=== PATIENT | female | born 1960 | race Caucasian/White ===

== ENCOUNTER 2022-05-27 13:48 | Inpatient (IN) | payer OTHER, MEDICAID, SELFPAY ==
[2022-05-27] VITALS (92 sets, daily range): BP systolic 69–120; BP diastolic 38–63; PULSE 81–142; RESP 11–32; TEMP 36.7–38.7; O2SAT 76–100; BMI 25.7
[2022-05-27] MEDS: SODIUM CHLORIDE 0.9% 1,000 ML 1000 ML IV (14:19)
[2022-05-27 14:26] LABS: Add Manual Diff / Slide Review NO; Basophils Absolute Auto 0 /uL (0-100); Basophils Percent Auto 1.3 % (0-2); Eosinophils Absolute Auto 0 /uL (0-450); Eosinophils Percent Auto 1.3 % (2-4); Hematocrit 24.3 % (36-46); Hemoglobin 8.6 g/dL (12.0-16.0); Lymphocytes Absolute Auto 400 /uL (1100-4500); Lymphocytes Percent Auto 18.1 % (25-40); Mean Corpuscular HGB Conc 35.4 % (30-36); Mean Corpuscular Hemoglobin 36.4 PG (26-34); Mean Corpuscular Volume 102.8 fL (80-100); Monocytes Absolute Auto 100 /uL (0-900); Monocytes Percent Auto 5.1 % (3-14); Neutrophils Absolute Auto 1600 /uL (1500-7000); Neutrophils Percent Auto 74.2 % (50-75); Platelet Count 118 X10^3/uL (150-400); Red Blood Cell Count 2.36 X10^6/uL (4.0-5.2); Red Cell Distribution Width 20.8 % (11.6-14.8); White Blood Cell Count 2.1 X10^3/uL (4.5-11.0)
[2022-05-27 14:35] LABS: Albumin 3.4 g/dL (3.5-5.0); Alkaline Phosphatase 132 U/L (38-126); Aspartate Aminotransferase 33 IU/L (14-36); BUN Creatinine Ratio 24.2 (6-22); Bilirubin Total 1.6 mg/dL (0.2-1.3); Blood Urea Nitrogen 23 mg/dL (7-17); Carbon Dioxide 30 mmol/L (22-32); Chloride 92 mmol/L (98-107); Estimated Glomerular Filt Rate > 60 mL/min (>60); Globulin 3.5 g/dL (1.7-4.1); Glucose 152 mg/dL (80-110); HEMOLYSIS < 15 (0-50); Lipase 126 U/L (23-300); Sodium 131 mmol/L (137-145); Total Protein 6.9 g/dL (6.3-8.2)
[2022-05-27 14:36] LABS: Potassium 2.2 mmol/L (3.4-5.1)
[2022-05-27 14:41] LABS: Alanine Aminotransferase 41 IU/L (<35)
[2022-05-27 14:49] LABS: Anisocytosis 2+; Macrocytosis 2+
[2022-05-27 14:50] LABS: Platelet Estimate Decreased on smear; Polychromasia 1+
--- NOTE | 2022-05-27 14:52 | ED_ITS ---
HPI - Nausea/Vomiting/Diarrhea General Chief complaint: Nausea/Vomiting/Diarrhea Stated complaint: NVD Time Seen by Provider: 05/27/22 14:32 Source: patient and EMS Mode of arrival: EMS History of Present Illness HPI Narrative: Patient brought in by ambulance from home. Patient here with daughter. Complains of general malaise weakness nausea vomiting diarrhea. Blood pressure and heart rate noted. Has responded by IV hydration. Patient has history of metastatic breast cancer to the spine and pelvis. Just finished some radiation therapy. Patient sees primary care and oncology in [place]. Patient has had few episodes of black stools. Has history anemia. No prior history of transfusions. She states her hemoglobin averages about 8.0. Gets very tired and short of breath with walking. Feels very weak. Patient has pale con junctiva. No cough cold congestion. Related Data Home Medications Medication Instructions Recorded Confirmed abemaciclib 150 mg tablet 150 mg PO BID 05/28/22 05/28/22 (Verzenio) apixaban 5 mg tablet (Eliquis) 5 mg PO BID 05/28/22 05/28/22 letrozole 2.5 mg tablet 2.5 mg PO DAILY 05/28/22 05/28/22 rosuvastatin 20 mg tablet 20 mg PO QPM 05/28/22 05/28/22 Previous Rx's Medication Instructions Recorded vancomycin 125 mg capsule 125 mg PO QID #48 caps 05/30/22 Allergies Allergy/AdvReac Type Severity Reaction Status Date / Time No Known Drug Allergies Allergy Verified 05/27/22 18:53 Review of Systems Review of Systems Narrative: GENERAL: negative chills, positive fatigue, malaise, negative fever, sweats. HEENT: negative sinus pain, ear pain, sore throat RESPIRATORY: negative dyspnea, cough CARDIOVASCULAR: negative chest pain, palpitations GASTROINTESTINAL: Positive diarrhea and nausea, vomiting, negative abdominal pain : negative dysuria, frequency, hematuria, positive decreased urine production MUSCULOSKELETAL: negative muscle or bony pain SKIN: negative rash, skin lesions NEUROLOGIC: negative weakness, numbness ROS Unobtainable: All systems reviewed & are unremarkable except as noted in HPI and below Patient History Social History household members: none Smoking Status: Never smoker alcohol intake: former Exam Narrative Exam Narrative: GENERAL: in no distress, not toxic not dyspneic, fatigued-appearing HEAD: Normocephalic. EYES: Pupils equal round No scleral icterus. Pale conjunctivae ENT: Mucous membranes moist. NECK: Trachea midline. CARDIOVASCULAR: Regular rate and rhythm without murmurs, is tachycardic RESPIRATORY: Clear to auscultation. Breath sounds equal bilaterally. No wheezes, rales, or rhonchi. GASTROINTESTINAL: Abdomen soft, non-tender, no peritoneal signs, bowel sounds are present EXTREMITIES: No gross deformities. BACK: No flank tenderness. NEURO: AOx4. SKIN: Warm and dry PSYCH: Not anxious, is cooperative Initial Vital Signs Initial Vital Signs: Vital Signs Temperature 98.1 F 05/27/22 13:57 Pulse Rate 113 H 05/27/22 13:57 Respiratory Rate 20 05/27/22 13:57 Blood Pressure 91/60 05/27/22 13:57 Pulse Oximetry 98 05/27/22 13:57 Oxygen Delivery Method 05/27/22 13:57 Procedures Central Line Placement Right Femoral: Time of procedure: 18:16 Time Out Performed: Yes Patient Placed on Monitor/Pulse Ox: Yes MD Prep: mask, gown and gloves Central Line Prep: Chlorhexidine scrub and sterile drapes applied Local Anesthetic: lidocaine 1% Amount of anesthesia used (mL): 3 Ultrasound Used for Placement: Yes Central Line Lumen Inserted: triple Post Procedure: sutured in place, good blood return, all ports aspirated, flushed, capped and sterile dressing applied Patient Tolerated Procedure: Well Complications: none Course Course Course Narrative: No new issues during course of stay Decision to Admit Date: 05/27/22 Decision to Admit time: 14:55 Orders Ordered: Discontinued Medications Acetaminophen (Acetaminophen 650 Mg Supp) 650 mg [place] NOW ONE Stop: 05/27/22 17:07 Last Admin: 05/27/22 17:29 Dose: 650 mg Documented By: ANNE-MARIE Acetaminophen (Acetaminophen 325 Mg Tablet) 650 mg PO Q6H PRN PRN Reason: Fever/Mild Pain (1-3) Apixaban (Apixaban 5 Mg Tablet) 5 mg PO BID [facility] Last Admin: 05/27/22 21:43 Dose: 5 mg Documented By: RAFA Calcium Carbonate (Calcium Carbonate 500 Mg Tab) 500 mg PO PRN PRN PRN Reason: Dyspepsia Last Admin: 05/28/22 19:35 Dose: 500 mg Documented By: Admin: 05/28/22 17:03 Dose: 500 mg Documented By: Admin: 05/28/22 13:11 Dose: 500 mg Documented By: Admin: 05/28/22 01:24 Dose: 500 mg Documented By: RAFA Diphenhydramine HCl (Diphenhydramine 50 Mg/Ml Vial) 25 mg IV PRN PRN PRN Reason: Transfusion Reaction Diphenhydramine HCl (Diphenhydramine 25 Mg Tablet) 25 mg PO Q6H PRN PRN Reason: Allergic Symptoms Enoxaparin Sodium (Enoxaparin 40 Mg/0.4 Ml Syringe) 40 mg SUBCUT DAILY [facility] Last Admin: 05/27/22 20:31 Dose: Not Given Documented By: ALDO Fidaxomicin (Fidaxomicin 200 Mg Tablet) 200 mg PO BID [facility] Last Admin: 05/28/22 23:14 Dose: 200 mg Documented By: BAYLEE Heparin Sodium (Porcine) (Heparin Flush (Cl/Picc/Mid-Line) 50 Unit/5 Ml Syringe) 50 unit IV PRN PRN PRN Reason: Flush Hydrocortisone (Hydrocortisone 100 Mg/2 Ml Vial) 50 mg IV Q6HR [facility] Last Admin: 05/29/22 05:50 Dose: 50 mg Documented By: Admin: 05/28/22 23:14 Dose: 50 mg Documented By: Admin: 05/28/22 17:52 Dose: 50 mg Documented By: Admin: 05/28/22 11:12 Dose: 50 mg Documented By: Admin: 05/28/22 06:11 Dose: 50 mg Documented By: Admin: 05/27/22 23:28 Dose: 50 mg Documented By: RAFA Sodium Chloride (Normal Saline 0.9%) 1,000 mls @ 1,000 mls/hr IV BOLUS ONE Stop: 05/27/22 15:13 Last Infusion: 05/27/22 15:16 Dose: 0 mls/hr Documented By: Admin: 05/27/22 14:19 Dose: 1,000 mls/hr Documented By: HENRY POTASSIUM CHLORIDE IN WATER (Potassium Cl 10 Meq/100 Ml Rhianna) 10 meq in 100 mls @ 100 mls/hr IV Q1H [facility]ARYC[facility]EN Stop: 05/27/22 16:59 Last Infusion: 05/27/22 17:30 Dose: 0 mls/hr Documented By: ANNE-MARIE Admin: 05/27/22 16:12 Dose: 100 mls/hr Documented By: Infusion: 05/27/22 16:09 Dose: 0 mls/hr Documented By: Infusion: 05/27/22 15:21 Dose: 100 mls/hr Documented By: Infusion: 05/27/22 15:08 Dose: 0 mls/hr Documented By: ANNE-MARIE Admin: 05/27/22 14:59 Dose: 100 mls/hr Documented By: ALDO Lactated Ringer's (Lactated Ringers) 1,000 mls @ 1,000 mls/hr IV BOLUS ONE Stop: 05/27/22 16:59 Last Infusion: 05/27/22 18:06 Dose: 0 mls/hr Documented By: ANNE-MARIE Admin: 05/27/22 16:13 Dose: 1,000 mls/hr Documented By: ALDO Piperacillin Sod/Tazobactam (Sod 4.5 gm/ Sodium Chloride) 100 mls @ 200 mls/hr IV NOW ONE Stop: 05/27/22 17:10 Last Infusion: 05/27/22 18:48 Dose: 0 mls/hr Documented By: Admin: 05/27/22 17:56 Dose: 200 mls/hr Documented By: ANNE-MARIE POTASSIUM CHLORIDE IN WATER (Potassium Cl 10 Meq/100 Ml Rhianna) 10 meq in 100 mls @ 100 mls/hr IV Q1H [facility]EN Stop: 05/27/22 19:29 Last Infusion: 05/27/22 19:34 Dose: 0 mls/hr Documented By: Admin: 05/27/22 18:30 Dose: 100 mls/hr Documented By: ANNE-MARIE Infusion: 05/27/22 18:30 Dose: 100 mls/hr Documented By: ANNE-MARIE Admin: 05/27/22 17:32 Dose: 100 mls/hr Documented By: ANNE-MARIE NOREPINEPHRINE BITARTRATE/D5W (Levophed) 4 mg in 250 mls @ 30 mls/hr IV TITRATE MARYCARMEN; Protocol Last Titration: 05/28/22 15:25 Dose: 0 mcg/min, 0 mls/hr Documented By: Titration: 05/28/22 13:15 Dose: 1 mcg/min, 3.75 mls/hr Documented By: Titration: 05/28/22 13:13 Dose: 0 mcg/min, 0 mls/hr Documented By: Titration: 05/28/22 12:17 Dose: 1 mcg/min, 3.75 mls/hr Documented By: Titration: 05/28/22 11:15 Dose: 2 mcg/min, 7.5 mls/hr Documented By: Titration: 05/28/22 09:44 Dose: 3 mcg/min, 11.25 mls/hr Documented By: Titration: 05/28/22 08:54 Dose: 4 mcg/min, 15 mls/hr Documented By: Admin: 05/28/22 07:32 Dose: 5 mcg/min, 18.75 mls/hr Documented By: Titration: 05/28/22 07:32 Dose: 5 mcg/min, 18.75 mls/hr Documented By: Titration: 05/27/22 23:45 Dose: 5 mcg/min, 18.75 mls/hr Documented By: Titration: 05/27/22 21:47 Dose: 4 mcg/min, 15 mls/hr Documented By: Titration: 05/27/22 18:54 Dose: 3 mcg/min, 11.25 mls/hr Documented By: ANNE-MARIE Admin: 05/27/22 18:10 Dose: 4 mcg/min, 15 mls/hr Documented By: ANNE-MARIE Cefepime HCl 2 gm/ Sodium (Chloride) 100 mls @ 200 mls/hr IV Q12H MARYCARMEN Last Infusion: 05/29/22 17:17 Dose: 0 mls/hr Documented By: Admin: 05/29/22 05:50 Dose: 200 mls/hr Documented By: Infusion: 05/28/22 18:30 Dose: 0 mls/hr Documented By: Admin: 05/28/22 17:52 Dose: 200 mls/hr Documented By: Infusion: 05/28/22 07:11 Dose: 0 mls/hr Documented By: Admin: 05/28/22 06:12 Dose: 200 mls/hr Documented By: Infusion: 05/27/22 19:51 Dose: 0 mls/hr Documented By: Admin: 05/27/22 19:02 Dose: 200 mls/hr Documented By: ANNE-MARIE Piperacillin Sod/Tazobactam (Sod 3.375 gm/ Sodium Chloride) 100 mls @ 25 mls/hr IV Q8H [facility] Last Admin: 05/28/22 12:57 Dose: Not Given Documented By: Infusion: 05/28/22 04:08 Dose: 0 mls/hr Documented By: Admin: 05/27/22 23:29 Dose: 25 mls/hr Documented By: RAFA Linezolid (Zyvox) 600 mg in 300 mls @ 600 mls/hr IV Q12H [facility] Last Infusion: 05/28/22 21:30 Dose: 0 mls/hr Documented By: Admin: 05/28/22 20:42 Dose: 600 mls/hr Documented By: Infusion: 05/28/22 09:28 Dose: 0 mls/hr Documented By: Admin: 05/28/22 08:58 Dose: 600 mls/hr Documented By: Infusion: 05/28/22 00:12 Dose: 0 mls/hr Documented By: Admin: 05/27/22 22:59 Dose: 600 mls/hr Documented By: RAFA Lactated Ringer's (Lactated Ringers) 1,000 mls @ 125 mls/hr IV CONT [facility] Last Infusion: 05/29/22 17:17 Dose: 0 mls/hr Documented By: Infusion: 05/29/22 12:41 Dose: 0 mls/hr Documented By: Admin: 05/29/22 05:02 Dose: 125 mls/hr Documented By: Infusion: 05/29/22 04:42 Dose: 125 mls/hr Documented By: Admin: 05/28/22 20:42 Dose: 125 mls/hr Documented By: Infusion: 05/28/22 20:42 Dose: 125 mls/hr Documented By: Admin: 05/28/22 13:11 Dose: 125 mls/hr Documented By: Infusion: 05/28/22 13:11 Dose: 125 mls/hr Documented By: Admin: 05/28/22 05:14 Dose: 125 mls/hr Documented By: Infusion: 05/28/22 05:14 Dose: 125 mls/hr Documented By: Admin: 05/27/22 23:30 Dose: 125 mls/hr Documented By: RAFA POTASSIUM CHLORIDE IN WATER (Potassium Cl 10 Meq/100 Ml Rhianna) 10 meq in 100 mls @ 100 mls/hr IV Q1H [facility]ARYCARMEN Stop: 05/28/22 04:59 Last Infusion: 05/28/22 06:07 Dose: 0 mls/hr Documented By: [facility] Admin: 05/28/22 05:14 Dose: 100 mls/hr Documented By: [facility] Infusion: 05/28/22 05:13 Dose: 0 mls/hr Documented By: [facility] Admin: 05/28/22 04:08 Dose: 100 mls/hr Documented By: [facility] Infusion: 05/28/22 04:07 Dose: 0 mls/hr Documented By: [facility] Admin: 05/28/22 02:55 Dose: 100 mls/hr Documented By: [facility] Infusion: 05/28/22 02:55 Dose: 0 mls/hr Documented By: [facility] Admin: 05/28/22 02:05 Dose: 100 mls/hr Documented By: [facility] Infusion: 05/28/22 02:05 Dose: 0 mls/hr Documented By: [facility] Admin: 05/28/22 00:50 Dose: 100 mls/hr Documented By: [facility] Infusion: 05/28/22 00:46 Dose: 0 mls/hr Documented By: [facility] Admin: 05/27/22 23:28 Dose: 100 mls/hr Documented By: RAFA Amiodarone HCl/Dextrose (Nexterone) 360 mg in 200 mls @ 33.333 mls/hr IV NOW ONE; Protocol Stop: 05/28/22 05:53 Last Titration: 05/28/22 00:13 Dose: 0 ml/hr, 0 mls/hr Documented By: Admin: 05/28/22 00:11 Dose: 33.3 ml/hr, 33.3 mls/hr Documented By: BAYLEE Amiodarone HCl/Dextrose (Nexterone) 360 mg in 200 mls @ 16.7 mls/hr IV CONT MARYCARMEN; Protocol Stop: 05/28/22 17:59 Last Admin: 05/28/22 06:13 Dose: Not Given Documented By: RAFA Lactated Ringer's (Lactated Ringers) 500 mls @ 1,000 mls/hr IV BOLUS ONE Stop: 05/28/22 00:25 Last Infusion: 05/28/22 01:07 Dose: 0 mls/hr Documented By: [facility] Admin: 05/28/22 00:00 Dose: 1,000 mls/hr Documented By: RAFA Piperacillin Sod/Tazobactam (Sod 3.375 gm/ Sodium Chloride) 100 mls @ 25 mls/hr IV Q8H [facility] Last Infusion: 05/29/22 03:15 Dose: 0 mls/hr Documented By: Admin: 05/28/22 23:13 Dose: 25 mls/hr Documented By: Infusion: 05/28/22 19:50 Dose: 0 mls/hr Documented By: Admin: 05/28/22 15:43 Dose: 25 mls/hr Documented By: Infusion: 05/28/22 11:36 Dose: 0 mls/hr Documented By: Admin: 05/28/22 07:36 Dose: 25 mls/hr Documented By: KT POTASSIUM CHLORIDE IN WATER (Potassium Cl 10 Meq/100 Ml Rhianna) 10 meq in 100 mls @ 100 mls/hr IV Q1H [facility]ARYCARMEN Stop: 05/28/22 13:44 Last Admin: 05/28/22 13:14 Dose: 100 mls/hr Documented By: Infusion: 05/28/22 13:14 Dose: 100 mls/hr Documented By: Admin: 05/28/22 12:15 Dose: 100 mls/hr Documented By: Infusion: 05/28/22 12:12 Dose: 0 mls/hr Documented By: Admin: 05/28/22 11:12 Dose: 100 mls/hr Documented By: Infusion: 05/28/22 11:11 Dose: 100 mls/hr Documented By: Admin: 05/28/22 10:11 Dose: 100 mls/hr Documented By: KT POTASSIUM CHLORIDE IN WATER (Potassium Cl 10 Meq/100 Ml Rhianna) 10 meq in 100 mls @ 100 mls/hr IV Q1H [facility]EN Stop: 05/29/22 01:29 Last Admin: 05/29/22 02:57 Dose: Not Given Documented By: Infusion: 05/29/22 02:56 Dose: 0 mls/hr Documented By: Admin: 05/29/22 01:51 Dose: 100 mls/hr Documented By: Infusion: 05/29/22 01:35 Dose: 100 mls/hr Documented By: Admin: 05/29/22 00:35 Dose: 100 mls/hr Documented By: Infusion: 05/29/22 00:13 Dose: 100 mls/hr Documented By: Admin: 05/28/22 23:13 Dose: 100 mls/hr Documented By: Infusion: 05/28/22 22:46 Dose: 100 mls/hr Documented By: Admin: 05/28/22 21:46 Dose: 100 mls/hr Documented By: Infusion: 05/28/22 21:42 Dose: 100 mls/hr Documented By: Admin: 05/28/22 20:42 Dose: 100 mls/hr Documented By: BAYLEE Melatonin (Melatonin 3 Mg Tablet) 6 mg PO BEDTIME PRN PRN Reason: Insomnia Metoclopramide HCl (Metoclopramide 10 Mg/2 Ml Inj) 10 mg IV NOW ONE Stop: 05/27/22 17:55 Last Admin: 05/27/22 18:49 Dose: Not Given Documented By: ANNE-MARIE Metronidazole (Metronidazole 500 Mg Tablet) 500 mg PO TID [facility] Last Admin: 05/28/22 12:57 Dose: Not Given Documented By: Admin: 05/28/22 12:57 Dose: Not Given Documented By: SUBHASH Naloxone HCl (Naloxone 0.4 Mg/Ml Vial) 0.2 mg IV Q2MIN PRN PRN Reason: Opiate Reversal Ondansetron HCl (Ondansetron 4 Mg/2 Ml Inj) 4 mg IV Q4HR PRN PRN Reason: Nausea And Vomiting Pantoprazole Sodium (Pantoprazole 40 Mg Vial) 20 mg IV BID [facility] Last Admin: 05/29/22 09:23 Dose: 20 mg Documented By: Admin: 05/28/22 21:57 Dose: 20 mg Documented By: BAYLEE Potassium Chloride (Potassium Chloride 20 Meq/15 Ml Udc) 40 meq PO NOW ONE Stop: 05/27/22 14:51 Last Admin: 05/27/22 15:30 Dose: Not Given Documented By: RB Potassium Chloride (Potassium Chloride 20 Meq Tab) 40 meq PO NOW ONE Stop: 05/30/22 07:11 Last Admin: 05/30/22 08:35 Dose: 40 meq Documented By: RL Sodium Chloride (Sodium Chloride 0.9% Flush) 10 ml IV PRN PRN PRN Reason: Flush Sodium Chloride (Sodium Chloride 0.9% Flush) 10 ml IV BID [facility] Last Admin: 05/29/22 09:23 Dose: 10 ml Documented By: Admin: 05/28/22 21:27 Dose: 10 ml Documented By: Admin: 05/28/22 08:58 Dose: 10 ml Documented By: KT Sodium Chloride (Sodium Chloride 0.9% Flush) 10 ml IV PRN PRN PRN Reason: Flush Sodium Chloride (Sodium Chloride 0.9% Flush) 10 ml IV BID [facility] Last Admin: 05/30/22 01:23 Dose: 10 ml Documented By: CHANNING Vancomycin HCl (Vancomycin Per Pharmacy) 1 request MISC NOW ONE Stop: 05/27/22 18:28 Last Admin: 05/28/22 03:05 Dose: Not Given Documented By: RAFA Vancomycin HCl (Vancomycin 125 Mg Capsule) 500 mg PO Q6H [facility] Stop: 06/12/22 07:14 Last Admin: 05/30/22 18:15 Dose: 500 mg Documented By: Admin: 05/30/22 12:46 Dose: 500 mg Documented By: Admin: 05/30/22 08:35 Dose: 500 mg Documented By: Admin: 05/30/22 01:24 Dose: 500 mg Documented By: Admin: 05/29/22 18:53 Dose: 500 mg Documented By: Admin: 05/29/22 12:34 Dose: 500 mg Documented By: Admin: 05/29/22 08:07 Dose: 500 mg Documented By: Reevaluation(s) Reevaluation #1: Patient developed altered mental status/confusion. Rectal temp is 101.5. Rectal Tylenol has been ordered. Time: 17:08 Consultations Consultation #1: Spoke with Cardiology, Dr. Gonzalez, on-call, at this time no heparin, would not pursue non-STEMI. Given patient's condition and dehydration may be stress related elevated troponin. Would get echocardiogram during course of stay. Time: 16:00 Consultation #2: Spoke with hospitalist, Dr. Sanches, will admit to ICU Time: 18:23 Vital Signs Vital signs: Vital Signs - 8 hr 05/27/22 13:57 05/27/22 14:26 05/27/22 14:13 Temperature 98.1 F 99.1 F Pulse Rate 113 H 105 H Respiratory Rate 20 24 Blood Pressure 91/60 Pulse Oximetry 98 100 Oxygen Delivery Method Room Air 05/27/22 14:30 05/27/22 14:39 05/27/22 14:39 Temperature Pulse Rate 105 H 104 H Respiratory Rate 27 H 22 Blood Pressure 92/42 L Pulse Oximetry 100 100 Oxygen Delivery Method 05/27/22 14:51 05/27/22 14:51 05/27/22 14:55 Temperature Pulse Rate 103 H 101 H Respiratory Rate 27 H 25 H Blood Pressure 82/51 L Pulse Oximetry 100 100 Oxygen Delivery Method 05/27/22 14:55 05/27/22 15:00 05/27/22 15:01 Temperature Pulse Rate 100 H 102 H Respiratory Rate 24 32 H Blood Pressure 89/55 L Pulse Oximetry 100 100 Oxygen Delivery Method Room Air 05/27/22 15:01 05/27/22 15:05 05/27/22 15:05 Temperature Pulse Rate 102 H Respiratory Rate 23 Blood Pressure 83/47 L 101/50 L Pulse Oximetry 99 Oxygen Delivery Method 05/27/22 15:10 05/27/22 15:10 05/27/22 15:15 Temperature Pulse Rate 102 H Respiratory Rate Blood Pressure 98/52 L 97/55 L Pulse Oximetry 100 Oxygen Delivery Method 05/27/22 15:15 05/27/22 15:17 05/27/22 15:17 Temperature Pulse Rate 100 H 99 H Respiratory Rate 21 25 H Blood Pressure 104/61 Pulse Oximetry 100 100 Oxygen Delivery Method 05/27/22 15:20 05/27/22 15:20 05/27/22 15:25 Temperature Pulse Rate 101 H Respiratory Rate 19 Blood Pressure 101/59 L 100/58 L Pulse Oximetry 100 Oxygen Delivery Method 05/27/22 15:25 05/27/22 15:30 05/27/22 15:30 Temperature Pulse Rate 103 H 100 H Respiratory Rate 22 23 Blood Pressure 100/57 L Pulse Oximetry 100 100 Oxygen Delivery Method 05/27/22 15:35 05/27/22 15:35 05/27/22 15:40 Temperature Pulse Rate 104 H Respiratory Rate 23 Blood Pressure 100/58 L 95/52 L Pulse Oximetry 100 Oxygen Delivery Method 05/27/22 15:40 05/27/22 15:45 05/27/22 15:45 Temperature Pulse Rate 101 H 98 H Respiratory Rate 24 Blood Pressure 85/51 L Pulse Oximetry 100 100 Oxygen Delivery Method 05/27/22 15:48 05/27/22 15:48 05/27/22 15:50 Temperature Pulse Rate 101 H Respiratory Rate 22 Blood Pressure 98/55 L 86/56 L Pulse Oximetry 100 Oxygen Delivery Method 05/27/22 15:50 05/27/22 15:55 05/27/22 16:00 Temperature 99.7 F H Pulse Rate 100 H Respiratory Rate 19 Blood Pressure 83/56 L Pulse Oximetry 100 Oxygen Delivery Method 05/27/22 16:00 05/27/22 16:03 05/27/22 16:03 Temperature Pulse Rate 102 H 103 H Respiratory Rate 28 H 18 Blood Pressure 95/52 L Pulse Oximetry 100 100 Oxygen Delivery Method 05/27/22 16:10 05/27/22 16:10 05/27/22 16:20 Temperature Pulse Rate 104 H 106 H Respiratory Rate 15 17 Blood Pressure 96/51 L Pulse Oximetry 100 100 Oxygen Delivery Method 05/27/22 16:20 05/27/22 16:30 05/27/22 16:30 Temperature Pulse Rate 111 H Respiratory Rate 15 Blood Pressure 86/53 L 96/51 L Pulse Oximetry 100 Oxygen Delivery Method 05/27/22 16:40 05/27/22 16:40 05/27/22 16:43 Temperature Pulse Rate 116 H Respiratory Rate 22 Blood Pressure 87/54 L 94/51 L Pulse Oximetry 76 L Oxygen Delivery Method 05/27/22 16:43 05/27/22 16:50 05/27/22 16:50 Temperature 100.4 F H Pulse Rate 113 H 109 H Respiratory Rate 22 20 Blood Pressure 92/55 L Pulse Oximetry 97 Oxygen Delivery Method 05/27/22 16:51 05/27/22 16:51 05/27/22 17:00 Temperature 100.6 F H 101.5 F H Pulse Rate 109 H 107 H Respiratory Rate 23 Blood Pressure 96/51 L Pulse Oximetry 100 98 Oxygen Delivery Method 05/27/22 17:04 05/27/22 17:04 05/27/22 17:06 Temperature 101.5 F H Pulse Rate 110 H Respiratory Rate Blood Pressure 94/47 L 82/46 L Pulse Oximetry 100 Oxygen Delivery Method 05/27/22 17:06 05/27/22 17:10 05/27/22 17:10 Temperature 101.3 F H 101.5 F H Pulse Rate 112 H 112 H Respiratory Rate Blood Pressure 85/51 L Pulse Oximetry 100 93 Oxygen Delivery Method MDM - Nausea/Vomiting/Diarrhea Differential Diagnosis Differential diagnosis: Likely drug-induced nausea and vomiting, dehydration and other (Anemia/GI bleed/dehydration/electrolyte imbalance/sepsis) Lab Data Result diagrams: 05/30/22 04:17 05/30/22 04:17 Labs: Lab Results 05/27/22 05/27/22 05/27/22 Range/Units 13:56 13:56 13:56 WBC 2.1 L (4.5-11.0) X10^3/uL RBC 2.36 L (4.0-5.2) X10^6/uL Hgb 8.6 L (12.0-16.0) g/dL Hct 24.3 L (36-46) % MCV 102.8 H (80-100) fL MCH 36.4 H (26-34) PG MCHC 35.4 (30-36) % RDW 20.8 H (11.6-14.8) % Plt Count 118 L (150-400) X10^3/uL Neut % (Auto) 74.2 (50-75) % Lymph % (Auto) 18.1 L (25-40) % [place] % (Auto) 5.1 (3-14) % Eos % (Auto) 1.3 L (2-4) % Baso % (Auto) 1.3 (0-2) % Neut # (Auto) 1600 (0482-0272) /uL Lymph # (Auto) 400 L (4467-2721) /uL [place] # (Auto) 100 (0-900) /uL Eos # (Auto) 0 (0-450) /uL Baso # (Auto) 0 (0-100) /uL Platelet Estimate Decreased on smear RBC Morphology See below Polychromasia 1+ H Anisocytosis 2+ H Macrocytosis 2+ H PT (10.1-12.7) SECONDS INR (0.9-1.3) APTT (26-36) SECONDS Sodium 131 L (137-145) mmol/L Potassium 2.2 L* (3.4-5.1) mmol/L Chloride 92 L (98-107) mmol/L Carbon Dioxide 30 (22-32) mmol/L BUN 23 H (7-17) mg/dL Creatinine 0.95 (0.52-1.04) mg/dL Estimated GFR > 60 (>60) mL/min BUN/Creatinine Ratio 24.2 H (6-22) Glucose 152 H (80-110) mg/dL Lactate 5.2 H* (0.7-2.1) mmol/L Calcium 9.0 (8.4-10.2) mg/dL Magnesium (1.6-2.3) mg/dL Total Bilirubin 1.6 H (0.2-1.3) mg/dL AST 33 (14-36) IU/L ALT 41 H (<35) IU/L Alkaline Phosphatase 132 H (38-126) U/L Total Creatine Kinase (30-135) U/L CK-MB (CK-2) CK-MB (CK-2) Rel Index Troponin I (0.01-0.034) ng/mL Total Protein 6.9 (6.3-8.2) g/dL Albumin 3.4 L (3.5-5.0) g/dL Globulin 3.5 (1.7-4.1) g/dL Albumin/Globulin Ratio 1.0 (1.0-2.8) Lipase 126 (23-300) U/L Procalcitonin (<0.5) ng/mL Urine Color Urine Appearance Urine pH (4.5-8.0) Ur Specific [place] (1.000-1.035) Urine Protein (Negative) Urine Glucose (UA) (Negative) g/dL Urine Ketones (NEGATIVE) Urine Occult Blood (Negative) Urine Nitrate (Negative) Urine Bilirubin (NEGATIVE) Urine Urobilinogen (0.2) E.U./dL Ur Leukocyte Esterase (NEGATIVE) Urine RBC (0-5/HPF) Urine WBC (0-5/HPF) Ur Squamous Epith Cells (0-5/HPF) Urine Bacteria (None) Urine Mucus (Negative) Ur Culture Indicated? Chlamy pneumoniae PCR (Not Detect) Adenovirus (PCR) (Not Detect) B. pertussis DNA (PCR) (Not Detecte) B.parapertussis DNA PCR (Not Detecte) Coronavirus OC43 (PCR) (Not Detect) Coronavirus HKU1 (PCR) (Not Detect) Coronavirus 229E (PCR) (Not Detect) SARS-CoV-2 (PCR) (Not Detecte) Coronavirus NL63 (PCR) (Not Detect) Human Metapneumovir PCR (Not Detect) Influenza Type A (PCR) (Not Detect) Influenza Type B (PCR) (Not Detect) M. pneumoniae (PCR) (Not Detect) Parainfluenza 1 (PCR) (Not Detect) Parainfluenza 2 (PCR) (Not Detect) Parainfluenza 3 (PCR) (Not Detect) Parainfluenza 4 (PCR) (Not Detect) RSV (PCR) (Not Detect) Entero/Rhino (PCR) (Not Detect) Blood Type Antibody Screen Crossmatch 05/27/22 05/27/22 05/27/22 Range/Units 13:56 13:56 14:16 WBC (4.5-11.0) X10^3/uL RBC (4.0-5.2) X10^6/uL Hgb (12.0-16.0) g/dL Hct (36-46) % MCV (80-100) fL MCH (26-34) PG MCHC (30-36) % RDW (11.6-14.8) % Plt Count (150-400) X10^3/uL Neut % (Auto) (50-75) % Lymph % (Auto) (25-40) % [place] % (Auto) (3-14) % Eos % (Auto) (2-4) % Baso % (Auto) (0-2) % Neut # (Auto) (2996-1833) /uL Lymph # (Auto) (6828-5694) /uL [place] # (Auto) (0-900) /uL Eos # (Auto) (0-450) /uL Baso # (Auto) (0-100) /uL Platelet Estimate RBC Morphology Polychromasia Anisocytosis Macrocytosis PT 29.8 H (10.1-12.7) SECONDS INR 2.6 H (0.9-1.3) APTT 29 (26-36) SECONDS Sodium (137-145) mmol/L Potassium (3.4-5.1) mmol/L Chloride (98-107) mmol/L Carbon Dioxide (22-32) mmol/L BUN (7-17) mg/dL Creatinine (0.52-1.04) mg/dL Estimated GFR (>60) mL/min BUN/Creatinine Ratio (6-22) Glucose (80-110) mg/dL Lactate (0.7-2.1) mmol/L Calcium (8.4-10.2) mg/dL Magnesium (1.6-2.3) mg/dL Total Bilirubin (0.2-1.3) mg/dL AST (14-36) IU/L ALT (<35) IU/L Alkaline Phosphatase (38-126) U/L Total Creatine Kinase (30-135) U/L CK-MB (CK-2) CK-MB (CK-2) Rel Index Troponin I (0.01-0.034) ng/mL Total Protein (6.3-8.2) g/dL Albumin (3.5-5.0) g/dL Globulin (1.7-4.1) g/dL Albumin/Globulin Ratio (1.0-2.8) Lipase (23-300) U/L Procalcitonin 0.17 (<0.5) ng/mL Urine Color Urine Appearance Urine pH (4.5-8.0) Ur Specific [place] (1.000-1.035) Urine Protein (Negative) Urine Glucose (UA) (Negative) g/dL Urine Ketones (NEGATIVE) Urine Occult Blood (Negative) Urine Nitrate (Negative) Urine Bilirubin (NEGATIVE) Urine Urobilinogen (0.2) E.U./dL Ur Leukocyte Esterase (NEGATIVE) Urine RBC (0-5/HPF) Urine WBC (0-5/HPF) Ur Squamous Epith Cells (0-5/HPF) Urine Bacteria (None) Urine Mucus (Negative) Ur Culture Indicated? Chlamy pneumoniae PCR Not detected (Not Detect) Adenovirus (PCR) Not detected (Not Detect) B. pertussis DNA (PCR) Not detected (Not Detecte) B.parapertussis DNA PCR Not detected (Not Detecte) Coronavirus OC43 (PCR) Not detected (Not Detect) Coronavirus HKU1 (PCR) Not detected (Not Detect) Coronavirus 229E (PCR) Not detected (Not Detect) SARS-CoV-2 (PCR) Not detected (Not Detecte) Coronavirus NL63 (PCR) Not detected (Not Detect) Human Metapneumovir PCR Not detected (Not Detect) Influenza Type A (PCR) Not detected (Not Detect) Influenza Type B (PCR) Not detected (Not Detect) M. pneumoniae (PCR) Not detected (Not Detect) Parainfluenza 1 (PCR) Not detected (Not Detect) Parainfluenza 2 (PCR) Not detected (Not Detect) Parainfluenza 3 (PCR) Not detected (Not Detect) Parainfluenza 4 (PCR) Not detected (Not Detect) RSV (PCR) Not detected (Not Detect) Entero/Rhino (PCR) Not detected (Not Detect) Blood Type Antibody Screen Crossmatch 05/27/22 05/27/22 05/27/22 Range/Units 14:40 15:02 15:02 WBC (4.5-11.0) X10^3/uL RBC (4.0-5.2) X10^6/uL Hgb (12.0-16.0) g/dL Hct (36-46) % MCV (80-100) fL MCH (26-34) PG MCHC (30-36) % RDW (11.6-14.8) % Plt Count (150-400) X10^3/uL Neut % (Auto) (50-75) % Lymph % (Auto) (25-40) % [place] % (Auto) (3-14) % Eos % (Auto) (2-4) % Baso % (Auto) (0-2) % Neut # (Auto) (7044-4001) /uL Lymph # (Auto) (0650-9197) /uL [place] # (Auto) (0-900) /uL Eos # (Auto) (0-450) /uL Baso # (Auto) (0-100) /uL Platelet Estimate RBC Morphology Polychromasia Anisocytosis Macrocytosis PT (10.1-12.7) SECONDS INR (0.9-1.3) APTT (26-36) SECONDS Sodium (137-145) mmol/L Potassium (3.4-5.1) mmol/L Chloride (98-107) mmol/L Carbon Dioxide (22-32) mmol/L BUN (7-17) mg/dL Creatinine (0.52-1.04) mg/dL Estimated GFR (>60) mL/min BUN/Creatinine Ratio (6-22) Glucose (80-110) mg/dL Lactate (0.7-2.1) mmol/L Calcium (8.4-10.2) mg/dL Magnesium 2.6 H (1.6-2.3) mg/dL Total Bilirubin (0.2-1.3) mg/dL AST (14-36) IU/L ALT (<35) IU/L Alkaline Phosphatase (38-126) U/L Total Creatine Kinase 71 (30-135) U/L CK-MB (CK-2) TNP CK-MB (CK-2) Rel Index TNP Troponin I 0.143 H* (0.01-0.034) ng/mL Total Protein (6.3-8.2) g/dL Albumin (3.5-5.0) g/dL Globulin (1.7-4.1) g/dL Albumin/Globulin Ratio (1.0-2.8) Lipase (23-300) U/L Procalcitonin (<0.5) ng/mL Urine Color Urine Appearance Urine pH (4.5-8.0) Ur Specific [place] (1.000-1.035) Urine Protein (Negative) Urine Glucose (UA) (Negative) g/dL Urine Ketones (NEGATIVE) Urine Occult Blood (Negative) Urine Nitrate (Negative) Urine Bilirubin (NEGATIVE) Urine Urobilinogen (0.2) E.U./dL Ur Leukocyte Esterase (NEGATIVE) Urine RBC (0-5/HPF) Urine WBC (0-5/HPF) Ur Squamous Epith Cells (0-5/HPF) Urine Bacteria (None) Urine Mucus (Negative) Ur Culture Indicated? Chlamy pneumoniae PCR (Not Detect) Adenovirus (PCR) (Not Detect) B. pertussis DNA (PCR) (Not Detecte) B.parapertussis DNA PCR (Not Detecte) Coronavirus OC43 (PCR) (Not Detect) Coronavirus HKU1 (PCR) (Not Detect) Coronavirus 229E (PCR) (Not Detect) SARS-CoV-2 (PCR) (Not Detecte) Coronavirus NL63 (PCR) (Not Detect) Human Metapneumovir PCR (Not Detect) Influenza Type A (PCR) (Not Detect) Influenza Type B (PCR) (Not Detect) M. pneumoniae (PCR) (Not Detect) Parainfluenza 1 (PCR) (Not Detect) Parainfluenza 2 (PCR) (Not Detect) Parainfluenza 3 (PCR) (Not Detect) Parainfluenza 4 (PCR) (Not Detect) RSV (PCR) (Not Detect) Entero/Rhino (PCR) (Not Detect) Blood Type A Positive Antibody Screen Negative Crossmatch See Detail 05/27/22 Range/Units 17:00 WBC (4.5-11.0) X10^3/uL RBC (4.0-5.2) X10^6/uL Hgb (12.0-16.0) g/dL Hct (36-46) % MCV (80-100) fL MCH (26-34) PG MCHC (30-36) % RDW (11.6-14.8) % Plt Count (150-400) X10^3/uL Neut % (Auto) (50-75) % Lymph % (Auto) (25-40) % [place] % (Auto) (3-14) % Eos % (Auto) (2-4) % Baso % (Auto) (0-2) % Neut # (Auto) (7330-1130) /uL Lymph # (Auto) (0562-7580) /uL [place] # (Auto) (0-900) /uL Eos # (Auto) (0-450) /uL Baso # (Auto) (0-100) /uL Platelet Estimate RBC Morphology Polychromasia Anisocytosis Macrocytosis PT (10.1-12.7) SECONDS INR (0.9-1.3) APTT (26-36) SECONDS Sodium (137-145) mmol/L Potassium (3.4-5.1) mmol/L Chloride (98-107) mmol/L Carbon Dioxide (22-32) mmol/L BUN (7-17) mg/dL Creatinine (0.52-1.04) mg/dL Estimated GFR (>60) mL/min BUN/Creatinine Ratio (6-22) Glucose (80-110) mg/dL Lactate (0.7-2.1) mmol/L Calcium (8.4-10.2) mg/dL Magnesium (1.6-2.3) mg/dL Total Bilirubin (0.2-1.3) mg/dL AST (14-36) IU/L ALT (<35) IU/L Alkaline Phosphatase (38-126) U/L Total Creatine Kinase (30-135) U/L CK-MB (CK-2) CK-MB (CK-2) Rel Index Troponin I (0.01-0.034) ng/mL Total Protein (6.3-8.2) g/dL Albumin (3.5-5.0) g/dL Globulin (1.7-4.1) g/dL Albumin/Globulin Ratio (1.0-2.8) Lipase (23-300) U/L Procalcitonin (<0.5) ng/mL Urine Color Yellow Urine Appearance Clear Urine pH 6.5 (4.5-8.0) Ur Specific [place] 1.015 (1.000-1.035) Urine Protein 1+ H (Negative) Urine Glucose (UA) Negative (Negative) g/dL Urine Ketones 1+ H (NEGATIVE) Urine Occult Blood Trace-lysed (Negative) Urine Nitrate Negative (Negative) Urine Bilirubin Negative (NEGATIVE) Urine Urobilinogen 1.0 (0.2) E.U./dL Ur Leukocyte Esterase Negative (NEGATIVE) Urine RBC 0-1/hpf (0-5/HPF) Urine WBC 5-10/hpf H (0-5/HPF) Ur Squamous Epith Cells 1-5 /hpf (0-5/HPF) Urine Bacteria Occasional (0-1) (None) Urine Mucus 1+ H (Negative) Ur Culture Indicated? Specimen cultured Chlamy pneumoniae PCR (Not Detect) Adenovirus (PCR) (Not Detect) B. pertussis DNA (PCR) (Not Detecte) B.parapertussis DNA PCR (Not Detecte) Coronavirus OC43 (PCR) (Not Detect) Coronavirus HKU1 (PCR) (Not Detect) Coronavirus 229E (PCR) (Not Detect) SARS-CoV-2 (PCR) (Not Detecte) Coronavirus NL63 (PCR) (Not Detect) Human Metapneumovir PCR (Not Detect) Influenza Type A (PCR) (Not Detect) Influenza Type B (PCR) (Not Detect) M. pneumoniae (PCR) (Not Detect) Parainfluenza 1 (PCR) (Not Detect) Parainfluenza 2 (PCR) (Not Detect) Parainfluenza 3 (PCR) (Not Detect) Parainfluenza 4 (PCR) (Not Detect) RSV (PCR) (Not Detect) Entero/Rhino (PCR) (Not Detect) Blood Type Antibody Screen Crossmatch Imaging Data Chest x-ray: Radiologist's Impression: [address] [address] XRay Report Signed Patient: Nancy Leahy MR#: [id number] : 1960 Acct:[id number] Age/Sex: 62 / F Date of Service: 05/27/22 Loc: ED Accession Number: [id number] ?? Procedure: XR chest 1V Ordering Provider: Matt Baeza MD PROCEDURE:? XR CHEST 1V ? INDICATIONS:? Cough ? TECHNIQUE:? One view of the chest was acquired.? ? COMPARISON:? Outside Film, CT, CT CHEST ABDOMEN PELVIS WITH CONTRAST, 04/06/2022, 7:07. ? FINDINGS:? ? Surgical changes and devices:? None.? ? Lungs and pleura:? On this semiupright portable chest examination, no large pneumothorax or large pleural effusions are seen.? No focal infiltrates are seen.? ? Mediastinum:? Mediastinal contours appear normal.? Heart size is normal.? ? Bones and chest wall:? No suspicious bony lesions.? Overlying soft tissues appear unremarkable.? ? ? IMPRESSION:? ? Portable chest within normal limits. ? ? ? Dictated by: Weston Caceres M.D. on 05/27/2022 at 15:01 ? ? Approved by: Weston Caceres M.D. on 05/27/2022 at 15:02 ? ECG Data Interpretation: Sinus tachycardia rate [address] elevation or depression. MDM Narrative Medical decision making narrative: Appropriate for admission ICU. Patient has central line in place. Sepsis management has been followed. Antibiotics as well as blood cultures as well as lactic acid and procalcitonin as well as lactated Ringer's and normal saline 3 L of IV fluid resuscitation. Vasopressors has been started. Reviewed with family. Reviewed with patient. Reviewed with hospitalist. Verbal consent was done for central line to to urgent need and procedure. Daughter gave consent. Critical Care Time Critical Care Time Attestation: Critical Care Time [35] minutes: Critical care time is separate from other billable procedures. This critical care time includes consultation with family and other consulting doctors, review of records, and interpretation of data from labs, EKGs, imaging, etc. Discharge Plan Departure Patient Disposition: Admitted As Inpatient Clinical Impression: Sepsis Admit Date/Time: 05/27/22 18:29 Admit Provider: José Manuel Sanches
--- NOTE | 2022-05-27 14:56 | DI.RAD.S_ITS ---
PROCEDURE: XR CHEST 1V INDICATIONS: Cough TECHNIQUE: One view of the chest was acquired. COMPARISON: Outside Film, CT, CT CHEST ABDOMEN PELVIS WITH CONTRAST, 04/06/2022, 7:07. FINDINGS: Surgical changes and devices: None. Lungs and pleura: On this semiupright portable chest examination, no large pneumothorax or large pleural effusions are seen. No focal infiltrates are seen. Mediastinum: Mediastinal contours appear normal. Heart size is normal. Bones and chest wall: No suspicious bony lesions. Overlying soft tissues appear unremarkable. IMPRESSION: Portable chest within normal limits. Dictated by: Weston Caceres M.D. on 05/27/2022 at 15:01 Approved by: Weston Caceres M.D. on 05/27/2022 at 15:02
[2022-05-27] MEDS: POTASSIUM CHLORIDE IN WATER 10 MEQ/100 ML PIGGYBACK 100 MEQ IV ×5 (14:59→23:28)
[2022-05-27 15:00] LABS: Lactate (Lactic Acid) 5.2 mmol/L (0.7-2.1)
[2022-05-27 15:04] LABS: Procalcitonin 0.17 ng/mL (<0.5)
[2022-05-27 15:13] LABS: Creatine Kinase 71 U/L (30-135); Magnesium 2.6 mg/dL (1.6-2.3)
[2022-05-27 15:23] LABS: Adenovirus Not Detected (Not Detect); B. parapertussis Not Detected (Not Detecte); Bordetella pertussis Not Detected (Not Detecte); Chlamydophila pneumoniae Not Detected (Not Detect); Coronavirus 229E Not Detected (Not Detect); Coronavirus HKU1 Not Detected (Not Detect); Coronavirus NL 63 Not Detected (Not Detect); Coronavirus OC43 Not Detected (Not Detect); Human Metapneumovirus Not Detected (Not Detect); Human Rhinovirus/Enterovirus Not Detected (Not Detect); Influenza A Not Detected (Not Detect); Influenza B Not Detected (Not Detect); Mycoplasma pneumoniae Not Detected (Not Detect); Parainfluenza Virus 1 Not Detected (Not Detect); Parainfluenza Virus 2 Not Detected (Not Detect); Parainfluenza Virus 3 Not Detected (Not Detect); Parainfluenza Virus 4 Not Detected (Not Detect); Respiratory Syncytial Virus Not Detected (Not Detect); SARS- CoV-2 Not Detected (Not Detecte)
--- NOTE | 2022-05-27 15:35 | PC.NURSE ---
Patient had Oral potassium ordered. Patient tried this medication and was unable to shallow it and refused to take it. Dr. Aryan MACKEY. notified and ordered that the medication be placed as not given and he will reevaluate additional potassium after IV doses have been administered. Returned the un opened liquid potassium to the [facility] system. Destroyed the open container of potassium in the drug waste cactus.
[2022-05-27 15:51] LABS: Troponin I 0.143 ng/mL (0.01-0.034)
[2022-05-27] MEDS: LACTATED RINGERS 1,000 ML 1000 ML IV (16:13)
[2022-05-27 16:38] LABS: Reflexed Lactate in 2 Hours Y
[2022-05-27 17:13] LABS: Appearance Urine UA CLEAR; Bilirubin Urine UA NEGATIVE (NEGATIVE); Color Urine UA YELLOW; Glucose Urine UA NEGATIVE (Negative); Ketones Urine UA 1+ (NEGATIVE); Leukocyte Esterase Urine UA NEGATIVE (NEGATIVE); Nitrite Urine UA NEGATIVE (Negative); Occult Blood Urine UA TRACE-LYSED (Negative); Protein Urine UA 1+ (Negative); Specific Gravity Urine UA 1.015 (1.000-1.035)
[2022-05-27 17:14] LABS: pH Urine UA 6.5 (4.5-8.0)
[2022-05-27 17:22] LABS: Bacteria Urine Occasional (0-1); Mucus Urine 1+ (Negative); RBC Urine 0-1/HPF (0-5/HPF); Squamous Epithelial Cell Urine 1-5 /HPF (0-5/HPF); WBC Urine 5-10/HPF (0-5/HPF)
[2022-05-27 17:23] LABS: Culture Indicated Urine Specimen Cultured
[2022-05-27 17:29] LABS: INR 2.6 (0.9-1.3); Prothrombin Time 29.8 SECONDS (10.1-12.7)
[2022-05-27] MEDS: ACETAMINOPHEN 650 MG SUPP PR (17:29)
[2022-05-27 17:31] LABS: PTT Partial Thromboplastin Tim 29 SECONDS (26-36)
[2022-05-27] MEDS: PIPERACILLIN/TAZO 4.5 GM in SODIUM CHLORIDE 0.9% 100 ML IV (17:56)
[2022-05-27] MEDS: NOREPINEPHRINE BITARTRATE/D5W 4 MG/250 ML PLAST..BAG 15 MG IV (18:10)
--- NOTE | 2022-05-27 18:18 | PC.NURSE ---
Late entry, around 1630 today pt was found to have increased AMS, provider notified, dexter catheter placed and pt found to have core temp of 101.5. Provider notified again. Pt requiring frequent orientation. Provider at bedside to place central line. At 1800 central line is placed and provider okay'd line to be used without xray confirmation. Pt started on Levophed. Continuing to monitor pt.
[2022-05-27 19:01] LABS: Lactate 2HR (Lactic Acid Rflx) 0.9 mmol/L (0.7-2.1)
[2022-05-27] MEDS: CEFEPIME 2 GM in SODIUM CHLORIDE 0.9% 100 ML IV (19:02)
--- NOTE | 2022-05-27 19:08 | P.HP_ITS ---
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 Patient says she hasn't felt very well since her cancer diagnosis feeling more tired and having worsening back and pelvic pain due to the cancer. She recently had radiation 2 weeks ago which has helped the pain and she was able to walk and lay on her back again. She is currently on immunotherapy pills but not chemotherapy. The past 3 days she developed some diarrhea, urinary frequency, fatigue and feeling overall poorly. She did not know she had a fever. Denies cough, SOB, CP, abd pain, or neck stiffness. She does have a headache currently. In the ED she had a BP of 82/46 and was given 3L boluses which did not improve the BP so was started on pressors. Temp was 101.5 and she was tachy to 110's. Breathing on room air. Femoral line was placed and levophed started. Patient History Family & Social History Safety & Behavioral: Feels Safe in Current Yes Environment Meds Home Medications and Allergies Allergies Allergy/AdvReac Type Severity Reaction Status Date / Time No Known Drug Allergies Allergy Verified 05/27/22 18:53 Review of Systems Review of Systems Narrative: All other systems reviewed with the patient and are negative unless otherwise stated. Exam Vital Signs (past 8 hours): - 05/27/22 13:57 05/27/22 14:26 05/27/22 14:13 Temperature 98.1 F 99.1 F Pulse Rate 113 H 105 H Respiratory Rate 20 24 Blood Pressure 91/60 Pulse Oximetry 98 100 Oxygen Delivery Method Room Air 05/27/22 14:30 05/27/22 14:39 05/27/22 14:39 Temperature Pulse Rate 105 H 104 H Respiratory Rate 27 H 22 Blood Pressure 92/42 L Pulse Oximetry 100 100 Oxygen Delivery Method 05/27/22 14:51 05/27/22 14:51 05/27/22 14:55 Temperature Pulse Rate 103 H 101 H Respiratory Rate 27 H 25 H Blood Pressure 82/51 L Pulse Oximetry 100 100 Oxygen Delivery Method 05/27/22 14:55 05/27/22 15:00 05/27/22 15:01 Temperature Pulse Rate 100 H 102 H Respiratory Rate 24 32 H Blood Pressure 89/55 L Pulse Oximetry 100 100 Oxygen Delivery Method Room Air 05/27/22 15:01 05/27/22 15:05 05/27/22 15:05 Temperature Pulse Rate 102 H Respiratory Rate 23 Blood Pressure 83/47 L 101/50 L Pulse Oximetry 99 Oxygen Delivery Method 05/27/22 15:10 05/27/22 15:10 05/27/22 15:15 Temperature Pulse Rate 102 H Respiratory Rate Blood Pressure 98/52 L 97/55 L Pulse Oximetry 100 Oxygen Delivery Method 05/27/22 15:15 05/27/22 15:17 05/27/22 15:17 Temperature Pulse Rate 100 H 99 H Respiratory Rate 21 25 H Blood Pressure 104/61 Pulse Oximetry 100 100 Oxygen Delivery Method 05/27/22 15:20 05/27/22 15:20 05/27/22 15:25 Temperature Pulse Rate 101 H Respiratory Rate 19 Blood Pressure 101/59 L 100/58 L Pulse Oximetry 100 Oxygen Delivery Method 05/27/22 15:25 05/27/22 15:30 05/27/22 15:30 Temperature Pulse Rate 103 H 100 H Respiratory Rate 22 23 Blood Pressure 100/57 L Pulse Oximetry 100 100 Oxygen Delivery Method 05/27/22 15:35 05/27/22 15:35 05/27/22 15:40 Temperature Pulse Rate 104 H Respiratory Rate 23 Blood Pressure 100/58 L 95/52 L Pulse Oximetry 100 Oxygen Delivery Method 05/27/22 15:40 05/27/22 15:45 05/27/22 15:45 Temperature Pulse Rate 101 H 98 H Respiratory Rate 24 Blood Pressure 85/51 L Pulse Oximetry 100 100 Oxygen Delivery Method 05/27/22 15:48 05/27/22 15:48 05/27/22 15:50 Temperature Pulse Rate 101 H Respiratory Rate 22 Blood Pressure 98/55 L 86/56 L Pulse Oximetry 100 Oxygen Delivery Method 05/27/22 15:50 05/27/22 15:55 05/27/22 16:00 Temperature 99.7 F H Pulse Rate 100 H Respiratory Rate 19 Blood Pressure 83/56 L Pulse Oximetry 100 Oxygen Delivery Method 05/27/22 16:00 05/27/22 16:03 05/27/22 16:03 Temperature Pulse Rate 102 H 103 H Respiratory Rate 28 H 18 Blood Pressure 95/52 L Pulse Oximetry 100 100 Oxygen Delivery Method 05/27/22 16:10 05/27/22 16:10 05/27/22 16:20 Temperature Pulse Rate 104 H 106 H Respiratory Rate 15 17 Blood Pressure 96/51 L Pulse Oximetry 100 100 Oxygen Delivery Method 05/27/22 16:20 05/27/22 16:30 05/27/22 16:30 Temperature Pulse Rate 111 H Respiratory Rate 15 Blood Pressure 86/53 L 96/51 L Pulse Oximetry 100 Oxygen Delivery Method 05/27/22 16:40 05/27/22 16:40 05/27/22 16:43 Temperature Pulse Rate 116 H Respiratory Rate 22 Blood Pressure 87/54 L 94/51 L Pulse Oximetry 76 L Oxygen Delivery Method 05/27/22 16:43 05/27/22 16:50 05/27/22 16:50 Temperature 100.4 F H Pulse Rate 113 H 109 H Respiratory Rate 22 20 Blood Pressure 92/55 L Pulse Oximetry 97 Oxygen Delivery Method 05/27/22 16:51 05/27/22 16:51 05/27/22 17:00 Temperature 100.6 F H 101.5 F H Pulse Rate 109 H 107 H Respiratory Rate 23 Blood Pressure 96/51 L Pulse Oximetry 100 98 Oxygen Delivery Method 05/27/22 17:04 05/27/22 17:04 05/27/22 17:06 Temperature 101.5 F H Pulse Rate 110 H Respiratory Rate Blood Pressure 94/47 L 82/46 L Pulse Oximetry 100 Oxygen Delivery Method 05/27/22 17:06 05/27/22 17:10 05/27/22 17:10 Temperature 101.3 F H 101.5 F H Pulse Rate 112 H 112 H Respiratory Rate Blood Pressure 85/51 L Pulse Oximetry 100 93 Oxygen Delivery Method 05/27/22 17:15 05/27/22 17:15 05/27/22 17:20 Temperature 101.7 F H Pulse Rate 109 H Respiratory Rate Blood Pressure 87/50 L 81/49 L Pulse Oximetry 100 Oxygen Delivery Method 05/27/22 17:20 05/27/22 17:23 05/27/22 17:23 Temperature 101.7 F H 100.9 F H Pulse Rate 104 H 106 H Respiratory Rate Blood Pressure 86/48 L Pulse Oximetry 100 100 Oxygen Delivery Method 05/27/22 17:25 05/27/22 17:25 05/27/22 17:30 Temperature 101.7 F H Pulse Rate 101 H Respiratory Rate 17 Blood Pressure 87/51 L 98/54 L Pulse Oximetry 99 Oxygen Delivery Method 05/27/22 17:30 05/27/22 17:35 05/27/22 17:35 Temperature 101.7 F H 101.7 F H Pulse Rate 98 H 98 H Respiratory Rate 23 17 Blood Pressure 100/57 L Pulse Oximetry 100 Oxygen Delivery Method 05/27/22 17:40 05/27/22 17:40 05/27/22 17:45 Temperature 101.7 F H Pulse Rate 99 H Respiratory Rate 18 Blood Pressure 91/54 L 99/52 L Pulse Oximetry 100 Oxygen Delivery Method 05/27/22 17:45 05/27/22 17:50 05/27/22 17:50 Temperature 101.5 F H 101.5 F H Pulse Rate 100 H 97 H Respiratory Rate 18 17 Blood Pressure 91/53 L Pulse Oximetry 100 100 Oxygen Delivery Method 05/27/22 17:55 05/27/22 17:55 05/27/22 18:00 Temperature 101.3 F H Pulse Rate 95 H Respiratory Rate 18 Blood Pressure 89/51 L 100/56 L Pulse Oximetry 100 Oxygen Delivery Method 05/27/22 18:00 05/27/22 18:02 05/27/22 18:02 Temperature 100.4 F H 101.1 F H Pulse Rate 98 H 98 H Respiratory Rate 17 15 Blood Pressure 99/54 L Pulse Oximetry 100 100 Oxygen Delivery Method 05/27/22 18:05 05/27/22 18:05 05/27/22 18:10 Temperature 101.3 F H Pulse Rate 99 H Respiratory Rate 17 Blood Pressure 97/52 L 101/51 L Pulse Oximetry 100 Oxygen Delivery Method 05/27/22 18:10 05/27/22 18:15 05/27/22 18:15 Temperature 101.3 F H 101.5 F H Pulse Rate 98 H 96 H Respiratory Rate 18 17 Blood Pressure 107/59 L Pulse Oximetry 100 100 Oxygen Delivery Method 05/27/22 18:20 05/27/22 18:20 05/27/22 18:25 Temperature 101.5 F H Pulse Rate 93 H Respiratory Rate 19 Blood Pressure 109/61 104/58 L Pulse Oximetry 100 Oxygen Delivery Method 05/27/22 18:25 05/27/22 18:30 05/27/22 18:30 Temperature 101.5 F H 101.5 F H Pulse Rate 93 H 97 H Respiratory Rate 16 18 Blood Pressure 98/54 L Pulse Oximetry 100 99 Oxygen Delivery Method 05/27/22 18:35 05/27/22 18:35 05/27/22 18:47 Temperature 101.5 F H 101.5 F H Pulse Rate 93 H Respiratory Rate 14 Blood Pressure 115/56 L Pulse Oximetry 100 Oxygen Delivery Method 05/27/22 18:40 05/27/22 18:40 05/27/22 18:45 Temperature 101.5 F H Pulse Rate 97 H Respiratory Rate 21 Blood Pressure 114/56 L 114/57 L Pulse Oximetry 100 Oxygen Delivery Method 05/27/22 18:45 Temperature 101.5 F H Pulse Rate 96 H Respiratory Rate 23 Blood Pressure Pulse Oximetry 97 Oxygen Delivery Method Oxygen Delivery Method Room Air Narrative Exam Narrative: GEN: no acute distress, appears uncomfortable HEENT: moist mucous membranes, PERRL NECK: trachea midline, no JVD CV: tachycardic, reuglar rhythm, no murmurs PULM: clear bilaterally ABD: soft, nontender, nondistended, no organomegaly EXT: warm and well perfused with no edema NEURO: awake, alert, oriented, no focal deficits Objective Labs Result Diagrams: 05/27/22 13:56 05/27/22 13:56 Labs: Laboratory Results - last 24 hr 05/27/22 05/27/22 05/27/22 13:56 13:56 13:56 WBC 2.1 L RBC 2.36 L Hgb 8.6 L Hct 24.3 L MCV 102.8 H MCH 36.4 H MCHC 35.4 RDW 20.8 H Plt Count 118 L Neut % (Auto) 74.2 Lymph % (Auto) 18.1 L [place] % (Auto) 5.1 Eos % (Auto) 1.3 L Baso % (Auto) 1.3 Neut # (Auto) 1600 Lymph # (Auto) 400 L [place] # (Auto) 100 Eos # (Auto) 0 Baso # (Auto) 0 Platelet Estimate Decreased on smear RBC Morphology See below Polychromasia 1+ H Anisocytosis 2+ H Macrocytosis 2+ H PT INR APTT Sodium 131 L Potassium 2.2 L* Chloride 92 L Carbon Dioxide 30 BUN 23 H Creatinine 0.95 Estimated GFR > 60 BUN/Creatinine Ratio 24.2 H Glucose 152 H Lactate 5.2 H* Calcium 9.0 Magnesium Total Bilirubin 1.6 H AST 33 ALT 41 H Alkaline Phosphatase 132 H Total Creatine Kinase CK-MB (CK-2) CK-MB (CK-2) Rel Index Troponin I Total Protein 6.9 Albumin 3.4 L Globulin 3.5 Albumin/Globulin Ratio 1.0 Lipase 126 Procalcitonin Urine Color Urine Appearance Urine pH Ur Specific [place] Urine Protein Urine Glucose (UA) Urine Ketones Urine Occult Blood Urine Nitrate Urine Bilirubin Urine Urobilinogen Ur Leukocyte Esterase Urine RBC Urine WBC Ur Squamous Epith Cells Urine Bacteria Urine Mucus Ur Culture Indicated? Chlamy pneumoniae PCR Adenovirus (PCR) B. pertussis DNA (PCR) B.parapertussis DNA PCR Coronavirus OC43 (PCR) Coronavirus HKU1 (PCR) Coronavirus 229E (PCR) SARS-CoV-2 (PCR) Coronavirus NL63 (PCR) Human Metapneumovir PCR Influenza Type A (PCR) Influenza Type B (PCR) M. pneumoniae (PCR) Parainfluenza 1 (PCR) Parainfluenza 2 (PCR) Parainfluenza 3 (PCR) Parainfluenza 4 (PCR) RSV (PCR) Entero/Rhino (PCR) 05/27/22 05/27/22 05/27/22 13:56 13:56 14:16 WBC RBC Hgb Hct MCV MCH MCHC RDW Plt Count Neut % (Auto) Lymph % (Auto) [place] % (Auto) Eos % (Auto) Baso % (Auto) Neut # (Auto) Lymph # (Auto) [place] # (Auto) Eos # (Auto) Baso # (Auto) Platelet Estimate RBC Morphology Polychromasia Anisocytosis Macrocytosis PT 29.8 H INR 2.6 H APTT 29 Sodium Potassium Chloride Carbon Dioxide BUN Creatinine Estimated GFR BUN/Creatinine Ratio Glucose Lactate Calcium Magnesium Total Bilirubin AST ALT Alkaline Phosphatase Total Creatine Kinase CK-MB (CK-2) CK-MB (CK-2) Rel Index Troponin I Total Protein Albumin Globulin Albumin/Globulin Ratio Lipase Procalcitonin 0.17 Urine Color Urine Appearance Urine pH Ur Specific [place] Urine Protein Urine Glucose (UA) Urine Ketones Urine Occult Blood Urine Nitrate Urine Bilirubin Urine Urobilinogen Ur Leukocyte Esterase Urine RBC Urine WBC Ur Squamous Epith Cells Urine Bacteria Urine Mucus Ur Culture Indicated? Chlamy pneumoniae PCR Not detected Adenovirus (PCR) Not detected B. pertussis DNA (PCR) Not detected B.parapertussis DNA PCR Not detected Coronavirus OC43 (PCR) Not detected Coronavirus HKU1 (PCR) Not detected Coronavirus 229E (PCR) Not detected SARS-CoV-2 (PCR) Not detected Coronavirus NL63 (PCR) Not detected Human Metapneumovir PCR Not detected Influenza Type A (PCR) Not detected Influenza Type B (PCR) Not detected M. pneumoniae (PCR) Not detected Parainfluenza 1 (PCR) Not detected Parainfluenza 2 (PCR) Not detected Parainfluenza 3 (PCR) Not detected Parainfluenza 4 (PCR) Not detected RSV (PCR) Not detected Entero/Rhino (PCR) Not detected 05/27/22 05/27/22 05/27/22 15:02 15:02 17:00 WBC RBC Hgb Hct MCV MCH MCHC RDW Plt Count Neut % (Auto) Lymph % (Auto) [place] % (Auto) Eos % (Auto) Baso % (Auto) Neut # (Auto) Lymph # (Auto) [place] # (Auto) Eos # (Auto) Baso # (Auto) Platelet Estimate RBC Morphology Polychromasia Anisocytosis Macrocytosis PT INR APTT Sodium Potassium Chloride Carbon Dioxide BUN Creatinine Estimated GFR BUN/Creatinine Ratio Glucose Lactate Calcium Magnesium 2.6 H Total Bilirubin AST ALT Alkaline Phosphatase Total Creatine Kinase 71 CK-MB (CK-2) TNP CK-MB (CK-2) Rel Index TNP Troponin I 0.143 H* Total Protein Albumin Globulin Albumin/Globulin Ratio Lipase Procalcitonin Urine Color Yellow Urine Appearance Clear Urine pH 6.5 Ur Specific [place] 1.015 Urine Protein 1+ H Urine Glucose (UA) Negative Urine Ketones 1+ H Urine Occult Blood Trace-lysed Urine Nitrate Negative Urine Bilirubin Negative Urine Urobilinogen 1.0 Ur Leukocyte Esterase Negative Urine RBC 0-1/hpf Urine WBC 5-10/hpf H Ur Squamous Epith Cells 1-5 /hpf Urine Bacteria Occasional (0-1) Urine Mucus 1+ H Ur Culture Indicated? Specimen cultured Chlamy pneumoniae PCR Adenovirus (PCR) B. pertussis DNA (PCR) B.parapertussis DNA PCR Coronavirus OC43 (PCR) Coronavirus HKU1 (PCR) Coronavirus 229E (PCR) SARS-CoV-2 (PCR) Coronavirus NL63 (PCR) Human Metapneumovir PCR Influenza Type A (PCR) Influenza Type B (PCR) M. pneumoniae (PCR) Parainfluenza 1 (PCR) Parainfluenza 2 (PCR) Parainfluenza 3 (PCR) Parainfluenza 4 (PCR) RSV (PCR) Entero/Rhino (PCR) 05/27/22 18:30 WBC RBC Hgb Hct MCV MCH MCHC RDW Plt Count Neut % (Auto) Lymph % (Auto) [place] % (Auto) Eos % (Auto) Baso % (Auto) Neut # (Auto) Lymph # (Auto) [place] # (Auto) Eos # (Auto) Baso # (Auto) Platelet Estimate RBC Morphology Polychromasia Anisocytosis Macrocytosis PT INR APTT Sodium Potassium Chloride Carbon Dioxide BUN Creatinine Estimated GFR BUN/Creatinine Ratio Glucose Lactate 0.9 Calcium Magnesium Total Bilirubin AST ALT Alkaline Phosphatase Total Creatine Kinase CK-MB (CK-2) CK-MB (CK-2) Rel Index Troponin I Total Protein Albumin Globulin Albumin/Globulin Ratio Lipase Procalcitonin Urine Color Urine Appearance Urine pH Ur Specific [place] Urine Protein Urine Glucose (UA) Urine Ketones Urine Occult Blood Urine Nitrate Urine Bilirubin Urine Urobilinogen Ur Leukocyte Esterase Urine RBC Urine WBC Ur Squamous Epith Cells Urine Bacteria Urine Mucus Ur Culture Indicated? Chlamy pneumoniae PCR Adenovirus (PCR) B. pertussis DNA (PCR) B.parapertussis DNA PCR Coronavirus OC43 (PCR) Coronavirus HKU1 (PCR) Coronavirus 229E (PCR) SARS-CoV-2 (PCR) Coronavirus NL63 (PCR) Human Metapneumovir PCR Influenza Type A (PCR) Influenza Type B (PCR) M. pneumoniae (PCR) Parainfluenza 1 (PCR) Parainfluenza 2 (PCR) Parainfluenza 3 (PCR) Parainfluenza 4 (PCR) RSV (PCR) Entero/Rhino (PCR) Assessment & Plan Assessment & Plan narrative: # septic shock with unclear source in the setting of immunocompromised state -patient currently on immunotherapy for metastatic breast cancer, WBC 2.1 and ANC 400 -febrile to 101F, tachycardic and hypotensive to 80/40 -source unclear but has pyuria, CXR normal, resp PCR negative -continue levophed, titrate to MAP >65 -f/u blood and urine cultures, GI panel as pt having diarrhea -continue cefepime, vanc and flagyl -tele-ICU consult -consider calling oncologist to ask if granix should be used # lactic acidosis -lactate 5.2 on admission, secondary to septic shock -trend to normal # pancytopenia -WBC 2.1, Hgb 8.6 and platelets 118k -likely due to immunotherapy medication -transfuse >7 Hgb # metastatic breast cancer -diagnosed in Mar 2022 -currently on immunotherapy and receiving radiation to mets in spine and pelvis -consider holding immunotherapy until sepsis improves # previous strokes -continue eliquis # acute hypokalemia -K 2.2 on admission, mag normal -monitor and replete # elevated troponin -secondary to sepsis, no chest pain -no need to trend per cardiology Code status is full code. COVID negative. DVT prophylaxis with Eliquis. Proxy is daughter Leola. I have reviewed home meds and used all available resources to reconcile the home meds. This patient will be admitted as inpatient and will require greater than 2 midnights of hospital time to treat septic shock. Time Spent With Patient Critical Care time: I spent a total of [] minutes of critical care time on this patient's care today; this time is exclusive of procedural time.
--- NOTE | 2022-05-27 19:20 | PC.NURSE ---
Report received - assumed care of pt at this time
--- NOTE | 2022-05-27 19:50 | PC.NURSE ---
Adjusted in bed for position of comfort - family at bedside
--- NOTE | 2022-05-27 20:15 | PC.NURSE ---
ice chips given at this time
--- NOTE | 2022-05-27 21:22 | P.TELICUCN_ITS ---
History of Present Illness Consult details IF CAMERA ACTIVATED, patient seen via real-time interactive audiovisual communication: Camera activated Date Patient Seen: 05/27/22 Chief complaint: NVD Reason for consult: Septic shock Requesting provider: José Manuel Sanches Consent obtained for tele-early childhood worker care: Yes Patient Location: ICU Provider location (State): [place] Other participants/roles: Bedside RN Narrative: Patient is a 62 year old female with history of breast cancer on radiation and CVA on eliquis who presents with diarrhea, increase urinary frequency, and generalized fatigue. No reported fever. Denies cough, SOB, chest pain, or abdominal pain. Appetite is poor. In ER, she was found to be leukopenia and hy potensive. CXR showed no dense consolidation. Lactic acid 5.6 and WBC 2.1. Recieved 3 liters crystalloid bolus and started on levophed. Repeat lactic acid 0.9. Blood and urine cultures sent. Started on zosyn. Admitted to ICU for further management. Current Medications Current Medications Medications: Visit Medications (administered) Generic Name Dose Route Start Last Admin Trade Name Freq PRN Reason Stop Dose Admin NOREPINEPHRINE BITARTRATE/D5W 4 mg in 250 mls @ 30 mls/hr 05/27/22 18:00 05/27/22 18:54 Levophed IV 3 mcg/min TITRATE MARYCARMEN 11.25 mls/hr Titration Protocol 8 MCG/MIN Cefepime HCl 2 gm/ Sodium 100 mls @ 200 mls/hr 05/27/22 18:30 05/27/22 19:51 Chloride IV Infused Q12H MARYCARMEN Infusion Exam Vital Signs (past 8 hours): - 05/27/22 13:57 05/27/22 14:26 05/27/22 14:13 Temperature 98.1 F 99.1 F Pulse Rate 113 H 105 H Respiratory Rate 20 24 Blood Pressure 91/60 Pulse Oximetry 98 100 Oxygen Delivery Method Room Air 05/27/22 14:30 05/27/22 14:39 05/27/22 14:39 Temperature Pulse Rate 105 H 104 H Respiratory Rate 27 H 22 Blood Pressure 92/42 L Pulse Oximetry 100 100 Oxygen Delivery Method 05/27/22 14:51 05/27/22 14:51 05/27/22 14:55 Temperature Pulse Rate 103 H 101 H Respiratory Rate 27 H 25 H Blood Pressure 82/51 L Pulse Oximetry 100 100 Oxygen Delivery Method 05/27/22 14:55 05/27/22 15:00 05/27/22 15:01 Temperature Pulse Rate 100 H 102 H Respiratory Rate 24 32 H Blood Pressure 89/55 L Pulse Oximetry 100 100 Oxygen Delivery Method Room Air 05/27/22 15:01 05/27/22 15:05 05/27/22 15:05 Temperature Pulse Rate 102 H Respiratory Rate 23 Blood Pressure 83/47 L 101/50 L Pulse Oximetry 99 Oxygen Delivery Method 05/27/22 15:10 05/27/22 15:10 05/27/22 15:15 Temperature Pulse Rate 102 H Respiratory Rate Blood Pressure 98/52 L 97/55 L Pulse Oximetry 100 Oxygen Delivery Method 05/27/22 15:15 05/27/22 15:17 05/27/22 15:17 Temperature Pulse Rate 100 H 99 H Respiratory Rate 21 25 H Blood Pressure 104/61 Pulse Oximetry 100 100 Oxygen Delivery Method 05/27/22 15:20 05/27/22 15:20 05/27/22 15:25 Temperature Pulse Rate 101 H Respiratory Rate 19 Blood Pressure 101/59 L 100/58 L Pulse Oximetry 100 Oxygen Delivery Method 05/27/22 15:25 05/27/22 15:30 05/27/22 15:30 Temperature Pulse Rate 103 H 100 H Respiratory Rate 22 23 Blood Pressure 100/57 L Pulse Oximetry 100 100 Oxygen Delivery Method 05/27/22 15:35 05/27/22 15:35 05/27/22 15:40 Temperature Pulse Rate 104 H Respiratory Rate 23 Blood Pressure 100/58 L 95/52 L Pulse Oximetry 100 Oxygen Delivery Method 05/27/22 15:40 05/27/22 15:45 05/27/22 15:45 Temperature Pulse Rate 101 H 98 H Respiratory Rate 24 Blood Pressure 85/51 L Pulse Oximetry 100 100 Oxygen Delivery Method 05/27/22 15:48 05/27/22 15:48 05/27/22 15:50 Temperature Pulse Rate 101 H Respiratory Rate 22 Blood Pressure 98/55 L 86/56 L Pulse Oximetry 100 Oxygen Delivery Method 05/27/22 15:50 05/27/22 15:55 05/27/22 16:00 Temperature 99.7 F H Pulse Rate 100 H Respiratory Rate 19 Blood Pressure 83/56 L Pulse Oximetry 100 Oxygen Delivery Method 05/27/22 16:00 05/27/22 16:03 05/27/22 16:03 Temperature Pulse Rate 102 H 103 H Respiratory Rate 28 H 18 Blood Pressure 95/52 L Pulse Oximetry 100 100 Oxygen Delivery Method 05/27/22 16:10 05/27/22 16:10 05/27/22 16:20 Temperature Pulse Rate 104 H 106 H Respiratory Rate 15 17 Blood Pressure 96/51 L Pulse Oximetry 100 100 Oxygen Delivery Method 05/27/22 16:20 05/27/22 16:30 05/27/22 16:30 Temperature Pulse Rate 111 H Respiratory Rate 15 Blood Pressure 86/53 L 96/51 L Pulse Oximetry 100 Oxygen Delivery Method 05/27/22 16:40 05/27/22 16:40 05/27/22 16:43 Temperature Pulse Rate 116 H Respiratory Rate 22 Blood Pressure 87/54 L 94/51 L Pulse Oximetry 76 L Oxygen Delivery Method 05/27/22 16:43 05/27/22 16:50 05/27/22 16:50 Temperature 100.4 F H Pulse Rate 113 H 109 H Respiratory Rate 22 20 Blood Pressure 92/55 L Pulse Oximetry 97 Oxygen Delivery Method 05/27/22 16:51 05/27/22 16:51 05/27/22 17:00 Temperature 100.6 F H 101.5 F H Pulse Rate 109 H 107 H Respiratory Rate 23 Blood Pressure 96/51 L Pulse Oximetry 100 98 Oxygen Delivery Method 05/27/22 17:04 05/27/22 17:04 05/27/22 17:06 Temperature 101.5 F H Pulse Rate 110 H Respiratory Rate Blood Pressure 94/47 L 82/46 L Pulse Oximetry 100 Oxygen Delivery Method 05/27/22 17:06 05/27/22 17:10 05/27/22 17:10 Temperature 101.3 F H 101.5 F H Pulse Rate 112 H 112 H Respiratory Rate Blood Pressure 85/51 L Pulse Oximetry 100 93 Oxygen Delivery Method 05/27/22 17:15 05/27/22 17:15 05/27/22 17:20 Temperature 101.7 F H Pulse Rate 109 H Respiratory Rate Blood Pressure 87/50 L 81/49 L Pulse Oximetry 100 Oxygen Delivery Method 05/27/22 17:20 05/27/22 17:23 05/27/22 17:23 Temperature 101.7 F H 100.9 F H Pulse Rate 104 H 106 H Respiratory Rate Blood Pressure 86/48 L Pulse Oximetry 100 100 Oxygen Delivery Method 05/27/22 17:25 05/27/22 17:25 05/27/22 17:30 Temperature 101.7 F H Pulse Rate 101 H Respiratory Rate 17 Blood Pressure 87/51 L 98/54 L Pulse Oximetry 99 Oxygen Delivery Method 05/27/22 17:30 05/27/22 17:35 05/27/22 17:35 Temperature 101.7 F H 101.7 F H Pulse Rate 98 H 98 H Respiratory Rate 23 17 Blood Pressure 100/57 L Pulse Oximetry 100 Oxygen Delivery Method 05/27/22 17:40 05/27/22 17:40 05/27/22 17:45 Temperature 101.7 F H Pulse Rate 99 H Respiratory Rate 18 Blood Pressure 91/54 L 99/52 L Pulse Oximetry 100 Oxygen Delivery Method 05/27/22 17:45 05/27/22 17:50 05/27/22 17:50 Temperature 101.5 F H 101.5 F H Pulse Rate 100 H 97 H Respiratory Rate 18 17 Blood Pressure 91/53 L Pulse Oximetry 100 100 Oxygen Delivery Method 05/27/22 17:55 05/27/22 17:55 05/27/22 18:00 Temperature 101.3 F H Pulse Rate 95 H Respiratory Rate 18 Blood Pressure 89/51 L 100/56 L Pulse Oximetry 100 Oxygen Delivery Method 05/27/22 18:00 05/27/22 18:02 05/27/22 18:02 Temperature 100.4 F H 101.1 F H Pulse Rate 98 H 98 H Respiratory Rate 17 15 Blood Pressure 99/54 L Pulse Oximetry 100 100 Oxygen Delivery Method 05/27/22 18:05 05/27/22 18:05 05/27/22 18:10 Temperature 101.3 F H Pulse Rate 99 H Respiratory Rate 17 Blood Pressure 97/52 L 101/51 L Pulse Oximetry 100 Oxygen Delivery Method 05/27/22 18:10 05/27/22 18:15 05/27/22 18:15 Temperature 101.3 F H 101.5 F H Pulse Rate 98 H 96 H Respiratory Rate 18 17 Blood Pressure 107/59 L Pulse Oximetry 100 100 Oxygen Delivery Method 05/27/22 18:20 05/27/22 18:20 05/27/22 18:25 Temperature 101.5 F H Pulse Rate 93 H Respiratory Rate 19 Blood Pressure 109/61 104/58 L Pulse Oximetry 100 Oxygen Delivery Method 05/27/22 18:25 05/27/22 18:30 05/27/22 18:30 Temperature 101.5 F H 101.5 F H Pulse Rate 93 H 97 H Respiratory Rate 16 18 Blood Pressure 98/54 L Pulse Oximetry 100 99 Oxygen Delivery Method 05/27/22 18:35 05/27/22 18:35 05/27/22 18:47 Temperature 101.5 F H 101.5 F H Pulse Rate 93 H Respiratory Rate 14 Blood Pressure 115/56 L Pulse Oximetry 100 Oxygen Delivery Method 05/27/22 18:40 05/27/22 18:40 05/27/22 18:45 Temperature 101.5 F H Pulse Rate 97 H Respiratory Rate 21 Blood Pressure 114/56 L 114/57 L Pulse Oximetry 100 Oxygen Delivery Method 05/27/22 18:45 05/27/22 18:50 05/27/22 18:50 Temperature 101.5 F H 101.5 F H Pulse Rate 96 H 96 H Respiratory Rate 23 16 Blood Pressure 112/57 L Pulse Oximetry 97 98 Oxygen Delivery Method 05/27/22 18:55 05/27/22 18:55 05/27/22 19:00 Temperature 101.3 F H Pulse Rate 98 H Respiratory Rate 31 H Blood Pressure 114/57 L 120/61 Pulse Oximetry 100 Oxygen Delivery Method 05/27/22 19:00 05/27/22 19:05 05/27/22 19:05 Temperature 101.5 F H 101.5 F H Pulse Rate 96 H 99 H Respiratory Rate 18 22 Blood Pressure 109/58 L Pulse Oximetry 100 100 Oxygen Delivery Method 05/27/22 19:10 05/27/22 19:10 05/27/22 19:15 Temperature 101.5 F H 101.5 F H Pulse Rate 99 H 98 H Respiratory Rate 19 17 Blood Pressure 113/61 Pulse Oximetry 100 100 Oxygen Delivery Method Room Air 05/27/22 19:15 05/27/22 19:20 05/27/22 19:20 Temperature 101.5 F H Pulse Rate 100 H Respiratory Rate 20 Blood Pressure 108/59 L 106/58 L Pulse Oximetry 99 Oxygen Delivery Method 05/27/22 19:25 05/27/22 19:25 05/27/22 19:30 Temperature 101.5 F H Pulse Rate 100 H Respiratory Rate 17 Blood Pressure 101/56 L 103/59 L Pulse Oximetry 100 Oxygen Delivery Method 05/27/22 19:30 05/27/22 19:35 05/27/22 19:35 Temperature 101.5 F H 101.5 F H Pulse Rate 99 H 103 H Respiratory Rate 18 19 Blood Pressure 102/56 L Pulse Oximetry 100 99 Oxygen Delivery Method 05/27/22 19:40 05/27/22 19:40 05/27/22 19:45 Temperature 101.5 F H Pulse Rate 103 H Respiratory Rate 17 Blood Pressure 102/57 L 105/59 L Pulse Oximetry 99 Oxygen Delivery Method 05/27/22 19:45 05/27/22 19:50 05/27/22 19:50 Temperature 101.5 F H 101.5 F H Pulse Rate 103 H 100 H Respiratory Rate 15 14 Blood Pressure 100/56 L Pulse Oximetry 99 100 Oxygen Delivery Method 05/27/22 19:55 05/27/22 19:55 05/27/22 20:00 Temperature 101.5 F H Pulse Rate 102 H Respiratory Rate 19 Blood Pressure 102/58 L 95/55 L Pulse Oximetry 99 Oxygen Delivery Method 05/27/22 20:00 05/27/22 20:05 05/27/22 20:05 Temperature 101.5 F H 101.5 F H Pulse Rate 102 H 100 H Respiratory Rate 18 24 Blood Pressure 107/59 L Pulse Oximetry 99 99 Oxygen Delivery Method 05/27/22 20:10 05/27/22 20:10 05/27/22 20:15 Temperature 101.5 F H Pulse Rate 98 H Respiratory Rate 21 Blood Pressure 104/57 L 100/56 L Pulse Oximetry 99 Oxygen Delivery Method 05/27/22 20:15 05/27/22 20:20 05/27/22 20:20 Temperature 101.5 F H 101.3 F H Pulse Rate 100 H 97 H Respiratory Rate 18 17 Blood Pressure 95/55 L Pulse Oximetry 99 98 Oxygen Delivery Method 05/27/22 20:25 05/27/22 20:25 05/27/22 20:30 Temperature 101.3 F H Pulse Rate 97 H Respiratory Rate 18 Blood Pressure 98/57 L 101/58 L Pulse Oximetry 97 Oxygen Delivery Method 05/27/22 20:30 05/27/22 20:36 05/27/22 20:36 Temperature 101.3 F H 101.3 F H Pulse Rate 97 H 98 H Respiratory Rate 16 18 Blood Pressure 91/49 L Pulse Oximetry 96 99 Oxygen Delivery Method Oxygen Delivery Method Room Air Narrative Exam Narrative: Awake and not in distress Objective Labs Result Diagrams: 05/27/22 13:56 05/27/22 13:56 Labs: Laboratory Results - last 24 hr 05/27/22 05/27/22 05/27/22 13:56 13:56 13:56 WBC 2.1 L RBC 2.36 L Hgb 8.6 L Hct 24.3 L MCV 102.8 H MCH 36.4 H MCHC 35.4 RDW 20.8 H Plt Count 118 L Neut % (Auto) 74.2 Lymph % (Auto) 18.1 L [place] % (Auto) 5.1 Eos % (Auto) 1.3 L Baso % (Auto) 1.3 Neut # (Auto) 1600 Lymph # (Auto) 400 L [place] # (Auto) 100 Eos # (Auto) 0 Baso # (Auto) 0 Platelet Estimate Decreased on smear RBC Morphology See below Polychromasia 1+ H Anisocytosis 2+ H Macrocytosis 2+ H PT INR APTT Sodium 131 L Potassium 2.2 L* Chloride 92 L Carbon Dioxide 30 BUN 23 H Creatinine 0.95 Estimated GFR > 60 BUN/Creatinine Ratio 24.2 H Glucose 152 H Lactate 5.2 H* Calcium 9.0 Magnesium Total Bilirubin 1.6 H AST 33 ALT 41 H Alkaline Phosphatase 132 H Total Creatine Kinase CK-MB (CK-2) CK-MB (CK-2) Rel Index Troponin I Total Protein 6.9 Albumin 3.4 L Globulin 3.5 Albumin/Globulin Ratio 1.0 Lipase 126 Procalcitonin Urine Color Urine Appearance Urine pH Ur Specific [place] Urine Protein Urine Glucose (UA) Urine Ketones Urine Occult Blood Urine Nitrate Urine Bilirubin Urine Urobilinogen Ur Leukocyte Esterase Urine RBC Urine WBC Ur Squamous Epith Cells Urine Bacteria Urine Mucus Ur Culture Indicated? Chlamy pneumoniae PCR Adenovirus (PCR) B. pertussis DNA (PCR) B.parapertussis DNA PCR Coronavirus OC43 (PCR) Coronavirus HKU1 (PCR) Coronavirus 229E (PCR) SARS-CoV-2 (PCR) Coronavirus NL63 (PCR) Human Metapneumovir PCR Influenza Type A (PCR) Influenza Type B (PCR) M. pneumoniae (PCR) Parainfluenza 1 (PCR) Parainfluenza 2 (PCR) Parainfluenza 3 (PCR) Parainfluenza 4 (PCR) RSV (PCR) Entero/Rhino (PCR) 05/27/22 05/27/22 05/27/22 13:56 13:56 14:16 WBC RBC Hgb Hct MCV MCH MCHC RDW Plt Count Neut % (Auto) Lymph % (Auto) [place] % (Auto) Eos % (Auto) Baso % (Auto) Neut # (Auto) Lymph # (Auto) [place] # (Auto) Eos # (Auto) Baso # (Auto) Platelet Estimate RBC Morphology Polychromasia Anisocytosis Macrocytosis PT 29.8 H INR 2.6 H APTT 29 Sodium Potassium Chloride Carbon Dioxide BUN Creatinine Estimated GFR BUN/Creatinine Ratio Glucose Lactate Calcium Magnesium Total Bilirubin AST ALT Alkaline Phosphatase Total Creatine Kinase CK-MB (CK-2) CK-MB (CK-2) Rel Index Troponin I Total Protein Albumin Globulin Albumin/Globulin Ratio Lipase Procalcitonin 0.17 Urine Color Urine Appearance Urine pH Ur Specific [place] Urine Protein Urine Glucose (UA) Urine Ketones Urine Occult Blood Urine Nitrate Urine Bilirubin Urine Urobilinogen Ur Leukocyte Esterase Urine RBC Urine WBC Ur Squamous Epith Cells Urine Bacteria Urine Mucus Ur Culture Indicated? Chlamy pneumoniae PCR Not detected Adenovirus (PCR) Not detected B. pertussis DNA (PCR) Not detected B.parapertussis DNA PCR Not detected Coronavirus OC43 (PCR) Not detected Coronavirus HKU1 (PCR) Not detected Coronavirus 229E (PCR) Not detected SARS-CoV-2 (PCR) Not detected Coronavirus NL63 (PCR) Not detected Human Metapneumovir PCR Not detected Influenza Type A (PCR) Not detected Influenza Type B (PCR) Not detected M. pneumoniae (PCR) Not detected Parainfluenza 1 (PCR) Not detected Parainfluenza 2 (PCR) Not detected Parainfluenza 3 (PCR) Not detected Parainfluenza 4 (PCR) Not detected RSV (PCR) Not detected Entero/Rhino (PCR) Not detected 05/27/22 05/27/22 05/27/22 15:02 15:02 17:00 WBC RBC Hgb Hct MCV MCH MCHC RDW Plt Count Neut % (Auto) Lymph % (Auto) [place] % (Auto) Eos % (Auto) Baso % (Auto) Neut # (Auto) Lymph # (Auto) [place] # (Auto) Eos # (Auto) Baso # (Auto) Platelet Estimate RBC Morphology Polychromasia Anisocytosis Macrocytosis PT INR APTT Sodium Potassium Chloride Carbon Dioxide BUN Creatinine Estimated GFR BUN/Creatinine Ratio Glucose Lactate Calcium Magnesium 2.6 H Total Bilirubin AST ALT Alkaline Phosphatase Total Creatine Kinase 71 CK-MB (CK-2) TNP CK-MB (CK-2) Rel Index TNP Troponin I 0.143 H* Total Protein Albumin Globulin Albumin/Globulin Ratio Lipase Procalcitonin Urine Color Yellow Urine Appearance Clear Urine pH 6.5 Ur Specific [place] 1.015 Urine Protein 1+ H Urine Glucose (UA) Negative Urine Ketones 1+ H Urine Occult Blood Trace-lysed Urine Nitrate Negative Urine Bilirubin Negative Urine Urobilinogen 1.0 Ur Leukocyte Esterase Negative Urine RBC 0-1/hpf Urine WBC 5-10/hpf H Ur Squamous Epith Cells 1-5 /hpf Urine Bacteria Occasional (0-1) Urine Mucus 1+ H Ur Culture Indicated? Specimen cultured Chlamy pneumoniae PCR Adenovirus (PCR) B. pertussis DNA (PCR) B.parapertussis DNA PCR Coronavirus OC43 (PCR) Coronavirus HKU1 (PCR) Coronavirus 229E (PCR) SARS-CoV-2 (PCR) Coronavirus NL63 (PCR) Human Metapneumovir PCR Influenza Type A (PCR) Influenza Type B (PCR) M. pneumoniae (PCR) Parainfluenza 1 (PCR) Parainfluenza 2 (PCR) Parainfluenza 3 (PCR) Parainfluenza 4 (PCR) RSV (PCR) Entero/Rhino (PCR) 05/27/22 18:30 WBC RBC Hgb Hct MCV MCH MCHC RDW Plt Count Neut % (Auto) Lymph % (Auto) [place] % (Auto) Eos % (Auto) Baso % (Auto) Neut # (Auto) Lymph # (Auto) [place] # (Auto) Eos # (Auto) Baso # (Auto) Platelet Estimate RBC Morphology Polychromasia Anisocytosis Macrocytosis PT INR APTT Sodium Potassium Chloride Carbon Dioxide BUN Creatinine Estimated GFR BUN/Creatinine Ratio Glucose Lactate 0.9 Calcium Magnesium Total Bilirubin AST ALT Alkaline Phosphatase Total Creatine Kinase CK-MB (CK-2) CK-MB (CK-2) Rel Index Troponin I Total Protein Albumin Globulin Albumin/Globulin Ratio Lipase Procalcitonin Urine Color Urine Appearance Urine pH Ur Specific [place] Urine Protein Urine Glucose (UA) Urine Ketones Urine Occult Blood Urine Nitrate Urine Bilirubin Urine Urobilinogen Ur Leukocyte Esterase Urine RBC Urine WBC Ur Squamous Epith Cells Urine Bacteria Urine Mucus Ur Culture Indicated? Chlamy pneumoniae PCR Adenovirus (PCR) B. pertussis DNA (PCR) B.parapertussis DNA PCR Coronavirus OC43 (PCR) Coronavirus HKU1 (PCR) Coronavirus 229E (PCR) SARS-CoV-2 (PCR) Coronavirus NL63 (PCR) Human Metapneumovir PCR Influenza Type A (PCR) Influenza Type B (PCR) M. pneumoniae (PCR) Parainfluenza 1 (PCR) Parainfluenza 2 (PCR) Parainfluenza 3 (PCR) Parainfluenza 4 (PCR) RSV (PCR) Entero/Rhino (PCR) Assessment & Plan Assessment & Plan narrative: NEURO: -- Seek PT/OT and OOB as tolerated RESP: -- On room air -- Encourage IS CVS: # Distributive shock -- Secondary to sepsis -- ON levophed 4 mcg -- Start LR 125 mL/hr -- Sepsis rx as below -- Added stress dose steroids -- MAP goal > 65 ID: # Septic shock -- Secondary to urinary vs intraabdominal -- Follow up cx data -- Start linezolid/zosyn -- MAP goal > 65 HEME/ONC: # Breast cancer -- On immunotherapy and radiation -- Follow with oncology as outpatient ENDO: -- Goal BS < 180 Time Spent With Patient Critical Care time: I spent a total of 38 minutes of critical care time on this patient's care today; this time is exclusive of procedural time.
[2022-05-27] MEDS: APIXABAN 5 MG TABLET PO (21:43)
--- NOTE | 2022-05-27 22:05 | DI.ECHO.S_ITS ---
[facility] +---------+ [facility] +---------+ : : [address] : : : : [id number] : : : : Phone: [phone]+ Echocardiogram Report + + :Name: MEGHAN KAPLAN Study Date: 05/28/2022 Height: 63 in : :[facility] ReadingLocation: Weight: 145 lb : : Gender: Female BSA: 1.7 m2 : :: 1960 Age: 62 yrs BP: 106/59 mmHg: :Reason For Study: SHOCK : :Ordering Physician: JANY ADKINS : : Performed By: Glenda Woody : :Referring: JANY ADKINS MD : + + Interpretation Summary Limited study. Normal left ventricle size with ejection fraction 70-75%. Comparison is made with the echocardiogram of 05/03/2022, the left ventricle is more hyperdynamic. Procedure: A two-dimensional transthoracic echocardiogram with color flow and Doppler was performed in limited views only to assess Left venticular function. The study quality was technically adequate. Comparison is made with the echocardiogram of 05/03/2022. The patient was in sinus rhythm with heart rates between 78-80 bpm during the exam. Left Ventricle: The left ventricle is normal in size. Proximal septal thickening is noted. LVOT max PG 19.9mmHg. The left ventricle is hyperdynamic. The ejection fraction is estimated to be 70-75%. Right Ventricle: The right ventricle is normal size. Atria: Right atrial size is normal. Tricuspid Valve: There is mild tricuspid regurgitation. The right ventricular systolic pressure is estimated to be at least 29 mmHg based on an estimated right atrial pressure of 3 mm Hg. Great Vessels: The IVC is of normal diameter and collapses greater than 50% with a sniff. This suggests a low right atrial pressure of 3 mm Hg. Pericardium/ Pleura There is no pericardial effusion. There is no pleural effusion. MMode/2D Measurements & Calculations LVIDd: 4.7 cm LA A4 area: 20.6 cm2 LVIDs: 2.8 cm LA length (vol): 5.1 cm FS: 40.3 % IVSd: 0.81 cm LVPWd: 0.82 cm LV meza. diameter/BSA (cm/m^2): 2.8 LV sys. diameter/BSA (cm/m^2): 1.7 RA long axis: 5.2 cm RVD1 (basal): 3.4 cm RA area: 17.2 cm2 RVD2 (mid): 2.4 cm RA vol: 48.4 ml RA : 28.7 ml/m2 IVC diam: 0.77 cm Doppler Measurements & Calculations Ao V2 max: 240.5 cm/sec LVOT Max Lukas: 189.0 cm/sec Ao V2 mean: 164.8 cm/sec LV V1 max P.8 mmHg Ao max P.1 mmHg LV V1 VTI: 37.8 cm Ao mean P.7 mmHg sev ratio: 0.88 Ao V2 VTI: 42.7 cm MV E max lukas: 129.3 cm/sec TR max lukas: 256.4 cm/sec MV A max lukas: 152.4 cm/sec TR max P.3 mmHg MV E/A: 0.85 Med Peak E' Lukas: 6.1 cm/sec E/E' med: 21.3 Lat Peak E' Lukas: 5.5 cm/sec E/E' lat: 23.6 E/e' average: 22.4 MV dec time: 0.27 sec Electronically signed by: Jose De Paz on Reading Physician:05/28/2022 09:28 AM
[2022-05-27 22:20] LABS: HEMOLYSIS < 15 (0-50)
[2022-05-27 22:24] LABS: Magnesium 2.3 mg/dL (1.6-2.3)
[2022-05-27 22:25] LABS: Potassium 2.6 mmol/L (3.4-5.1)
[2022-05-27] MEDS: LINEZOLID 600 MG/300 ML IV.SOLN IV (22:59)
[2022-05-27] MEDS: HYDROCORTISONE 100 MG/2 ML VIAL 50 MG IV (23:28)
[2022-05-27] MEDS: PIPERACILLIN/TAZO 3.375 GM in SODIUM CHLORIDE 0.9% 100 ML IV (23:29)
[2022-05-27] MEDS: LACTATED RINGERS 1,000 ML 125 ML IV (23:30)
--- NOTE | 2022-05-27 23:55 | PM.EVENT ---
Event Note Date Patient Seen: 05/27/22 Time Patient Seen: 23:55 Event Note (Rapid Response, Code, or fall): Elert for A fib w/ RVR and hypotension. Discussed with patient and confirmed she is taking eliquis as prescribed. Ordered 1 liter bolus LR bolus and amidarone gtt per protocol. Currently repleting potassium w/ 60 mEQ of KCL. Will repeat BMP after completion of KCL repletion. Goal K > 4. D/w CH[employer]IRMAN OF [employer] and RN at bedside.
[2022-05-28] VITALS (109 sets, daily range): BP systolic 72–136; BP diastolic 38–78; PULSE 76–137; RESP 8–64; TEMP 36.7–37.8; O2SAT 91–99
[2022-05-28] MEDS: LACTATED RINGERS 500 ML 1000 ML IV
[2022-05-28] MEDS: AMIODARONE 360 MG/200 ML PIGGYBACK 33.3 MG IV (00:11)
[2022-05-28 00:19] LABS: Mean Corpuscular HGB Conc 35.3 % (30-36); Mean Corpuscular Hemoglobin 36.2 PG (26-34); Mean Corpuscular Volume 102.4 fL (80-100); Platelet Count 70 X10^3/uL (150-400); Red Blood Cell Count 1.61 X10^6/uL (4.0-5.2); Red Cell Distribution Width 20.4 % (11.6-14.8)
[2022-05-28 00:27] LABS: Alanine Aminotransferase 20 IU/L (<35); Albumin 2.3 g/dL (3.5-5.0); Albumin Globulin Ratio 0.9 (1.0-2.8); Alkaline Phosphatase 86 U/L (38-126); Aspartate Aminotransferase 24 IU/L (14-36); BUN Creatinine Ratio 20.5 (6-22); Bilirubin Total 1.7 mg/dL (0.2-1.3); Blood Urea Nitrogen 17 mg/dL (7-17); Calcium 7.3 mg/dL (8.4-10.2); Carbon Dioxide 28 mmol/L (22-32); Chloride 99 mmol/L (98-107); Estimated Glomerular Filt Rate > 60 mL/min (>60); Globulin 2.5 g/dL (1.7-4.1); Glucose 170 mg/dL (80-110); HEMOLYSIS < 15 (0-50); Lactate (Lactic Acid) 0.8 mmol/L (0.7-2.1); Magnesium 2.1 mg/dL (1.6-2.3); Sodium 128 mmol/L (137-145); Total Protein 4.8 g/dL (6.3-8.2)
[2022-05-28 00:42] LABS: White Blood Cell Count 1.4 X10^3/uL (4.5-11.0)
[2022-05-28 00:43] LABS: Add Manual Diff / Slide Review YES; Hematocrit 16.5 % (36-46); Hemoglobin 5.8 g/dL (12.0-16.0)
[2022-05-28 00:44] LABS: Potassium 2.6 mmol/L (3.4-5.1)
[2022-05-28] MEDS: POTASSIUM CHLORIDE IN WATER 10 MEQ/100 ML PIGGYBACK 100 MEQ IV ×12 (00:50→23:13)
[2022-05-28 00:55] LABS: Troponin I 0.154 ng/mL (0.01-0.034)
[2022-05-28] MEDS: CALCIUM CARBONATE 500 MG TAB PO ×4 (01:24→19:35)
[2022-05-28 01:31] LABS: Neutrophils Absolute Manual 1260 /uL (3000-5900); Nucleated Red Blood Cells 1 #/Diff; Total Cells Counted 100
[2022-05-28 01:32] LABS: Anisocytosis 2+; Macrocytosis 1+
[2022-05-28 01:48] LABS: Procalcitonin 0.21 ng/mL (<0.5)
[2022-05-28] MEDS: LACTATED RINGERS 1,000 ML 125 ML IV ×3 (05:14→20:42)
[2022-05-28] MEDS: HYDROCORTISONE 100 MG/2 ML VIAL 50 MG IV ×4 (06:11→23:14)
[2022-05-28] MEDS: CEFEPIME 2 GM in SODIUM CHLORIDE 0.9% 100 ML IV ×2 (06:12→17:52)
--- NOTE | 2022-05-28 06:41 | PC.NURSE ---
Night Note-Patient admitted to ICU room 227 at 204. Fatigued but oriented x3. Levophed gtt at 3mcg/min initially, has been titrated up to 5mcg/min. K+ of 2.6 reported to provider at 2246, 60meq K+ Riders started. Patient was in NSR, slightly tachy up to 110 during activity, at 2339, she went into A-fib RVR, rate up to 140s, confirmed by EKG, patient denied chest pain, pressure, palpitations, or dyspnea, Household Chores consulted, LR liter bolus started, labs drawn as ordered, amiodarone ordered per protocol but not started, patient converted back to NSR at 0009, has not had any other A-fib events throughout rest of night. H/H reported to provider as 5.8/16.5, 1 unit PRBC ordered, patient tolerated infusion, no sign of bleeding. Patient has received Zosyn, Zyvox, hydrocortisone as ordered. UOP > 1400ml in [place], afebrile by am, see vital trends. Daughter has been in room over night.
[2022-05-28 06:50] LABS: Hematocrit 22.4 % (36-46); Hemoglobin 7.9 g/dL (12.0-16.0); Mean Corpuscular HGB Conc 35.1 % (30-36); Mean Corpuscular Hemoglobin 34.9 PG (26-34); Mean Corpuscular Volume 99.5 fL (80-100); Platelet Count 77 X10^3/uL (150-400); Red Blood Cell Count 2.26 X10^6/uL (4.0-5.2)
[2022-05-28 06:51] LABS: Add Manual Diff / Slide Review YES
[2022-05-28 06:54] LABS: White Blood Cell Count 1.5 X10^3/uL (4.5-11.0)
[2022-05-28 06:57] LABS: Alanine Aminotransferase 20 IU/L (<35); Albumin 2.3 g/dL (3.5-5.0); Albumin Globulin Ratio 0.8 (1.0-2.8); Alkaline Phosphatase 91 U/L (38-126); Aspartate Aminotransferase 24 IU/L (14-36); BUN Creatinine Ratio 19.4 (6-22); Bilirubin Total 2.4 mg/dL (0.2-1.3); Blood Urea Nitrogen 13 mg/dL (7-17); Calcium 7.9 mg/dL (8.4-10.2); Carbon Dioxide 27 mmol/L (22-32); Chloride 104 mmol/L (98-107); Estimated Glomerular Filt Rate > 60 mL/min (>60); Globulin 2.8 g/dL (1.7-4.1); Glucose 143 mg/dL (80-110); HEMOLYSIS < 15 (0-50); Potassium 3.4 mmol/L (3.4-5.1); Sodium 133 mmol/L (137-145); Total Protein 5.1 g/dL (6.3-8.2)
[2022-05-28 07:08] LABS: Troponin I 0.079 ng/mL (0.01-0.034)
[2022-05-28 07:14] LABS: Procalcitonin 0.17 ng/mL (<0.5)
[2022-05-28] MEDS: NOREPINEPHRINE BITARTRATE/D5W 4 MG/250 ML PLAST..BAG 18.75 MG IV (07:32)
[2022-05-28] MEDS: PIPERACILLIN/TAZO 3.375 GM in SODIUM CHLORIDE 0.9% 100 ML IV ×3 (07:36→23:13)
[2022-05-28 07:47] LABS: Neutrophils Absolute Manual 1260 /uL (3000-5900); Total Cells Counted 50
[2022-05-28 07:49] LABS: Anisocytosis 3+
[2022-05-28 07:50] LABS: Poikilocytosis 1+
[2022-05-28] MEDS: LINEZOLID 600 MG/300 ML IV.SOLN IV ×2 (08:58→20:42)
[2022-05-28] MEDS: SODIUM CHLORIDE 0.9% FLUSH 10 ML IV ×2 (08:58→21:27)
--- NOTE | 2022-05-28 09:08 | PM.PN.EICU ---
Subjective Subjective IF CAMERA ACTIVATED, patient seen via real-time interactive audiovisual communication: Camera activated Date Patient Seen: 05/28/22 Consent obtained for tele-it lead care: Yes Patient Location: ICU Provider location (State): [place] Other participants/roles: Bedside RN Interval history: Went into A fib w/ RVR overnight and converted back to SR prior to starting amiodarone gtt. Hb down to 5.6 and received 1 U PRBC -> most recent Hb 7.9. Subjectively patient reports feeling better. She feels stronger. Denies chest pain, N/V, fever/chills, or abdominal pain. Current Medications Current Medications Medications: Home Medications abemaciclib 150 mg tablet (Verzenio) 150 mg PO BID 05/28/22 [History Confirmed 05/28/22] apixaban 5 mg tablet (Eliquis) 5 mg PO BID 05/28/22 [History Confirmed 05/28/22] letrozole 2.5 mg tablet 2.5 mg PO DAILY 05/28/22 [History Confirmed 05/28/22] rosuvastatin 20 mg tablet 20 mg PO QPM 05/28/22 [History Confirmed 05/28/22] Visit Medications (administered) Generic Name Dose Route Start Last Admin Trade Name Freq PRN Reason Stop Dose Admin Calcium Carbonate 500 mg 05/28/22 00:16 05/28/22 01:24 Calcium Carbonate 500 Mg Tab PO 500 mg PRN PRN Administration Dyspepsia Hydrocortisone 50 mg 05/28/22 00:00 05/28/22 06:11 Hydrocortisone 100 Mg/2 Ml Vial IV 50 mg Q6HR MARYCARMEN Administration NOREPINEPHRINE BITARTRATE/D5W 4 mg in 250 mls @ 30 mls/hr 05/27/22 18:00 05/28/22 08:54 Levophed IV 4 mcg/min TITRATE MARYCARMEN 15 mls/hr Titration Protocol 8 MCG/MIN Cefepime HCl 2 gm/ Sodium 100 mls @ 200 mls/hr 05/27/22 18:30 05/28/22 07:11 Chloride IV Infused Q12H MARYCARMEN Infusion Linezolid 600 mg in 300 mls @ 600 mls/hr 05/27/22 21:39 05/28/22 08:58 Zyvox IV 600 mls/hr Q12H MARYCARMEN Administration Lactated Ringer's 1,000 mls @ 125 mls/hr 05/27/22 21:45 05/28/22 05:14 Lactated Ringers IV 125 mls/hr CONT MARYCARMEN Administration Amiodarone HCl/Dextrose 360 mg in 200 mls @ 16.7 mls/hr 05/28/22 06:00 05/28/22 06:13 Nexterone IV 05/28/22 17:59 Not Given CONT MARYCARMEN Protocol Piperacillin Sod/Tazobactam 100 mls @ 25 mls/hr 05/28/22 08:00 05/28/22 07:36 Sod 3.375 gm/ Sodium Chloride IV 25 mls/hr Q8H MARYCARMEN Administration Sodium Chloride 10 ml 05/28/22 09:00 05/28/22 08:58 Sodium Chloride 0.9% Flush IV 10 ml BID MARYCARMEN Administration Objective Labs Result Diagrams: 05/28/22 06:30 05/28/22 06:30 Labs: Laboratory Results - last 24 hr 05/27/22 05/27/22 05/27/22 13:56 13:56 13:56 WBC 2.1 L RBC 2.36 L Hgb 8.6 L Hct 24.3 L MCV 102.8 H MCH 36.4 H MCHC 35.4 RDW 20.8 H Plt Count 118 L Neut % (Auto) 74.2 Lymph % (Auto) 18.[address] [place] % (Auto) 5.1 Eos % (Auto) 1.3 L Baso % (Auto) 1.3 Neut # (Auto) 1600 Lymph # (Auto) [address] [place] # (Auto) 100 Eos # (Auto) 0 Baso # (Auto) 0 Total Counted Seg Neutrophils % Band Neutrophils % Lymphocytes % (Manual) Monocytes % (Manual) Eosinophils % (Manual) Metamyelocytes % Neutrophils # (Manual) Nucleated RBCs Platelet Estimate Decreased on smear RBC Morphology See below Polychromasia 1+ H Poikilocytosis Anisocytosis 2+ H Macrocytosis 2+ H PT INR APTT Sodium 131 L Potassium 2.2 L* Chloride 92 L Carbon Dioxide 30 BUN 23 H Creatinine 0.95 Estimated GFR > 60 BUN/Creatinine Ratio 24.2 H Glucose 152 H Lactate 5.2 H* Calcium 9.0 Magnesium Total Bilirubin 1.6 H AST 33 ALT 41 H Alkaline Phosphatase 132 H Total Creatine Kinase CK-MB (CK-2) CK-MB (CK-2) Rel Index Troponin I Total Protein 6.9 Albumin 3.4 L Globulin 3.5 Albumin/Globulin Ratio 1.0 Lipase 126 Procalcitonin Urine Color Urine Appearance Urine pH Ur Specific [place] Urine Protein Urine Glucose (UA) Urine Ketones Urine Occult Blood Urine Nitrate Urine Bilirubin Urine Urobilinogen Ur Leukocyte Esterase Urine RBC Urine WBC Ur Squamous Epith Cells Urine Bacteria Urine Mucus Ur Culture Indicated? Nasal Screen MRSA (PCR) Chlamy pneumoniae PCR Adenovirus (PCR) B. pertussis DNA (PCR) B.parapertussis DNA PCR Coronavirus OC43 (PCR) Coronavirus HKU1 (PCR) Coronavirus 229E (PCR) SARS-CoV-2 (PCR) Coronavirus NL63 (PCR) Human Metapneumovir PCR Influenza Type A (PCR) Influenza Type B (PCR) M. pneumoniae (PCR) Parainfluenza 1 (PCR) Parainfluenza 2 (PCR) Parainfluenza 3 (PCR) Parainfluenza 4 (PCR) RSV (PCR) Entero/Rhino (PCR) Blood Type Antibody Screen Crossmatch 05/27/22 05/27/22 05/27/22 13:56 13:56 14:16 WBC RBC Hgb Hct MCV MCH MCHC RDW Plt Count Neut % (Auto) Lymph % (Auto) [place] % (Auto) Eos % (Auto) Baso % (Auto) Neut # (Auto) Lymph # (Auto) [place] # (Auto) Eos # (Auto) Baso # (Auto) Total Counted Seg Neutrophils % Band Neutrophils % Lymphocytes % (Manual) Monocytes % (Manual) Eosinophils % (Manual) Metamyelocytes % Neutrophils # (Manual) Nucleated RBCs Platelet Estimate RBC Morphology Polychromasia Poikilocytosis Anisocytosis Macrocytosis PT 29.8 H INR 2.6 H APTT 29 Sodium Potassium Chloride Carbon Dioxide BUN Creatinine Estimated GFR BUN/Creatinine Ratio Glucose Lactate Calcium Magnesium Total Bilirubin AST ALT Alkaline Phosphatase Total Creatine Kinase CK-MB (CK-2) CK-MB (CK-2) Rel Index Troponin I Total Protein Albumin Globulin Albumin/Globulin Ratio Lipase Procalcitonin 0.17 Urine Color Urine Appearance Urine pH Ur Specific [place] Urine Protein Urine Glucose (UA) Urine Ketones Urine Occult Blood Urine Nitrate Urine Bilirubin Urine Urobilinogen Ur Leukocyte Esterase Urine RBC Urine WBC Ur Squamous Epith Cells Urine Bacteria Urine Mucus Ur Culture Indicated? Nasal Screen MRSA (PCR) Chlamy pneumoniae PCR Not detected Adenovirus (PCR) Not detected B. pertussis DNA (PCR) Not detected B.parapertussis DNA PCR Not detected Coronavirus OC43 (PCR) Not detected Coronavirus HKU1 (PCR) Not detected Coronavirus 229E (PCR) Not detected SARS-CoV-2 (PCR) Not detected Coronavirus NL63 (PCR) Not detected Human Metapneumovir PCR Not detected Influenza Type A (PCR) Not detected Influenza Type B (PCR) Not detected M. pneumoniae (PCR) Not detected Parainfluenza 1 (PCR) Not detected Parainfluenza 2 (PCR) Not detected Parainfluenza 3 (PCR) Not detected Parainfluenza 4 (PCR) Not detected RSV (PCR) Not detected Entero/Rhino (PCR) Not detected Blood Type Antibody Screen Crossmatch 05/27/22 05/27/22 05/27/22 14:40 15:02 15:02 WBC RBC Hgb Hct MCV MCH MCHC RDW Plt Count Neut % (Auto) Lymph % (Auto) [place] % (Auto) Eos % (Auto) Baso % (Auto) Neut # (Auto) Lymph # (Auto) [place] # (Auto) Eos # (Auto) Baso # (Auto) Total Counted Seg Neutrophils % Band Neutrophils % Lymphocytes % (Manual) Monocytes % (Manual) Eosinophils % (Manual) Metamyelocytes % Neutrophils # (Manual) Nucleated RBCs Platelet Estimate RBC Morphology Polychromasia Poikilocytosis Anisocytosis Macrocytosis PT INR APTT Sodium Potassium Chloride Carbon Dioxide BUN Creatinine Estimated GFR BUN/Creatinine Ratio Glucose Lactate Calcium Magnesium 2.6 H Total Bilirubin AST ALT Alkaline Phosphatase Total Creatine Kinase 71 CK-MB (CK-2) TNP CK-MB (CK-2) Rel Index TNP Troponin I 0.143 H* Total Protein Albumin Globulin Albumin/Globulin Ratio Lipase Procalcitonin Urine Color Urine Appearance Urine pH Ur Specific [place] Urine Protein Urine Glucose (UA) Urine Ketones Urine Occult Blood Urine Nitrate Urine Bilirubin Urine Urobilinogen Ur Leukocyte Esterase Urine RBC Urine WBC Ur Squamous Epith Cells Urine Bacteria Urine Mucus Ur Culture Indicated? Nasal Screen MRSA (PCR) Chlamy pneumoniae PCR Adenovirus (PCR) B. pertussis DNA (PCR) B.parapertussis DNA PCR Coronavirus OC43 (PCR) Coronavirus HKU1 (PCR) Coronavirus 229E (PCR) SARS-CoV-2 (PCR) Coronavirus NL63 (PCR) Human Metapneumovir PCR Influenza Type A (PCR) Influenza Type B (PCR) M. pneumoniae (PCR) Parainfluenza 1 (PCR) Parainfluenza 2 (PCR) Parainfluenza 3 (PCR) Parainfluenza 4 (PCR) RSV (PCR) Entero/Rhino (PCR) Blood Type A Positive Antibody Screen Negative Crossmatch See Detail 05/27/22 05/27/22 05/27/22 17:00 18:30 21:15 WBC RBC Hgb Hct MCV MCH MCHC RDW Plt Count Neut % (Auto) Lymph % (Auto) [place] % (Auto) Eos % (Auto) Baso % (Auto) Neut # (Auto) Lymph # (Auto) [place] # (Auto) Eos # (Auto) Baso # (Auto) Total Counted Seg Neutrophils % Band Neutrophils % Lymphocytes % (Manual) Monocytes % (Manual) Eosinophils % (Manual) Metamyelocytes % Neutrophils # (Manual) Nucleated RBCs Platelet Estimate RBC Morphology Polychromasia Poikilocytosis Anisocytosis Macrocytosis PT INR APTT Sodium Potassium Chloride Carbon Dioxide BUN Creatinine Estimated GFR BUN/Creatinine Ratio Glucose Lactate 0.9 Calcium Magnesium Total Bilirubin AST ALT Alkaline Phosphatase Total Creatine Kinase CK-MB (CK-2) CK-MB (CK-2) Rel Index Troponin I Total Protein Albumin Globulin Albumin/Globulin Ratio Lipase Procalcitonin Urine Color Yellow Urine Appearance Clear Urine pH 6.5 Ur Specific [place] 1.015 Urine Protein 1+ H Urine Glucose (UA) Negative Urine Ketones 1+ H Urine Occult Blood Trace-lysed Urine Nitrate Negative Urine Bilirubin Negative Urine Urobilinogen 1.0 Ur Leukocyte Esterase Negative Urine RBC 0-1/hpf Urine WBC 5-10/hpf H Ur Squamous Epith Cells 1-5 /hpf Urine Bacteria Occasional (0-1) Urine Mucus 1+ H Ur Culture Indicated? Specimen cultured Nasal Screen MRSA (PCR) Negative for mrsa Chlamy pneumoniae PCR Adenovirus (PCR) B. pertussis DNA (PCR) B.parapertussis DNA PCR Coronavirus OC43 (PCR) Coronavirus HKU1 (PCR) Coronavirus 229E (PCR) SARS-CoV-2 (PCR) Coronavirus NL63 (PCR) Human Metapneumovir PCR Influenza Type A (PCR) Influenza Type B (PCR) M. pneumoniae (PCR) Parainfluenza 1 (PCR) Parainfluenza 2 (PCR) Parainfluenza 3 (PCR) Parainfluenza 4 (PCR) RSV (PCR) Entero/Rhino (PCR) Blood Type Antibody Screen Crossmatch 05/27/22 05/27/22 05/27/22 22:00 22:00 23:59 WBC 1.4 L* RBC 1.61 L Hgb 5.8 L* Hct 16.5 L* MCV 102.4 H MCH 36.2 H MCHC 35.3 RDW 20.4 H Plt Count 70 L Neut % (Auto) Not Reportable Lymph % (Auto) Not Reportable [place] % (Auto) Not Reportable Eos % (Auto) Not Reportable Baso % (Auto) Not Reportable Neut # (Auto) Lymph # (Auto) Not Reportable [place] # (Auto) Not Reportable Eos # (Auto) Baso # (Auto) Not Reportable Total Counted 100 Seg Neutrophils % 84.0 H Band Neutrophils % 6.0 Lymphocytes % (Manual) 4.0 L Monocytes % (Manual) 5.0 Eosinophils % (Manual) 1.0 L Metamyelocytes % Neutrophils # (Manual) 1260 L Nucleated RBCs 1 H Platelet Estimate RBC Morphology See below Polychromasia Poikilocytosis Anisocytosis 2+ H Macrocytosis 1+ H PT INR APTT Sodium Potassium 2.6 L* Chloride Carbon Dioxide BUN Creatinine Estimated GFR BUN/Creatinine Ratio Glucose Lactate Calcium Magnesium 2.3 Total Bilirubin AST ALT Alkaline Phosphatase Total Creatine Kinase CK-MB (CK-2) CK-MB (CK-2) Rel Index Troponin I Total Protein Albumin Globulin Albumin/Globulin Ratio Lipase Procalcitonin Urine Color Urine Appearance Urine pH Ur Specific [place] Urine Protein Urine Glucose (UA) Urine Ketones Urine Occult Blood Urine Nitrate Urine Bilirubin Urine Urobilinogen Ur Leukocyte Esterase Urine RBC Urine WBC Ur Squamous Epith Cells Urine Bacteria Urine Mucus Ur Culture Indicated? Nasal Screen MRSA (PCR) Chlamy pneumoniae PCR Adenovirus (PCR) B. pertussis DNA (PCR) B.parapertussis DNA PCR Coronavirus OC43 (PCR) Coronavirus HKU1 (PCR) Coronavirus 229E (PCR) SARS-CoV-2 (PCR) Coronavirus NL63 (PCR) Human Metapneumovir PCR Influenza Type A (PCR) Influenza Type B (PCR) M. pneumoniae (PCR) Parainfluenza 1 (PCR) Parainfluenza 2 (PCR) Parainfluenza 3 (PCR) Parainfluenza 4 (PCR) RSV (PCR) Entero/Rhino (PCR) Blood Type Antibody Screen Crossmatch 05/27/22 05/27/22 05/27/22 23:59 23:59 23:59 WBC RBC Hgb Hct MCV MCH MCHC RDW Plt Count Neut % (Auto) Lymph % (Auto) [place] % (Auto) Eos % (Auto) Baso % (Auto) Neut # (Auto) Lymph # (Auto) [place] # (Auto) Eos # (Auto) Baso # (Auto) Total Counted Seg Neutrophils % Band Neutrophils % Lymphocytes % (Manual) Monocytes % (Manual) Eosinophils % (Manual) Metamyelocytes % Neutrophils # (Manual) Nucleated RBCs Platelet Estimate RBC Morphology Polychromasia Poikilocytosis Anisocytosis Macrocytosis PT INR APTT Sodium 128 L Potassium 2.6 L* Chloride 99 Carbon Dioxide 28 BUN 17 Creatinine 0.83 Estimated GFR > 60 BUN/Creatinine Ratio 20.5 Glucose 170 H Lactate 0.8 Calcium 7.3 L Magnesium 2.1 Total Bilirubin 1.7 H AST 24 ALT 20 Alkaline Phosphatase 86 Total Creatine Kinase CK-MB (CK-2) CK-MB (CK-2) Rel Index Troponin I 0.154 H* Total Protein 4.8 L Albumin 2.3 L Globulin 2.5 Albumin/Globulin Ratio 0.9 L Lipase Procalcitonin 0.21 Urine Color Urine Appearance Urine pH Ur Specific [place] Urine Protein Urine Glucose (UA) Urine Ketones Urine Occult Blood Urine Nitrate Urine Bilirubin Urine Urobilinogen Ur Leukocyte Esterase Urine RBC Urine WBC Ur Squamous Epith Cells Urine Bacteria Urine Mucus Ur Culture Indicated? Nasal Screen MRSA (PCR) Chlamy pneumoniae PCR Adenovirus (PCR) B. pertussis DNA (PCR) B.parapertussis DNA PCR Coronavirus OC43 (PCR) Coronavirus HKU1 (PCR) Coronavirus 229E (PCR) SARS-CoV-2 (PCR) Coronavirus NL63 (PCR) Human Metapneumovir PCR Influenza Type A (PCR) Influenza Type B (PCR) M. pneumoniae (PCR) Parainfluenza 1 (PCR) Parainfluenza 2 (PCR) Parainfluenza 3 (PCR) Parainfluenza 4 (PCR) RSV (PCR) Entero/Rhino (PCR) Blood Type Antibody Screen Crossmatch 1105/28/22 05/28/22 06:30 06:30 06:30 WBC 1.5 L* RBC 2.26 L Hgb 7.9 L Hct 22.4 L MCV 99.5 MCH 34.9 H MCHC 35.1 RDW 20.0 H Plt Count 77 L Neut % (Auto) Not Reportable Lymph % (Auto) Not Reportable [place] % (Auto) Not Reportable Eos % (Auto) Not Reportable Baso % (Auto) Not Reportable Neut # (Auto) Lymph # (Auto) Not Reportable [place] # (Auto) Not Reportable Eos # (Auto) Baso # (Auto) Not Reportable Total Counted 50 Seg Neutrophils % 72.0 H Band Neutrophils % 12.0 H Lymphocytes % (Manual) 10.0 L Monocytes % (Manual) 4.0 Eosinophils % (Manual) Metamyelocytes % 2.0 H Neutrophils # (Manual) 1260 L Nucleated RBCs Platelet Estimate RBC Morphology See below Polychromasia Poikilocytosis 1+ H Anisocytosis 3+ H Macrocytosis PT INR APTT Sodium 133 L Potassium 3.4 Chloride 104 Carbon Dioxide 27 BUN 13 Creatinine 0.67 Estimated GFR > 60 BUN/Creatinine Ratio 19.4 Glucose 143 H Lactate Calcium 7.9 L Magnesium Total Bilirubin 2.4 H AST 24 ALT 20 Alkaline Phosphatase 91 Total Creatine Kinase CK-MB (CK-2) CK-MB (CK-2) Rel Index Troponin I Total Protein 5.1 L Albumin 2.3 L Globulin 2.8 Albumin/Globulin Ratio 0.8 L Lipase Procalcitonin 0.17 Urine Color Urine Appearance Urine pH Ur Specific [place] Urine Protein Urine Glucose (UA) Urine Ketones Urine Occult Blood Urine Nitrate Urine Bilirubin Urine Urobilinogen Ur Leukocyte Esterase Urine RBC Urine WBC Ur Squamous Epith Cells Urine Bacteria Urine Mucus Ur Culture Indicated? Nasal Screen MRSA (PCR) Chlamy pneumoniae PCR Adenovirus (PCR) B. pertussis DNA (PCR) B.parapertussis DNA PCR Coronavirus OC43 (PCR) Coronavirus HKU1 (PCR) Coronavirus 229E (PCR) SARS-CoV-2 (PCR) Coronavirus NL63 (PCR) Human Metapneumovir PCR Influenza Type A (PCR) Influenza Type B (PCR) M. pneumoniae (PCR) Parainfluenza 1 (PCR) Parainfluenza 2 (PCR) Parainfluenza 3 (PCR) Parainfluenza 4 (PCR) RSV (PCR) Entero/Rhino (PCR) Blood Type Antibody Screen Crossmatch 05/28/22 06:30 WBC RBC Hgb Hct MCV MCH MCHC RDW Plt Count Neut % (Auto) Lymph % (Auto) [place] % (Auto) Eos % (Auto) Baso % (Auto) Neut # (Auto) Lymph # (Auto) [place] # (Auto) Eos # (Auto) Baso # (Auto) Total Counted Seg Neutrophils % Band Neutrophils % Lymphocytes % (Manual) Monocytes % (Manual) Eosinophils % (Manual) Metamyelocytes % Neutrophils # (Manual) Nucleated RBCs Platelet Estimate RBC Morphology Polychromasia Poikilocytosis Anisocytosis Macrocytosis PT INR APTT Sodium Potassium Chloride Carbon Dioxide BUN Creatinine Estimated GFR BUN/Creatinine Ratio Glucose Lactate Calcium Magnesium Total Bilirubin AST ALT Alkaline Phosphatase Total Creatine Kinase CK-MB (CK-2) CK-MB (CK-2) Rel Index Troponin I 0.079 H Total Protein Albumin Globulin Albumin/Globulin Ratio Lipase Procalcitonin Urine Color Urine Appearance Urine pH Ur Specific [place] Urine Protein Urine Glucose (UA) Urine Ketones Urine Occult Blood Urine Nitrate Urine Bilirubin Urine Urobilinogen Ur Leukocyte Esterase Urine RBC Urine WBC Ur Squamous Epith Cells Urine Bacteria Urine Mucus Ur Culture Indicated? Nasal Screen MRSA (PCR) Chlamy pneumoniae PCR Adenovirus (PCR) B. pertussis DNA (PCR) B.parapertussis DNA PCR Coronavirus OC43 (PCR) Coronavirus HKU1 (PCR) Coronavirus 229E (PCR) SARS-CoV-2 (PCR) Coronavirus NL63 (PCR) Human Metapneumovir PCR Influenza Type A (PCR) Influenza Type B (PCR) M. pneumoniae (PCR) Parainfluenza 1 (PCR) Parainfluenza 2 (PCR) Parainfluenza 3 (PCR) Parainfluenza 4 (PCR) RSV (PCR) Entero/Rhino (PCR) Blood Type Antibody Screen Crossmatch Exam Vital Signs (past 8 hours): - 05/28/22 01:42 05/28/22 01:59 05/28/22 01:10 Temperature 99.1 F 99.1 F 99.1 F Pulse Rate 90 80 83 Respiratory Rate 16 14 8 L Blood Pressure 111/63 87/49 L Pulse Oximetry 92 Oxygen Delivery Method 05/28/22 01:10 05/28/22 01:20 05/28/22 01:20 Temperature 99.0 F Pulse Rate 86 Respiratory Rate 21 Blood Pressure 97/58 L 118/60 Pulse Oximetry 93 Oxygen Delivery Method 05/28/22 01:30 05/28/22 01:30 05/28/22 01:40 Temperature 99.1 F Pulse Rate 88 Respiratory Rate 14 Blood Pressure 111/63 111/63 Pulse Oximetry 97 Oxygen Delivery Method 05/28/22 01:40 05/28/22 01:51 05/28/22 01:51 Temperature 99.1 F 99.1 F Pulse Rate 88 87 Respiratory Rate 14 62 H Blood Pressure 83/50 L Pulse Oximetry 97 97 Oxygen Delivery Method 05/28/22 02:00 05/28/22 02:00 05/28/22 02:10 Temperature 99.1 F Pulse Rate 79 Respiratory Rate 34 H Blood Pressure 87/49 L 94/58 L Pulse Oximetry 97 Oxygen Delivery Method 05/28/22 02:10 05/28/22 02:15 05/28/22 02:15 Temperature 99.1 F 99.1 F Pulse Rate 81 80 Respiratory Rate 44 H 64 H Blood Pressure 95/55 L Pulse Oximetry 97 96 Oxygen Delivery Method 05/28/22 02:30 05/28/22 02:30 05/28/22 02:45 Temperature 99.1 F Pulse Rate 79 Respiratory Rate 54 H Blood Pressure 100/55 L 95/51 L Pulse Oximetry 93 Oxygen Delivery Method 05/28/22 02:45 05/28/22 03:00 05/28/22 03:00 Temperature 99.1 F 99.0 F Pulse Rate 78 77 Respiratory Rate 35 H 27 H Blood Pressure 90/55 L Pulse Oximetry 93 93 Oxygen Delivery Method 05/28/22 03:15 05/28/22 03:15 05/28/22 04:00 Temperature 98.6 F Pulse Rate 78 Respiratory Rate 40 H Blood Pressure 97/55 L Pulse Oximetry 93 Oxygen Delivery Method Room Air 05/28/22 04:51 05/28/22 03:30 05/28/22 03:31 Temperature 98.2 F 98.6 F 98.6 F Pulse Rate 80 89 89 Respiratory Rate 18 28 H 28 H Blood Pressure 110/61 Pulse Oximetry 96 Oxygen Delivery Method 05/28/22 03:31 05/28/22 03:45 05/28/22 03:45 Temperature 98.6 F Pulse Rate 84 Respiratory Rate 11 L Blood Pressure 126/65 107/71 Pulse Oximetry 97 Oxygen Delivery Method 05/28/22 04:00 05/28/22 04:00 05/28/22 04:15 Temperature 98.6 F 98.4 F Pulse Rate 81 81 Respiratory Rate 16 17 Blood Pressure 106/66 Pulse Oximetry 95 94 Oxygen Delivery Method 05/28/22 04:15 05/28/22 04:30 05/28/22 04:31 Temperature 98.2 F Pulse Rate 81 Respiratory Rate 16 Blood Pressure 105/59 L 117/65 Pulse Oximetry 98 Oxygen Delivery Method 05/28/22 04:31 05/28/22 04:45 05/28/22 04:45 Temperature 98.2 F 98.2 F Pulse Rate 82 81 Respiratory Rate 11 L 22 Blood Pressure 110/61 Pulse Oximetry 97 94 Oxygen Delivery Method 05/28/22 05:00 05/28/22 05:00 05/28/22 05:15 Temperature 98.2 F Pulse Rate 81 Respiratory Rate 22 Blood Pressure 112/63 110/66 Pulse Oximetry 95 Oxygen Delivery Method 05/28/22 05:15 05/28/22 05:30 05/28/22 05:30 Temperature 98.1 F 98.1 F Pulse Rate 82 84 Respiratory Rate 21 19 Blood Pressure 111/63 Pulse Oximetry 91 97 Oxygen Delivery Method 05/28/22 05:49 05/28/22 05:49 05/28/22 06:00 Temperature 98.2 F 98.2 F Pulse Rate 76 76 Respiratory Rate 54 H 20 Blood Pressure 96/51 L Pulse Oximetry 98 98 Oxygen Delivery Method 05/28/22 06:30 05/28/22 06:58 05/28/22 06:58 Temperature 98.2 F 98.4 F Pulse Rate 80 79 Respiratory Rate 21 23 Blood Pressure 96/53 L Pulse Oximetry 97 97 Oxygen Delivery Method 05/28/22 07:00 05/28/22 07:00 05/28/22 07:15 Temperature 98.2 F Pulse Rate 77 Respiratory Rate 18 Blood Pressure 99/56 L 101/56 L Pulse Oximetry 98 Oxygen Delivery Method 05/28/22 07:15 05/28/22 07:30 05/28/22 07:30 Temperature 98.4 F 98.6 F Pulse Rate 79 80 Respiratory Rate 24 23 Blood Pressure 106/59 L Pulse Oximetry 98 99 Oxygen Delivery Method 05/28/22 07:45 05/28/22 07:45 05/28/22 08:00 Temperature 98.6 F Pulse Rate 78 Respiratory Rate 27 H Blood Pressure 103/58 L 102/58 L Pulse Oximetry 93 Oxygen Delivery Method 05/28/22 08:00 05/28/22 08:15 05/28/22 08:15 Temperature 98.6 F 98.8 F Pulse Rate 80 87 Respiratory Rate 29 H 19 Blood Pressure 119/78 Pulse Oximetry 94 98 Oxygen Delivery Method 05/28/22 08:30 05/28/22 08:30 05/28/22 08:45 Temperature 98.8 F Pulse Rate 90 Respiratory Rate 17 Blood Pressure 129/78 113/76 Pulse Oximetry 98 Oxygen Delivery Method 05/28/22 08:45 Temperature 98.8 F Pulse Rate 90 Respiratory Rate 22 Blood Pressure Pulse Oximetry 98 Oxygen Delivery Method Oxygen Delivery Method Room Air Oxygen Flow Rate 0 Narrative Exam Narrative: Not in distress. Sitting up in bed speaking in full sentence. Quality TeleICU VTE Deep Vein Thrombosis/Pulmonary Embolism Present on Admission: Yes Assessment & Plan Assessment & Plan narrative: NEURO: -- Seek PT/OT and OOB as tolerated RESP: -- On room air -- Encourage IS CVS: # Distributive shock -- Secondary to sepsis -- Levophed down to 4 mcg -- On IVF -- On stress dose steroids -- Follow up cx data -- MAP goal > 65 # Paroxysmal A fib -- Secondary to sepsis dehydration, and hypokalemia -- High lytes goal -- Currently in SR -- Holding eliquis due to low Hb with concern for bleed -- Goal HR < 110 -- Goal K > 4 and Mg > 2 ID: # Septic shock -- Secondary to urinary vs intraabdominal? -- Follow up cx data? -- On linezolid/zosyn -- MAP goal > 65 : # Hypokalemia -- Repleted -- Goal K > 4 HEME/ONC: # Breast cancer -- On immunotherapy and radiation -- Follow with oncology as outpatient # Anemia -- Possible related to bleed vs BM suppression -- Cont sepsis rx as above -- Holding eliquis -- GOal Hb > 7 ENDO: -- Goal BS < 180 D/w RN at bedside. Time Spent With Patient Critical Care time: I spent a total of 34 minutes of critical care time on this patient's care today; this time is exclusive of procedural time.
--- NOTE | 2022-05-28 11:01 | CM.DANOTE ---
DCP: Case received, EMR reviewed and met with patient. Daughter, Leola, was at bedside. Introduced self and role. Was able to obtain information regarding patient's baseline activity status prior to hospitalization. DCP assessment completed with information currently available. Patient is a 62 year old female who admitted yesterday afternoon to the care of the hospitalist team. PCP: Julio C Ramirez. Payer: confirmed: [employer]. Patient came to the hospital via ambulance secondary to malaise, nausea and vomiting, and diarrhea. Patient has history of metastatic breast cancer to the spine and pelvis, and she had just completed her radiation therapy. Patient was noted to be septic. She is also on immunotherapy at oncology. Met with patient in her room. She was sitting up in her bed, daughter at bedside. Confirmed that she resides alone here in [place], and is independent at her baseline. Her children do not live locally, but she does have friends on [place] that can stay with he as needed. P: DCP to continue to follow for any needs. Patient should be able to go home when she is deemed medically stable. Mariza Hudson RN/Furnace Door Tender Discharge Planning/Care Management CM Discharge Assessment Start: 05/28/22 10:58 Freq: Status: Active Protocol: Document 05/28/22 10:58 (Rec: 05/28/22 11:01 [id number]) Discharge Planning Assessment Assigned Jump Roll Operator Mariza Hudson RN/Furnace Door Tender Advance Directives? No Advance Directives on File No History Provided By Patient,Medical Record Prior Living Arrangements House Household Members none Type of transporation used prior to Drives own vehicle admit Independent with ADL's Yes Is patient alert and oriented? Yes Caregiver for Another No Barriers to Discharge No Discharge Plan Home Transportation Arrangement Daughter Referrals Initiated None needed Whiteboard Updated in Patient Room with Yes name and ext. # of Jump Roll Operator Review Status In Process Next Review Type Continued Stay Review
[2022-05-28 12:16] LABS: Troponin I 0.061 ng/mL (0.01-0.034)
--- NOTE | 2022-05-28 16:31 | P.PN_ITS ---
Subjective Subjective Date Patient Seen: 05/28/22 Time Patient Seen: 08:00 Interval history: Overnight she continued on levophed, she dropped her pressures when she developed afib with RVR but converted to sinus after receiving IV fluids. Today she is feeling somewhat stronger but still weak. She has no abdominal pain, but has had episodes of intermittent vomiting and diarrhea. She has no dysuria. No cough or shortness of breath. Exam Vital Signs (past 8 hours): - 05/28/22 08:45 05/28/22 08:45 05/28/22 09:00 Temperature 98.8 F Pulse Rate 90 Respiratory Rate 22 Blood Pressure 113/76 112/67 Pulse Oximetry 98 Oxygen Delivery Method 05/28/22 09:00 05/28/22 09:14 05/28/22 09:15 Temperature 99.0 F 99.0 F Pulse Rate 90 90 Respiratory Rate 19 32 H Blood Pressure 105/62 Pulse Oximetry 99 98 Oxygen Delivery Method 05/28/22 09:15 05/28/22 09:30 05/28/22 09:30 Temperature 99.0 F 99.0 F Pulse Rate 90 90 Respiratory Rate 24 21 Blood Pressure 118/67 Pulse Oximetry 98 99 Oxygen Delivery Method 05/28/22 09:45 05/28/22 09:45 05/28/22 10:00 Temperature 99.0 F Pulse Rate 89 Respiratory Rate 21 Blood Pressure 125/64 104/57 L Pulse Oximetry 98 Oxygen Delivery Method 05/28/22 10:00 05/28/22 10:15 05/28/22 10:15 Temperature 99.0 F 99.0 F Pulse Rate 85 86 Respiratory Rate 24 26 H Blood Pressure 106/60 Pulse Oximetry 98 98 Oxygen Delivery Method 05/28/22 10:30 05/28/22 10:30 05/28/22 10:45 Temperature 99.0 F Pulse Rate 85 Respiratory Rate 21 Blood Pressure 103/58 L 103/58 L Pulse Oximetry 98 Oxygen Delivery Method 05/28/22 10:45 05/28/22 11:00 05/28/22 11:00 Temperature 99.1 F 99.1 F Pulse Rate 97 H 99 H Respiratory Rate 24 25 H Blood Pressure 102/60 Pulse Oximetry 98 99 Oxygen Delivery Method 05/28/22 11:14 05/28/22 11:15 05/28/22 12:00 Temperature 99.1 F Pulse Rate 91 H Respiratory Rate 26 H Blood Pressure 116/65 Pulse Oximetry 98 Oxygen Delivery Method Room Air 05/28/22 11:15 05/28/22 11:30 05/28/22 11:30 Temperature 99.1 F 99.1 F Pulse Rate 91 H 88 Respiratory Rate 24 23 Blood Pressure 104/61 Pulse Oximetry 98 98 Oxygen Delivery Method 05/28/22 11:45 05/28/22 11:45 05/28/22 12:00 Temperature 99.1 F Pulse Rate 91 H Respiratory Rate 23 Blood Pressure 103/58 L 109/65 Pulse Oximetry 98 Oxygen Delivery Method 05/28/22 12:00 05/28/22 12:15 05/28/22 12:15 Temperature 99.1 F 99.1 F Pulse Rate 93 H 93 H Respiratory Rate 24 22 Blood Pressure 112/70 Pulse Oximetry 98 97 Oxygen Delivery Method 05/28/22 12:30 05/28/22 12:30 05/28/22 12:45 Temperature 99.1 F 99.1 F Pulse Rate 98 H 98 H Respiratory Rate 31 H 27 H Blood Pressure 110/67 Pulse Oximetry 96 97 Oxygen Delivery Method 05/28/22 12:45 05/28/22 13:00 05/28/22 13:00 Temperature 99.3 F Pulse Rate 98 H Respiratory Rate 31 H Blood Pressure 114/64 107/58 L Pulse Oximetry 98 Oxygen Delivery Method 05/28/22 13:15 05/28/22 13:15 05/28/22 13:30 Temperature 99.3 F Pulse Rate 99 H Respiratory Rate 25 H Blood Pressure 95/55 L 103/55 L Pulse Oximetry 96 Oxygen Delivery Method 05/28/22 13:30 05/28/22 13:47 05/28/22 13:47 Temperature 99.3 F 99.3 F Pulse Rate 99 H 97 H Respiratory Rate 23 28 H Blood Pressure 136/54 L Pulse Oximetry 98 98 Oxygen Delivery Method 05/28/22 14:00 05/28/22 14:00 05/28/22 14:15 Temperature 99.3 F 99.3 F Pulse Rate 92 H 90 Respiratory Rate 23 21 Blood Pressure 101/52 L Pulse Oximetry 97 97 Oxygen Delivery Method 05/28/22 14:15 05/28/22 14:30 05/28/22 14:30 Temperature 99.3 F Pulse Rate 86 Respiratory Rate 24 Blood Pressure 95/56 L 96/55 L Pulse Oximetry 96 Oxygen Delivery Method 05/28/22 14:45 05/28/22 14:45 05/28/22 15:00 Temperature 99.3 F Pulse Rate 86 Respiratory Rate 21 Blood Pressure 98/56 L 108/63 Pulse Oximetry 97 Oxygen Delivery Method 05/28/22 15:00 05/28/22 15:15 05/28/22 15:15 Temperature 99.3 F 99.5 F Pulse Rate 92 H 92 H Respiratory Rate 23 27 H Blood Pressure 105/65 Pulse Oximetry 98 98 Oxygen Delivery Method 05/28/22 15:30 05/28/22 15:32 05/28/22 15:32 Temperature 99.1 F 99.3 F Pulse Rate 92 H 92 H Respiratory Rate 23 30 H Blood Pressure 117/58 L Pulse Oximetry 97 98 Oxygen Delivery Method 05/28/22 15:57 05/28/22 15:57 05/28/22 16:00 Temperature 99.5 F 99.5 F Pulse Rate 94 H 93 H Respiratory Rate 33 H 20 Blood Pressure 96/62 Pulse Oximetry 97 97 Oxygen Delivery Method 05/28/22 16:01 05/28/22 16:01 Temperature 99.5 F Pulse Rate 93 H Respiratory Rate 20 Blood Pressure 108/56 L Pulse Oximetry 97 Oxygen Delivery Method Oxygen Delivery Method Room Air Oxygen Flow Rate 0 Narrative Exam Narrative: GEN: no acute distress CV: tachycardic, reuglar rhythm, no murmurs PULM: clear bilaterally ABD: soft, nontender, nondistended, no organomegaly EXT: warm and well perfused with no edema NEURO: awake, alert, oriented, no focal deficits Objective Labs Result Diagrams: 05/28/22 06:30 05/28/22 06:30 Labs: Laboratory Results - last 24 hr 05/27/22 05/27/22 05/27/22 13:56 14:40 17:00 WBC RBC Hgb Hct MCV MCH MCHC RDW Plt Count Neut % (Auto) Lymph % (Auto) [place] % (Auto) Eos % (Auto) Baso % (Auto) Lymph # (Auto) [place] # (Auto) Baso # (Auto) Total Counted Seg Neutrophils % Band Neutrophils % Lymphocytes % (Manual) Monocytes % (Manual) Eosinophils % (Manual) Metamyelocytes % Neutrophils # (Manual) Nucleated RBCs RBC Morphology Poikilocytosis Anisocytosis Macrocytosis PT 29.8 H INR 2.6 H APTT 29 Sodium Potassium Chloride Carbon Dioxide BUN Creatinine Estimated GFR BUN/Creatinine Ratio Glucose Lactate Calcium Magnesium Total Bilirubin AST ALT Alkaline Phosphatase Troponin I Total Protein Albumin Globulin Albumin/Globulin Ratio Procalcitonin Urine Color Yellow Urine Appearance Clear Urine pH 6.5 Ur Specific [place] 1.015 Urine Protein 1+ H Urine Glucose (UA) Negative Urine Ketones 1+ H Urine Occult Blood Trace-lysed Urine Nitrate Negative Urine Bilirubin Negative Urine Urobilinogen 1.0 Ur Leukocyte Esterase Negative Urine RBC 0-1/hpf Urine WBC 5-10/hpf H Ur Squamous Epith Cells 1-5 /hpf Urine Bacteria Occasional (0-1) Urine Mucus 1+ H Ur Culture Indicated? Specimen cultured Nasal Screen MRSA (PCR) Blood Type A Positive Antibody Screen Negative Crossmatch See Detail 05/27/22 05/27/22 05/27/22 18:30 21:15 22:00 WBC RBC Hgb Hct MCV MCH MCHC RDW Plt Count Neut % (Auto) Lymph % (Auto) [place] % (Auto) Eos % (Auto) Baso % (Auto) Lymph # (Auto) [place] # (Auto) Baso # (Auto) Total Counted Seg Neutrophils % Band Neutrophils % Lymphocytes % (Manual) Monocytes % (Manual) Eosinophils % (Manual) Metamyelocytes % Neutrophils # (Manual) Nucleated RBCs RBC Morphology Poikilocytosis Anisocytosis Macrocytosis PT INR APTT Sodium Potassium Chloride Carbon Dioxide BUN Creatinine Estimated GFR BUN/Creatinine Ratio Glucose Lactate 0.9 Calcium Magnesium 2.3 Total Bilirubin AST ALT Alkaline Phosphatase Troponin I Total Protein Albumin Globulin Albumin/Globulin Ratio Procalcitonin Urine Color Urine Appearance Urine pH Ur Specific [place] Urine Protein Urine Glucose (UA) Urine Ketones Urine Occult Blood Urine Nitrate Urine Bilirubin Urine Urobilinogen Ur Leukocyte Esterase Urine RBC Urine WBC Ur Squamous Epith Cells Urine Bacteria Urine Mucus Ur Culture Indicated? Nasal Screen MRSA (PCR) Negative for mrsa Blood Type Antibody Screen Crossmatch 05/27/22 05/27/22 05/27/22 22:00 23:59 23:59 WBC 1.4 L* RBC 1.61 L Hgb 5.8 L* Hct 16.5 L* MCV 102.4 H MCH 36.2 H MCHC 35.3 RDW 20.4 H Plt Count 70 L Neut % (Auto) Not Reportable Lymph % (Auto) Not Reportable [place] % (Auto) Not Reportable Eos % (Auto) Not Reportable Baso % (Auto) Not Reportable Lymph # (Auto) Not Reportable [place] # (Auto) Not Reportable Baso # (Auto) Not Reportable Total Counted 100 Seg Neutrophils % 84.0 H Band Neutrophils % 6.0 Lymphocytes % (Manual) 4.0 L Monocytes % (Manual) 5.0 Eosinophils % (Manual) 1.0 L Metamyelocytes % Neutrophils # (Manual) 1260 L Nucleated RBCs 1 H RBC Morphology See below Poikilocytosis Anisocytosis 2+ H Macrocytosis 1+ H PT INR APTT Sodium 128 L Potassium 2.6 L* 2.6 L* Chloride 99 Carbon Dioxide 28 BUN 17 Creatinine 0.83 Estimated GFR > 60 BUN/Creatinine Ratio 20.5 Glucose 170 H Lactate Calcium 7.3 L Magnesium 2.1 Total Bilirubin 1.7 H AST 24 ALT 20 Alkaline Phosphatase 86 Troponin I 0.154 H* Total Protein 4.8 L Albumin 2.3 L Globulin 2.5 Albumin/Globulin Ratio 0.9 L Procalcitonin Urine Color Urine Appearance Urine pH Ur Specific [place] Urine Protein Urine Glucose (UA) Urine Ketones Urine Occult Blood Urine Nitrate Urine Bilirubin Urine Urobilinogen Ur Leukocyte Esterase Urine RBC Urine WBC Ur Squamous Epith Cells Urine Bacteria Urine Mucus Ur Culture Indicated? Nasal Screen MRSA (PCR) Blood Type Antibody Screen Crossmatch 05/27/22 05/27/22 05/28/22 23:59 23:59 06:30 WBC RBC Hgb Hct MCV MCH MCHC RDW Plt Count Neut % (Auto) Lymph % (Auto) [place] % (Auto) Eos % (Auto) Baso % (Auto) Lymph # (Auto) [place] # (Auto) Baso # (Auto) Total Counted Seg Neutrophils % Band Neutrophils % Lymphocytes % (Manual) Monocytes % (Manual) Eosinophils % (Manual) Metamyelocytes % Neutrophils # (Manual) Nucleated RBCs RBC Morphology Poikilocytosis Anisocytosis Macrocytosis PT INR APTT Sodium 133 L Potassium 3.4 Chloride 104 Carbon Dioxide 27 BUN 13 Creatinine 0.67 Estimated GFR > 60 BUN/Creatinine Ratio 19.4 Glucose 143 H Lactate 0.8 Calcium 7.9 L Magnesium Total Bilirubin 2.4 H AST 24 ALT 20 Alkaline Phosphatase 91 Troponin I Total Protein 5.1 L Albumin 2.3 L Globulin 2.8 Albumin/Globulin Ratio 0.8 L Procalcitonin 0.21 Urine Color Urine Appearance Urine pH Ur Specific [place] Urine Protein Urine Glucose (UA) Urine Ketones Urine Occult Blood Urine Nitrate Urine Bilirubin Urine Urobilinogen Ur Leukocyte Esterase Urine RBC Urine WBC Ur Squamous Epith Cells Urine Bacteria Urine Mucus Ur Culture Indicated? Nasal Screen MRSA (PCR) Blood Type Antibody Screen Crossmatch 05/28/22 05/28/22 05/28/22 06:30 06:30 06:30 WBC 1.5 L* RBC 2.26 L Hgb 7.9 L Hct 22.4 L MCV 99.5 MCH 34.9 H MCHC 35.1 RDW 20.0 H Plt Count 77 L Neut % (Auto) Not Reportable Lymph % (Auto) Not Reportable [place] % (Auto) Not Reportable Eos % (Auto) Not Reportable Baso % (Auto) Not Reportable Lymph # (Auto) Not Reportable [place] # (Auto) Not Reportable Baso # (Auto) Not Reportable Total Counted 50 Seg Neutrophils % 72.0 H Band Neutrophils % 12.0 H Lymphocytes % (Manual) 10.0 L Monocytes % (Manual) 4.0 Eosinophils % (Manual) Metamyelocytes % 2.0 H Neutrophils # (Manual) 1260 L Nucleated RBCs RBC Morphology See below Poikilocytosis 1+ H Anisocytosis 3+ H Macrocytosis PT INR APTT Sodium Potassium Chloride Carbon Dioxide BUN Creatinine Estimated GFR BUN/Creatinine Ratio Glucose Lactate Calcium Magnesium Total Bilirubin AST ALT Alkaline Phosphatase Troponin I 0.079 H Total Protein Albumin Globulin Albumin/Globulin Ratio Procalcitonin 0.17 Urine Color Urine Appearance Urine pH Ur Specific [place] Urine Protein Urine Glucose (UA) Urine Ketones Urine Occult Blood Urine Nitrate Urine Bilirubin Urine Urobilinogen Ur Leukocyte Esterase Urine RBC Urine WBC Ur Squamous Epith Cells Urine Bacteria Urine Mucus Ur Culture Indicated? Nasal Screen MRSA (PCR) Blood Type Antibody Screen Crossmatch 05/28/22 11:15 WBC RBC Hgb Hct MCV MCH MCHC RDW Plt Count Neut % (Auto) Lymph % (Auto) [place] % (Auto) Eos % (Auto) Baso % (Auto) Lymph # (Auto) [place] # (Auto) Baso # (Auto) Total Counted Seg Neutrophils % Band Neutrophils % Lymphocytes % (Manual) Monocytes % (Manual) Eosinophils % (Manual) Metamyelocytes % Neutrophils # (Manual) Nucleated RBCs RBC Morphology Poikilocytosis Anisocytosis Macrocytosis PT INR APTT Sodium Potassium Chloride Carbon Dioxide BUN Creatinine Estimated GFR BUN/Creatinine Ratio Glucose Lactate Calcium Magnesium Total Bilirubin AST ALT Alkaline Phosphatase Troponin I 0.061 H Total Protein Albumin Globulin Albumin/Globulin Ratio Procalcitonin Urine Color Urine Appearance Urine pH Ur Specific [place] Urine Protein Urine Glucose (UA) Urine Ketones Urine Occult Blood Urine Nitrate Urine Bilirubin Urine Urobilinogen Ur Leukocyte Esterase Urine RBC Urine WBC Ur Squamous Epith Cells Urine Bacteria Urine Mucus Ur Culture Indicated? Nasal Screen MRSA (PCR) Blood Type Antibody Screen Crossmatch [facility] Social History household members: none Smoking Status: Never smoker alcohol intake: former Assessment & Plan Assessment & Plan narrative: # septic shock with unclear source in the setting of immunocompromised state -patient currently on immunotherapy for metastatic breast cancer, WBC 2.1 and ANC 400 -febrile to 101F, tachycardic and hypotensive to 80/40 -source unclear but has pyuria, CXR normal, resp PCR negative -continue levophed, titrate to MAP >65 -f/u blood and urine cultures, GI panel as pt having diarrhea, stool cultures, and c diff orderes -continue cefepime, vanc and flagyl -tele-ICU consult -consider calling oncologist to ask if granix should be used # lactic acidosis -lactate 5.2 on admission, secondary to septic shock -resolved with fluids # pancytopenia -WBC 2.1, Hgb 8.6 and platelets 118k -likely due to immunotherapy medication -transfuse >7 Hgb, did require 1U PRBC veterinarian poultry 05/28 -no evidence of GI bleeding # metastatic breast cancer -diagnosed in Mar 2022 -currently on immunotherapy and receiving radiation to mets in spine and pelvis -consider holding immunotherapy until sepsis improves # previous strokes -continue eliquis # acute hypokalemia -K 2.2 on admission, mag normal -monitor and replete # elevated troponin -secondary to sepsis, no chest pain -now downtrending Time Spent With Patient Critical Care time: I spent a total of [] minutes of critical care time on this patient's care today; this time is exclusive of procedural time. Quality VTE Deep Vein Thrombosis/Pulmonary Embolism Present on Admission: Yes
[2022-05-28 18:14] LABS: Hemoglobin 7.3 g/dL (12.0-16.0); Mean Corpuscular HGB Conc 35.3 % (30-36); Mean Corpuscular Volume 99.1 fL (80-100); Platelet Count 71 X10^3/uL (150-400); Red Blood Cell Count 2.08 X10^6/uL (4.0-5.2); Red Cell Distribution Width 19.7 % (11.6-14.8)
[2022-05-28 18:18] LABS: Add Manual Diff / Slide Review YES; Hematocrit 20.6 % (36-46); White Blood Cell Count 1.1 X10^3/uL (4.5-11.0)
[2022-05-28 18:34] LABS: Blood Urea Nitrogen 12 mg/dL (7-17); Calcium 8.1 mg/dL (8.4-10.2); Carbon Dioxide 27 mmol/L (22-32); Chloride 105 mmol/L (98-107); Estimated Glomerular Filt Rate > 60 mL/min (>60); Glucose 121 mg/dL (80-110); HEMOLYSIS < 15 (0-50); Potassium 3.3 mmol/L (3.4-5.1); Sodium 134 mmol/L (137-145)
[2022-05-28 18:46] LABS: Anisocytosis 3+; Macrocytosis 1+; Neutrophils Absolute Manual 869 /uL (3000-5900); Total Cells Counted 100
--- NOTE | 2022-05-28 20:17 | PM.ICURNDS ---
- Date Patient Seen: 05/28/22 Time Patient Seen: 20:17 :: This patient was seen via real time interactive two-way audiovisual telecommunication. Note: Patient came off levophed this afternoon. Subjectively she reports feeling better. Had 3 loose BM today. Currently being rule out for C. diff. Denies chest pain, N/V, fever/chills, or abdominal pain. Most recent K 3.3 and being repleted w/ 60 mEQ KCL. Tele ICU will continue to follow.
[2022-05-28 20:59] LABS: Adenovirus F 40/41 Not Detected (Not Detect); Astrovirus Not Detected (Not Detect); Campylobacter Not Detected (Not Detect); Clostridium difficile toxin AB Detected (Not Detect); Cryptosporidium Not Detected (Not Detect); Cyclospora cayetanensis Not Detected (Not Detect); Entamoeba histolytica Not Detected (Not Detect); Enteroaggregative E.coli Not Detected (Not Detect); Enteropathogenic E.coli Not Detected (Not Detect); Enterotoxigenic E.coli It/st Not Detected (Not Detect); Giardia lamblia Not Detected (Not Detect); Norovirus GI/GII Not Detected (Not Detect); Plesiomonsa shigelloides Not Detected (Not Detect); Rotavirus A Not Detected (Not Detect); Salmonella Not Detected (Not Detect); Sapovirus Not Detected (Not Detect); Shiga-like toxin-prod E.coli Not Detected (Not Detect); Shigella/Enteroinvasive E.coli Not Detected (Not Detect); Vibrio Not Detected (Not Detect); Vibrio cholerae Not Detected (Not Detect); Yersinia enterocolitica Not Detected (Not Detect)
[2022-05-28] MEDS: PANTOPRAZOLE 40 MG VIAL 20 MG IV (21:57)
[2022-05-28] MEDS: FIDAXOMICIN 200 MG TABLET PO (23:14)
[2022-05-29] VITALS (26 sets, daily range): BP systolic 87–122; BP diastolic 46–72; PULSE 76–95; RESP 11–42; TEMP 36.9–37.4; O2SAT 97–99; BMI 25.7
[2022-05-29] MEDS: POTASSIUM CHLORIDE IN WATER 10 MEQ/100 ML PIGGYBACK 100 MEQ IV ×2 (00:35→01:51)
[2022-05-29] MEDS: LACTATED RINGERS 1,000 ML 125 ML IV (05:02)
[2022-05-29 05:14] LABS: Mean Corpuscular HGB Conc 34.4 % (30-36); Mean Corpuscular Volume 101.9 fL (80-100); Platelet Count 73 X10^3/uL (150-400); Red Blood Cell Count 1.93 X10^6/uL (4.0-5.2); Red Cell Distribution Width 20.1 % (11.6-14.8)
[2022-05-29 05:18] LABS: Alanine Aminotransferase 20 IU/L (<35); Albumin 2.3 g/dL (3.5-5.0); Albumin Globulin Ratio 0.8 (1.0-2.8); Alkaline Phosphatase 84 U/L (38-126); Aspartate Aminotransferase 23 IU/L (14-36); BUN Creatinine Ratio 14.5 (6-22); Bilirubin Total 2.9 mg/dL (0.2-1.3); Blood Urea Nitrogen 9 mg/dL (7-17); Carbon Dioxide 27 mmol/L (22-32); Chloride 105 mmol/L (98-107); Estimated Glomerular Filt Rate > 60 mL/min (>60); Globulin 2.9 g/dL (1.7-4.1); Glucose 118 mg/dL (80-110); HEMOLYSIS < 15 (0-50); Potassium 3.6 mmol/L (3.4-5.1); Sodium 133 mmol/L (137-145); Total Protein 5.2 g/dL (6.3-8.2)
[2022-05-29 05:19] LABS: Hemoglobin 6.8 g/dL (12.0-16.0); White Blood Cell Count 1.2 X10^3/uL (4.5-11.0)
[2022-05-29 05:20] LABS: Add Manual Diff / Slide Review YES; Hematocrit 19.7 % (36-46)
[2022-05-29] MEDS: CEFEPIME 2 GM in SODIUM CHLORIDE 0.9% 100 ML IV (05:50)
[2022-05-29] MEDS: HYDROCORTISONE 100 MG/2 ML VIAL 50 MG IV (05:50)
[2022-05-29 06:15] LABS: Neutrophils Absolute Manual 948 /uL (3000-5900); Platelet Estimate Decreased on smear; Total Cells Counted 100
[2022-05-29 06:16] LABS: Anisocytosis 3+; Macrocytosis 1+; Polychromasia 1+
[2022-05-29] MEDS: VANCOMYCIN 125 MG CAPSULE 500 MG PO ×3 (08:07→18:53)
[2022-05-29] MEDS: SODIUM CHLORIDE 0.9% FLUSH 10 ML IV (09:23)
[2022-05-29] MEDS: PANTOPRAZOLE 40 MG VIAL 20 MG IV (09:23)
--- NOTE | 2022-05-29 09:41 | PM.PN.EICU ---
Subjective Subjective IF CAMERA ACTIVATED, patient seen via real-time interactive audiovisual communication: Camera activated Date Patient Seen: 05/29/22 Consent obtained for tele-facilities maintenance manager care: Yes Patient Location: ICU Provider location (State): [place] Other participants/roles: Bedside RN Poppy and Dr. Deal Interval history: No acute issues overnight. C diff came back postiive. DC linezolid and cefepime. On vancomycin oral X 14 days. Hb down to 6.8 and completed 1 U PRBC this morning. Subjectively patient reports feeling better overall. Denies chest pain, N/V, fever/chills, or abdominal pain. Current Medications Current Medications Medications: Home Medications abemaciclib 150 mg tablet (Verzenio) 150 mg PO BID 05/28/22 [History Confirmed 05/28/22] apixaban 5 mg tablet (Eliquis) 5 mg PO BID 05/28/22 [History Confirmed 05/28/22] letrozole 2.5 mg tablet 2.5 mg PO DAILY 05/28/22 [History Confirmed 05/28/22] rosuvastatin 20 mg tablet 20 mg PO QPM 05/28/22 [History Confirmed 05/28/22] Visit Medications (administered) Generic Name Dose Route Start Last Admin Trade Name Freq PRN Reason Stop Dose Admin Calcium Carbonate 500 mg 05/28/22 00:16 05/28/22 19:35 Calcium Carbonate 500 Mg Tab PO 500 mg PRN PRN Administration Dyspepsia NOREPINEPHRINE BITARTRATE/D5W 4 mg in 250 mls @ 30 mls/hr 05/27/22 18:00 05/28/22 15:25 Levophed IV 0 mcg/min TITRATE MARYCARMEN 0 mls/hr Titration Protocol 8 MCG/MIN Lactated Ringer's 1,000 mls @ 125 mls/hr 05/27/22 21:45 05/29/22 05:02 Lactated Ringers IV 125 mls/hr CONT MARYCARMEN Administration Pantoprazole Sodium 20 mg 05/28/22 21:45 05/29/22 09:23 Pantoprazole 40 Mg Vial IV 20 mg BID MARYCARMEN Administration Sodium Chloride 10 ml 05/28/22 09:00 05/29/22 09:23 Sodium Chloride 0.9% Flush IV 10 ml BID MARYCARMEN Administration Vancomycin HCl 500 mg 05/29/22 07:15 05/29/22 08:07 Vancomycin 125 Mg Capsule PO 500 mg Q6H MARYCARMEN Administration Objective Labs Result Diagrams: 05/29/22 04:45 05/29/22 04:45 Labs: Laboratory Results - last 24 hr 05/27/22 05/28/22 05/28/22 14:40 11:15 17:50 WBC 1.1 L* RBC 2.08 L Hgb 7.3 L Hct 20.6 L* MCV 99.1 MCH 35.0 H MCHC 35.3 RDW 19.7 H Plt Count 71 L Neut % (Auto) Not Reportable Lymph % (Auto) Not Reportable [place] % (Auto) Not Reportable Eos % (Auto) Not Reportable Baso % (Auto) Not Reportable Lymph # (Auto) Not Reportable [place] # (Auto) Not Reportable Baso # (Auto) Not Reportable Total Counted 100 Seg Neutrophils % 79.0 H Band Neutrophils % Lymphocytes % (Manual) 13.0 L Atypical Lymphs % 1.0 H Monocytes % (Manual) 6.0 Metamyelocytes % 1.0 H Neutrophils # (Manual) 869 L Platelet Estimate RBC Morphology See below Polychromasia Anisocytosis 3+ H Macrocytosis 1+ H Sodium Potassium Chloride Carbon Dioxide BUN Creatinine Estimated GFR BUN/Creatinine Ratio Glucose Calcium Total Bilirubin AST ALT Alkaline Phosphatase Troponin I 0.061 H Total Protein Albumin Globulin Albumin/Globulin Ratio Stl C. cayetanensis PCR Stool Rotavirus (PCR) Stool Adenovirus (PCR) Stool Astrovirus (PCR) Stool Cryptosporidium PCR Stl E.coli Shiga Tox PCR St Sh/Enteroin Ecoli PCR Stool E coli O157 PCR Stl Enterotoxigenic E PCR Stool EPEC (PCR) Stl E. histolytica PCR Stool Giardia Lamblia PCR Stool Sapovirus (PCR) Stl P. shigelloides PCR St Y.enterocolitica PCR Stool Vibrio (PCR) Stl Vibrio cholerae PCR Stl Enteroaggr Ecoli PCR Stl Norovirus GI/GII PCR Campylobacter (PCR) C. difficile Tox (PCR) Salmonella (PCR) Blood Type A Positive Antibody Screen Negative Crossmatch See Detail 05/28/22 05/28/22 05/29/22 17:50 18:40 04:45 WBC 1.2 L* RBC 1.93 L Hgb 6.8 L* Hct 19.7 L* MCV 101.9 H MCH 35.0 H MCHC 34.4 RDW 20.1 H Plt Count 73 L Neut % (Auto) Not Reportable Lymph % (Auto) Not Reportable [place] % (Auto) Not Reportable Eos % (Auto) Not Reportable Baso % (Auto) Not Reportable Lymph # (Auto) Not Reportable [place] # (Auto) Not Reportable Baso # (Auto) Not Reportable Total Counted 100 Seg Neutrophils % 70.0 Band Neutrophils % 9.0 H Lymphocytes % (Manual) 11.0 L Atypical Lymphs % 3.0 H Monocytes % (Manual) 6.0 Metamyelocytes % 1.0 H Neutrophils # (Manual) 948 L Platelet Estimate Decreased on smear RBC Morphology See below Polychromasia 1+ H Anisocytosis 3+ H Macrocytosis 1+ H Sodium 134 L Potassium 3.3 L Chloride 105 Carbon Dioxide 27 BUN 12 Creatinine 0.60 Estimated GFR > 60 BUN/Creatinine Ratio 20.0 Glucose 121 H Calcium 8.1 L Total Bilirubin AST ALT Alkaline Phosphatase Troponin I Total Protein Albumin Globulin Albumin/Globulin Ratio Stl C. cayetanensis PCR Not detected Stool Rotavirus (PCR) Not detected Stool Adenovirus (PCR) Not detected Stool Astrovirus (PCR) Not detected Stool Cryptosporidium PCR Not detected Stl E.coli Shiga Tox PCR Not detected St Sh/Enteroin Ecoli PCR Not detected Stool E coli O157 PCR Not detected Stl Enterotoxigenic E PCR Not detected Stool EPEC (PCR) Not detected Stl E. histolytica PCR Not detected Stool Giardia Lamblia PCR Not detected Stool Sapovirus (PCR) Not detected Stl P. shigelloides PCR Not detected St Y.enterocolitica PCR Not detected Stool Vibrio (PCR) Not detected Stl Vibrio cholerae PCR Not detected Stl Enteroaggr Ecoli PCR Not detected Stl Norovirus GI/GII PCR Not detected Campylobacter (PCR) Not detected C. difficile Tox (PCR) Detected H Salmonella (PCR) Not detected Blood Type Antibody Screen Crossmatch 05/29/22 04:45 WBC RBC Hgb Hct MCV MCH MCHC RDW Plt Count Neut % (Auto) Lymph % (Auto) [place] % (Auto) Eos % (Auto) Baso % (Auto) Lymph # (Auto) [place] # (Auto) Baso # (Auto) Total Counted Seg Neutrophils % Band Neutrophils % Lymphocytes % (Manual) Atypical Lymphs % Monocytes % (Manual) Metamyelocytes % Neutrophils # (Manual) Platelet Estimate RBC Morphology Polychromasia Anisocytosis Macrocytosis Sodium 133 L Potassium 3.6 Chloride 105 Carbon Dioxide 27 BUN 9 Creatinine 0.62 Estimated GFR > 60 BUN/Creatinine Ratio 14.5 Glucose 118 H Calcium 8.0 L Total Bilirubin 2.9 H AST 23 ALT 20 Alkaline Phosphatase 84 Troponin I Total Protein 5.2 L Albumin 2.3 L Globulin 2.9 Albumin/Globulin Ratio 0.8 L Stl C. cayetanensis PCR Stool Rotavirus (PCR) Stool Adenovirus (PCR) Stool Astrovirus (PCR) Stool Cryptosporidium PCR Stl E.coli Shiga Tox PCR St Sh/Enteroin Ecoli PCR Stool E coli O157 PCR Stl Enterotoxigenic E PCR Stool EPEC (PCR) Stl E. histolytica PCR Stool Giardia Lamblia PCR Stool Sapovirus (PCR) Stl P. shigelloides PCR St Y.enterocolitica PCR Stool Vibrio (PCR) Stl Vibrio cholerae PCR Stl Enteroaggr Ecoli PCR Stl Norovirus GI/GII PCR Campylobacter (PCR) C. difficile Tox (PCR) Salmonella (PCR) Blood Type Antibody Screen Crossmatch Exam Vital Signs (past 8 hours): - 05/29/22 02:00 05/29/22 02:01 05/29/22 02:01 Temperature 99.1 F 99.1 F Pulse Rate 91 H 86 Respiratory Rate 11 L 20 Blood Pressure 92/46 L Pulse Oximetry Oxygen Delivery Method 05/29/22 02:30 05/29/22 02:30 05/29/22 03:00 Temperature 99.0 F Pulse Rate 89 Respiratory Rate 33 H Blood Pressure 95/55 L 89/54 L Pulse Oximetry Oxygen Delivery Method 05/29/22 03:00 05/29/22 03:30 05/29/22 03:30 Temperature 98.8 F 99.0 F Pulse Rate 81 78 Respiratory Rate 39 H 22 Blood Pressure 97/55 L Pulse Oximetry Oxygen Delivery Method 05/29/22 04:00 05/29/22 04:00 05/29/22 04:30 Temperature 98.6 F 98.6 F Pulse Rate 76 91 H Respiratory Rate 22 30 H Blood Pressure 97/55 L Pulse Oximetry Oxygen Delivery Method 05/29/22 04:31 05/29/22 04:31 05/29/22 05:00 Temperature 98.6 F Pulse Rate 87 Respiratory Rate 37 H Blood Pressure 89/69 L 108/72 Pulse Oximetry Oxygen Delivery Method 05/29/22 05:00 05/29/22 04:00 05/29/22 05:30 Temperature 98.6 F Pulse Rate 84 Respiratory Rate 42 H Blood Pressure 104/61 Pulse Oximetry Oxygen Delivery Method Room Air 05/29/22 05:30 05/29/22 05:54 05/29/22 05:55 Temperature 98.6 F 98.6 F Pulse Rate 82 91 H Respiratory Rate 23 16 Blood Pressure 107/68 107/68 Pulse Oximetry Oxygen Delivery Method 05/29/22 05:55 05/29/22 06:00 05/29/22 06:00 Temperature 98.6 F 98.6 F Pulse Rate 88 90 Respiratory Rate 17 19 Blood Pressure 103/67 Pulse Oximetry Oxygen Delivery Method 05/29/22 06:23 05/29/22 06:23 05/29/22 06:24 Temperature 98.6 F Pulse Rate 86 Respiratory Rate 23 Blood Pressure 87/53 L 92/50 L Pulse Oximetry Oxygen Delivery Method 05/29/22 06:24 05/29/22 06:05 05/29/22 06:30 Temperature 98.6 F 98.6 F Pulse Rate 87 82 Respiratory Rate 26 H Blood Pressure 92/50 L 99/58 L Pulse Oximetry 98 Oxygen Delivery Method 05/29/22 06:30 05/29/22 07:00 05/29/22 07:00 Temperature 98.6 F 98.6 F Pulse Rate 83 80 Respiratory Rate 22 21 Blood Pressure 101/59 L Pulse Oximetry Oxygen Delivery Method 05/29/22 07:30 05/29/22 07:30 05/29/22 08:00 Temperature 98.8 F Pulse Rate 80 Respiratory Rate 23 Blood Pressure 99/56 L 100/59 L Pulse Oximetry Oxygen Delivery Method 05/29/22 08:00 Temperature 98.8 F Pulse Rate 81 Respiratory Rate 19 Blood Pressure Pulse Oximetry Oxygen Delivery Method Oxygen Delivery Method Room Air Oxygen Flow Rate 0 Narrative Exam Narrative: Not in acute distress. Awake and speaking in full sentence. Appears to have more energy today. 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 If AC will confer benefits>risks then can consider restarting back on systemic AC -- Discussed about the risks and withholding eliquis with patient. She verbalized understanding and agree with plan. -- Goal HR < 110 -- Goal K > 4 and Mg > 2 ID: # Septic shock -- Resolved -- Secondary to C diff -- On vancomycin PO X 14 days -- DC linezolid and cefepime -- MAP goal > 65 : # Hypokalemia -- Repleted -- Am K 3.6 -- Recommend additional 40 mEQ of KCL -- Goal K > 4 HEME/ONC: # Breast cancer -- On immunotherapy and radiation -- Follow with oncology as outpatient # Anemia -- Possible to BM suppression from immunotherapy and sepsis -- Transfused 1 U PRBC this morning -- Repeat Hb -- Holding eliquis as above -- Goal Hb > 7 ENDO: -- Goal BS < 180 D/w VINAYAK Mcwilliams and Dr. Burns. Okay to transfer to floor. Time Spent With Patient Time with patient: less than 30 minutes Critical Care time: I spent a total of [] minutes of critical care time on this patient's care today; this time is exclusive of procedural time.
[2022-05-29 10:01] LABS: Hemoglobin 8.4 g/dL (12.0-16.0)
--- NOTE | 2022-05-29 11:10 | CM.DPC ---
DCP Cont: Discussed patient during team rounds. Patient is now off of her Levophed. Patient most likely will be here another day, but is noting some weakness. Asked hospitalist if P.T. and O.T. can work with her, he gave the ok, and this DC certified financial planner placed orders. P: DCP to continue to follow for any needs. Will see how she does with therapy. Mariza Hudson RN/Orthopaedic Nurse
--- NOTE | 2022-05-29 11:36 | PT.IIE ---
Current Diagnoses Sepsis, unspecified organism (05/27/22) Physical Therapy Inpatient Evaluation/Re-Eval M1 PT/OT-IP Prior Functional Status Start: 05/29/22 13:39 Freq: NEEDED Status: Active Protocol: Document 05/29/22 11:36 AB (Rec: 05/29/22 13:52 [email or web address]) Medical Review Prior Functional Status Medical History Reviewed Yes Communication able to make needs known Mobility and Gait pt stated that she is modified independent with all mobilities and ambulation without AD but has been not feeling well for the past ~ 10 days and has not been moving or walking much. pt receiving CA tx. Social History Household Members none Living Arrangements House Number of Floors (Floors) Two Floors Number of Stairs To Enter/Railing? 1 step to enter from the garage 14 steps R rail + L wall to get to bedroom level. Home Environment Standard Height Toilet,Walk in Shower Home Equipment Four Wheel Walker,Straight Cane,Manual Wheelchair,Shower Seat with Backrest,Hand Held Shower Additional Social History Comment daughter stated that she can stay with pt for a few days and afterwards, pt stated that she has friends that take turns to assist her M2 PT-IP Current Condition Start: 05/29/22 13:39 Freq: NEEDED Status: Active Protocol: Document 05/29/22 11:36 AB (Rec: 05/29/22 13:52 [email or web address]) Physical Therapy Current Condition Current Condition Evaluation Date 05/29/22 Treatment Diagnosis sepsis; difficulty in walking Onset Date 05/27/22 M3 PT-IP Subjective Start: 05/29/22 13:39 Freq: NEEDED Status: Active Protocol: Document 05/29/22 11:36 AB (Rec: 05/29/22 13:52 [email or web address]) Subjective Physical Therapy Visit Type Type Initial Evaluation Visit Start Time 11:36 Visit Stop Time 12:25 Total Visit Minutes 49 Number of WEIGHT TRAINING INSTRUCTOR Visits 0 Physical Therapy Visit Comments Patient Comments agreeable to do PT M4 PT-IP Mobility and Gait Start: 05/29/22 13:39 Freq: NEEDED Status: Active Protocol: Document 05/29/22 11:36 AB (Rec: 05/29/22 13:52 AB [email or web address]) PT-Bed Mobility Assessment Supine to Sit Supine to Sit Standby Assistance,Head of Bed Elevated PT-Transfer Assessment Sit to and From Stand Sit to and from Stand Contact Guard Assistance,1 Person Assistance,Use of Upper Extremities Equipment Transfer Assistive Device Gait Belt,Front Wheeled Walker Orthotic/Prosthetic Devices or Brace: No Transfers Transfer Destination Toilet Transfer Technique ambulated Transfer Ability Level of Assist Minimal Assistance,1 Person Assistance,2 Person Assistance Comments Mobility Comments pt is concerned about B feet edema. Informed nurse. pt completed supine to sit SBA . completed sit to to stand CGA and ambulated in room using FWW ~ 20 ft min A and cues. presents with unsteady gait and cued for quads contraction and use of FWW but pt unable to comprehend. instructed pt to sit on the chair. educated on use of FWW and for LE steadiness/quads activation. completed sit to stand again using FWW CGA and ambulated in room using fWW ~ 30 ft CGA to min A and cues. pt requested to use the toilet and ambulated to the toilet. completed toileting needs with assist with brief management. pt ambulated to the sink using FWW min A ~ 12 ft and was able to maintain standing balance CGA while completing handwashing. pt agreed to sit on the chair. ambulated to the chair using fWW min a. positioned on the chair. call light and table placed within reach. Gait Assessment Gait Gait Assistance Required: Minimum Assistance Distance (Feet) 30 Able to Maintain Weight Bearing Status Yes During Gait Assistive Devices Assistive Device Gait Belt,Front Wheeled Walker Orthotic/Prosthetic Devices or Brace: No Gait Deviations General Gait Pattern Ataxic,Decreased Stride Length ,Decreased Feet Clearance Factors Limiting Gait Function Factors Limiting Gait Function Decreased Activity Tolerance, Decreased Strength,Difficulty Following Directions,Limited Range of Motion,Poor Balance, Poor Safety Awareness PT-Balance Assessment Sitting Balance and Reactions Static Sitting Balance Ability Good Dynamic Sitting Balance Ability Good Standing Balance and Reactions Static Standing Balance Ability Fair Dynamic Standing Balance Ability Fair Device Used FWW M5 PT-IP Objective Assessments Start: 05/29/22 13:39 Freq: NEEDED Status: Active Protocol: Document 05/29/22 11:36 AB (Rec: 05/29/22 13:52 AB [id number]) Orientation Orientation/Cognition Level of Alertness Alert Orientation Name Safety Awareness Decreased Safety Awareness Memory Description Short Term Impaired Gross Range of Motion Lower Extremity ROM Assessment Within Functional Limits Strength Lower Extremity Strength Assessment Within Functional Limits Sensation Assessment Sensation Gross Sensation WNL Other Assessments Other Other Assessments (+) B pedal edema M6 PT-IP Treatment Start: 05/29/22 13:39 Freq: NEEDED Status: Active Protocol: Document 05/29/22 11:36 AB (Rec: 05/29/22 13:52 AB [email or web address]) Physical Therapy Treatment Education Education Provided Safety M7 PT-IP Assessment and Plan Start: 05/29/22 13:39 Freq: NEEDED Status: Active Protocol: Document 05/29/22 11:36 AB (Rec: 05/29/22 13:52 AB [email or web address]) PT Summary Assessment and Plan Potential Rehabilitation Potential Fair Status of Condition at Evaluation Evolving Summary Impairments Pain,ROM,Strength,Balance, Cognition,Bed Mobility, Transfers,Gait,Activity Tolerance Assessment Summary pt requiring min A with ambualtion using FWW and has decrease activity tolerance affecting mobility. pt's daughter stated that she can stay with pt for a few days to assist her. Caregiver training will be conducted when appropriate as well as stair climbing training. will continue to assess progress. Goals Bed Mobility Goal Independent Transfer Goal Independent,Front Wheeled Walker,Four Wheeled Walker Gait Goal Independent,Front Wheel Walker ,Four Wheel Walker Gait Distance 200 Other Goals up/down 1 step using 4WW up/down 14 steps L rail + R rail SBA Days to Meet Goals 10 Frequency of Treatment Frequency Of Treatment Once a Day Treatment Plan Physical Therapy Treatment Plan Bed Mobility Training,Transfer Training,Gait Training, Therapeutic Exercise,Balance Retraining,Discharge Planning, Hot or Cold Pack,Neuromuscular Re-ed,Coordination Retraining Precautions Other Precautions Contact precautions: C-diff Recommendations To Nursing Amount of Assist Needed 1 Person Assist Discharge Recommendations PT Discharge Recommendations Home with Assistance,Home Health Equipment Needed for Home Before FWW if not safe with 4WW Discharge Transportation Needs at Discharge Private Vehicle
--- NOTE | 2022-05-29 13:35 | OT.IP.EVAL ---
Current Diagnoses Sepsis, unspecified organism (05/27/22) Occupational Therapy Inpatient Evaluation/Re-Eval M1 PT/OT-IP Prior Functional Status Start: 05/29/22 13:39 Freq: NEEDED Status: Active Protocol: Document 05/29/22 15:20 [facility] (Rec: 05/29/22 15:44 [facility] [id number]) Medical Review Prior Functional Status Medical History Reviewed Yes Communication able to make needs known Mobility and Gait pt stated that she is modified independent with all mobilities and ambulation without AD but has been not feeling well for the past ~ 10 days and has not been moving or walking much. pt receiving CA tx. Activities of Daily Living and IADL's Pt states in the past 10 days needing more assist for ADL needs. Pt states has not been able to eat well and having no appetite. Social History Household Members none Living Arrangements House Number of Floors (Floors) Two Floors Number of Stairs To Enter/Railing? 1 step to enter from the garage 14 steps R rail + L wall to get to bedroom level. Home Environment Standard Height Toilet,Walk in Shower Home Equipment Four Wheel Walker,Straight Cane,Manual Wheelchair,Shower Seat with Backrest,Hand Held Shower Additional Social History Comment daughter stated that she can stay with pt for a few days and afterwards, pt stated that she has friends that take turns to assist her Pt states considering to get a hospital bed for the main level and take sponge baths in the future pending how her CA progress and how treatment is going. M2 OT-IP Current Condition Start: 05/29/22 15:20 Freq: Status: Active Protocol: Document 05/29/22 15:20 [facility] (Rec: 05/29/22 15:44 [facility] [id number]) Occupational Therapy Current Condition Current Condition Evaluation Date 05/29/22 Treatment Diagnosis Septic Diagnosis Onset Date 05/27/22 M3 OT- IP Subjective and Pain Start: 05/29/22 15:20 Freq: Status: Active Protocol: Document 05/29/22 15:20 [facility] (Rec: 05/29/22 15:44 [facility] [id number]) OT- Subjective Occupational Therapy Visit Type Type Initial Evaluation Visit Start Time 14:40 Visit Stop Time 15:23 Total Visit Minutes 43 Occupational Therapy Visit Comments Patient Comments Pt agreed to work with OT and wanting to use the bathroom. Patient/Caregiver Goals To go home. OT Pain Assessment Pain When Pain Assessed At Rest Pain Present Pain Present Pain Reported M4 OT- IP ADL's Start: 05/29/22 15:20 Freq: Status: Active Protocol: Document 05/29/22 15:20 [facility] (Rec: 05/29/22 15:44 [facility] [id number]) OT [id number] Comments OT Self-Feeding Comments Not at meal time. Pt states has a hard time to swallow at times due to having had radiation for her CA. Spoke of eating softer food, eat when upright, etc... Pt may benefit from a dietary consult. OT ADL-Grooming General Evaluation Grooming Ability Independent Comments OT Grooming Comments while standing with FWW OT ADL-Oral Care General Eval Oral Care Ability Independent Comments Oral Care Comments while standing with FWW OT ADL-Dressing General Eval Lower Body Dressing Ability Standby Assistance Comments OT Dressing Comments Pt able to lencho brief on her own. OT ADL-Toileting General Evaluation Toileting Ability Standby Assistance Comments OT Toileting Comments Pt able to do own toileting with set-up assist only. OT ADL-Bathing Comments OT Bathing Comments Pt too tired to perform at this time. M5 OT- IP IADL's Start: 05/29/22 15:20 Freq: Status: Active Protocol: Document 05/29/22 15:20 [facility] (Rec: 05/29/22 15:44 [facility] [id number]) OT-Instrumental Activities of Daily Living Home Safety Awareness Awareness of Need for Assistance at Home Good Awareness Home Safety Comments Pt aware that she will be needing more assist at home and agreed to start making list of IADl needs and other needs that her friends can assist her with. Medication Management Medication Management Comments Pt would benefit from supervision when pt is weak, noting feeling well and or eating/drinking well. Pt admits that lately she has been so weak that she was having trouble to think at times. Money Management Money Management Comments Pt would benefit from supervision when pt is weak, noting feeling well and or not eating/drinking well. Pt admits that lately she has been so weak that she was having trouble to think at times. Meal Preparation Meal Preparation Comments Pt would benefit from supervision when pt is weak, noting feeling well and or eating/drinking well. Pt admits that lately she has been so weak that she was having trouble to think at times. Technical Designer Technical Designer Comments After discussion with OT, Pt realizing that it is now time to tell some of her friends that she has CA and to start to utilize her friends to provide her with more assistance especially for yard work and IADl needs. M6 OT- IP Functional Cognition Start: 05/29/22 15:20 Freq: Status: Active Protocol: Document 05/29/22 15:20 [facility] (Rec: 05/29/22 15:44 [facility] [id number]) Cognitive Factors Limiting Selfcare Function Cognitive Ability Level of Alertness Alert Patient Orientation Name,Place,Situation Attention Span Ability Capable of Focused Attention, Capable of Sustained Attention Ability to Follow Commands Able to Follow One Step Commands Cognitive Comments Cognitive Assessment Comments Pt able to follow commands for ADL and mobility needs. Pt admits to feeling much better this PM as ate some lunch. OT able to talk to pt regarding stress management of trying to relief prior responsibilities - and have her friends help her. Pt realizes that she is now ready to let some of her friends know that she has cancer and needing assistance for her needs. Spoke at length of possibly getting hospital bed to use on the main floor. OT- Vision and Hearing OT- Hearing Assessment OT- Hearing Assessment WFL OT- Vision Assessment Visual Acuity Glasses For Reading Visual Attentiveness WFL Occular Pursuits WFL M7 OT- IP Mobility and Balance Start: 05/29/22 15:20 Freq: Status: Active Protocol: Document 05/29/22 15:20 [facility] (Rec: 05/29/22 15:44 [facility] [id number]) OT- Bed Mobility Assessment Rolling Type of Rolling Roll to Right Level of Assistance Standby Assistance Supine to Sit Supine to Sit Assist Standby Assistance Sit to Supine Sit to Supine Assist Standby Assistance OT-Transfer Assessment Sit to and From Stand Sit to and from Stand Standby Assistance Transfers Transfer Ability Standby Assistance Technique Transfer Destination Bed,Toilet Devices Transfer Assistive Devices Gait Belt,Front Wheeled Walker Comments Mobility Comments SBA with FWW. OT- Balance Assessment Sitting Balance and Reactions Static Sitting Balance Ability Normal Dynamic Sitting Balance Ability Good Standing Balance and Reactions Static Standing Balance Ability Good Dynamic Standing Balance Ability Fair M8 OT- IP Objective Assessments Start: 05/29/22 15:20 Freq: Status: Active Protocol: Document 05/29/22 15:20 [facility] (Rec: 05/29/22 15:44 [facility] [id number]) OT Gross Range of Motion Upper Extremity Range of Motion Assessment Within Functional Limits OT Strength Upper Extremity Strength Assessment Within Functional Limits OT-Muscle Tone Assessment Muscle Tone WNL Yes M9 OT- IP Assessment and Plan Start: 05/29/22 15:20 Freq: Status: Active Protocol: Document 05/29/22 15:20 [facility] (Rec: 05/29/22 15:44 [facility] [id number]) OT Summary Assessment and Plan Potential Rehabilitation Potential Good Analytic Complexity at Evaluation Moderate Summary OT Impairments Balance,Functional Mobility, Dressing,Toileting,Bathing, Toilet Transfers,Shower Transfers,Activity Tolerance Progress Towards Goals Progressing Toward Goals Assessment Summary Pt MOD complexity and main barriers are steps, decreased activity tolerance and now needing more assist IADL needs and SBA for basic ADL needs. Pt looking to go home with her daughter to stay with her initially. Pt would benefit from home health to look an here home environment as pt's level of function may decline due as pt going through CA treatment. Goals Dressing Goal Independent Toileting Goal Independent Bathing Goal Independent Toilet Transfer Goal Independent Shower Transfer Goal Independent Days to Meet Goals 3 Frequency of Treatment Frequency Of Treatment Once a Day Treatment Plan OT Treatment Plan ADL Training,Functional Mobility,Patient/Family Education,Discharge Planning Discharge Recommendations OT Discharge Recommendations Home with Assistance,Home Health Home Equipment Needs Hospital Bed- for comfort to sleep at this time however may be needed in the future pending how her CA treatment progresses. Transportation Needs at Discharge Private Vehicle
--- NOTE | 2022-05-29 14:29 | P.PN_ITS ---
Subjective Subjective Date Patient Seen: 05/29/22 Time Patient Seen: 08:00 Interval history: She is feeling improved today with more strength. She is nervous to eat because of worry about abdominal discomfort and diarrhea. Overnight C diff was positive. She also was able to come off levophed. Exam Vital Signs (past 8 hours): - 05/29/22 06:30 05/29/22 06:30 05/29/22 07:00 Temperature 98.6 F Pulse Rate 83 Respiratory Rate 22 Blood Pressure 99/58 L 101/59 L Pulse Oximetry Oxygen Delivery Method Oxygen Flow Rate 05/29/22 07:00 05/29/22 07:30 05/29/22 07:30 Temperature 98.6 F 98.8 F Pulse Rate 80 80 Respiratory Rate 21 23 Blood Pressure 99/56 L Pulse Oximetry Oxygen Delivery Method Oxygen Flow Rate 05/29/22 08:00 05/29/22 08:00 05/29/22 08:00 Temperature 98.8 F Pulse Rate 81 Respiratory Rate 19 Blood Pressure 100/59 L Pulse Oximetry Oxygen Delivery Method Room Air Oxygen Flow Rate 05/29/22 12:00 Temperature 98.5 F Pulse Rate 85 Respiratory Rate 18 Blood Pressure 109/70 Pulse Oximetry 99 Oxygen Delivery Method Oxygen Flow Rate 0 Oxygen Delivery Method Room Air Oxygen Flow Rate 0 Narrative Exam Narrative: GEN: no acute distress CV: tachycardic, reuglar rhythm, no murmurs PULM: clear bilaterally ABD: soft, nontender, nondistended, no organomegaly EXT: warm and well perfused with no edema NEURO: awake, alert, oriented, no focal deficits Objective Labs Result Diagrams: 05/29/22 09:45 05/29/22 04:45 Labs: Laboratory Results - last 24 hr 05/27/22 05/28/22 05/28/22 14:40 17:50 17:50 WBC 1.1 L* RBC 2.08 L Hgb 7.3 L Hct 20.6 L* MCV 99.1 MCH 35.0 H MCHC 35.3 RDW 19.7 H Plt Count 71 L Neut % (Auto) Not Reportable Lymph % (Auto) Not Reportable [place] % (Auto) Not Reportable Eos % (Auto) Not Reportable Baso % (Auto) Not Reportable Lymph # (Auto) Not Reportable [place] # (Auto) Not Reportable Baso # (Auto) Not Reportable Total Counted 100 Seg Neutrophils % 79.0 H Band Neutrophils % Lymphocytes % (Manual) 13.0 L Atypical Lymphs % 1.0 H Monocytes % (Manual) 6.0 Metamyelocytes % 1.0 H Neutrophils # (Manual) 869 L Platelet Estimate RBC Morphology See below Polychromasia Anisocytosis 3+ H Macrocytosis 1+ H Sodium 134 L Potassium 3.3 L Chloride 105 Carbon Dioxide 27 BUN 12 Creatinine 0.60 Estimated GFR > 60 BUN/Creatinine Ratio 20.0 Glucose 121 H Calcium 8.1 L Total Bilirubin AST ALT Alkaline Phosphatase Total Protein Albumin Globulin Albumin/Globulin Ratio Stl C. cayetanensis PCR Stool Rotavirus (PCR) Stool Adenovirus (PCR) Stool Astrovirus (PCR) Stool Cryptosporidium PCR Stl E.coli Shiga Tox PCR St Sh/Enteroin Ecoli PCR Stool E coli O157 PCR Stl Enterotoxigenic E PCR Stool EPEC (PCR) Stl E. histolytica PCR Stool Giardia Lamblia PCR Stool Sapovirus (PCR) Stl P. shigelloides PCR St Y.enterocolitica PCR Stool Vibrio (PCR) Stl Vibrio cholerae PCR Stl Enteroaggr Ecoli PCR Stl Norovirus GI/GII PCR Campylobacter (PCR) C. difficile Tox (PCR) Salmonella (PCR) Blood Type A Positive Antibody Screen Negative Crossmatch See Detail 05/28/22 05/29/22 05/29/22 18:40 04:45 04:45 WBC 1.2 L* RBC 1.93 L Hgb 6.8 L* Hct 19.7 L* MCV 101.9 H MCH 35.0 H MCHC 34.4 RDW 20.1 H Plt Count 73 L Neut % (Auto) Not Reportable Lymph % (Auto) Not Reportable [place] % (Auto) Not Reportable Eos % (Auto) Not Reportable Baso % (Auto) Not Reportable Lymph # (Auto) Not Reportable [place] # (Auto) Not Reportable Baso # (Auto) Not Reportable Total Counted 100 Seg Neutrophils % 70.0 Band Neutrophils % 9.0 H Lymphocytes % (Manual) 11.0 L Atypical Lymphs % 3.0 H Monocytes % (Manual) 6.0 Metamyelocytes % 1.0 H Neutrophils # (Manual) 948 L Platelet Estimate Decreased on smear RBC Morphology See below Polychromasia 1+ H Anisocytosis 3+ H Macrocytosis 1+ H Sodium 133 L Potassium 3.6 Chloride 105 Carbon Dioxide 27 BUN 9 Creatinine 0.62 Estimated GFR > 60 BUN/Creatinine Ratio 14.5 Glucose 118 H Calcium 8.0 L Total Bilirubin 2.9 H AST 23 ALT 20 Alkaline Phosphatase 84 Total Protein 5.2 L Albumin 2.3 L Globulin 2.9 Albumin/Globulin Ratio 0.8 L Stl C. cayetanensis PCR Not detected Stool Rotavirus (PCR) Not detected Stool Adenovirus (PCR) Not detected Stool Astrovirus (PCR) Not detected Stool Cryptosporidium PCR Not detected Stl E.coli Shiga Tox PCR Not detected St Sh/Enteroin Ecoli PCR Not detected Stool E coli O157 PCR Not detected Stl Enterotoxigenic E PCR Not detected Stool EPEC (PCR) Not detected Stl E. histolytica PCR Not detected Stool Giardia Lamblia PCR Not detected Stool Sapovirus (PCR) Not detected Stl P. shigelloides PCR Not detected St Y.enterocolitica PCR Not detected Stool Vibrio (PCR) Not detected Stl Vibrio cholerae PCR Not detected Stl Enteroaggr Ecoli PCR Not detected Stl Norovirus GI/GII PCR Not detected Campylobacter (PCR) Not detected C. difficile Tox (PCR) Detected H Salmonella (PCR) Not detected Blood Type Antibody Screen Crossmatch 05/29/22 09:45 WBC RBC Hgb 8.4 L Hct 24.0 L MCV MCH MCHC RDW Plt Count Neut % (Auto) Lymph % (Auto) [place] % (Auto) Eos % (Auto) Baso % (Auto) Lymph # (Auto) [place] # (Auto) Baso # (Auto) Total Counted Seg Neutrophils % Band Neutrophils % Lymphocytes % (Manual) Atypical Lymphs % Monocytes % (Manual) Metamyelocytes % Neutrophils # (Manual) Platelet Estimate RBC Morphology Polychromasia Anisocytosis Macrocytosis Sodium Potassium Chloride Carbon Dioxide BUN Creatinine Estimated GFR BUN/Creatinine Ratio Glucose Calcium Total Bilirubin AST ALT Alkaline Phosphatase Total Protein Albumin Globulin Albumin/Globulin Ratio Stl C. cayetanensis PCR Stool Rotavirus (PCR) Stool Adenovirus (PCR) Stool Astrovirus (PCR) Stool Cryptosporidium PCR Stl E.coli Shiga Tox PCR St Sh/Enteroin Ecoli PCR Stool E coli O157 PCR Stl Enterotoxigenic E PCR Stool EPEC (PCR) Stl E. histolytica PCR Stool Giardia Lamblia PCR Stool Sapovirus (PCR) Stl P. shigelloides PCR St Y.enterocolitica PCR Stool Vibrio (PCR) Stl Vibrio cholerae PCR Stl Enteroaggr Ecoli PCR Stl Norovirus GI/GII PCR Campylobacter (PCR) C. difficile Tox (PCR) Salmonella (PCR) Blood Type Antibody Screen Crossmatch [facility] Social History household members: none Smoking Status: Never smoker alcohol intake: former Assessment & Plan Assessment & Plan narrative: # septic shock secondary to c diff colitis in immunocompromised state -patient currently on immunotherapy for metastatic breast cancer, WBC 2.1 and ANC 400 -febrile to 101F, tachycardic and hypotensive to 80/40 -cultures negative, chest xray negative -c diff positive -PO vancomycin 500mg q6 for 14 days, day #1 05/29 -initially on levophed, but stopped on 05/28 -stop cefepime, vanc and flagyl -transfer from ICU to acute care -remove dexter, remove central line # lactic acidosis -lactate 5.2 on admission, secondary to septic shock -resolved with fluids # pancytopenia -WBC 2.1, Hgb 8.6 and platelets 118k -likely due to immunotherapy medication -transfuse >7 Hgb, did require 1U PRBC publicity writer 05/28 and a second on 05/29 -no evidence of GI bleeding # metastatic breast cancer -diagnosed in Mar 2022 -currently on immunotherapy and receiving radiation to mets in spine and pelvis -hold immunotherapy until sepsis improves # previous strokes -hold eliquis due to anemia # acute hypokalemia -K 2.2 on admission, mag normal -monitor and replete # elevated troponin -secondary to sepsis, no chest pain -now downtrending Time Spent With Patient Critical Care time: I spent a total of [] minutes of critical care time on this patient's care today; this time is exclusive of procedural time. Quality VTE Deep Vein Thrombosis/Pulmonary Embolism Present on Admission: Yes
--- NOTE | 2022-05-29 15:10 | CM.DPC ---
DCP Cont: Patient worked with P.T. today, recommending home health. Called some home health agencies to see which ones accept [place]/Medicaid. Spoke to Luis A at [facility] who indicated, it's a case by case basis, they have turned some patients down, have accepted others. He does have access to [place], asked him to review. Called Geraldine at [facility] and confirmed that they are capped out with all Medicaid patients for now. Spoke to Yajaira at [facility], she called her other department and confirmed that they can accept as long as it's not wound care, since only so many visits are allotted. Let Yajaira know that this DC order planner has been in situations ordering home health through Medicaid with them, and Zeke has called back stating that they don't accept insurance. She stated that she has confirmed that they do accept, as long as not major wound care. P: DCP to continue to follow. Will see if Luis A accepts patient, and will confirm with patient, if not, will go with [facility]. Mariza Hudson RN/Finished Cloth Examiner
[2022-05-30] VITALS: BP 93/59; PULSE 87; RESP 16; TEMP 36.8; O2SAT 97
[2022-05-30] MEDS: SODIUM CHLORIDE 0.9% FLUSH 10 ML IV (01:23)
[2022-05-30] MEDS: VANCOMYCIN 125 MG CAPSULE 500 MG PO ×4 (01:24→18:15)
[2022-05-30 05:03] LABS: Alanine Aminotransferase 20 IU/L (<35); Albumin 2.3 g/dL (3.5-5.0); Albumin Globulin Ratio 0.9 (1.0-2.8); Alkaline Phosphatase 74 U/L (38-126); Aspartate Aminotransferase 24 IU/L (14-36); BUN Creatinine Ratio 36.1 (6-22); Bilirubin Total 1.7 mg/dL (0.2-1.3); Blood Urea Nitrogen 22 mg/dL (7-17); Calcium 7.6 mg/dL (8.4-10.2); Carbon Dioxide 27 mmol/L (22-32); Chloride 105 mmol/L (98-107); Estimated Glomerular Filt Rate > 60 mL/min (>60); Globulin 2.6 g/dL (1.7-4.1); Glucose 95 mg/dL (80-110); HEMOLYSIS 27 (0-50); Potassium 3.1 mmol/L (3.4-5.1); Sodium 135 mmol/L (137-145); Total Protein 4.9 g/dL (6.3-8.2)
[2022-05-30 05:17] LABS: Hematocrit 23.6 % (36-46); Hemoglobin 8.2 g/dL (12.0-16.0); Mean Corpuscular HGB Conc 34.9 % (30-36); Mean Corpuscular Hemoglobin 33.9 PG (26-34); Mean Corpuscular Volume 97.1 fL (80-100); Platelet Count 71 X10^3/uL (150-400); Red Blood Cell Count 2.43 X10^6/uL (4.0-5.2); Red Cell Distribution Width 20.8 % (11.6-14.8)
[2022-05-30 05:27] LABS: Add Manual Diff / Slide Review YES; White Blood Cell Count 1.6 X10^3/uL (4.5-11.0)
--- NOTE | 2022-05-30 05:59 | PC.NURSE ---
Patient reports feeling much stronger tonight. Patient OOB to bathroom with FWW and steady on feet with stand-by assistance. Moderate semi-formed stool mixed with urine noted. Patient notes a nonproductive cough this morning. Patient declines any pain medication for some abdominal discomfort. Rates pain 08/10. Critical low WBC at 1.6 and H/H of 8.2/23.[address] Self this am.
[2022-05-30 06:00] VITALS: BP 109/65; PULSE 86; RESP 15; TEMP 37.2; O2SAT 96
[2022-05-30 06:12] LABS: Neutrophils Absolute Manual 1216 /uL (3000-5900); Nucleated Red Blood Cells 1 #/Diff; Total Cells Counted 100
[2022-05-30 06:13] LABS: Platelet Estimate Decreased on smear
[2022-05-30 06:14] LABS: Anisocytosis 3+; Macrocytosis 1+
[2022-05-30] MEDS: POTASSIUM CHLORIDE 20 MEQ TAB 40 MEQ PO (08:35)
--- NOTE | 2022-05-30 09:21 | CM.DPC ---
Addendum entered by Mariza Hudson R.N. 05/30/22 11:15: Jarocho Donahue, indicated, patient could use speech therapy, some swallowing difficulties secondary to her radiation. Went ahead and called Yajaira at [facility], and updated her, and updated orders and face to face, and faxed over to [facility]. Addendum entered by Mariza Hudson R.N. 05/30/22 10:46: Checked in with patient and daughter, Suellen, in the room. Hospitalist is discharging patient today, there was some concern about getting a hospital bed downstairs before discharge. Patient has a full flight of stairs in her home, and the goal is to get a bed downstairs. Did let daughter and patient that patient is medically ready for discharge today, daughter indicated that bed would arrive later, around 1600, and patient would leave the hospital about 1800. Let her know that this DC Lumber Checker will let hospitalist know, that this will be a later discharge. Did update hospitalist. Addendum entered by Mariza Hudson R.N. 05/30/22 09:38: P.T. indicated that patient now wants P.T. Went ahead and updated face to face and placed new orders for P.T, and O.T, along with nursing. Updated Yajaira at [facility]. Original Note: DCP Cont: Patient is to be discharging home today, daughter, Good, was at bedside. Asked patient if she is interested in home health. She originally stated, not at this time, but after speaking to her daughter, in agreement that nursing might be a good idea to check vitals, labs. They were given information regarding hospital bed rentals. Patient does not want P.T, only nursing. Called Luis A back at [place], they are capped on Medicaid, do not accept. [place] is also capped. Called [facility] and spoke to Yajaira, and she mentioned, they should be able to accept, as long as no major wound needs. Faxed her over referral including orders, face to face, face sheet, H&P, and P.T. notes. DC Summary is pending. Patient is also positive for C-diff. P: Patient is to be discharging home today. Ordered [facility]. Mariza Hudson, VINAYAK/[employer] Lens Polisher
--- NOTE | 2022-05-30 11:00 | OT.IP.TRT ---
Current Diagnoses Sepsis, unspecified organism (05/27/22) Occupational Therapy Treatment Note M2 OT-IP Current Condition Start: 05/29/22 15:20 Freq: Status: Active Protocol: Document 05/29/22 15:20 [facility] (Rec: 05/29/22 15:44 [facility] [id number]) Occupational Therapy Current Condition Current Condition Evaluation Date 05/29/22 Treatment Diagnosis Septic Diagnosis Onset Date 05/27/22 M3 OT- IP Subjective and Pain Start: 05/29/22 15:20 Freq: Status: Active Protocol: Document 05/30/22 11:09 [facility] (Rec: 05/30/22 11:20 [facility] [id number]) OT- Subjective Occupational Therapy Visit Type Type Treatment Note Visit Start Time 10:45 Visit Stop Time 11:00 Total Visit Minutes 15 Occupational Therapy Visit Comments Patient Comments Pt wanting to practice steps prior to going home. Pt now agreeeing to have home health [employer] as having difficulty swallowing her pills. Patient/Caregiver Goals To go home. M4 OT- IP ADL's Start: 05/29/22 15:20 Freq: Status: Active Protocol: Document 05/30/22 11:09 [facility] (Rec: 05/30/22 11:20 [facility] [id number]) OT ADL-Grooming General Evaluation Grooming Ability Independent Comments OT Grooming Comments with FWW OT ADL-Oral Care General Eval Oral Care Ability Independent Comments Oral Care Comments with FWW OT ADL-Dressing General Eval Lower Body Dressing Ability Standby Assistance OT ADL-Toileting General Evaluation Toileting Ability Standby Assistance M5 OT- IP IADL's Start: 05/29/22 15:20 Freq: Status: Active Protocol: Document 05/29/22 15:20 [facility] (Rec: 05/29/22 15:44 [facility] [id number]) OT-Instrumental Activities of Daily Living Home Safety Awareness Awareness of Need for Assistance at Home Good Awareness Home Safety Comments Pt aware that she will be needing more assist at home and agreed to start making list of IADl needs and other needs that her friend can assist her with. Medication Management Medication Management Comments Pt would benefit from supervision when pt is weak, noting feeling well and or eating/drinking well. Pt admits that lately she has been so weak that she was having trouble to think at times. Money Management Money Management Comments Pt would benefit from supervision when pt is weak, noting feeling well and or eating/drinking well. Pt admits that lately she has been so weak that she was having trouble to think at times. Meal Preparation Meal Preparation Comments Pt would benefit from supervision when pt is weak, noting feeling well and or eating/drinking well. Pt admits that lately she has been so weak that she was having trouble to think at times. Human Factors Ergonomist Human Factors Ergonomist Comments After discussion with OT, Pt realizing that it is now time to tell some of her friends that she has CA and to start to utilize her friends to provide her with more assistance especially for yard work and IADl needs. M6 OT- IP Functional Cognition Start: 05/29/22 15:20 Freq: Status: Active Protocol: Document 05/30/22 11:09 [facility] (Rec: 05/30/22 11:20 [facility] [id number]) Cognitive Factors Limiting Selfcare Function Cognitive Comments Cognitive Assessment Comments Pt seems a little overwhelmed today. Educated pt to take on thing one at a time. Suggested for pt to do the one step with [employer] and work on steps with home health later. Pt states will have a bed for the main level. M7 OT- IP Mobility and Balance Start: 05/29/22 15:20 Freq: Status: Active Protocol: Document 05/30/22 11:09 [facility] (Rec: 05/30/22 11:20 [facility] [id number]) OT-Transfer Assessment Sit to and From Stand Sit to and from Stand Standby Assistance Transfers Transfer Ability Standby Assistance Technique Transfer Destination Bed,Toilet Devices Transfer Assistive Devices Front Wheeled Walker Comments Mobility Comments Distant SBA while in the room with FWW. OT- Balance Assessment Sitting Balance and Reactions Static Sitting Balance Ability Normal Dynamic Sitting Balance Ability Good Standing Balance and Reactions Static Standing Balance Ability Good Dynamic Standing Balance Ability Fair M8 OT- IP Objective Assessments Start: 05/29/22 15:20 Freq: Status: Active Protocol: Document 05/29/22 15:20 [facility] (Rec: 05/29/22 15:44 [facility] [id number]) OT Gross Range of Motion Upper Extremity Range of Motion Assessment Within Functional Limits OT Strength Upper Extremity Strength Assessment Within Functional Limits OT-Muscle Tone Assessment Muscle Tone WNL Yes M9 OT- IP Assessment and Plan Start: 05/29/22 15:20 Freq: Status: Active Protocol: Document 05/30/22 11:09 [facility] (Rec: 05/30/22 11:20 [facility] [id number]) OT Summary Assessment and Plan Potential Rehabilitation Potential Good Analytic Complexity at Evaluation Moderate Summary OT Impairments Balance,Functional Mobility, Dressing,Toileting,Bathing, Toilet Transfers,Shower Transfers,Activity Tolerance Progress Towards Goals Progressing Toward Goals Assessment Summary Pt looking to go home today with assist from her daughter. Pt to have a bed downstairs and looking to go home today. Pt will also benefit from home health [employer] in addition to OT and PT. Goals Dressing Goal Independent Toileting Goal Independent Bathing Goal Independent Toilet Transfer Goal Independent Shower Transfer Goal Independent Days to Meet Goals 2 Frequency of Treatment Frequency Of Treatment Once a Day Treatment Plan OT Treatment Plan ADL Training,Functional Mobility,Patient/Family Education,Discharge Planning Discharge Recommendations OT Discharge Recommendations Home with Assistance,Home Health Transportation Needs at Discharge Private Vehicle
--- NOTE | 2022-05-30 11:15 | PT.IPTN ---
Addendum entered and electronically signed by Shanon Epps, KIRK 05/30/22 12:35: Pt found gait belt at upper trunk for secure and comforting during mobility vs at abdomen. Original Note: Current Diagnoses Sepsis, unspecified organism (05/27/22) Physical Therapy Treatment Note M2 PT-IP Current Condition Start: 05/29/22 13:39 Freq: NEEDED Status: Active Protocol: Document 05/30/22 10:52 SP (Rec: 05/30/22 12:35 SP [id number]) Physical Therapy Current Condition Current Condition Evaluation Date 05/29/22 Treatment Diagnosis sepsis; difficulty in walking Onset Date 05/27/22 M3 PT-IP Subjective Start: 05/29/22 13:39 Freq: NEEDED Status: Active Protocol: Document 05/30/22 10:52 SP (Rec: 05/30/22 12:35 SP [id number]) Subjective Physical Therapy Visit Type Type Treatment Note Visit Start Time 10:52 Visit Stop Time 11:15 Total Visit Minutes 23 Notes Daughter in room observed tx. Number of D[employer]ITAL PRODUCER Visits 1 Physical Therapy Visit Comments Patient Comments Pt agreeable to working with therapy, wanted to work on 1 PF step to get in home. Patient Goals Return home with daughter to assist her as needed. Therapy Pain Assessment Pain Present Pain Present Pain Reported Location Back Scale Used no scale rating stated, LBP- improve with bracing and log roll technique i M4 PT-IP Mobility and Gait Start: 05/29/22 13:39 Freq: NEEDED Status: Active Protocol: Document 05/30/22 10:52 SP (Rec: 05/30/22 12:35 SP [id number]) PT-Bed Mobility Assessment Rolling Type of Rolling Log Rolling,Bilateral Level of Assist Independent Supine to Sit Supine to Sit Standby Assistance Sit to Supine Sit to Supine Independent Scooting Scooting to Edge of Bed Independent Scooting Up and Down in Bed Independent PT-Transfer Assessment Sit to and From Stand Sit to and from Stand Standby Assistance,Use of Upper Extremities Equipment Transfer Assistive Device Gait Belt,Front Wheeled Walker Orthotic/Prosthetic Devices or Brace: No Transfers Transfer Destination Bed,Chair Transfer Technique ambulated w/ FWW and discussed 4WW Transfer Ability Level of Assist Standby Assistance Comments Mobility Comments Pt up in chair when arrived, daughter in room seated on bench. Pt required cues for safety UE positioning push from surface to stand and reach back to sit, redirected from hands on FWW, good carryover post cues. Pt completed sit>stand, gait around room w/ FWW SBA 30 ft x2 with 2nd lap incorporating 1 PF step mgt CGA with occasional safety contact FWW for positioning during mobility. Completed stand>sit> supine, cues for log roll technique and TA gentle bracing to support LB discomfort and use of UEs return to sitting with good feedback response better support. Pt elected to stay supine in bed. Pt had call light and all needs in reach. Pt reports family is moving her bed to main floor for now until builds up strength to complete 15 stairs has to her bedroom, hoping to work with HHPT to support this progression of strength. Pt has a FWW bought for her mom can use at this time until feels ready to use her 4WW, discussed safety use during tx . DIGITAL PRODUCER notifed nursing and care mgt pt is ok to return home with daughter to assist her as needed. Recommending HHPT to increase strength and functional mobility back to [facility]. Gait Assessment Gait Gait Assistance Required: Minimum Assistance Distance (Feet) 60 Able to Maintain Weight Bearing Status Yes During Gait Assistive Devices Assistive Device Gait Belt,Front Wheeled Walker Orthotic/Prosthetic Devices or Brace: No Gait Deviations General Gait Pattern Antalgic,Decreased Stride Length,Decreased Feet Clearance Factors Limiting Gait Function Factors Limiting Gait Function Decreased Activity Tolerance, Decreased Strength,Limited Range of Motion,Pain,Poor Safety Awareness Comments Gait Comments Pt BLEs little unsteady stability soft knee initially coming to standing but no LOB or knees buckling, Mod UE WB on FWW, cued for core and quad facilitation, demonstrated improved stability receiprocal gait and pivot turns with use of FWW x 2 laps in room this tx. Stair Climbing Assessment Evaluation Level of Assist On Stairs Contact Guard Assistance Devices Stair Climbing Assistive Devices Front Wheel Walker Technique/Endurance Stair Climbing Direction Ascend and Descend Stair Climbing Technique Step to Step Number of Steps Climbed 1 Stair Climbing Set # Repetitions (reps) 1 Comments Stair Climbing Comments see mobility details PT-Balance Assessment Sitting Balance and Reactions Static Sitting Balance Ability Normal Dynamic Sitting Balance Ability Good Standing Balance and Reactions Static Standing Balance Ability Good Dynamic Standing Balance Ability Fair Device Used FWW M5 PT-IP Objective Assessments Start: 05/29/22 13:39 Freq: NEEDED Status: Active Protocol: Document 05/29/22 11:36 AB (Rec: 05/29/22 13:52 AB [id number]) Orientation Orientation/Cognition Level of Alertness Alert Orientation Name Safety Awareness Decreased Safety Awareness Memory Description Short Term Impaired Gross Range of Motion Lower Extremity ROM Assessment Within Functional Limits Strength Lower Extremity Strength Assessment Within Functional Limits Sensation Assessment Sensation Gross Sensation WNL Other Assessments Other Other Assessments (+) B pedal edema M6 PT-IP Treatment Start: 05/29/22 13:39 Freq: NEEDED Status: Active Protocol: Document 05/30/22 10:52 SP (Rec: 05/30/22 12:35 SP [id number]) Physical Therapy Treatment Education Education Provided Safety Other Treatments Other Treatment Performed Instructed STS x2 reps with use of UE support on chair arms, standing marching/ heel raises x5 reps before pt tired and needed sit rest on bed. Discussed this can be her HEP for now and walking every hour to improve strength, good feedback response from pt, found helpful. HHPT will instruct further progression to support back to PLOF. M7 PT-IP Assessment and Plan Start: 05/29/22 13:39 Freq: NEEDED Status: Active Protocol: Document 05/30/22 10:52 SP (Rec: 05/30/22 12:35 SP [id number]) PT Summary Assessment and Plan Potential Rehabilitation Potential Good Status of Condition at Evaluation Evolving Summary Impairments Pain,ROM,Strength,Balance, Cognition,Bed Mobility, Transfers,Gait,Activity Tolerance Progress Towards Goals Progressing Toward Goals,Slow Progress due to Pain,Slow Progress due to Activity Tolerance Assessment Summary Pt improved I bed mobility post cues for log roll technique, SBA with cues initially for proper hand placement, little BLEs unsteady come stand, no LOB. Gait SBA, 1 PF step CGA w/ FWW stable. Pt is ok to return home with her daughter to assist her as needed when medically cleared. Provide HEP and discussed walking hourly support strength with mother's accessable FWW. Recommending HHPT to progress strength and progress use 4WW when ready. Goals Bed Mobility Goal Independent Transfer Goal Independent,Front Wheeled Walker,Four Wheeled Walker Gait Goal Independent,Front Wheel Walker ,Four Wheel Walker Gait Distance 200 Other Goals up/down 1 step using 4WW up/down 14 steps L rail + R rail SBA Days to Meet Goals 10 Frequency of Treatment Frequency Of Treatment Once a Day Treatment Plan Physical Therapy Treatment Plan Bed Mobility Training,Transfer Training,Gait Training, Therapeutic Exercise,Balance Retraining,Discharge Planning, Hot or Cold Pack,Neuromuscular Re-ed,Coordination Retraining Other Recommendations and Next Treatment gait w/ 4ww, standing LE HEP, Focus balance activities, stair mgt for strength to be able return to sleeping upstairs. Precautions Other Precautions Contact precautions: C-diff Recommendations To Nursing Amount of Assist Needed Standby Assistance Discharge Recommendations PT Discharge Recommendations Home with Assistance,Home Health Equipment Needed for Home Before pt has access to purchased FWW Discharge for her mom in past. Transportation Needs at Discharge Private Vehicle
--- NOTE | 2022-05-30 11:53 | PC.NURSE ---
Pt confirmed she will make follow-up appointment upon discharge.
[2022-05-30 12:00] VITALS: BP 109/68; PULSE 90; RESP 20; TEMP 37.3; O2SAT 97
--- NOTE | 2022-05-30 22:54 | PM.DS.1 ---
History of Present Illness History of Present Illness Date Patient Seen: 05/27/22 Time Patient Seen: 19:08 Chief complaint: NVD Narrative: Per admitting provider: Nancy Leahy is a 62yo F with PMH of metastatic breast cancer diagnosed in Mar 2022 and followed by [facility], previous strokes on eliquis and chronic back/pelvic pain due to mets who presents with malaise, fevers and found to be septic. Patient says she hasn't felt very well since her cancer diagnosis feeling more tired and having worsening back and pelvic pain due to the cancer. She recently had radiation 2 weeks ago which has helped the pain and she was able to walk and lay on her back again. She is currently on immunotherapy pills but not chemotherapy. The past 3 days she developed some diarrhea, urinary frequency, fatigue and feeling overall poorly. She did not know she had a fever. Denies cough, SOB, CP, abd pain, or neck stiffness. She does have a headache currently. In the ED she had a BP of 82/46 and was given 3L boluses which did not improve the BP so was started on pressors. Temp was 101.5 and she was tachy to 110's. Breathing on room air. Femoral line was placed and levophed started. Discharge Providers Provider Date of admission: 05/27/22 18:29 Discharge Date: 05/30/22 Primary care physician: Doctor Rubina MD Consults: 05/29/22 10:39 Consult to Occupational Therapy Evaluate & Treat Comment: Physician Instructions: Evaluate and treat Consult to Physical Therapy Evaluate & Treat Comment: Physician Instructions: Evaluate and Treat 05/30/22 09:12 Consult to Home Health Routine Comment: Check vitals, labs. Reason For Exam: Home Health Nursing 05/30/22 09:34 Consult to Home Health Routine Comment: Added speech for swallow as well Reason For Exam: Home Health RN, P.T, O.T. Speech 05/30/22 11:07 Consult to Home Health Routine Comment: Added speech for swallowing issues. Reason For Exam: Home Health RN, P.T. O.T. Speech Discharge provider: Waqas Burns MD Summary Hospital Course Discharge Diagnosis: 1. Septic shock secondary to C diff colitis 2. Pancytopenia 3. Metastatic breast cancer 4. Previous strokes 5. Hypokalemia 6. Cardiac demand ischemia Hospital Course: Ms. Leahy was admitted initially with septic shock. She was hypotensive and requiring levophed. She initially was on broad spectrum antibiotics. However she was noted to have abdominal discomfort and diarrhea. Diarrhea was positive for C diff. She was started on oral vancomycin and the rest of her antibiotics were stopped. With this treatment her diarrhea significantly improved. On day of discharge she had no significant abdominal pain, diarrhea and she was able to tolerate good oral intake. She was discharged with two weeks or oral vancomycin course. In addition her cancer medications were held as they can suppress immune systems but she was encouraged to call her oncologist marcellus and request and expedited appointment to determine if these medications can be restarted. She was also noted to be pancytopenic, secondary to her immunotherapy. This medication was stopped. She did require to separate blood transfusions for a total of 2U PRBCs. On day of discharge her hemoglobin stabilized, she had no evidence of any GI bleeding. Her eliquis was also held on discharge, and she should discuss with her physician when she can restart this and recheck her hemoglobin within one week. Exam Vital Signs (past 8 hours): Oxygen Delivery Method Room Air Oxygen Flow Rate 0 Narrative Exam Narrative: GEN: no acute distress CV: regular rate and rhythm, no murmurs PULM: clear bilaterally ABD: soft, nontender, nondistended, no organomegaly EXT: warm and well perfused with no edema NEURO: awake, alert, oriented, no focal deficits Objective Labs Result Diagrams: 05/30/22 04:17 05/30/22 04:17 Labs: Laboratory Results - last 24 hr 05/30/22 05/30/22 04:17 04:17 WBC 1.6 L* RBC 2.43 L Hgb 8.2 L Hct 23.6 L MCV 97.1 D MCH 33.9 MCHC 34.9 RDW 20.8 H Plt Count 71 L Neut % (Auto) Not Reportable Lymph % (Auto) Not Reportable [place] % (Auto) Not Reportable Eos % (Auto) Not Reportable Baso % (Auto) Not Reportable Lymph # (Auto) Not Reportable [place] # (Auto) Not Reportable Baso # (Auto) Not Reportable Total Counted 100 Seg Neutrophils % 70.0 Band Neutrophils % 6.0 Lymphocytes % (Manual) 15.0 L Atypical Lymphs % 1.0 H Monocytes % (Manual) 7.0 Eosinophils % (Manual) 1.0 L Neutrophils # (Manual) 1216 L Nucleated RBCs 1 H Platelet Estimate Decreased on smear RBC Morphology See below Anisocytosis 3+ H Macrocytosis 1+ H Sodium 135 L Potassium 3.1 L Chloride 105 Carbon Dioxide 27 BUN 22 H Creatinine 0.61 Estimated GFR > 60 BUN/Creatinine Ratio 36.1 H Glucose 95 Calcium 7.6 L Total Bilirubin 1.7 H AST 24 ALT 20 Alkaline Phosphatase 74 Total Protein 4.9 L Albumin 2.3 L Globulin 2.6 Albumin/Globulin Ratio 0.9 L PFSH Social History household members: none Smoking Status: Never smoker alcohol intake: former Discharge Plan Discharge Plan Patient Disposition: Home Health Service Provider Discharge Comment: Ms. Leahy came in to the hospital with a severe case of C diff colitis. She improved with antibiotics. She should take these antibiotics for 12 more days. She also need a blood transfusion for low blood counts, which is probably a side effect of her cancer medications. She should hold on taking her eliquis and her letrozole and verzenio until she sees a doctor who can confirm she can restart these medications. She should try to follow up with her PCP and oncologist within one week. She should have her blood counts rechecked when she sees her doctor. Discharge orders & Medications Prescriptions: New vancomycin 125 mg capsule 125 mg PO QID Qty: 48 0RF Continued Eliquis 5 mg tablet 5 mg PO BID Label Comments: take 1 tablet by mouth twice a day letrozole 2.5 mg tablet 2.5 mg PO DAILY rosuvastatin 20 mg tablet 20 mg PO QPM Label Comments: TAKE 1 TABLET BY MOUTH DAILY Verzenio 150 mg tablet 150 mg PO BID Follow up/Referrals: Lavonne Perez MD [Non-Staff] - 1 Week (hospitalized shock with c diff, holding breast cancer medications) Doctor Cespedes MD [Primary Care Provider] - Diet/Activity/Treatments Diet: Regular Discharge Data Primary Care Provider: Doctor Rubina Quality VTE Deep Vein Thrombosis/Pulmonary Embolism Present on Admission: Yes
[2022-05-31 14:10] LABS: C difficie Toxins A and B, EIA Negative (Negative)
== END 2022-05-30 18:25 | disposition home health service (06) | DRG 871 ==
LOC: ED 18:28 → AC 18:30 → ICU 20:41
PROVIDERS: Internal Medicine; Internal Medicine Pulmonary Disease; Nurse Practitioner Family; Admitting Provider Student in an Organized Health Care Education/Training Program; Emergency Provider Emergency Medicine; Referring Provider Emergency Medicine; Visit Provider Student in an Organized Health Care Education/Training Program
DX: A41.4 Sepsis due to anaerobes (principal); R65.21 Severe sepsis with septic shock; C79.51 Secondary malignant neoplasm of bone; D61.818 Other pancytopenia; D84.9 Immunodeficiency, unspecified; E87.20 Acidosis, unspecified; I24.8 Other forms of acute ischemic heart disease; C50.919 Malignant neoplasm of unspecified site of unspecified female breast; E87.6 Hypokalemia; I48.0 Paroxysmal atrial fibrillation; Z86.73 Personal history of transient ischemic attack (TIA), and cerebral infarction without residual deficits; Z79.01 Long term (current) use of anticoagulants; Z20.822 Contact with and (suspected) exposure to COVID-19
CPT/HCPCS: 36415; 36430; 36592; 71045; 80048; 80053; 81001; 82550; 83605; 83690; 83735; 84132; 84145; 84484; 85007; 85014; 85018; 85025; 85610; 85730; 86850; 86900; 86901; 87040; 87086; 87324; 87507; 87633; 87797; 93005; 93307; 96365; 96366; 96368; 97116; 97162; 97166; 97530; 99284; 99291; 99292; P9016; C9113; J0282; J0692; J1720; J2020; J2543

== ENCOUNTER 2022-06-01 15:27 | Inpatient (IN) | payer OTHER, MEDICAID, SELFPAY ==
[2022-05-29 12:53] VITALS: BMI 25.7
[2022-06-01] VITALS (29 sets, daily range): BP systolic 96–118; BP diastolic 57–77; PULSE 96–174; RESP 14–49; TEMP 36.5; O2SAT 77–100; BMI 27.4
--- NOTE | 2022-06-01 15:41 | DI.CT.S_ITS ---
PROCEDURE: CT STROKE INDICATIONS: loss of vision in right eye, unknown last known well TECHNIQUE: Noncontrast 4.5 mm thick angled axial sections acquired from the foramen magnum to the vertex, with coronal reformats. For radiation dose reduction, the following was used: automated exposure control, adjustment of mA and/or kV according to patient size. COMPARISON: Outside Film, MR, MR BRAIN WITH/WITHOUT CONTRAST, 04/17/2022, 8:15. FINDINGS: Image quality: Excellent. CSF spaces: Basal cisterns are patent. No extra-axial fluid collections. The ventricles are symmetric in size and shape. Brain: No intracranial bleeds or masses. There is cerebral volume loss for age, with resultant ventricular and sulcal prominence. There are periventricular and deep white matter chronic small vessel ischemic changes. Focal volume loss can be seen involving right inferior occipital lobe, which is similar to the prior MRI and consistent a remote There is intracranial internal carotid artery atherosclerosis. Skull and face: Numerous lytic lesions are seen within the calvarium, which are highly suspicious for bony metastatic disease. Sinuses: Visualized sinuses and mastoids are clear. IMPRESSION: No acute intracranial hemorrhage is seen. No acute intracranial process is seen. 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 There are innumerable low-density lesions seen involving the calvarium. These are highly suspicious for metastatic disease, which were previously demonstrated by MRI. Note: Case discussed by telephone with Dr. Baeza at 3:05 p.m. [place] time on June 01, 2022. This study fulfills neurological imaging criteria for inclusion or exclusion of acute stroke therapies based on available published neurological guidelines. Dictated by: Weston Caceres M.D. on 06/01/2022 at 15:03 Approved by: Weston Caceres M.D. on 06/01/2022 at 15:07
--- NOTE | 2022-06-01 15:42 | DI.CT.S_ITS ---
PROCEDURE: CT ANGIO HEAD AND NECK INDICATIONS: loss of vision right eye TECHNIQUE: Noncontrast images were performed earlier in the day and not repeated. After the administration of intravenous contrast, 1 mm thick sections acquired from the aortic arch through the [place]. Post-contrast 4.5 mm thick sections then re-acquired from the foramen magnum to the vertex. 3-dimensional tmpgynx-tlxqcrbef-oejyxoewru (MIP) and/or volume rendering reformats were acquired of the central intracranial vasculature and neck separately. For radiation dose reduction, the following was used: automated exposure control, adjustment of mA and/or kV according to patient size. COMPARISON: [facility], CT, CT STROKE, 06/01/2022, 15:48. Outside Film, MR, MR BRAIN WITH/WITHOUT CONTRAST, 04/17/2022, 8:15. FINDINGS: Image quality: Excellent. BRAIN: CSF spaces: Ventricles are normal in size and shape. Basal cisterns are patent. No extra-axial fluid collections. Brain: No midline shift. No intracranial bleeds or masses. Hodges-white matter interface appears intact. 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 Orbits appear normal. Sinuses: Sinuses and mastoids are clear. HEAD CT ANGIOGRAPHY: Anterior circulation: Intracranial internal carotid arteries are normal in size and flow. There is a diminutive right A1 segment, with a corresponding robust left A1 segment. This is considered to be a normal developmental variant of the [place], of typically no clinical consequence. The flow within the paired anterior cerebral arteries is otherwise normal and symmetric. The flow within the middle cerebral arteries is normal and symmetric. The anterior communicating artery is seen. No aneurysms are seen. Posterior circulation: Visualized portions of the vertebral arteries demonstrate normal caliber, and join to form a normal appearing basilar artery. Flow within the posterior cerebral arteries is normal and symmetric. No aneurysms are seen. NECK CT ANGIOGRAPHY: Carotid system: The great vessels demonstrate a conventional anatomy as they arise from the aortic arch. The origins of the common carotid arteries appear patent. The common carotid arteries demonstrate normal caliber and courses. The bifurcation regions are both widely patent. The internal carotid arteries demonstrate normal calibers and courses. Posterior circulation: The origins of the vertebral arteries both appear widely patent. The more superior extracranial portions of both vertebral arteries also demonstrate normal courses and calibers. They join to form a normal appearing basilar artery. Soft tissues: Visualized neck soft tissues demonstrate no suspicious abnormalities. Bones: Innumerable lytic bony lesions are seen. There is a pathologic compression deformity seen at C4, with approximately 30% loss of height. No posterior displacement of fracture fragments can be seen. The visualized cervical spine appears normally aligned. Levoconvex cervical thoracic scoliotic curvature is seen. IMPRESSION: No significant intracranial arterial abnormality is seen. Within the arteries of the neck, no hemodynamically significant stenosis can be seen. 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 Any quantitative measurements of stenosis were performed using NASCET criteria. Dictated by: Weston Caceres M.D. on 06/01/2022 at 15:37 Approved by: Weston Caceres M.D. on 06/01/2022 at 15:41
[2022-06-01 16:05] LABS: Hematocrit 29.3 % (36-46); Hemoglobin 10.1 g/dL (12.0-16.0); Mean Corpuscular HGB Conc 34.5 % (30-36); Mean Corpuscular Hemoglobin 34.4 PG (26-34); Mean Corpuscular Volume 99.9 fL (80-100); Platelet Count 95 X10^3/uL (150-400); Red Blood Cell Count 2.94 X10^6/uL (4.0-5.2); White Blood Cell Count 2.6 X10^3/uL (4.5-11.0)
[2022-06-01 16:07] LABS: Add Manual Diff / Slide Review YES
[2022-06-01 16:08] LABS: INR 1.2 (0.9-1.3); Prothrombin Time 14.3 SECONDS (10.1-12.7)
[2022-06-01 16:11] LABS: PTT Partial Thromboplastin Tim 27 SECONDS (26-36)
[2022-06-01 16:13] LABS: Alanine Aminotransferase 30 IU/L (<35); Albumin 3.3 g/dL (3.5-5.0); Albumin Globulin Ratio 0.9 (1.0-2.8); Alkaline Phosphatase 117 U/L (38-126); Aspartate Aminotransferase 37 IU/L (14-36); BUN Creatinine Ratio 23.6 (6-22); Bilirubin Total 2.2 mg/dL (0.2-1.3); Blood Urea Nitrogen 13 mg/dL (7-17); Calcium 8.4 mg/dL (8.4-10.2); Carbon Dioxide 28 mmol/L (22-32); Chloride 101 mmol/L (98-107); Creatine Kinase 59 U/L (30-135); Estimated Glomerular Filt Rate > 60 mL/min (>60); Ethanol (ETOH) < 10 mg/dL; Globulin 3.7 g/dL (1.7-4.1); Glucose 128 mg/dL (80-110); HEMOLYSIS < 15 (0-50); Potassium 2.8 mmol/L (3.4-5.1); Sodium 136 mmol/L (137-145)
[2022-06-01 16:25] LABS: Troponin I 0.046 ng/mL (0.01-0.034)
[2022-06-01 16:31] LABS: Neutrophils Absolute Manual 2054 /uL (3000-5900); Nucleated Red Blood Cells 1 #/Diff; Total Cells Counted 100
[2022-06-01 16:32] LABS: Anisocytosis 3+; Platelet Estimate Decr; Poikilocytosis 1+
--- NOTE | 2022-06-01 16:32 | DI.MRI.S_ITS ---
PROCEDURE: MR HEAD/BRAIN WO CON INDICATIONS: stroke TECHNIQUE: Non-contrast axial T1 spin echo, axial T2 fast spin echo, sagittal and axial FLAIR, coronal T2 fast spin echo, axial gradient echo, axial diffusion and ADC through the brain. COMPARISON: Outside Film, MR, MR BRAIN WITH/WITHOUT CONTRAST, 04/17/2022, 8:15. [facility], CT, CT ANGIO HEAD AND NECK, 06/01/2022, 15:48. [facility], CT, CT STROKE, 06/01/2022, 15:48. FINDINGS: Image quality: Excellent. CSF spaces: Ventricles appear symmetric in size and shape. Basal cisterns are patent. No extra-axial fluid collections. Brain: There are few small foci of abnormal diffusion-weighted signal seen within the cerebral hemispheres and basal ganglia. The largest area of involvement is seen within the right occipital lobe. Associated dark signal can be seen on the ADC map. No intracranial bleeds or mass effects. There is cerebral volume loss for age. There are periventricular and deep white matter chronic small vessel ischemic changes. Brainstem appears normal. There is a remote, stable right inferior occipital infarction. Normal intravascular flow voids are present. 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 Orbits are normal. Sinuses: Sinuses and mastoids are clear. IMPRESSION: Small areas of abnormal diffusion-weighted signal can be seen within both cerebral hemispheres as well as within the basal ganglia, with the greatest involvement within the right occipital lobe. Additional findings: Remote right occipital infarction Numerous calvarial metastases Dictated by: Weston Caceres M.D. on 06/02/2022 at 8:03 Approved by: Weston Caceres M.D. on 06/02/2022 at 8:07
--- NOTE | 2022-06-01 16:36 | ED_ITS ---
HPI - Neuro Symptoms/Deficit General Chief Complaint: Neuro Symptoms/Deficit Stated Complaint: possible stroke Time Seen by Provider: 06/01/22 16:08 Source: patient and family Mode of arrival: Ambulatory History of Present Illness HPI Narrative: Last well known 10:00 a.m. today. Patient complains visual disturbance in her right eye had the upper outer quadrant. She has history of strokes in the past. 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 She cannot see and the left half visual field of either eye. Denies any facial droop slurred speech or limb weakness. Patient was admitted last week for sepsis. Has C diff. patient was off of her Eliquis for the past 5 days. On review of patient's chart. She is not on any antiarrhythmics. She did have an EKG during course of stay after admission that showed atrial fibrillation with RVR. On admission she was sinus tachycardia with fever 101.5. Patient denies any previous history of atrial fibrillation. Denies any chest pain or palpitations. Exam does show visual disturbance in the right upper outer quadrant of the right eye otherwise fast exam is negative. On Anticoagulants: No (eliquis held) Related Data Home Medications Medication Instructions Recorded Confirmed abemaciclib 150 mg tablet 150 mg PO BID 05/28/22 06/01/22 (Verzenio) apixaban 5 mg tablet (Eliquis) 5 mg PO BID 05/28/22 06/01/22 letrozole 2.5 mg tablet 2.5 mg PO DAILY 05/28/22 06/01/22 rosuvastatin 20 mg tablet 20 mg PO QPM 05/28/22 06/01/22 Previous Rx's Medication Instructions Recorded vancomycin 125 mg capsule 125 mg PO QID #48 caps 05/30/22 alprazolam 0.25 mg tablet (Xanax) 0.25 mg PO BID PRN anxiety #30 tabs 06/05/22 citalopram 20 mg tablet (Celexa) 20 mg PO DAILY #90 tabs 06/05/22 metoprolol succinate 50 mg 50 mg PO DAILY #90 tabs 06/05/22 tablet,extended release 24 hr (Toprol XL) Allergies Allergy/AdvReac Type Severity Reaction Status Date / Time No Known Drug Allergies Allergy Verified 06/01/22 20:15 Review of Systems Review of Systems Narrative: GENERAL: negative chills, fatigue, malaise, fever, sweats. HEENT: negative sinus pain, ear pain, sore throat, positive visual disturbance RESPIRATORY: negative dyspnea, cough CARDIOVASCULAR: negative chest pain, palpitations GASTROINTESTINAL: negative nausea, vomiting, abdominal pain : negative dysuria, frequency, hematuria MUSCULOSKELETAL: negative muscle or bony pain SKIN: negative rash, skin lesions NEUROLOGIC: negative weakness, numbness, positive visual disturbance ROS Unobtainable: All systems reviewed & are unremarkable except as noted in HPI and below Hematologic/Lymphatic On Anticoagulants: No (eliquis held) Patient History Medical History (Updated 06/01/22 @ 22:39 by Kristin Godoy MD) Afib Breast cancer C. difficile colitis Chronic anxiety Compression fracture of fourth cervical vertebra Hyperlipidemia Metastatic cancer to spine Surgical History (Updated 06/01/22 @ 22:39 by Kristin Godoy MD) History of ankle surgery History of Family History (Updated 06/01/22 @ 22:40 by Kristin Godoy MD) Father CVA (cerebral vascular accident) Afib Mother Bowel obstruction Afib Social History household members: none Smoking Status: Never smoker alcohol intake: former Smoking Status: Never smoker Substance Use Type: does not use Exam Narrative Exam Narrative: GENERAL: in no distress, not toxic not dyspneic HEAD: Normocephalic. EYES: Pupils equal round No scleral icterus., PERRLA ENT: Mucous membranes moist. NECK: Trachea midline. CARDIOVASCULAR: Regular rate and rhythm without murmurs RESPIRATORY: Clear to auscultation. Breath sounds equal bilaterally. No wheezes, rales, or rhonchi. GASTROINTESTINAL: Abdomen soft, non-tender EXTREMITIES: No gross deformities. BACK: No flank tenderness. NEURO: AOx4. Clear speech no facial droop. ?Light touch intact to bilateral face hands and feet. ?Strong equal district wire chief bilaterally and ankle flexion hip flexion and knee flexion. ?Strong bilateral patellar reflexes. ?No pronator drift. ? SKIN: Warm and dry PSYCH: Not anxious, is cooperative Initial Vital Signs Initial Vital Signs: Vital Signs Pulse Rate 168 H 06/01/22 15:39 Respiratory Rate 14 06/01/22 15:39 Pulse Oximetry 99 06/01/22 15:39 Scores NIH Stroke Scale Level of Conciousness: Alert, keenly responsive Ask month/age: Answers both questions correctly. Open/close eyes, close hand: Performs both tasks correctly Best gaze horizontal: Normal Visual bauer: Bilateral hemianopia, blind Facial palsy: Normal symetrical movement Left arm drift: No drift for full 10 sec Right arm drift: No drift for full 10 sec Left leg drift: No drift for full 5 sec Right leg drift: No drift for full 5 sec Limb ataxia: Absent Sensory on face/arms/legs: Normal, no sensory loss Best language: No aphasia, normal Dysarthria: Normal Extinction or inattention: No abnormality Total NIH Stroke scale score: 3 Course Course Course Narrative: No new issues during course of stay Decision to Admit Date: 06/01/22 Decision to Admit time: 16:57 Orders Ordered: Discontinued Medications Acetaminophen (Acetaminophen 325 Mg Tablet) 650 mg PO Q6H PRN PRN Reason: Fever/Mild Pain (1-3) Last Admin: 06/03/22 05:29 Dose: 650 mg Documented By: Alprazolam (Alprazolam 0.25 Mg Tablet) 0.25 mg PO Q6H PRN PRN Reason: Anxiety Last Admin: 06/04/22 20:32 Dose: 0.25 mg Documented By: Admin: 06/04/22 13:54 Dose: 0.125 mg Documented By: Admin: 06/03/22 23:40 Dose: 0.25 mg Documented By: Admin: 06/02/22 22:03 Dose: 0.25 mg Documented By: Admin: 06/01/22 21:25 Dose: 0.25 mg Documented By: GENE Apixaban (Apixaban 5 Mg Tablet) 5 mg PO NOW ONE Stop: 06/01/22 17:07 Last Admin: 06/01/22 17:55 Dose: 5 mg Documented By: MICHOACANO Apixaban (Apixaban 5 Mg Tablet) 5 mg PO BID MARYCARMEN Last Admin: 06/05/22 07:59 Dose: 5 mg Documented By: Admin: 06/04/22 20:32 Dose: 5 mg Documented By: Admin: 06/04/22 09:35 Dose: 5 mg Documented By: Admin: 06/03/22 22:24 Dose: 5 mg Documented By: Admin: 06/03/22 10:14 Dose: 5 mg Documented By: Admin: 06/02/22 22:05 Dose: 5 mg Documented By: Admin: 06/02/22 09:50 Dose: 5 mg Documented By: Admin: 06/01/22 21:09 Dose: Not Given Documented By: OW Atorvastatin Calcium (Atorvastatin 20 Mg Tablet) 40 mg PO BEDTIME [facility] Last Admin: 06/04/22 20:31 Dose: 40 mg Documented By: Admin: 06/03/22 22:23 Dose: 40 mg Documented By: Admin: 06/02/22 22:05 Dose: 40 mg Documented By: Admin: 06/01/22 21:24 Dose: 40 mg Documented By: OW Citalopram Hydrobromide (Citalopram 10 Mg Tablet) 20 mg PO DAILY [facility] Last Admin: 06/05/22 07:59 Dose: 20 mg Documented By: Admin: 06/04/22 09:35 Dose: 20 mg Documented By: Admin: 06/03/22 10:13 Dose: 20 mg Documented By: Admin: 06/02/22 09:49 Dose: 20 mg Documented By: Admin: 06/01/22 21:25 Dose: 20 mg Documented By: GENE POTASSIUM CHLORIDE IN WATER (Potassium Cl 10 Meq/100 Ml Rhianna) 10 meq in 100 mls @ 100 mls/hr IV Q1H [facility] Stop: 06/02/22 00:44 Last Admin: 06/02/22 01:13 Dose: 100 mls/hr Documented By: Infusion: 06/02/22 00:37 Dose: 100 mls/hr Documented By: Admin: 06/01/22 23:37 Dose: 100 mls/hr Documented By: Infusion: 06/01/22 23:31 Dose: 100 mls/hr Documented By: Admin: 06/01/22 22:31 Dose: 100 mls/hr Documented By: Infusion: 06/01/22 22:09 Dose: 100 mls/hr Documented By: Admin: 06/01/22 21:09 Dose: 100 mls/hr Documented By: OW Cefepime HCl 2 gm/ Sodium (Chloride) 100 mls @ 200 mls/hr IV Q12H [facility] Last Infusion: 06/05/22 08:57 Dose: 0 mls/hr Documented By: Admin: 06/05/22 07:59 Dose: 200 mls/hr Documented By: Infusion: 06/04/22 21:01 Dose: 0 mls/hr Documented By: Admin: 06/04/22 20:31 Dose: 200 mls/hr Documented By: Infusion: 06/04/22 10:12 Dose: 200 mls/hr Documented By: Admin: 06/04/22 09:42 Dose: 200 mls/hr Documented By: Infusion: 06/03/22 22:54 Dose: 0 mls/hr Documented By: Admin: 06/03/22 22:24 Dose: 200 mls/hr Documented By: Infusion: 06/03/22 10:59 Dose: 200 mls/hr Documented By: Admin: 06/03/22 10:29 Dose: 200 mls/hr Documented By: KT Vancomycin HCl (Vancomycin) 1,000 mg in 200 mls @ 200 mls/hr IV Q8H [facility] Last Infusion: 06/05/22 12:36 Dose: 0 mls/hr Documented By: Admin: 06/05/22 08:57 Dose: 200 mls/hr Documented By: Infusion: 06/05/22 02:40 Dose: 0 mls/hr Documented By: Admin: 06/05/22 01:40 Dose: 200 mls/hr Documented By: Infusion: 06/04/22 19:45 Dose: 0 mls/hr Documented By: Admin: 06/04/22 18:45 Dose: 200 mls/hr Documented By: Infusion: 06/04/22 11:34 Dose: 200 mls/hr Documented By: Admin: 06/04/22 10:34 Dose: 200 mls/hr Documented By: Infusion: 06/04/22 03:07 Dose: 200 mls/hr Documented By: Admin: 06/04/22 02:07 Dose: 200 mls/hr Documented By: Infusion: 06/03/22 20:38 Dose: 0 mls/hr Documented By: Admin: 06/03/22 19:38 Dose: 200 mls/hr Documented By: Infusion: 06/03/22 11:26 Dose: 200 mls/hr Documented By: Admin: 06/03/22 10:26 Dose: 200 mls/hr Documented By: RLH Sodium Chloride (Normal Saline 0.9%) 250 mls @ 21 mls/hr IV Q24H PRN PRN Reason: Flush Sodium Chloride (Normal Saline 0.9%) 1,000 mls @ 100 mls/hr IV CONT [facility]ARM[facility] Stop: 06/05/22 05:14 Last Admin: 06/04/22 18:45 Dose: 100 mls/hr Documented By: CRISTÓBAL Influenza Virus Vaccine (Influenza Vaccine Qiv 0.5 Ml Syringe) 0.5 ml IM .ONCE ONE Stop: 06/04/22 11:19 Last Admin: 06/04/22 16:40 Dose: Not Given Documented By: CRISTÓBAL Influenza Virus Vaccine (Influenza Vaccine Qiv 0.5 Ml Syringe) 0.5 ml IM .ONCE ONE Stop: 06/05/22 16:44 Letrozole (Letrozole 2.5 Mg Tablet) 2.5 mg PO DAILY [facility] Last Admin: 06/05/22 07:59 Dose: 2.5 mg Documented By: Admin: 06/04/22 09:36 Dose: 2.5 mg Documented By: Admin: 06/03/22 10:45 Dose: Not Given Documented By: Admin: 06/02/22 09:52 Dose: Not Given Documented By: LUKAS Letrozole (Letrozole 2.5 Mg Tablet) 2.5 mg PO NOW ONE Stop: 06/03/22 22:19 Last Admin: 06/03/22 22:23 Dose: 2.5 mg Documented By: Metoprolol Succinate (Metoprolol Er 25 Mg Tablet) 25 mg PO NOW ONE Stop: 06/01/22 16:37 Last Admin: 06/01/22 16:58 Dose: 25 mg Documented By: MICHOACANO Metoprolol Succinate (Metoprolol Er 25 Mg Tablet) 25 mg PO NOW ONE Stop: 06/01/22 18:07 Last Admin: 06/01/22 18:45 Dose: 25 mg Documented By: MICHOACANO Metoprolol Succinate (Metoprolol Er 25 Mg Tablet) 25 mg PO BID [facility] Last Admin: 06/05/22 07:59 Dose: 25 mg Documented By: Admin: 06/04/22 20:15 Dose: Not Given Documented By: Admin: 06/04/22 09:35 Dose: Not Given Documented By: Admin: 06/03/22 22:23 Dose: 25 mg Documented By: Admin: 06/03/22 10:15 Dose: 25 mg Documented By: RLKristin Admin: 06/02/22 22:04 Dose: 25 mg Documented By: Admin: 06/02/22 09:50 Dose: 25 mg Documented By: Admin: 06/01/22 21:09 Dose: Not Given Documented By: GENE Metronidazole (Metronidazole 500 Mg Tablet) 500 mg PO TID [facility] Last Admin: 06/05/22 08:06 Dose: 500 mg Documented By: Admin: 06/04/22 20:40 Dose: 500 mg Documented By: Admin: 06/04/22 15:07 Dose: 500 mg Documented By: Admin: 06/04/22 09:40 Dose: 500 mg Documented By: Admin: 06/03/22 23:02 Dose: Not Given Documented By: Admin: 06/03/22 19:38 Dose: 500 mg Documented By: Admin: 06/03/22 10:29 Dose: 500 mg Documented By: DONOVAN Naloxone HCl (Naloxone 0.4 Mg/Ml Vial) 0.2 mg IV Q2MIN PRN PRN Reason: Opiate Reversal Naloxone HCl (Naloxone 0.4 Mg/Ml Vial) 0.2 mg IV Q2MIN PRN PRN Reason: Opiate Reversal Ondansetron HCl (Ondansetron 4 Mg/2 Ml Inj) 4 mg IV Q8HR PRN PRN Reason: Nausea And Vomiting Sodium Chloride (Sodium Chloride 0.9% Flush) 10 ml IV BID [facility] Last Admin: 06/05/22 08:08 Dose: 10 ml Documented By: Admin: 06/04/22 20:42 Dose: Not Given Documented By: Admin: 06/04/22 09:36 Dose: 10 ml Documented By: CRISTÓBAL Vancomycin HCl (Vancomycin 125 Mg Capsule) 125 mg PO QID [facility] Last Admin: 06/04/22 17:42 Dose: Not Given Documented By: Admin: 06/04/22 13:50 Dose: Not Given Documented By: Admin: 06/04/22 13:15 Dose: Not Given Documented By: Admin: 06/03/22 23:03 Dose: Not Given Documented By: Admin: 06/03/22 20:03 Dose: Not Given Documented By: Admin: 06/03/22 20:03 Dose: Not Given Documented By: Admin: 06/03/22 10:39 Dose: Not Given Documented By: Admin: 06/02/22 22:06 Dose: Not Given Documented By: Admin: 06/02/22 18:37 Dose: Not Given Documented By: Admin: 06/02/22 13:30 Dose: Not Given Documented By: Admin: 06/02/22 09:49 Dose: Not Given Documented By: Admin: 06/01/22 21:09 Dose: Not Given Documented By: OW Vancomycin HCl (Vancomycin Trough) 1 request [facility] [place] [address]30 [facility] Stop: 06/04/22 09:31 Last Admin: 06/04/22 09:45 Dose: 1 request Documented By: EJ Vancomycin HCl (Vancomycin Peak) 1 request MISC 1200 [facility] Stop: 06/04/22 12:01 Last Admin: 06/04/22 12:40 Dose: 1 request Documented By: EJ Vancomycin HCl (Vancomycin Trough) 1 request [facility] [place] 0930 [facility] Stop: 06/07/22 09:31 Vancomycin HCl (Vancomycin Peak) 1 request MIS 1200 [facility] Stop: 06/07/22 12:01 Vancomycin HCl (Vancomycin 125 Mg Capsule) 125 mg PO 0800,1200,1600,2000 [facility] Last Admin: 06/05/22 12:36 Dose: 125 mg Documented By: Admin: 06/05/22 08:06 Dose: 125 mg Documented By: Admin: 06/04/22 20:06 Dose: 125 mg Documented By: Reevaluation(s) Reevaluation #1: Reviewed results with patient. MRI is pending. She does agree for admit for stroke workup. Daughter at bedside Time: 16:57 Consultations Consultation #1: Spoke with cardiology on-call, dr smith, patient can start on p.o. metoprolol 25 mg ER, may give IV metoprolol of needs more. However if not controlled they can start digoxin IV. May have up to 1 g in 24 hours. Time: 16:51 Consultation #2: Spoke with [facility], Dr. Roblero, stroke neurology, recommends restarting the Eliquis. Getting echocardiogram admission. Patient can have outpatient Ophthalmology follow-up. Time: 17:06 Consultation #3: Spoke with hospitalist, Dr. Jose, will admit patient Vital Signs Vital signs: Vital Signs - 8 hr 06/01/22 15:39 06/01/22 15:40 06/01/22 15:40 Pulse Rate 168 H 170 H Respiratory Rate 14 20 Blood Pressure 97/65 Pulse Oximetry 99 100 Oxygen Delivery Method 06/01/22 15:45 06/01/22 16:07 06/01/22 16:08 Pulse Rate 163 H 156 H 154 H Respiratory Rate 15 16 22 Blood Pressure Pulse Oximetry 100 100 100 Oxygen Delivery Method 06/01/22 16:08 06/01/22 16:15 06/01/22 16:30 Pulse Rate 160 H Respiratory Rate 26 H Blood Pressure 117/65 118/77 Pulse Oximetry 99 Oxygen Delivery Method 06/01/22 16:30 06/01/22 16:52 06/01/22 16:58 Pulse Rate 163 H 168 H 150 H Respiratory Rate 19 22 Blood Pressure 118/77 118/77 Pulse Oximetry 99 99 Oxygen Delivery Method Room Air MDM - Neuro Symptoms/Deficit Differential Diagnosis Differential diagnosis: Likely subarachnoid hemorrhage, cerebrovascular accident and transient cerebral ischemia Lab Data Result diagrams: 06/05/22 08:11 06/04/22 07:33 Labs: Lab Results 06/01/22 06/01/22 06/01/22 Range/Units 15:50 15:50 15:50 WBC 2.6 L (4.5-11.0) X10^3/uL RBC 2.94 L (4.0-5.2) X10^6/uL Hgb 10.1 L (12.0-16.0) g/dL Hct 29.3 L (36-46) % MCV 99.9 (80-100) fL MCH 34.4 H (26-34) PG MCHC 34.5 (30-36) % RDW 20.0 H (11.6-14.8) % Plt Count 95 L (150-400) X10^3/uL Neut % (Auto) Not Reportable Lymph % (Auto) Not Reportable [place] % (Auto) Not Reportable Eos % (Auto) Not Reportable Baso % (Auto) Not Reportable Lymph # (Auto) Not Reportable [place] # (Auto) Not Reportable Baso # (Auto) Not Reportable Total Counted 100 Seg Neutrophils % 79.0 H (38-70) % Lymphocytes % (Manual) 16.0 L (25-45) % Monocytes % (Manual) 4.0 (2-11) % Metamyelocytes % 1.0 H (-0) % Neutrophils # (Manual) 2054 L (5340-3852) /uL Nucleated RBCs 1 H ( - 0) #/Diff Platelet Estimate Decr RBC Morphology See below Poikilocytosis 1+ H Anisocytosis 3+ H PT 14.3 H D (10.1-12.7) SECONDS INR 1.2 (0.9-1.3) APTT 27 (26-36) SECONDS Sodium 136 L (137-145) mmol/L Potassium 2.8 L (3.4-5.1) mmol/L Chloride 101 (98-107) mmol/L Carbon Dioxide 28 (22-32) mmol/L BUN 13 (7-17) mg/dL Creatinine 0.55 (0.52-1.04) mg/dL Estimated GFR > 60 (>60) mL/min BUN/Creatinine Ratio 23.6 H (6-22) Glucose 128 H (80-110) mg/dL Calcium 8.4 (8.4-10.2) mg/dL Total Bilirubin 2.2 H (0.2-1.3) mg/dL AST 37 H (14-36) IU/L ALT 30 (<35) IU/L Alkaline Phosphatase 117 (38-126) U/L Total Creatine Kinase 59 (30-135) U/L CK-MB (CK-2) TNP CK-MB (CK-2) Rel Index TNP Troponin I 0.046 H (0.01-0.034) ng/mL Total Protein 7.0 (6.3-8.2) g/dL Albumin 3.3 L (3.5-5.0) g/dL Globulin 3.7 (1.7-4.1) g/dL Albumin/Globulin Ratio 0.9 L (1.0-2.8) U Opiates 300ng/mL cut (Negative) Ur Oxycodone Screen (Negative) Urine Methadone Screen (Negative) Ur Barbiturates Screen (Negative) U Tricyclic Antidepress (Negative) Ur Phencyclidine Scrn (Negative) Ur Amphetamines Screen (Negative) U Methamphetamines Scrn (Negative) Ur MDMA Scrn (Ecstasy) (Negative) U Benzodiazepines Scrn (Negative) Urine Cocaine Screen (Negative) U Marijuana (THC) Screen (Negative) Ethyl Alcohol < 10 ( - 10) mg/dL SARS-CoV-2 (PCR) (Negative) 06/01/22 06/01/22 Range/Units 16:15 17:15 WBC (4.5-11.0) X10^3/uL RBC (4.0-5.2) X10^6/uL Hgb (12.0-16.0) g/dL Hct (36-46) % MCV (80-100) fL MCH (26-34) PG MCHC (30-36) % RDW (11.6-14.8) % Plt Count (150-400) X10^3/uL Neut % (Auto) Lymph % (Auto) [place] % (Auto) Eos % (Auto) Baso % (Auto) Lymph # (Auto) [place] # (Auto) Baso # (Auto) Total Counted Seg Neutrophils % (38-70) % Lymphocytes % (Manual) (25-45) % Monocytes % (Manual) (2-11) % Metamyelocytes % (-0) % Neutrophils # (Manual) (4779-1383) /uL Nucleated RBCs ( - 0) #/Diff Platelet Estimate RBC Morphology Poikilocytosis Anisocytosis PT (10.1-12.7) SECONDS INR (0.9-1.3) APTT (26-36) SECONDS Sodium (137-145) mmol/L Potassium (3.4-5.1) mmol/L Chloride (98-107) mmol/L Carbon Dioxide (22-32) mmol/L BUN (7-17) mg/dL Creatinine (0.52-1.04) mg/dL Estimated GFR (>60) mL/min BUN/Creatinine Ratio (6-22) Glucose (80-110) mg/dL Calcium (8.4-10.2) mg/dL Total Bilirubin (0.2-1.3) mg/dL AST (14-36) IU/L ALT (<35) IU/L Alkaline Phosphatase (38-126) U/L Total Creatine Kinase (30-135) U/L CK-MB (CK-2) CK-MB (CK-2) Rel Index Troponin I (0.01-0.034) ng/mL Total Protein (6.3-8.2) g/dL Albumin (3.5-5.0) g/dL Globulin (1.7-4.1) g/dL Albumin/Globulin Ratio (1.0-2.8) U Opiates 300ng/mL cut Negative (Negative) Ur Oxycodone Screen Negative (Negative) Urine Methadone Screen Negative (Negative) Ur Barbiturates Screen Negative (Negative) U Tricyclic Antidepress Negative (Negative) Ur Phencyclidine Scrn Negative (Negative) Ur Amphetamines Screen Negative (Negative) U Methamphetamines Scrn Negative (Negative) Ur MDMA Scrn (Ecstasy) Negative (Negative) U Benzodiazepines Scrn Negative (Negative) Urine Cocaine Screen Negative (Negative) U Marijuana (THC) Screen Negative (Negative) Ethyl Alcohol ( - 10) mg/dL SARS-CoV-2 (PCR) Negative (Negative) Point of Care Testing Glucose POC [address] scan - head: Radiologist's Impression: [address] [address] [address] Scan Report Signed Patient: Nancy Leahy MR#: [id number] : 1960 Acct:[id number] Age/Sex: 62 / F Date of Service: 06/01/22 Loc: ED Accession Number: [id number] ?? Procedure: CT Stroke Ordering Provider: Matt Baeza MD PROCEDURE:? CT STROKE ? INDICATIONS:? loss of vision in right eye, unknown last known well ? TECHNIQUE:? Noncontrast 4.5 mm thick angled axial sections acquired from the foramen magnum to the vertex, with coronal reformats.? For radiation dose reduction, the following was used:? automated exposure control, adjustment of mA and/or kV according to patient si ze.? ? COMPARISON:? Outside Film, MR, MR BRAIN WITH/WITHOUT CONTRAST, 04/17/2022, 8:15. ? FINDINGS:? Image quality:? Excellent.? ? CSF spaces:? Basal cisterns are patent.? No extra-axial fluid collections.? The ventricles are symmetric in size and shape.? ? Brain:? No intracranial bleeds or masses.? There is cerebral volume loss for age, with resultant ventricular and sulcal prominence.? There are periventricular and deep white matter chronic small vessel ischemic changes.? Focal volume loss can be seen involving right inferior occipital lobe, which is similar to the prior MRI and consistent a remote There is intracranial internal carotid artery atherosclerosis.? ? Skull and face:? Numerous lytic lesions are seen within the calvarium, which are highly suspicious for bony metastatic disease. ? Sinuses:? Visualized sinuses and mastoids are clear.? IMPRESSION:? No acute intracranial hemorrhage is seen.? ? No acute intracranial process is seen.? ? 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 ? There are innumerable low-density lesions seen involving the calvarium.? These are highly suspicious for metastatic disease, which were previously demonstrated by MRI. ? Note: Case discussed by telephone with Dr. Baeza at 3:05 p.m. [place] time on June 01, 2022. ? ? This study fulfills neurological imaging criteria for inclusion or exclusion of acute stroke therapies based on available published neurological guidelines.? ? ? Dictated by: Weston Caceres M.D. on 06/01/2022 at 15:03 ? ? Approved by: Weston Caceres M.D. on 06/01/2022 at 15:07 ? CTA - brain/neck: Radiologist's Impression: [place] [address] CT Scan Report Signed Patient: Nancy Leahy MR#: [id number] : 1960 Acct:[id number] Age/Sex: 62 / F Date of Service: 06/01/22 Loc: ED Accession Number: [id number] ?? Procedure: CT angio head and neck Ordering Provider: Matt Baeza MD PROCEDURE:? CT ANGIO HEAD AND NECK ? INDICATIONS:? loss of vision right eye ? TECHNIQUE:? Noncontrast images were performed earlier in the day and not repeated.? ? After the administration of intravenous contrast, 1 mm thick sections acquired from the aortic arch through the [place] of [place]roz[place].? Post-contrast 4.5 mm thick sections then re- acquired from the foramen magnum to the vertex.? 3-dimensional pnttkeh-vkvggagat-rwineoqpet (MIP) and/or volume rendering reformats were acquired of the central intracranial vasculature and neck separately. For radiation dose reduction, the following was used:? automated exposure control, adjustment of mA and/or kV according to patient size.? ? COMPARISON:? [facility], CT, CT STROKE, 06/01/2022, 15:48.? Outside Film, MR, MR BRAIN WITH/WITHOUT CONTRAST, 04/17/2022, 8:15. ? FINDINGS:? Image quality:? Excellent.? ? BRAIN:? CSF spaces:? Ventricles are normal in size and shape.? Basal cisterns are patent.? No extra-axial fluid collections.? ? Brain:? No midline shift.? No intracranial bleeds or masses.? Hodges-white matter interface appears intact.? 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 ? Skull and face:? 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 Orbits appear normal.? ? Sinuses:? Sinuses and mastoids are clear.? ? HEAD CT ANGIOGRAPHY:? Anterior circulation:? Intracranial internal carotid arteries are normal in size and flow.? There is a diminutive right A1 segment, with a corresponding robust left A1 segment.? This is considered to be a normal developmental variant of the unga of [place]roz[place], of typically no clinical consequence.? The flow within the paired anterior cerebral arteries is otherwise normal and symmetric.? The flow within the middle cerebral arteries is normal and symmetric.? The anterior communicating artery is seen.? No aneurysms are seen.? ? Posterior circulation:? Visualized portions of the vertebral arteries demonstrate normal caliber, and join to form a normal appearing basilar artery.? Flow within the posterior cerebral arteries is normal and symmetric.? No aneurysms are seen.? ? NECK CT ANGIOGRAPHY:? Carotid system:? The great vessels demonstrate a conventional anatomy as they arise from the aortic arch.? The origins of the common carotid arteries appear patent.? The common carotid arteries demonstrate normal caliber and courses.? The bifurcation regions are both widely patent.? The internal carotid arteries demonstrate normal calibers and courses.? ? Posterior circulation:? The origins of the vertebral arteries both appear widely patent.? The more superior extracranial portions of both vertebral arteries also demonstrate normal courses and calibers.? They join to form a normal appearing basilar artery.? ? Soft tissues:? Visualized neck soft tissues demonstrate no suspicious abnormalit ies.? ? Bones:? Innumerable lytic bony lesions are seen.? There is a pathologic compression deformity seen at C4, with approximately 30% loss of height.? No posterior displacement of fracture fragments can be seen.? The visualized cervical spine appears normally aligned.? Levoconvex cervical thoracic scoliotic curvature is seen. ? ? IMPRESSION:? No significant intracranial arterial abnormality is seen.? ? Within the arteries of the neck, no hemodynamically significant stenosis can be seen. ? ? 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 ? ? Any quantitative measurements of stenosis were performed using NASCET criteria.? ? ? Dictated by: Weston Caceres M.D. on 06/01/2022 at 15:37 ? ? Approved by: Weston Caceres M.D. on 06/01/2022 at 15:41 ? ECG Data Interpretation: Atrial fibrillation with RVR. Rate 149 MDM Narrative Medical decision making narrative: Appropriate for admission. Patient requires admission for TIA/stroke workup. Patient likely has history of AFib, it was noted on last admission. However has history of strokes and likely AFib being source. Patient and daughter are uncertain of previous diagnosis. I did review with stroke provider and agrees for admission and echocardiogram as restarting Eliquis. Reviewed with hospitalist agrees for admit. I reviewed with cardiology and agrees for metoprolol or digoxin. Patient will need echocardiogram and MRI and rate control and to restart Eliquis Stroke Core Measures Exclusion Criteria TPA in CVA: Symptom Onset >3 or 4.5 Hours Critical Care Time Critical Care Time Attestation: Critical Care Time 35 minutes: Critical care time is separate from other billable procedures. This critical care time includes consultation with family and other consulting doctors, review of records, and interpretation of data from labs, EKGs, imaging, etc. Discharge Plan Departure Patient Disposition: Admitted as Observation Clinical Impression: Transient cerebral ischemia Admit Date/Time: 06/01/22 17:15 Admit Provider: Delano Jose
[2022-06-01] MEDS: METOPROLOL ER 25 MG TABLET PO ×2 (16:58→18:45)
[2022-06-01 17:22] LABS: COVID19 -Nasal RAPID Negative (Negative)
[2022-06-01] MEDS: APIXABAN 5 MG TABLET PO (17:55)
--- NOTE | 2022-06-01 19:15 | PM.HP.1 ---
History of Present Illness History of Present Illness Date Patient Seen: 06/01/22 Time Patient Seen: 19:15 Chief complaint: possible stroke Narrative: This is a 62-year-old female with atrial fibrillation, metastatic breast cancer, CVA with left visual field cut, hyperlipidemia and C diff colitis who returns 3 days after her most recent admission for C diff with onset at around 10:00 a.m. today of diminished right-sided, right eye vision. She is quite anxious and spends much of the interview ruminating tangentially about her responsibility for delayed breast cancer diagnosis and ignoring previous signs of stroke. Her daughter has just flown in from the country of [place] and her son will be coming to visit. She is a professional massage therapist. She has metastatic breast cancer and has not been able to take her hormonal and chemotherapy recently due to the severe GI symptoms from her C diff. Her potassium level on presentation last week was 2.2. The CT brain shows multiple calvarium metastatic lesions with an old right occipital CVA and a C4 compression deformity. She did not appear to need potassium as her GI symptoms had resolved when she went home but she presents again today with a potassium of 2.8 despite not being on diuretics or having any diarrhea/vomiting since her discharge. Cardiology has advised her to resume the Eliquis which had been held due to mild anemia. She was in atrial fibrillation with rapid ventricular response in the 150s when she came to the emergency department but by the time I see her, after receiving oral metoprolol, she is down into the 90-110 range in sinus rhythm. She is agreeable to a trial of antianxiety medication. She also has significant pancytopenia presumably related to the breast cancer treatments with a white count of 2.6, hemoglobin of 10.1 and platelets of 95. Patient History Medical History (Updated 06/01/22 @ 22:39 by Kristin Godoy MD) Afib Breast cancer C. difficile colitis Chronic anxiety Compression fracture of fourth cervical vertebra Hyperlipidemia Metastatic cancer to spine Surgical History (Updated 06/01/22 @ 22:39 by Kristin Godoy MD) History of ankle surgery History of Family & Social History Family History (Updated 06/01/22 @ 22:40 by Kristin Godoy MD) Father CVA (cerebral vascular accident) Afib Mother Bowel obstruction Afib Social History: household members none Safety & Behavioral: Feels Safe in Current Yes Environment Been Physically Hurt or No Threatened By a Person Tobacco & Substance use: Smoking Status Never smoker alcohol intake former Substance Use Type does not use Meds Home Medications and Allergies Home Medications Medication Instructions Recorded Confirmed Type abemaciclib 150 mg tablet 150 mg PO BID 05/28/22 06/01/22 History (Verzenio) apixaban 5 mg tablet (Eliquis) 5 mg PO BID 05/28/22 06/01/22 History letrozole 2.5 mg tablet 2.5 mg PO DAILY 05/28/22 06/01/22 History rosuvastatin 20 mg tablet 20 mg PO QPM 05/28/22 06/01/22 History vancomycin 125 mg capsule 125 mg PO QID #48 caps 05/30/22 06/01/22 Rx Allergies Allergy/AdvReac Type Severity Reaction Status Date / Time No Known Drug Allergies Allergy Verified 06/01/22 20:15 Review of Systems Review of Systems Narrative: Positive for visual changes, anxiety, diarrhea. Negative for fevers, chills, sweats, nausea, vomiting, abdominal pain, chest pain, coughing, shortness of breath, bleeding, rashes, joint pain, seizures, new allergies. Exam Vital Signs (past 8 hours): - 06/01/22 15:39 06/01/22 15:40 06/01/22 15:40 Pulse Rate 168 H 170 H Respiratory Rate 14 20 Blood Pressure 97/65 Pulse Oximetry 99 100 Oxygen Delivery Method 06/01/22 15:45 06/01/22 16:07 06/01/22 16:08 Pulse Rate 163 H 156 H 154 H Respiratory Rate 15 16 22 Blood Pressure Pulse Oximetry 100 100 100 Oxygen Delivery Method 06/01/22 16:08 06/01/22 16:15 06/01/22 16:30 Pulse Rate 160 H Respiratory Rate 26 H Blood Pressure 117/65 118/77 Pulse Oximetry 99 Oxygen Delivery Method 06/01/22 16:30 06/01/22 16:52 06/01/22 16:58 Pulse Rate 163 H 168 H 150 H Respiratory Rate 19 22 Blood Pressure 118/77 118/77 Pulse Oximetry 99 99 Oxygen Delivery Method Room Air 06/01/22 17:55 06/01/22 16:45 06/01/22 17:00 Pulse Rate 152 H 164 H Respiratory Rate 31 H Blood Pressure 101/58 L 102/69 Pulse Oximetry 98 Oxygen Delivery Method 06/01/22 17:00 06/01/22 17:15 06/01/22 17:35 Pulse Rate 152 H 149 H 174 H Respiratory Rate 24 22 36 H Blood Pressure Pulse Oximetry 97 98 92 Oxygen Delivery Method 06/01/22 17:38 06/01/22 17:38 06/01/22 17:45 Pulse Rate 159 H 151 H Respiratory Rate 27 H 25 H Blood Pressure 98/57 L Pulse Oximetry 100 98 Oxygen Delivery Method 06/01/22 18:00 06/01/22 18:00 06/01/22 18:15 Pulse Rate 148 H 160 H Respiratory Rate 18 19 Blood Pressure 101/58 L Pulse Oximetry 98 96 Oxygen Delivery Method Room Air 06/01/22 18:45 Pulse Rate 145 H Respiratory Rate Blood Pressure 112/70 Pulse Oximetry Oxygen Delivery Method Oxygen Delivery Method Room Air Narrative Exam Narrative: She is alert and oriented x3. She is in moderate distress with anxiety. Pupils are equally round and reactive to light and accommodation. Extraocular muscles are intact. Sclerae are pink and nonicteric. No lymph nodes are felt head, neck, supraclavicular area There is no thyromegaly JVD is less than 6 cm No carotid bruits are heard Heart is regular rate and rhythm without murmur Lungs are clear to auscultation bilaterally Abdomen is soft, bowel sounds positive, nontender, no organomegaly. Breast exam is not done today. Extremities have no ankle edema Neurological exam: Motor function is 5/5 throughout without lateralizing deficits. Babinski's are downgoing bilaterally [id number] pointing is intact Visual field is blank until reaching directly in front of the nose on the left and is also missing for about 30? from horizontal coming forward on the right side. Skin without rash or jaundice Objective Imaging CT scan - head: Radiologist's impression: CTA Head and Neck: IMPRESSION:? No significant intracranial arterial abnormality is seen.? ? Within the arteries of the neck, no hemodynamically significant stenosis can be seen. ? ? 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 PROCEDURE: CT STROKE INDICATIONS: loss of vision in right eye, unknown last known well TECHNIQUE: Noncontrast 4.5 mm thick angled axial sections acquired from the foramen magnum to the vertex, with coronal reformats. For radiation dose reduction, the following was used: automated exposure control, adjustment of mA and/or kV according to patient size. COMPARISON: Outside Film, MR, MR BRAIN WITH/WITHOUT CONTRAST, 04/17/2022, 8:15. FINDINGS: Image quality: Excellent. CSF spaces: Basal cisterns are patent. No extra-axial fluid collections. The ventricles are symmetric in size and shape. Brain: No intracranial bleeds or masses. There is cerebral volume loss for age, with resultant ventricular and sulcal prominence. There are periventricular and deep white matter chronic small vessel ischemic changes. Focal volume loss can be seen involving right inferior occipital lobe, which is similar to the prior MRI and consistent a remote There is intracranial internal carotid artery atherosclerosis. Skull and face: Numerous lytic lesions are seen within the calvarium, which are highly suspicious for bony metastatic disease. Sinuses: Visualized sinuses and mastoids are clear. IMPRESSION: No acute intracranial hemorrhage is seen. No acute intracranial process is seen. 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 There are innumerable low-density lesions seen involving the calvarium. These are highly suspicious for metastatic disease, which were previously demonstrated by MRI. Labs Result Diagrams: 06/01/22 15:50 06/01/22 15:50 Labs: Laboratory Results - last 24 hr 06/01/22 06/01/22 06/01/22 15:50 15:50 15:50 WBC 2.6 L RBC 2.94 L Hgb 10.1 L Hct 29.3 L MCV 99.9 MCH 34.4 H MCHC 34.5 RDW 20.0 H Plt Count 95 L Neut % (Auto) Not Reportable Lymph % (Auto) Not Reportable Mora % (Auto) Not Reportable Eos % (Auto) Not Reportable Baso % (Auto) Not Reportable Lymph # (Auto) Not Reportable Mora # (Auto) Not Reportable Baso # (Auto) Not Reportable Total Counted 100 Seg Neutrophils % 79.0 H Lymphocytes % (Manual) 16.0 L Monocytes % (Manual) 4.0 Metamyelocytes % 1.0 H Neutrophils # (Manual) 2054 L Nucleated RBCs 1 H Platelet Estimate Decr RBC Morphology See below Poikilocytosis 1+ H Anisocytosis 3+ H PT 14.3 H D INR 1.2 APTT 27 Sodium 136 L Potassium 2.8 L Chloride 101 Carbon Dioxide 28 BUN 13 Creatinine 0.55 Estimated GFR > 60 BUN/Creatinine Ratio 23.6 H Glucose 128 H Calcium 8.4 Total Bilirubin 2.2 H AST 37 H ALT 30 Alkaline Phosphatase 117 Total Creatine Kinase 59 CK-MB (CK-2) TNP CK-MB (CK-2) Rel Index TNP Troponin I 0.046 H Total Protein 7.0 Albumin 3.3 L Globulin 3.7 Albumin/Globulin Ratio 0.9 L Ethyl Alcohol < 10 SARS-CoV-2 (PCR) 06/01/22 16:15 WBC RBC Hgb Hct MCV MCH MCHC RDW Plt Count Neut % (Auto) Lymph % (Auto) Mora % (Auto) Eos % (Auto) Baso % (Auto) Lymph # (Auto) Mora # (Auto) Baso # (Auto) Total Counted Seg Neutrophils % Lymphocytes % (Manual) Monocytes % (Manual) Metamyelocytes % Neutrophils # (Manual) Nucleated RBCs Platelet Estimate RBC Morphology Poikilocytosis Anisocytosis PT INR APTT Sodium Potassium Chloride Carbon Dioxide BUN Creatinine Estimated GFR BUN/Creatinine Ratio Glucose Calcium Total Bilirubin AST ALT Alkaline Phosphatase Total Creatine Kinase CK-MB (CK-2) CK-MB (CK-2) Rel Index Troponin I Total Protein Albumin Globulin Albumin/Globulin Ratio Ethyl Alcohol SARS-CoV-2 (PCR) Negative Assessment & Plan Assessment & Plan narrative: This is a 62-year-old female with atrial fibrillation, breast cancer, CVA with left visual field cut, hyperlipidemia and C diff colitis who returns 3 days after her most recent admission for C diff with onset at around 10:00 a.m. today of diminished right-sided, right eye vision. She is quite anxious and spends much of the interview ruminating tangentially about her responsibility for delayed breast cancer diagnosis and ignoring previous signs of stroke. Acute CVA, present on admission. Active. -new partial right-sided visual field defect on exam -old left-sided complete visual field defect on exam consistent with right occipital old CVA seen on CT and MRI. -pending MRI brain tomorrow to define any lesion responsible for today's neurologic changes. -resuming Eliquis for prevention of further embolic/atrial fibrillation related CVAs Metastatic breast cancer, present on admission. Active. -bony calvarial and C4 metastasis visible on imaging today. -holding letrozole and Verzenio with plan for close follow-up with Oncology as outpatient. Pancytopenia, present on admission. Active. -admitting white blood count 2.6 with hemoglobin 10.1 and platelets 95 -likely related to recent breast cancer treatments of letrozole and Verzenio -follow closely Anxiety, present on admission. Active. -new diagnosis but patient and family endorse that this has been a very stressful time and that she is extremely anxious. -she is willing to begin anxiety controlling medication if it will help her recover from her strokes faster. -begin citalopram 20 mg daily -begin alprazolam 0.25 mg q.6 as needed Recent C diff colitis, present on admission. Active. -patient endorses that this is rapidly improving, her stools are becoming formed and she will continue the planned 2 weeks of oral vancomycin. Hypokalemia, present on admission. Active. -potassium 2.8 on admission. -supplement with IV 40 mEq on admission and follow closely -likely still GI/malnourishment related to her recent C diff. Atrial fibrillation, present on admission active. -continue Eliquis and oral metoprolol Eliquis for DVT prevention Her daughter Leola is her backup decision maker. She is very clear that despite documents in her possession showing that she is DNR she wishes to be full code at this point. Time Spent With Patient Critical Care time: I spent a total of [] minutes of critical care time on this patient's care today; this time is exclusive of procedural time.
[2022-06-01 19:58] LABS: UR Morphine/Opiate cutoff 300 Negative (Negative); Ur Creatinine Normal (Normal); Ur Specific Gravity Normal (Normal); Urine Amphetamines Negative (Negative); Urine Barbiturates Negative (Negative); Urine Benzodiazepines Negative (Negative); Urine Cocaine Negative (Negative); Urine MDMA Negative (Negative); Urine Methadone Negative (Negative); Urine Methamphetamines Negative (Negative); Urine Oxycodone Negative (Negative); Urine Phencyclidine Negative (Negative); Urine Tetrahydrocannabinol Negative (Negative); Urine Tricyclic Antidepressant Negative (Negative); Urine pH Normal (Normal)
[2022-06-01] MEDS: POTASSIUM CHLORIDE IN WATER 10 MEQ/100 ML PIGGYBACK 100 MEQ IV ×3 (21:09→23:37)
[2022-06-01] MEDS: ATORVASTATIN 20 MG TABLET 40 MG PO (21:24)
[2022-06-01] MEDS: CITALOPRAM 10 MG TABLET 20 MG PO (21:25)
[2022-06-01] MEDS: ALPRAZolam 0.25 MG TABLET PO (21:25)
[2022-06-02] VITALS (10 sets, daily range): BP systolic 107–128; BP diastolic 66–77; PULSE 79–94; RESP 16–19; TEMP 36.4–37.3; O2SAT 93–99
[2022-06-02] MEDS: POTASSIUM CHLORIDE IN WATER 10 MEQ/100 ML PIGGYBACK 100 MEQ IV (01:13)
--- NOTE | 2022-06-02 03:53 | PC.NURSE ---
Pt is AxoOx 4, needs STA and cooperative. VSS, pt denies pain. Pt on Tele and it is sinus rhythm. Pt has BM x3 last night and it was formed. No other changes. Pt's R eye has samanta vision. Other than that, everything is normal. No other changes.
[2022-06-02 06:58] LABS: Appearance Urine UA CLEAR; Bilirubin Urine UA NEGATIVE (NEGATIVE); Color Urine UA YELLOW; Ketones Urine UA NEGATIVE (NEGATIVE); Leukocyte Esterase Urine UA TRACE (NEGATIVE); Nitrite Urine UA NEGATIVE (Negative); Occult Blood Urine UA TRACE-INTACT (Negative); Protein Urine UA 1+ (Negative); Specific Gravity Urine UA 1.015 (1.000-1.035); Urobilinogen Urine UA 0.2 E.U./dL (0.2)
[2022-06-02 06:59] LABS: Glucose Urine UA NEGATIVE (Negative)
[2022-06-02 07:06] LABS: Bacteria Urine None Seen; Culture Indicated Urine Specimen Cultured; RBC Urine 0-1/HPF (0-5/HPF); Squamous Epithelial Cell Urine 1-5 /HPF (0-5/HPF); WBC Urine 1-5/HPF (0-5/HPF)
[2022-06-02 08:05] LABS: Hemoglobin 7.1 g/dL (12.0-16.0); Mean Corpuscular HGB Conc 34.9 % (30-36); Mean Corpuscular Hemoglobin 34.9 PG (26-34); Platelet Count 70 X10^3/uL (150-400); Red Blood Cell Count 2.04 X10^6/uL (4.0-5.2); Red Cell Distribution Width 21.3 % (11.6-14.8)
[2022-06-02 08:10] LABS: Add Manual Diff / Slide Review YES; Alanine Aminotransferase 26 IU/L (<35); Albumin 2.6 g/dL (3.5-5.0); Albumin Globulin Ratio 0.9 (1.0-2.8); Alkaline Phosphatase 92 U/L (38-126); Aspartate Aminotransferase 30 IU/L (14-36); BUN Creatinine Ratio 24.5 (6-22); Bilirubin Total 2.7 mg/dL (0.2-1.3); Blood Urea Nitrogen 13 mg/dL (7-17); Calcium 8.1 mg/dL (8.4-10.2); Carbon Dioxide 29 mmol/L (22-32); Chloride 102 mmol/L (98-107); Estimated Glomerular Filt Rate > 60 mL/min (>60); Glucose 100 mg/dL (80-110); HEMOLYSIS < 15 (0-50); Hematocrit 20.4 % (36-46); Magnesium 1.9 mg/dL (1.6-2.3); Potassium 3.5 mmol/L (3.4-5.1); Sodium 133 mmol/L (137-145); Total Protein 5.6 g/dL (6.3-8.2); White Blood Cell Count 1.9 X10^3/uL (4.5-11.0)
[2022-06-02 09:05] LABS: Neutrophils Absolute Manual 1064 /uL (3000-5900); Nucleated Red Blood Cells 1 #/Diff; Total Cells Counted 50
[2022-06-02 09:07] LABS: Anisocytosis 3+
[2022-06-02 09:08] LABS: Poikilocytosis 1+
[2022-06-02] MEDS: CITALOPRAM 10 MG TABLET 20 MG PO (09:49)
[2022-06-02] MEDS: METOPROLOL ER 25 MG TABLET PO ×2 (09:50→22:04)
[2022-06-02] MEDS: APIXABAN 5 MG TABLET PO ×2 (09:50→22:05)
--- NOTE | 2022-06-02 10:41 | PT.IIE ---
Surgical History (Last Updated 06/01/22 @ 22:39 by Kristin Godoy MD) History of ankle surgery History of Medical History (Last Updated 06/01/22 @ 22:39 by Kristin Godoy MD) Afib Breast cancer C. difficile colitis Chronic anxiety Compression fracture of fourth cervical vertebra Hyperlipidemia Metastatic cancer to spine Physical Therapy Inpatient Evaluation/Re-Eval M1 PT/OT-IP Prior Functional Status Start: 06/02/22 13:41 Freq: NEEDED Status: Active Protocol: Document 06/02/22 10:41 AB (Rec: 06/02/22 13:57 AB [id number]) Medical Review Prior Functional Status Medical History Reviewed Yes Communication able to make needs known Mobility and Gait pt was just admitted here in the hospital 05/27 to 05/30 for sepsis and went home and now back in the hospital for TIA. pt stated that she has been using her 4WW and daughter assists her as needed . Social History Household Members none Living Arrangements House Number of Floors (Floors) Two Floors Number of Stairs To Enter/Railing? 1 step to enter the house 14 steps R rail ascending and L 1/2 wall/ledge to get to bedroom level Home Environment Standard Height Toilet,Walk in Shower Home Equipment Four Wheel Walker,Straight Cane,Manual Wheelchair,Shower Seat with Backrest,Hand Held Shower Additional Social History Comment pt's daughter will stay with her until July and will assist pt at home M2 PT-IP Current Condition Start: 06/02/22 13:41 Freq: NEEDED Status: Active Protocol: Document 06/02/22 10:41 AB (Rec: 06/02/22 13:57 AB [id number]) Physical Therapy Current Condition Current Condition Evaluation Date 06/02/22 Treatment Diagnosis TIA; difficulty in walking Onset Date 06/01/22 M3 PT-IP Subjective Start: 06/02/22 13:41 Freq: NEEDED Status: Active Protocol: Document 06/02/22 10:41 AB (Rec: 06/02/22 13:57 AB [id number]) Subjective Physical Therapy Visit Type Type Initial Evaluation Visit Start Time 10:41 Visit Stop Time 11:10 Total Visit Minutes 29 Number of CLARIFIER OPERATOR Visits 0 Physical Therapy Visit Comments Patient Comments agreeable to do PT M4 PT-IP Mobility and Gait Start: 06/02/22 13:41 Freq: NEEDED Status: Active Protocol: Document 06/02/22 10:41 AB (Rec: 06/02/22 13:57 AB [id number]) PT-Bed Mobility Assessment Supine to Sit Supine to Sit Independent Sit to Supine Sit to Supine Independent PT-Transfer Assessment Sit to and From Stand Sit to and from Stand Standby Assistance,1 Person Assistance Equipment Transfer Assistive Device None,4 Wheeled Walker Orthotic/Prosthetic Devices or Brace: No Transfers Transfer Destination Toilet Transfer Technique ambulated Transfer Ability Level of Assist Standby Assistance Comments Mobility Comments pt completed supine to sit HOB elevated mod I. requested to use the toilet. completed sit to stand SBA and ambulated to the toilet using 4WW SBA. completed toileting needs without assistance. ambulated towards the sink using 4WW SBA and able to maintain standing balance while completing handwashing SBA. pt agreed to do stair but stated that she cannot walk to far and completed ambulation to the w/c ~ 30 ft using 4WW SBA. daughter stated that pt does not have to walk far to get into the house. pt also has a w/c at home. pt completed up/down platform step with daughter assisting with 4WW placement and pt completed up/down step SBA. pt completed up/down 3 steps x 2 sets using B rails SBA. pt assisted back to her room. ambulated from w/c and to the toilet again as requested using 4WW SBA. informed pt that no further PT intervention indicated at this time and pt agreed. educated on ambulating as much as she can to improve activity tolerance and agreed. Left pt with daughter in room. informed nurse that no further PT needs at this time. Gait Assessment Gait Gait Assistance Required: Standby Assistance Distance (Feet) 30 Able to Maintain Weight Bearing Status Yes During Gait Assistive Devices Assistive Device Gait Belt,4 Wheeled Walker Orthotic/Prosthetic Devices or Brace: No Gait Deviations General Gait Pattern Decreased Stride Length, Decreased Feet Clearance Factors Limiting Gait Function Factors Limiting Gait Function Decreased Activity Tolerance, Decreased Strength,Poor Balance,Poor Safety Awareness Stair Climbing Assessment Evaluation Level of Assist On Stairs Standby Assistance Devices Stair Climbing Assistive Devices Four Wheel Walker,Left Railing ,Right Railing Technique/Endurance Stair Climbing Direction Ascend and Descend Stair Climbing Technique Step to Step Number of Steps Climbed 3 Query Text: Stair Climbing Set # Repetitions (reps) 2 Comments Stair Climbing Comments pls refer to mobility section for details PT-Balance Assessment Sitting Balance and Reactions Static Sitting Balance Ability Normal Dynamic Sitting Balance Ability Good Standing Balance and Reactions Static Standing Balance Ability Good Dynamic Standing Balance Ability Fair Device Used 4WW M5 PT-IP Objective Assessments Start: 06/02/22 13:41 Freq: NEEDED Status: Active Protocol: Document 06/02/22 10:41 AB (Rec: 06/02/22 13:57 AB [id number]) Orientation Orientation/Cognition Level of Alertness Alert Orientation Name,Place,Situation Safety Awareness Decreased Safety Awareness Memory Description No Deficits Noted Gross Range of Motion Lower Extremity ROM Assessment Within Functional Limits Strength Lower Extremity Strength Hip 4-/5 Knee 4-/5 Coordination Assessment Gross Coordination Gross Coordination WNL Muscle Tone Muscle Tone WNL Yes M6 PT-IP Treatment Start: 06/02/22 13:41 Freq: NEEDED Status: Active Protocol: Document 06/02/22 10:41 AB (Rec: 06/02/22 13:57 AB [id number]) Physical Therapy Treatment Education Education Provided Safety M7 PT-IP Assessment and Plan Start: 06/02/22 13:41 Freq: NEEDED Status: Active Protocol: Document 06/02/22 10:41 AB (Rec: 06/02/22 13:57 AB [id number]) PT Summary Assessment and Plan Potential Rehabilitation Potential Good Status of Condition at Evaluation Stable Summary Impairments Balance,Transfers,Gait, Activity Tolerance Assessment Summary PT eval completed and pt requiring SBA with mobility for safety using 4WW. Able to ambulate and without LOB but has decrease activity tolerance and has ongoing medical issues affecting overall strength. pt plans to go home and her daughter will assist pt at home. No further PT intervention indicated at this time. Frequency of Treatment Frequency Of Treatment Discharge Recommendations To Nursing Amount of Assist Needed Standby Assistance Discharge Recommendations PT Discharge Recommendations Home with Assistance,Home Health Transportation Needs at Discharge Private Vehicle
--- NOTE | 2022-06-02 13:19 | PM.PN.1 ---
Subjective Subjective Date Patient Seen: 06/02/22 Interval history: Patient is anxious about her anemia this morning, she denies melena or hematochezia or hematemesis. She denies chest pain, has chronic dyspnea on exertion which is unchanged. Has continued diarrhea but this has been improving. Exam Vital Signs (past 8 hours): - 06/02/22 05:33 06/02/22 09:00 06/02/22 09:50 Temperature 98.3 F 98.0 F Pulse Rate 81 82 Respiratory Rate 18 16 Blood Pressure 107/66 124/77 124/77 Pulse Oximetry 98 99 Oxygen Delivery Method Oxygen Flow Rate 0 06/02/22 09:00 Temperature Pulse Rate Respiratory Rate Blood Pressure Pulse Oximetry 99 Oxygen Delivery Method Room Air Oxygen Flow Rate 0 Oxygen Delivery Method Room Air Oxygen Flow Rate 0 Narrative Exam Narrative: GEN: no acute distress, appears uncomfortable HEENT: moist mucous membranes, PERRL NECK: trachea midline, no JVD CV: RRR, no murmurs PULM: clear bilaterally no wheezing rhonchi or rales. ABD: soft, nontender, nondistended, no organomegaly EXT: warm and well perfused with no edema NEURO: awake, alert, oriented, no focal deficits Objective Labs Result Diagrams: 06/02/22 07:18 06/02/22 07:18 Labs: Laboratory Results - last 24 hr 06/01/22 06/01/22 06/01/22 15:50 15:50 15:50 WBC 2.6 L RBC 2.94 L Hgb 10.1 L Hct 29.3 L MCV 99.9 MCH 34.4 H MCHC 34.5 RDW 20.0 H Plt Count 95 L Neut % (Auto) Not Reportable Lymph % (Auto) Not Reportable [place] % (Auto) Not Reportable Eos % (Auto) Not Reportable Baso % (Auto) Not Reportable Lymph # (Auto) Not Reportable [place] # (Auto) Not Reportable Baso # (Auto) Not Reportable Total Counted 100 Seg Neutrophils % 79.0 H Band Neutrophils % Lymphocytes % (Manual) 16.0 L Atypical Lymphs % Monocytes % (Manual) 4.0 Eosinophils % (Manual) Metamyelocytes % 1.0 H Myelocytes % Neutrophils # (Manual) 2054 L Nucleated RBCs 1 H Platelet Estimate Decr RBC Morphology See below Poikilocytosis 1+ H Anisocytosis 3+ H PT 14.3 H D INR 1.2 APTT 27 Sodium 136 L Potassium 2.8 L Chloride 101 Carbon Dioxide 28 BUN 13 Creatinine 0.55 Estimated GFR > 60 BUN/Creatinine Ratio 23.6 H Glucose 128 H Calcium 8.4 Magnesium Total Bilirubin 2.2 H AST 37 H ALT 30 Alkaline Phosphatase 117 Total Creatine Kinase 59 CK-MB (CK-2) TNP CK-MB (CK-2) Rel Index TNP Troponin I 0.046 H Total Protein 7.0 Albumin 3.3 L Globulin 3.7 Albumin/Globulin Ratio 0.9 L Urine Color Urine Appearance Urine pH Ur Specific [place] Urine Protein Urine Glucose (UA) Urine Ketones Urine Occult Blood Urine Nitrate Urine Bilirubin Urine Urobilinogen Ur Leukocyte Esterase Urine RBC Urine WBC Ur Squamous Epith Cells Urine Bacteria Ur Culture Indicated? U Opiates 300ng/mL cut Ur Oxycodone Screen Urine Methadone Screen Ur Barbiturates Screen U Tricyclic Antidepress Ur Phencyclidine Scrn Ur Amphetamines Screen U Methamphetamines Scrn Ur MDMA Scrn (Ecstasy) U Benzodiazepines Scrn Urine Cocaine Screen U Marijuana (THC) Screen Ethyl Alcohol < 10 SARS-CoV-2 (PCR) 06/01/22 06/01/22 06/02/22 16:15 17:15 06:56 WBC RBC Hgb Hct MCV MCH MCHC RDW Plt Count Neut % (Auto) Lymph % (Auto) [place] % (Auto) Eos % (Auto) Baso % (Auto) Lymph # (Auto) [place] # (Auto) Baso # (Auto) Total Counted Seg Neutrophils % Band Neutrophils % Lymphocytes % (Manual) Atypical Lymphs % Monocytes % (Manual) Eosinophils % (Manual) Metamyelocytes % Myelocytes % Neutrophils # (Manual) Nucleated RBCs Platelet Estimate RBC Morphology Poikilocytosis Anisocytosis PT INR APTT Sodium Potassium Chloride Carbon Dioxide BUN Creatinine Estimated GFR BUN/Creatinine Ratio Glucose Calcium Magnesium Total Bilirubin AST ALT Alkaline Phosphatase Total Creatine Kinase CK-MB (CK-2) CK-MB (CK-2) Rel Index Troponin I Total Protein Albumin Globulin Albumin/Globulin Ratio Urine Color Yellow Urine Appearance Clear Urine pH 7.0 Ur Specific [place] 1.015 Urine Protein 1+ H Urine Glucose (UA) Negative Urine Ketones Negative Urine Occult Blood Trace-intact Urine Nitrate Negative Urine Bilirubin Negative Urine Urobilinogen 0.2 Ur Leukocyte Esterase Trace H Urine RBC 0-1/hpf Urine WBC 1-5/hpf Ur Squamous Epith Cells 1-5 /hpf Urine Bacteria None seen Ur Culture Indicated? Specimen cultured U Opiates 300ng/mL cut Negative Ur Oxycodone Screen Negative Urine Methadone Screen Negative Ur Barbiturates Screen Negative U Tricyclic Antidepress Negative Ur Phencyclidine Scrn Negative Ur Amphetamines Screen Negative U Methamphetamines Scrn Negative Ur MDMA Scrn (Ecstasy) Negative U Benzodiazepines Scrn Negative Urine Cocaine Screen Negative U Marijuana (THC) Screen Negative Ethyl Alcohol SARS-CoV-2 (PCR) Negative 06/02/22 06/02/22 07:18 07:18 WBC 1.9 L* RBC 2.04 L Hgb 7.1 L Hct 20.4 L* MCV 100.0 MCH 34.9 H MCHC 34.9 RDW 21.3 H Plt Count 70 L Neut % (Auto) Not Reportable Lymph % (Auto) Not Reportable [place] % (Auto) Not Reportable Eos % (Auto) Not Reportable Baso % (Auto) Not Reportable Lymph # (Auto) Not Reportable [place] # (Auto) Not Reportable Baso # (Auto) Not Reportable Total Counted 50 Seg Neutrophils % 48.0 Band Neutrophils % 8.0 H Lymphocytes % (Manual) 18.0 L Atypical Lymphs % 4.0 H Monocytes % (Manual) 10.0 Eosinophils % (Manual) 4.0 Metamyelocytes % 6.0 H Myelocytes % 2.0 H Neutrophils # (Manual) 1064 L Nucleated RBCs 1 H Platelet Estimate RBC Morphology See below Poikilocytosis 1+ H Anisocytosis 3+ H PT INR APTT Sodium 133 L Potassium 3.5 Chloride 102 Carbon Dioxide 29 BUN 13 Creatinine 0.53 Estimated GFR > 60 BUN/Creatinine Ratio 24.5 H Glucose 100 Calcium 8.1 L Magnesium 1.9 Total Bilirubin 2.7 H AST 30 ALT 26 Alkaline Phosphatase 92 Total Creatine Kinase CK-MB (CK-2) CK-MB (CK-2) Rel Index Troponin I Total Protein 5.6 L Albumin 2.6 L Globulin 3.0 Albumin/Globulin Ratio 0.9 L Urine Color Urine Appearance Urine pH Ur Specific [place] Urine Protein Urine Glucose (UA) Urine Ketones Urine Occult Blood Urine Nitrate Urine Bilirubin Urine Urobilinogen Ur Leukocyte Esterase Urine RBC Urine WBC Ur Squamous Epith Cells Urine Bacteria Ur Culture Indicated? U Opiates 300ng/mL cut Ur Oxycodone Screen Urine Methadone Screen Ur Barbiturates Screen U Tricyclic Antidepress Ur Phencyclidine Scrn Ur Amphetamines Screen U Methamphetamines Scrn Ur MDMA Scrn (Ecstasy) U Benzodiazepines Scrn Urine Cocaine Screen U Marijuana (THC) Screen Ethyl Alcohol SARS-CoV-2 (PCR) [facility] Medical History (Updated 06/01/22 @ 22:39 by Kristin Godoy MD) Afib Breast cancer C. difficile colitis Chronic anxiety Compression fracture of fourth cervical vertebra Hyperlipidemia Metastatic cancer to spine Surgical History (Updated 06/01/22 @ 22:39 by Kristin Godoy MD) History of ankle surgery History of Family History (Updated 06/01/22 @ 22:40 by Kristin Godoy MD) Father CVA (cerebral vascular accident) Afib Mother Bowel obstruction Afib Social History household members: none Smoking Status: Never smoker alcohol intake: former Assessment & Plan Assessment & Plan narrative: This is a 62-year-old female with atrial fibrillation, breast cancer, CVA with left visual field cut, hyperlipidemia and C diff colitis who returns 3 days after her most recent admission for C diff with onset at around 10:00 a.m. today of diminished right-sided, right eye vision. She is quite anxious and spends much of the interview ruminating tangentially about her responsibility for delayed breast cancer diagnosis and ignoring previous signs of stroke. Acute CVA, present on admission. Active. -new partial right-sided visual field defect on exam -old left-sided complete visual field defect on exam consistent with right occipital old CVA seen on CT and MRI. -MRI brain today confirms new infarcts in occipital area. -resuming Eliquis for prevention of further embolic/atrial fibrillation related CVAs Metastatic breast cancer, present on admission. Active. -bony calvarial and C4 metastasis visible on imaging today. -holding letrozole and Verzenio with plan for close follow-up with Oncology as outpatient. Pancytopenia, present on admission. Active. -admitting white blood count 2.6 with hemoglobin 10.1 and platelets 95 -likely related to recent breast cancer treatments of letrozole and Verzenio -follow closely. Hg dropped to 7.1 today, suspect due to dilution. Will repeat and continue to monitor. Anxiety, present on admission. Active. -new diagnosis but patient and family endorse that this has been a very stressful time and that she is extremely anxious. -she is willing to begin anxiety controlling medication if it will help her recover from her strokes faster. -begin citalopram 20 mg daily -begin alprazolam 0.25 mg q.6 as needed Recent C diff colitis, present on admission. Active. -patient endorses that this is rapidly improving, her stools are becoming formed and she will continue the planned 2 weeks of oral vancomycin. Hypokalemia, present on admission. Active. -potassium 2.8 on admission. -supplement with IV 40 mEq on admission and follow closely -likely still GI/malnourishment related to her recent C diff. Atrial fibrillation with RVR, present on admission active. -continue Eliquis and oral metoprolol 25 mg BID, now currently rate controlled. Eliquis for DVT prevention Her daughter Leola is her backup decision maker. She is very clear that despite documents in her possession showing that she is DNR she wishes to be full code at this point. Dispo: inpatient, anticipate discharge home in the next 1-2 days if anemia is stable after resuming eliquis. Time Spent With Patient Critical Care time: I spent a total of [] minutes of critical care time on this patient's care today; this time is exclusive of procedural time. Quality VTE Deep Vein Thrombosis/Pulmonary Embolism Present on Admission: No
[2022-06-02 13:53] LABS: Hematocrit 22.6 % (36-46); Hemoglobin 7.8 g/dL (12.0-16.0)
--- NOTE | 2022-06-02 14:54 | CM.DANOTE ---
Initial DCP Assessment Note Pt is a 62 yo female, resident of [facility], admitted from 05.27-05.30.22 for management of sepsis sec to c diff colitis. Patient returns now with confirmed CVA PMH includes: atrial fibrillation, metastatic breast cancer to the brain and spine, CVA with left visual field cut, hyperlipidemia and C diff PCP: Julio C Ramirez Payer: [employer] Reviewed chart, met w/patient to introduce self and role. Patient is a defensive communicator today, appears offended by this CASE MAKER's questions and anxiety prone; so visit brief Patient confirms she lives alone, dtr Leola is visiting from [facility] to assist patient. Patient plans to return home w/dtr, resumption of [facility] services and close outpatient f/u CM team will plan to follow closely NIRMALA Yeager Discharge Planning/Care Management CM Discharge Assessment Start: 06/02/22 14:46 Freq: Status: Active Protocol: Document 06/02/22 14:46 ULISES (Rec: 06/02/22 14:54 ULISES [id number]) Discharge Planning Assessment Assigned [employer] NIRMALA Grubbs DPOA/Assigned Designee Name Leola Almeidatariq griggs- Patient reports dtr lives in [facility] Contact Information [phone] Advance Directives? No Advance Directives on File No History Provided By Patient,Medical Record Has Patient been admitted in last 30 Yes days? Comment 05.27.22-05.30.22 Prior Living Arrangements House Household Members none Type of transporation used prior to Drives own vehicle admit Comment Had been driving up until getting sick Independent with ADL's Yes: Requires assist when not feeling well Is patient alert and oriented? Yes Comment Patient states I am strong as she is hopeful someday soon she will not require assistance from her family Comment Resumption of [facility] Barriers to Discharge No Comment Home w/dtr to assist, [facility] and close outpatient follow up Discharge Plan Home with Home Health Transportation Arrangement Daughter Referrals Initiated None needed Additional Comment Resumption of home health services Whiteboard Updated in Patient Room with Yes name and ext. # of [employer] Comment Patient aware she can contact CM/CASE MAKER team with any DC needs, questions, concerns that may arise
[2022-06-02] MEDS: ALPRAZolam 0.25 MG TABLET PO (22:03)
[2022-06-02] MEDS: ATORVASTATIN 20 MG TABLET 40 MG PO (22:05)
[2022-06-03] VITALS (11 sets, daily range): BP systolic 102–114; BP diastolic 60–76; PULSE 74–89; RESP 15–18; TEMP 36.2–38.3; O2SAT 94–97
[2022-06-03] MEDS: ACETAMINOPHEN 325 MG TABLET 650 MG PO (05:29)
--- NOTE | 2022-06-03 08:54 | PM.PN.1 ---
Subjective Subjective Date Patient Seen: 06/03/22 Interval history: Patient feeling better and stools are softening. Did have a fever of 101F overnight. No burning with urination. Notes possible new cough. Exam Vital Signs (past 8 hours): - 06/03/22 01:35 06/03/22 04:50 06/03/22 05:29 Temperature 101 F H 101 F H Pulse Rate 89 85 Respiratory Rate 18 Blood Pressure 111/71 114/76 Pulse Oximetry 96 Oxygen Flow Rate 0 06/03/22 08:00 Temperature 97.2 F L Pulse Rate 77 Respiratory Rate 15 Blood Pressure 102/63 Pulse Oximetry 94 Oxygen Flow Rate 0 Oxygen Delivery Method Room Air Oxygen Flow Rate 0 Narrative Exam Narrative: GEN: no acute distress, appears comfortable HEENT: moist mucous membranes, PERRL NECK: trachea midline, no JVD CV: RRR, no murmurs PULM: clear bilaterally no wheezing rhonchi or rales. ABD: soft, nontender, nondistended, no organomegaly EXT: warm and well perfused with no edema NEURO: awake, alert, oriented, no focal deficits Objective Labs Result Diagrams: 06/03/22 11:15 06/03/22 11:15 Labs: Laboratory Results - last 24 hr 06/02/22 06/02/22 07:18 13:03 Hgb 7.8 L Hct 22.6 L Total Counted 50 Seg Neutrophils % 48.0 Band Neutrophils % 8.0 H Lymphocytes % (Manual) 18.0 L Atypical Lymphs % 4.0 H Monocytes % (Manual) 10.0 Eosinophils % (Manual) 4.0 Metamyelocytes % 6.0 H Myelocytes % 2.0 H Neutrophils # (Manual) 1064 L Nucleated RBCs 1 H RBC Morphology See below Poikilocytosis 1+ H Anisocytosis 3+ H PFSH Medical History (Updated 06/01/22 @ 22:39 by Kristin Godoy MD) Afib Breast cancer C. difficile colitis Chronic anxiety Compression fracture of fourth cervical vertebra Hyperlipidemia Metastatic cancer to spine Surgical History (Updated 06/01/22 @ 22:39 by Kristin Godoy MD) History of ankle surgery History of Family History (Updated 06/01/22 @ 22:40 by Kristin Godoy MD) Father CVA (cerebral vascular accident) Afib Mother Bowel obstruction Afib Social History household members: none Smoking Status: Never smoker alcohol intake: former Assessment & Plan Assessment & Plan narrative: This is a 62-year-old female with atrial fibrillation, breast cancer, CVA with left visual field cut, hyperlipidemia and C diff colitis who returns 3 days after her most recent admission for C diff with onset at around 10:00 a.m. today of diminished right-sided, right eye vision. She is quite anxious and spends much of the interview ruminating tangentially about her responsibility for delayed breast cancer diagnosis and ignoring previous signs of stroke. Neutropenic fever, not present on admission -temp of 101F overnight on 06/03 with ANC 1400 on CBC -blood, urine cultures obtained -start cefepime and vanc -check resp PCR given new cough -CXR with only minimal blunting of costophrenic angles, possible effusion vs atelectasis Acute CVA, present on admission. Active. -new partial right-sided visual field defect on exam -old left-sided complete visual field defect on exam consistent with right occipital old CVA seen on CT and MRI. -MRI brain 06/01 confirms new infarcts in occipital area. -resumed Eliquis for prevention of further embolic/atrial fibrillation related CVAs Metastatic breast cancer, present on admission. Active. -bony calvarial and C4 metastasis visible on imaging today. -holding letrozole and Verzenio with plan for close follow-up with Oncology as outpatient. Pancytopenia, present on admission. Active. -admitting white blood count 2.6 with hemoglobin 10.1 and platelets 95 -likely related to recent breast cancer treatments of letrozole and Verzenio -follow closely. Hg dropped to 7.1 then improved to 8.3 -no evidence of bleeding Anxiety, present on admission. Active. -new diagnosis but patient and family endorse that this has been a very stressful time and that she is extremely anxious. -she is willing to begin anxiety controlling medication if it will help her recover from her strokes faster. -begin citalopram 20 mg daily -begin alprazolam 0.25 mg q.6 as needed Recent C diff colitis, present on admission. Active. -patient endorses that this is rapidly improving, her stools are becoming formed and she will continue the planned 2 weeks of oral vancomycin. Hypokalemia, present on admission. Resolved. -potassium 2.8 on admission. -supplement with IV 40 mEq on admission and follow closely -likely still GI/malnourishment related to her recent C diff. Atrial fibrillation with RVR, present on admission active. -continue Eliquis and oral metoprolol 25 mg BID, now currently rate controlled. Eliquis for DVT prevention Her daughter Leola is her backup decision maker. She is very clear that despite documents in her possession showing that she is DNR she wishes to be full code at this point. Dispo: inpatient, anticipate discharge home in the next 1-2 days if anemia is stable after resuming eliquis. Time Spent With Patient Critical Care time: I spent a total of [] minutes of critical care time on this patient's care today; this time is exclusive of procedural time. Quality VTE Deep Vein Thrombosis/Pulmonary Embolism Present on Admission: No
--- NOTE | 2022-06-03 09:01 | DI.RAD.S_ITS ---
PROCEDURE: XR CHEST 1V INDICATIONS: neutropenic fever TECHNIQUE: One view of the chest was acquired. COMPARISON: [facility], CR, XR CHEST 1V, 05/27/2022, 15:31. Outside Film, CT, CT CHEST ABDOMEN PELVIS WITH CONTRAST, 04/06/2022, 7:07. FINDINGS: Surgical changes and devices: None. Lungs and pleura: There is minimal blunting of the costophrenic angles. Mediastinum: Mediastinal contours appear normal. Heart size is normal. Bones and chest wall: No suspicious bony lesions. Overlying soft tissues appear unremarkable. IMPRESSION: Minimal blunting of the costophrenic angles can be seen. Please consider small pleural effusions versus atelectasis. If there is clinical concern for a developing pulmonary process, a short-term followup chest series (with PA and lateral views, performed in deep inspiration) is suggested for further evaluation. The patient's known bony metastases are much better seen on the outside prior CT. Dictated by: Weston Caceres M.D. on 06/03/2022 at 9:01 Approved by: Weston Caceres M.D. on 06/03/2022 at 9:02
[2022-06-03] MEDS: CITALOPRAM 10 MG TABLET 20 MG PO (10:13)
[2022-06-03] MEDS: APIXABAN 5 MG TABLET PO ×2 (10:14→22:24)
[2022-06-03] MEDS: METOPROLOL ER 25 MG TABLET PO ×2 (10:15→22:23)
[2022-06-03] MEDS: VANCOMYCIN 1,000 MG/200 ML PIGGYBACK 200 MG IV ×2 (10:26→19:38)
[2022-06-03] MEDS: CEFEPIME 2 GM in SODIUM CHLORIDE 0.9% 100 ML IV ×2 (10:29→22:24)
[2022-06-03] MEDS: metroNIDAZOLE 500 MG TABLET PO ×2 (10:29→19:38)
[2022-06-03 12:01] LABS: Add Manual Diff / Slide Review NO; Basophils Absolute Auto 0 /uL (0-100); Basophils Percent Auto 0.5 % (0-2); Eosinophils Absolute Auto 0 /uL (0-450); Eosinophils Percent Auto 1.9 % (2-4); Hematocrit 23.6 % (36-46); Hemoglobin 8.3 g/dL (12.0-16.0); Lymphocytes Absolute Auto 700 /uL (1100-4500); Lymphocytes Percent Auto 28.6 % (25-40); Mean Corpuscular HGB Conc 35.2 % (30-36); Mean Corpuscular Volume 99.5 fL (80-100); Monocytes Absolute Auto 200 /uL (0-900); Monocytes Percent Auto 7.8 % (3-14); Neutrophils Absolute Auto 1400 /uL (1500-7000); Neutrophils Percent Auto 61.2 % (50-75); Platelet Count 95 X10^3/uL (150-400); Red Blood Cell Count 2.37 X10^6/uL (4.0-5.2); Red Cell Distribution Width 22.7 % (11.6-14.8); White Blood Cell Count 2.4 X10^3/uL (4.5-11.0)
[2022-06-03 12:06] LABS: Alanine Aminotransferase 30 IU/L (<35); Albumin 3.1 g/dL (3.5-5.0); Albumin Globulin Ratio 0.9 (1.0-2.8); Alkaline Phosphatase 106 U/L (38-126); Aspartate Aminotransferase 33 IU/L (14-36); BUN Creatinine Ratio 21.4 (6-22); Bilirubin Total 3.2 mg/dL (0.2-1.3); Blood Urea Nitrogen 12 mg/dL (7-17); Calcium 8.3 mg/dL (8.4-10.2); Carbon Dioxide 30 mmol/L (22-32); Chloride 103 mmol/L (98-107); Estimated Glomerular Filt Rate > 60 mL/min (>60); Globulin 3.5 g/dL (1.7-4.1); Glucose 112 mg/dL (80-110); HEMOLYSIS < 15 (0-50); Magnesium 2.1 mg/dL (1.6-2.3); Potassium 3.5 mmol/L (3.4-5.1); Sodium 135 mmol/L (137-145); Total Protein 6.6 g/dL (6.3-8.2)
--- NOTE | 2022-06-03 12:59 | CM.DPC ---
DCP/continued: Reviewed chart. Per provider in AM rounds patient medically not stable for discharge. Current plan is for patient to go home with supportive family and home health resumed through [facility]. P: Home when stable. [facility] to be notified and order obtained to resume services. [facility]
[2022-06-03 15:13] LABS: Anisocytosis 2+; Macrocytosis 1+
[2022-06-03 21:35] LABS: Adenovirus Not Detected (Not Detect); B. parapertussis Not Detected (Not Detecte); Bordetella pertussis Not Detected (Not Detecte); Chlamydophila pneumoniae Not Detected (Not Detect); Coronavirus 229E Not Detected (Not Detect); Coronavirus HKU1 Not Detected (Not Detect); Coronavirus NL 63 Not Detected (Not Detect); Coronavirus OC43 Not Detected (Not Detect); Human Metapneumovirus Not Detected (Not Detect); Human Rhinovirus/Enterovirus Not Detected (Not Detect); Influenza A Not Detected (Not Detect); Influenza B Not Detected (Not Detect); Mycoplasma pneumoniae Not Detected (Not Detect); Parainfluenza Virus 1 Not Detected (Not Detect); Parainfluenza Virus 2 Not Detected (Not Detect); Parainfluenza Virus 3 Not Detected (Not Detect); Parainfluenza Virus 4 Not Detected (Not Detect); Respiratory Syncytial Virus Not Detected (Not Detect); SARS- CoV-2 Not Detected (Not Detecte)
[2022-06-03] MEDS: ATORVASTATIN 20 MG TABLET 40 MG PO (22:23)
[2022-06-03] MEDS: LETROZOLE 2.5 MG TABLET PO (22:23)
[2022-06-03] MEDS: ALPRAZolam 0.25 MG TABLET PO (23:40)
[2022-06-04] VITALS (17 sets, daily range): BP systolic 91–116; BP diastolic 50–77; PULSE 80–89; RESP 16–18; TEMP 35.7–36.8; O2SAT 96–98
[2022-06-04] MEDS: VANCOMYCIN 1,000 MG/200 ML PIGGYBACK 200 MG IV ×3 (02:07→18:45)
--- NOTE | 2022-06-04 07:30 | PM.PN.1 ---
Subjective Subjective Date Patient Seen: 06/04/22 Interval history: Hgb dipped to 6.8 overnight. No more fevers. Patient's diarrhea improving and she feels better although tired. Exam Vital Signs (past 8 hours): - 06/04/22 00:21 06/04/22 02:54 06/04/22 05:13 Temperature 97.5 F L Pulse Rate 85 82 84 Respiratory Rate 16 Blood Pressure 104/71 99/50 L Pulse Oximetry 98 Oxygen Flow Rate 0 Oxygen Delivery Method Room Air Oxygen Flow Rate 0 Narrative Exam Narrative: GEN: no acute distress, appears comfortable but fatigued HEENT: moist mucous membranes, PERRL NECK: trachea midline, no JVD CV: RRR, no murmurs PULM: clear bilaterally no wheezing rhonchi or rales. ABD: soft, nontender, nondistended, no organomegaly EXT: warm and well perfused with no edema NEURO: awake, alert, oriented, no focal deficits Objective Labs Result Diagrams: 06/04/22 07:33 06/04/22 07:33 Labs: Laboratory Results - last 24 hr 06/03/22 06/03/22 06/03/22 11:15 11:15 19:50 WBC 2.4 L RBC 2.37 L Hgb 8.3 L Hct 23.6 L MCV 99.5 MCH 35.0 H MCHC 35.2 RDW 22.7 H Plt Count 95 L Neut % (Auto) 61.2 Lymph % (Auto) 28.6 [place] % (Auto) 7.8 Eos % (Auto) 1.9 L Baso % (Auto) 0.5 Neut # (Auto) 1400 L Lymph # (Auto) 700 L [place] # (Auto) 200 Eos # (Auto) 0 Baso # (Auto) 0 RBC Morphology See below Anisocytosis 2+ H Macrocytosis 1+ H Sodium 135 L Potassium 3.5 Chloride 103 Carbon Dioxide 30 BUN 12 Creatinine 0.56 Estimated GFR > 60 BUN/Creatinine Ratio 21.4 Glucose 112 H Calcium 8.3 L Magnesium 2.1 Total Bilirubin 3.2 H AST 33 ALT 30 Alkaline Phosphatase 106 Total Protein 6.6 Albumin 3.1 L Globulin 3.5 Albumin/Globulin Ratio 0.9 L Chlamy pneumoniae PCR Not detected Adenovirus (PCR) Not detected B. pertussis DNA (PCR) Not detected B.parapertussis DNA PCR Not detected Coronavirus OC43 (PCR) Not detected Coronavirus HKU1 (PCR) Not detected Coronavirus 229E (PCR) Not detected SARS-CoV-2 (PCR) Not detected Coronavirus NL63 (PCR) Not detected Human Metapneumovir PCR Not detected Influenza Type A (PCR) Not detected Influenza Type B (PCR) Not detected M. pneumoniae (PCR) Not detected Parainfluenza 1 (PCR) Not detected Parainfluenza 2 (PCR) Not detected Parainfluenza 3 (PCR) Not detected Parainfluenza 4 (PCR) Not detected RSV (PCR) Not detected Entero/Rhino (PCR) Not detected PFSH Medical History (Updated 06/01/22 @ 22:39 by Kristin Godoy MD) Afib Breast cancer C. difficile colitis Chronic anxiety Compression fracture of fourth cervical vertebra Hyperlipidemia Metastatic cancer to spine Surgical History (Updated 06/01/22 @ 22:39 by Kristin Godoy MD) History of ankle surgery History of Family History (Updated 06/01/22 @ 22:40 by Kristin Godoy MD) Father CVA (cerebral vascular accident) Afib Mother Bowel obstruction Afib Social History household members: none Smoking Status: Never smoker alcohol intake: former Assessment & Plan Assessment & Plan narrative: This is a 62-year-old female with atrial fibrillation, breast cancer, CVA with left visual field cut, hyperlipidemia and C diff colitis who returns 3 days after her most recent admission for C diff with onset at around 10:00 a.m. today of diminished right-sided, right eye vision. She is quite anxious and spends much of the interview ruminating tangentially about her responsibility for delayed breast cancer diagnosis and ignoring previous signs of stroke. Neutropenic fever, not present on admission -temp of 101F overnight on 06/03 with ANC 1400 on CBC -blood cultures neg at 24 hours -urine culture with gram neg bacilli -continue cefepime and vanc until cultures at least neg at 48hrs -repeat resp PCR negative -CXR with only minimal blunting of costophrenic angles, possible effusion vs atelectasis Acute CVA, present on admission. Active. -new partial right-sided visual field defect on exam -old left-sided complete visual field defect on exam consistent with right occipital old CVA seen on CT and MRI. -MRI brain 06/01 confirms new infarcts in occipital area. -resumed Eliquis for prevention of further embolic/atrial fibrillation related CVAs Metastatic breast cancer, present on admission. Active. -bony calvarial and C4 metastasis visible on imaging today. -holding letrozole and Verzenio with plan for close follow-up with Oncology as outpatient. Pancytopenia, present on admission. Active. -admitting white blood count 2.6 with hemoglobin 10.1 and platelets 95 -likely related to recent breast cancer treatments of letrozole and Verzenio -Hgb dropped to 6.8, given 2 units PRBC's -no evidence of bleeding Anxiety, present on admission. Active. -new diagnosis but patient and family endorse that this has been a very stressful time and that she is extremely anxious. -she is willing to begin anxiety controlling medication if it will help her recover from her strokes faster. -begin citalopram 20 mg daily -begin alprazolam 0.25 mg q.6 as needed Recent C diff colitis, present on admission. Active. -patient endorses that this is rapidly improving, her stools are becoming formed and she will continue the planned 2 weeks of oral vancomycin. Hypokalemia, present on admission. Resolved. -potassium 2.8 on admission. -supplement with IV 40 mEq on admission and follow closely -likely still GI/malnourishment related to her recent C diff. Atrial fibrillation with RVR, present on admission active. -continue Eliquis and oral metoprolol 25 mg BID, now currently rate controlled. Eliquis for DVT prevention Her daughter Leola is her backup decision maker. She is very clear that despite documents in her possession showing that she is DNR she wishes to be full code at this point. Dispo: Home potentially on 06/05 if blood cultures neg at 48 hours. Time Spent With Patient Critical Care time: I spent a total of [] minutes of critical care time on this patient's care today; this time is exclusive of procedural time. Quality VTE Deep Vein Thrombosis/Pulmonary Embolism Present on Admission: No
[2022-06-04 08:11] LABS: Add Manual Diff / Slide Review NO; Basophils Absolute Auto 0 /uL (0-100); Basophils Percent Auto 0.6 % (0-2); Eosinophils Absolute Auto 0 /uL (0-450); Eosinophils Percent Auto 1.9 % (2-4); Lymphocytes Absolute Auto 600 /uL (1100-4500); Mean Corpuscular HGB Conc 35.2 % (30-36); Mean Corpuscular Hemoglobin 35.2 PG (26-34); Mean Corpuscular Volume 100.1 fL (80-100); Monocytes Absolute Auto 200 /uL (0-900); Monocytes Percent Auto 9.5 % (3-14); Neutrophils Absolute Auto 1300 /uL (1500-7000); Platelet Count 97 X10^3/uL (150-400); Red Blood Cell Count 1.94 X10^6/uL (4.0-5.2); Red Cell Distribution Width 23.1 % (11.6-14.8); White Blood Cell Count 2.1 X10^3/uL (4.5-11.0)
[2022-06-04 08:13] LABS: Hematocrit 19.4 % (36-46); Hemoglobin 6.8 g/dL (12.0-16.0)
[2022-06-04 08:25] LABS: Anisocytosis 3+; Poikilocytosis 1+
--- NOTE | 2022-06-04 09:05 | OT.IPNOTE ---
Attempted to see pt for OT eval and pt insists that she has no OT needs as prior was here 05/27-05/30/22 and has all equipment needs at home at this time and that her daughters are home to assist with her care. Pt in addition having low HH 6.8 Hgb and 19.4 for Hct. Pt looking to go home with home health when medically stable. To touch base with pt tomorrow again for OT needs.
[2022-06-04] MEDS: APIXABAN 5 MG TABLET PO ×2 (09:35→20:32)
[2022-06-04] MEDS: CITALOPRAM 10 MG TABLET 20 MG PO (09:35)
[2022-06-04] MEDS: SODIUM CHLORIDE 0.9% FLUSH 10 ML IV (09:36)
[2022-06-04] MEDS: LETROZOLE 2.5 MG TABLET PO (09:36)
[2022-06-04] MEDS: metroNIDAZOLE 500 MG TABLET PO ×3 (09:40→20:40)
[2022-06-04] MEDS: CEFEPIME 2 GM in SODIUM CHLORIDE 0.9% 100 ML IV ×2 (09:42→20:31)
[2022-06-04] MEDS: VANCOMYCIN TROUGH 1 REQUEST MISC (09:45)
[2022-06-04 11:59] LABS: Alanine Aminotransferase 24 IU/L (<35); Albumin 2.6 g/dL (3.5-5.0); Albumin Globulin Ratio 0.9 (1.0-2.8); Alkaline Phosphatase 92 U/L (38-126); Aspartate Aminotransferase 28 IU/L (14-36); BUN Creatinine Ratio 22.8 (6-22); Bilirubin Total 2.6 mg/dL (0.2-1.3); Blood Urea Nitrogen 13 mg/dL (7-17); Calcium 8.1 mg/dL (8.4-10.2); Carbon Dioxide 27 mmol/L (22-32); Chloride 104 mmol/L (98-107); Estimated Glomerular Filt Rate > 60 mL/min (>60); Globulin 2.8 g/dL (1.7-4.1); Glucose 92 mg/dL (80-110); HEMOLYSIS < 15 (0-50); Sodium 132 mmol/L (137-145); Total Protein 5.4 g/dL (6.3-8.2)
[2022-06-04 12:01] LABS: Potassium 3.4 mmol/L (3.4-5.1)
[2022-06-04] MEDS: VANCOMYCIN PEAK 1 REQUEST MISC (12:40)
--- NOTE | 2022-06-04 12:40 | CM.DPC ---
DCP Cont: Per MD, pt had fever overnight and her hemoglobin dropped again and therefore getting a couple units of blood today and not yet medically stable to discharge yet today. Per PT, recommending safe d/c home with family assist and HH. OT attempted to eval and pt and family do not feel pt has any OT needs at this time. SW faxed clinicals to [facility] to review towards possible d/c back home in 1-2 days when medically stable. Plan: SW to follow for plan of d/c home with family assist back to [facility] and [facility]. NIRMALA Everett
[2022-06-04] MEDS: ALPRAZolam 0.25 MG TABLET PO ×2 (13:54→20:32)
[2022-06-04 14:52] LABS: Vancomycin Peak 27.7 ug/mL (20-40)
[2022-06-04 14:52] LABS: Vancomycin Trough 10.5 ug/mL (10-20)
[2022-06-04] MEDS: SODIUM CHLORIDE 0.9% 1,000 ML 100 ML IV (18:45)
[2022-06-04] MEDS: VANCOMYCIN 125 MG CAPSULE PO (20:06)
[2022-06-04] MEDS: ATORVASTATIN 20 MG TABLET 40 MG PO (20:31)
[2022-06-05] MEDS: VANCOMYCIN 1,000 MG/200 ML PIGGYBACK 200 MG IV ×2 (01:40→08:57)
[2022-06-05 03:13] VITALS: BP 108/66; PULSE 83; RESP 16; TEMP 36.9; O2SAT 97
[2022-06-05 07:50] VITALS: O2SAT 95
[2022-06-05 07:59] VITALS: BP 101/72
[2022-06-05] MEDS: METOPROLOL ER 25 MG TABLET PO (07:59)
[2022-06-05] MEDS: LETROZOLE 2.5 MG TABLET PO (07:59)
[2022-06-05] MEDS: CEFEPIME 2 GM in SODIUM CHLORIDE 0.9% 100 ML IV (07:59)
[2022-06-05] MEDS: CITALOPRAM 10 MG TABLET 20 MG PO (07:59)
[2022-06-05] MEDS: APIXABAN 5 MG TABLET PO (07:59)
[2022-06-05 08:00] VITALS: BP 101/72; PULSE 76; RESP 17; TEMP 36.4; O2SAT 95
[2022-06-05] MEDS: VANCOMYCIN 125 MG CAPSULE PO ×2 (08:06→12:36)
[2022-06-05] MEDS: metroNIDAZOLE 500 MG TABLET PO (08:06)
[2022-06-05] MEDS: SODIUM CHLORIDE 0.9% FLUSH 10 ML IV (08:08)
--- NOTE | 2022-06-05 08:15 | P.DS_ITS ---
History of Present Illness History of Present Illness Date Patient Seen: 06/05/22 Time Patient Seen: 19:15 Chief complaint: possible stroke Narrative: This is a 62-year-old female with atrial fibrillation, metastatic breast cancer, CVA with left visual field cut, hyperlipidemia and C diff colitis who returns 3 days after her most recent admission for C diff with onset at around 10:00 a.m. today of diminished right-sided, right eye vision. She is quite anxious and spends much of the interview ruminating tangentially about her responsibility for delayed breast cancer diagnosis and ignoring previous signs of stroke. Her daughter has just flown in from the country of [place] and her son will be coming to visit. She is a professional massage therapist. She has metastatic breast cancer and has not been able to take her hormonal and chemotherapy recently due to the severe GI symptoms from her C diff. Her potassium level on presentation last week was 2.2. The CT brain shows multiple calvarium metastatic lesions with an old right occipital CVA and a C4 compression deformity. She did not appear to need potassium as her GI symptoms had resolved when she went home but she presents again today with a potassium of 2.8 despite not being on diuretics or having any diarrhea/vomiting since her discharge. Cardiology has advised her to resume the Eliquis which had been held due to mild anemia. She was in atrial fibrillation with rapid ventricular response in the 150s when she came to the emergency department but by the time I see her, after receiving oral metoprolol, she is down into the 90-110 range in sinus rhythm. She is agreeable to a trial of antianxiety medication. She also has significant pancytopenia presumably related to the breast cancer treatments with a white count of 2.6, hemoglobin of 10.1 and platelets of 95. Discharge Providers Provider Date of admission: 06/01/22 17:15 Discharge Date: 06/05/22 Primary care physician: Doctor Rubina MD Consults: 06/01/22 20:41 Consult to Occupational Therapy Evaluate & Treat Comment: Physician Instructions: Evaluate and treat Consult to Physical Therapy Evaluate & Treat Comment: Physician Instructions: Evaluate and Treat Discharge provider: José Manuel Sanches DO Summary Hospital Course Discharge Diagnosis: Neutropenic fever, not present on admission. resolved -temp of 101F overnight on 06/03 with ANC 1400 on CBC -urine culture with gram neg bacilli -continued cefepime and vanc and stopped at 48hours after blood cultures were neg -repeat resp PCR negative -CXR with only minimal blunting of costophrenic angles, possible effusion vs atelectasis Acute CVA, present on admission.? Active.? -new partial right-sided visual field defect on exam -old left-sided complete visual field defect on exam consistent with right occipital old CVA seen on CT and MRI.? -MRI brain 06/01 confirms new infarcts in occipital area. -resumed Eliquis for prevention of further embolic/atrial fibrillation related CVAs Metastatic breast cancer, present on admission.? Active. -bony calvarial and C4 metastasis visible on imaging today.? -holding letrozole and Verzenio with plan for close follow-up with Oncology as outpatient. Pancytopenia, present on admission. Active. -admitting white blood count 2.6 with hemoglobin 10.1 and platelets 95 -likely related to recent breast cancer treatments of letrozole and Verzenio -Hgb dropped to 6.8, given 2 units PRBC's -no evidence of bleeding Anxiety, present on admission.? Active. -new diagnosis but patient and family endorse that this has been a very stressful time and that she is extremely anxious.? -she is willing to begin anxiety controlling medication if it will help her recover from her strokes faster. -started on citalopram 20 mg daily -started alprazolam 0.25 mg BID as needed Recent C diff colitis, present on admission.? Active.? -patient endorses that this is rapidly improving with po vanc, her stools are becoming formed and she will continue the planned 2 weeks of oral vancomycin.? Hypokalemia, present on admission.? Resolved. -potassium 2.8 on admission.? -supplement with IV 40 mEq on admission and follow closely -likely still GI/malnourishment related to her recent C diff.? Atrial fibrillation with RVR, present on admission active.? -continue Eliquis and oral metoprolol 25 mg BID, now currently rate controlled. -discharged on metop 50 XL daily Hospital Course: Admitted for acute visual loss symptoms and found to have new occipital stroke as well as be in A-fib RVR. Her eliquis had been held prior to this, but it was resumed due to stroke likely from A-fib. She was started on metoprolol and rate became controlled. Found to still be C. diff positive on stool PCR so po vanc was continued. While admitted she had a fever to 101F and panculture taken and broad spectrum abx started. Her blood cultures returned negative, CXR negative and urine was positive for UTI although she wasn't having symptoms. She received 48 hours of IV abx then this was stopped. Her blood counts also decreased to 6.8 with no evidence of bleeding though to be due to bone marrow suppression so she received 2 untis of PRBC with improved Hgb to 9.2. She was discharged on celexa and xanax given new stroke and related anxiety. She will f/u with oncology as outpatient. Time Spent with Patient Time spent: Greater than 30 minutes Exam Vital Signs (past 8 hours): - 06/05/22 03:13 06/05/22 07:59 Temperature 98.4 F Pulse Rate 83 Respiratory Rate 16 Blood Pressure 108/66 101/72 Pulse Oximetry 97 Oxygen Flow Rate 0 Oxygen Delivery Method Room Air Oxygen Flow Rate 0 Narrative Exam Narrative: GEN: no acute distress, appears comfortable but fatigued HEENT: moist mucous membranes, PERRL NECK: trachea midline, no JVD CV: RRR, no murmurs PULM: clear bilaterally no wheezing rhonchi or rales. ABD: soft, nontender, nondistended, no organomegaly EXT: warm and well perfused with no edema NEURO: awake, alert, oriented, no focal deficits Objective Labs Result Diagrams: 06/05/22 08:11 06/04/22 07:33 Labs: Laboratory Results - last 24 hr 06/04/22 06/04/22 06/04/22 07:33 07:33 07:33 RBC Morphology Not Reportable Poikilocytosis 1+ H Anisocytosis 3+ H Sodium 132 L Potassium 3.4 Chloride 104 Carbon Dioxide 27 BUN 13 Creatinine 0.57 Estimated GFR > 60 BUN/Creatinine Ratio 22.8 H Glucose 92 Calcium 8.1 L Magnesium 2.0 Total Bilirubin 2.6 H AST 28 ALT 24 Alkaline Phosphatase 92 Total Protein 5.4 L Albumin 2.6 L Globulin 2.8 Albumin/Globulin Ratio 0.9 L Procalcitonin 0.20 Vancomycin Peak Vancomycin Trough Blood Type Antibody Screen Crossmatch 06/04/22 06/04/22 06/04/22 09:35 09:35 12:40 RBC Morphology Poikilocytosis Anisocytosis Sodium Potassium Chloride Carbon Dioxide BUN Creatinine Estimated GFR BUN/Creatinine Ratio Glucose Calcium Magnesium Total Bilirubin AST ALT Alkaline Phosphatase Total Protein Albumin Globulin Albumin/Globulin Ratio Procalcitonin Vancomycin Peak 27.7 Vancomycin Trough 10.5 Blood Type A Positive Antibody Screen Negative Crossmatch See Detail [facility] Medical History (Updated 06/01/22 @ 22:39 by Kristin Godyo MD) Afib Breast cancer C. difficile colitis Chronic anxiety Compression fracture of fourth cervical vertebra Hyperlipidemia Metastatic cancer to spine Surgical History (Updated 06/01/22 @ 22:39 by Kristin Godoy MD) History of ankle surgery History of Family History (Updated 06/01/22 @ 22:40 by Kristin Godoy MD) Father CVA (cerebral vascular accident) Afib Mother Bowel obstruction Afib Social History household members: none Smoking Status: Never smoker alcohol intake: former Discharge Plan Discharge Plan Patient Disposition: Home Provider Discharge Comment: You were admitted for rapid A-fib, C. diff and found to have new stroke. You will need to go back on your eliquis for stroke prevention and also now be on metoprolol daily for heart rate control. You were started on celexa and xanax while here for anxiety which I've sent scripts for. Please continue your vancomycin orally for your C. diff until it finishes. We gave you 2 units of blood because your blood counts were low, likely from bone marrow suppression from your chemo med. You should get a flu shot, but wait until your C. diff is fully treated and I would check with your oncologist about it because it is best to have it done when your white cells aren't low like yours are. You also received 3 days of IV antibiotics for a UTI. Discharge orders & Medications Prescriptions: New citalopram [Celexa] 20 mg tablet 20 mg PO DAILY Qty: 90 0RF alprazolam [Xanax] 0.25 mg tablet 0.25 mg PO BID PRN (Reason: anxiety) Qty: 30 0RF metoprolol succinate [Toprol XL] 50 mg tablet extended release 24 hr 50 mg PO DAILY Qty: 90 0RF Continued Eliquis 5 mg tablet 5 mg PO BID Label Comments: take 1 tablet by mouth twice a day letrozole 2.5 mg tablet 2.5 mg PO DAILY rosuvastatin 20 mg tablet 20 mg PO QPM Label Comments: TAKE 1 TABLET BY MOUTH DAILY Verzenio 150 mg tablet 150 mg PO BID vancomycin 125 mg capsule 125 mg PO QID Qty: 48 0RF Follow up/Referrals: Rubina,, MD [Primary Care Provider] - Visit Report/Discharge Packet Instructions: DI for Transient Ischemic Attack, Metoprolol, Citalopram, Alprazolam (By mouth) Discharge Data Primary Care Provider: Doctor Rubina Quality VTE Deep Vein Thrombosis/Pulmonary Embolism Present on Admission: No
[2022-06-05 11:47] LABS: Add Manual Diff / Slide Review NO; Basophils Absolute Auto 0 /uL (0-100); Basophils Percent Auto 1.1 % (0-2); Eosinophils Absolute Auto 0 /uL (0-450); Eosinophils Percent Auto 1.8 % (2-4); Hematocrit 26.1 % (36-46); Hemoglobin 9.2 g/dL (12.0-16.0); Lymphocytes Absolute Auto 700 /uL (1100-4500); Lymphocytes Percent Auto 27.7 % (25-40); Mean Corpuscular HGB Conc 35.2 % (30-36); Mean Corpuscular Hemoglobin 33.2 PG (26-34); Mean Corpuscular Volume 94.4 fL (80-100); Monocytes Absolute Auto 200 /uL (0-900); Neutrophils Absolute Auto 1600 /uL (1500-7000); Neutrophils Percent Auto 60.4 % (50-75); Platelet Count 101 X10^3/uL (150-400); Red Blood Cell Count 2.77 X10^6/uL (4.0-5.2); Red Cell Distribution Width 22.9 % (11.6-14.8); White Blood Cell Count 2.7 X10^3/uL (4.5-11.0)
[2022-06-05 11:59] LABS: Anisocytosis 2+
[2022-06-05 12:00] VITALS: BP 125/75; PULSE 80; RESP 17; TEMP 36.1; O2SAT 98
--- NOTE | 2022-06-05 12:54 | OT.IPNOTE ---
Checked on Pt again and states has no OT needs and to be going home today. Discharge OT eval orders.
--- NOTE | 2022-06-05 15:11 | CM.DPNOTE ---
Addendum entered by NIRMALA Nolen 06/06/22 07:54: ADD: Patient DOES NOT live on [facility], lives in [place]. Resumption orders to [facility] faxed 06.05.22 per request from patient and dtr ULISES Original Note: DC Note Patient is discharged home today, dtr to assist and transport home Siri, EXTRUSION MACHINE OPERATOR, assisting. Call placed to [facility] , they do not serve [facility]. Call placed to [facility] , they are at capacity for Medicaid recipients Spoke w/ Dr Sanches- updated that patient will not receive HH. Dr Sanches confident about patient's ability to return home w/dtr to assist, close outpatient f/u. No HH required Plan: Home w/dtr, close outpatient follow up ULISES
--- NOTE | 2022-06-05 16:12 | PC.NURSE ---
Pt is dressed and ready for discharge home with daughters. D/C instructions reviewed with all-reviewed stroke education, time of last dose, reviewed new medications and consideration r/t her 3 new meds, reviewed follow up, home plan, H/H continuation and addressed concerns of Pt and Daughters about ongoing care. No further questions - Pt out via w/c by [facility] OUTFITTER to POV with daughters and all belongings.
== END 2022-06-05 16:15 | disposition home health service (06) | DRG 45 ==
LOC: ED 17:12 → AC 06-02 10:55
PROVIDERS: Student in an Organized Health Care Education/Training Program; Admitting Provider Internal Medicine; Emergency Provider Emergency Medicine; Referring Provider Emergency Medicine; Visit Provider Internal Medicine
DX: I63.9 Cerebral infarction, unspecified (principal); D61.810 Antineoplastic chemotherapy induced pancytopenia; C79.51 Secondary malignant neoplasm of bone; C50.919 Malignant neoplasm of unspecified site of unspecified female breast; A04.72 Enterocolitis due to Clostridium difficile, not specified as recurrent; E87.6 Hypokalemia; I48.91 Unspecified atrial fibrillation; D70.9 Neutropenia, unspecified; R50.81 Fever presenting with conditions classified elsewhere; N39.0 Urinary tract infection, site not specified; F41.9 Anxiety disorder, unspecified; H53.453 Other localized visual field defect, bilateral; R29.703 NIHSS score 3; Z20.822 Contact with and (suspected) exposure to COVID-19; Z79.01 Long term (current) use of anticoagulants
CPT/HCPCS: 36415; 36430; 70450; 70496; 70498; 70551; 71045; 80053; 80202; 80305; 80320; 81001; 82550; 82962; 83735; 84145; 84484; 85007; 85014; 85018; 85025; 85610; 85730; 86850; 86900; 86901; 87040; 87086; 87633; 87635; 90471; 90656; 93005; 97161; 99285; 99291; C9803; P9016; J0692; Q2038; Q9967

== ENCOUNTER 2022-06-10 15:51 | Emergency (ER) | payer OTHER, MEDICAID, SELFPAY ==
[2022-06-01 20:24] VITALS: BMI 27.4
[2022-06-10] VITALS (8 sets, daily range): BP systolic 97–103; BP diastolic 56–67; PULSE 69–84; RESP 17–23; TEMP 36.9; O2SAT 97–99; BMI 24.7
--- NOTE | 2022-06-10 16:19 | ED.RECABL ---
HPI - Recheck/Abnormal Lab/Rx General Chief Complaint: Recheck/Abnormal Lab/Rx Stated Complaint: Cancer pt, abnormal labs per daughter, transfusion Time Seen by Provider: 06/10/22 15:57 Source: patient Mode of arrival: Ambulatory History of Present Illness HPI narrative: Patient is a 62-year-old female. Known history of metastatic breast cancer. Is on anticoagulation. Was recently admitted to the hospital and found to have an occipital stroke. She continues to be on anticoagulation. During her admission to the hospital she did have 2 units of packed red blood cells secondary to anemia. It is unsure as to where her anemia is coming from his there no signs of overt bleeding. She has followed up with her oncologist. She had labs drawn at an outside facility last Saturday. She also had a bone marrow biopsy. She does not know the results of these. She states she did have a big day yesterday. There was a large family meeting regarding the patient's symptoms. She states she felt okay yesterday but today she is very fatigued. She continues to have no blood in her urine. No belly pain. No bruising. No nosebleeds. She is not vomiting. No change in the color of her stool. She is finishing up a course of antibiotics for C diff and she states that she is no longer vomiting and that her stools are becoming more solid. Related Data Home Medications Medication Instructions Recorded Confirmed abemaciclib 150 mg tablet 150 mg PO BID 05/28/22 06/01/22 (Verzenio) apixaban 5 mg tablet (Eliquis) 5 mg PO BID 05/28/22 06/01/22 letrozole 2.5 mg tablet 2.5 mg PO DAILY 05/28/22 06/01/22 rosuvastatin 20 mg tablet 20 mg PO QPM 05/28/22 06/01/22 Previous Rx's Medication Instructions Recorded vancomycin 125 mg capsule 125 mg PO QID #48 caps 05/30/22 alprazolam 0.25 mg tablet (Xanax) 0.25 mg PO BID PRN anxiety #30 tabs 06/05/22 citalopram 20 mg tablet (Celexa) 20 mg PO DAILY #90 tabs 06/05/22 metoprolol succinate 50 mg 50 mg PO DAILY #90 tabs 06/05/22 tablet,extended release 24 hr (Toprol XL) Allergies Allergy/AdvReac Type Severity Reaction Status Date / Time No Known Drug Allergies Allergy Verified 06/01/22 20:15 Review of Systems Review of Systems ROS Unobtainable: All systems reviewed & are unremarkable except as noted in HPI and below Patient History Medical History Afib Breast cancer C. difficile colitis Chronic anxiety Compression fracture of fourth cervical vertebra Hyperlipidemia Metastatic cancer to spine Surgical History (Updated 06/01/22 @ 22:39 by Kristin Godoy MD) History of ankle surgery History of Family History (Updated 06/01/22 @ 22:40 by Kristin Godoy MD) Father CVA (cerebral vascular accident) Afib Mother Bowel obstruction Afib Social History household members: none Smoking Status: Never smoker alcohol intake: former Smoking Status: Never smoker Substance Use Type: does not use Exam Initial Vital Signs Initial Vital Signs: Vital Signs Temperature 98.4 F 06/10/22 15:53 Pulse Rate 84 06/10/22 15:53 Respiratory Rate 20 06/10/22 15:53 Blood Pressure 103/56 L 06/10/22 15:53 Pulse Oximetry 99 06/10/22 15:53 Oxygen Delivery Method 06/10/22 15:53 Const General: cooperative, comfortable and No ill appearing HENSD Head: normal to inspection and normocephalic Eyes General: Yes appearance normal, both eyes and all related structures Chest Other: ZIO patch in place left-sided chest Resp Effort & Inspection: normal respiratory effort Auscultation: clear to auscultation bilaterally Cardio Rate: regular rate Rhythm: regular rhythm GI Inspection: normal to inspection Skin General: no rashes or lesions noted Neuro General: patient alert, patient awake, patient oriented x3 and moves all extremities Speech: speech normal Extrem General: normal to inspection and capillary refill normal Psych Appearance: grossly normal and well kempt Course Orders Ordered: ED Orders 06/10/22 16:00 Basic Metabolic Panel Stat Complete Blood Count AUTO DIFF Stat Type and Screen Stat 06/10/22 16:56 Consult to [facility] - Electronic Resources Librarian Stat 06/10/22 17:48 Urinalysis and Microscopic Stat Urine Culture Stat Vital Signs Vital signs: Vital Signs - 8 hr 06/10/22 15:53 Temperature 98.4 F Pulse Rate 84 Respiratory Rate 20 Blood Pressure 103/56 L Pulse Oximetry 99 Oxygen Delivery Method Room Air MDM - Recheck/Abnormal Lab/Rx Lab Data Attestation: I reviewed the patient's lab results. Result diagrams: 06/10/22 16:00 06/10/22 16:00 Labs: Lab Results 06/10/22 06/10/22 06/10/22 Range/Units 16:00 16:00 16:00 WBC 3.0 L (4.5-11.0) X10^3/uL RBC 2.81 L (4.0-5.2) X10^6/uL Hgb 9.6 L (12.0-16.0) g/dL Hct 27.2 L (36-46) % MCV 96.8 (80-100) fL MCH 34.0 (26-34) PG MCHC 35.1 (30-36) % RDW 26.2 H (11.6-14.8) % Plt Count 270 (150-400) X10^3/uL Neut % (Auto) 55.7 (50-75) % Lymph % (Auto) 37.9 (25-40) % Perkins % (Auto) 4.6 (3-14) % Eos % (Auto) 1.5 L (2-4) % Baso % (Auto) 0.3 (0-2) % Neut # (Auto) 1600 (3464-0818) /uL Lymph # (Auto) 1100 (1444-5875) /uL Perkins # (Auto) 100 (0-900) /uL Eos # (Auto) 0 (0-450) /uL Baso # (Auto) 0 (0-100) /uL RBC Morphology Not Reportable Macrocytosis 2+ H Sodium 136 L (137-145) mmol/L Potassium 3.1 L (3.4-5.1) mmol/L Chloride 102 (98-107) mmol/L Carbon Dioxide 29 (22-32) mmol/L BUN 19 H (7-17) mg/dL Creatinine 0.64 (0.52-1.04) mg/dL Estimated GFR > 60 (>60) mL/min BUN/Creatinine Ratio 29.7 H (6-22) Glucose 118 H (80-110) mg/dL Calcium 8.5 (8.4-10.2) mg/dL Urine Color Urine Appearance Urine pH (4.5-8.0) Ur Specific [place] (1.000-1.035) Urine Protein (Negative) Urine Glucose (UA) (Negative) g/dL Urine Ketones (NEGATIVE) Urine Occult Blood (Negative) Urine Nitrate (Negative) Urine Bilirubin (NEGATIVE) Urine Urobilinogen (0.2) E.U./dL Ur Leukocyte Esterase (NEGATIVE) Urine RBC (0-5/HPF) Urine WBC (0-5/HPF) Amorphous Sediment Urine Bacteria (None) Ur Culture Indicated? Blood Type A Positive Antibody Screen Negative 06/10/22 Range/Units 17:48 WBC (4.5-11.0) X10^3/uL RBC (4.0-5.2) X10^6/uL Hgb (12.0-16.0) g/dL Hct (36-46) % MCV (80-100) fL MCH (26-34) PG MCHC (30-36) % RDW (11.6-14.8) % Plt Count (150-400) X10^3/uL Neut % (Auto) (50-75) % Lymph % (Auto) (25-40) % Perkins % (Auto) (3-14) % Eos % (Auto) (2-4) % Baso % (Auto) (0-2) % Neut # (Auto) (5398-8605) /uL Lymph # (Auto) (8197-8894) /uL Perkins # (Auto) (0-900) /uL Eos # (Auto) (0-450) /uL Baso # (Auto) (0-100) /uL RBC Morphology Macrocytosis Sodium (137-145) mmol/L Potassium (3.4-5.1) mmol/L Chloride (98-107) mmol/L Carbon Dioxide (22-32) mmol/L BUN (7-17) mg/dL Creatinine (0.52-1.04) mg/dL Estimated GFR (>60) mL/min BUN/Creatinine Ratio (6-22) Glucose (80-110) mg/dL Calcium (8.4-10.2) mg/dL Urine Color Yellow Urine Appearance Clear Urine pH 6.5 (4.5-8.0) Ur Specific [place] 1.020 (1.000-1.035) Urine Protein 1+ H (Negative) Urine Glucose (UA) Trace H (Negative) g/dL Urine Ketones Trace H (NEGATIVE) Urine Occult Blood Trace-lysed (Negative) Urine Nitrate Negative (Negative) Urine Bilirubin Negative (NEGATIVE) Urine Urobilinogen 0.2 (0.2) E.U./dL Ur Leukocyte Esterase Trace H (NEGATIVE) Urine RBC None seen (0-5/HPF) Urine WBC 5-10/hpf H (0-5/HPF) Amorphous Sediment 1+ Urine Bacteria Few (2-10) H (None) Ur Culture Indicated? Specimen cultured Blood Type Antibody Screen MDM Narrative Medical decision making narrative: Patient H and H today his not had a level that would require transfusion. Rest of her electrolytes are unremarkable. Patient states she did have a very intense conversation with her family yesterday which could be why she is feeling fatigued today. She did expressed some concern about what she was going to do at home once her family leaves she was evaluated by social work. She is a follow-up with both her neurologist and also her oncologist this week. Will discharge patient home with return precautions. She expressed understanding and agreement. Discharge Plan Departure Patient Disposition: Home Clinical Impression: Breast cancer, Fatigue Activity Restrictions/Additional Instructions: Recommend that you continue to take all of your medications as directed and keep all of your scheduled medical appointments that you have this week. Return to the emergency department for any new or worsening symptoms. Prescriptions: No Action Eliquis 5 mg tablet 5 mg PO BID Label Comments: take 1 tablet by mouth twice a day letrozole 2.5 mg tablet 2.5 mg PO DAILY rosuvastatin 20 mg tablet 20 mg PO QPM Label Comments: TAKE 1 TABLET BY MOUTH DAILY Verzenio 150 mg tablet 150 mg PO BID vancomycin 125 mg capsule 125 mg PO QID Qty: 48 0RF citalopram [Celexa] 20 mg tablet 20 mg PO DAILY Qty: 90 0RF alprazolam [Xanax] 0.25 mg tablet 0.25 mg PO BID PRN (Reason: anxiety) Qty: 30 0RF metoprolol succinate [Toprol XL] 50 mg tablet extended release 24 hr 50 mg PO DAILY Qty: 90 0RF Referrals: Miscellaneous,Doctor, MD [Primary Care Provider] -
[2022-06-10 16:24] LABS: Add Manual Diff / Slide Review NO; Basophils Absolute Auto 0 /uL (0-100); Basophils Percent Auto 0.3 % (0-2); Eosinophils Absolute Auto 0 /uL (0-450); Eosinophils Percent Auto 1.5 % (2-4); Hematocrit 27.2 % (36-46); Hemoglobin 9.6 g/dL (12.0-16.0); Lymphocytes Absolute Auto 1100 /uL (1100-4500); Lymphocytes Percent Auto 37.9 % (25-40); Mean Corpuscular HGB Conc 35.1 % (30-36); Mean Corpuscular Volume 96.8 fL (80-100); Monocytes Absolute Auto 100 /uL (0-900); Monocytes Percent Auto 4.6 % (3-14); Neutrophils Absolute Auto 1600 /uL (1500-7000); Neutrophils Percent Auto 55.7 % (50-75); Platelet Count 270 X10^3/uL (150-400); Red Blood Cell Count 2.81 X10^6/uL (4.0-5.2); Red Cell Distribution Width 26.2 % (11.6-14.8)
[2022-06-10 16:30] LABS: BUN Creatinine Ratio 29.7 (6-22); Blood Urea Nitrogen 19 mg/dL (7-17); Calcium 8.5 mg/dL (8.4-10.2); Carbon Dioxide 29 mmol/L (22-32); Chloride 102 mmol/L (98-107); Estimated Glomerular Filt Rate > 60 mL/min (>60); Glucose 118 mg/dL (80-110); HEMOLYSIS < 15 (0-50); Potassium 3.1 mmol/L (3.4-5.1); Sodium 136 mmol/L (137-145)
[2022-06-10 16:37] LABS: Macrocytosis 2+
[2022-06-10 17:54] LABS: Appearance Urine UA CLEAR; Bilirubin Urine UA NEGATIVE (NEGATIVE); Color Urine UA YELLOW; Glucose Urine UA TRACE g/dL (Negative); Ketones Urine UA TRACE (NEGATIVE); Leukocyte Esterase Urine UA TRACE (NEGATIVE); Nitrite Urine UA NEGATIVE (Negative); Occult Blood Urine UA TRACE-LYSED (Negative); Protein Urine UA 1+ (Negative); Urobilinogen Urine UA 0.2 E.U./dL (0.2)
[2022-06-10 17:59] LABS: pH Urine UA 6.5 (4.5-8.0)
[2022-06-10 18:02] LABS: Amorphous Sediment Urine 1+; Bacteria Urine Few (2-10); Culture Indicated Urine Specimen Cultured; RBC Urine None Seen (0-5/HPF); WBC Urine 5-10/HPF (0-5/HPF)
--- NOTE | 2022-06-10 18:58 | CM.SWNOTE ---
[employer]/DCP Note [employer] receives consult from ED provider due to family's concern for patient's ADLs after family returns to their place of residence in July 2021. Per patient and daughter, family had recent family meeting discussing patient's intermediate project manager plan of care and have questions about patient's need for SNF rehab or transitional living situation. Patient was at acute care from 06/01/22 to 06/05/22 and 05/27/22 to 05/30/22 due to concern for stroke, increased weakness and N/V/D. Patient has hx of Metastatic Breast Cancer to brain and spine, Afib, CVA, Hyperlipidemia and C Diff. Patient's PCP is with [facility], patient currently has Medicaid [place], which will be changing to [facility] per patient's daughter. Patient has Oncology appt on Saturday and Neurology appt tomorrow. Per EMR, patient was referred for [facility] upon d/c on 06/05/22. Per patient she has only had one RN visit thus far. [employer] enters room to meet with patient. Present in room is patient's daughter who lives in [facility]. Patient presents as A/Ox4, it is reported that patient can ambulate with FWW, [facility] [address] [facility] with shower on second floor. Patient's bed was moved to first floor. Patient resides alone at home in [place] with daughters visiting from out of town until July. Patient endorses her reliance on daughters since they have been there, and prior to that patient's friends were staying with her. [employer] encourages daughter and patient to continue to utilize natural supports. Daughter endorses concerns for patient's increased weakness, decrease in strength and mobility with ADLs. [employer] shows daughter levels of care chart in senior resource guide. Daughter reports that some family members believe that patient is in need of SNF rehab now. Patient is able to ambulate with FWW present in ED to restroom. [employer] discusses that SNF rehab was most likely not recommended based on PT evaluations. [employer] reviews EMR and confirms that HH was recommended. It is reported that patient has friends that can assist in driving patient and checking in on patient after daughters leave. [employer] submits new F2F, clinicals and order for resumption orders for [facility] program with the addition of [employer] services. [employer] submits referral for RN, [employer], HH aide, PT and OT. [employer] calls [facility] and leaves message regarding patient's presentation to ED and resumption referral and requesting team to reach out to patient tomorrow. With patient's permission, [employer] calls [facility] personal security specialist Leticia regarding new referral for [facility] services. [employer] leaves VM with patient information. [employer] discusses following up with patient via phone on when this [employer] returns to the ED. Plan: Patient to d/c to home upon medical clearance, [facility] referral in [facility] to f/u with patient, patient to f/u with Onocology and Neurology appts this week, [facility] to f/u with patient re: [facility] referral and family to continue to plan for intermediate project manager care plan for patient. Isabella Jacinto, [employer]
== END 2022-06-10 18:28 | disposition home or self-care (01) ==
PROVIDERS: Emergency Provider Emergency Medicine
DX: C79.81 Secondary malignant neoplasm of breast (principal); C50.919 Malignant neoplasm of unspecified site of unspecified female breast; R53.83 Other fatigue; Z79.01 Long term (current) use of anticoagulants; Z79.899 Other long term (current) drug therapy
CPT/HCPCS: 80048; 81001; 85025; 86850; 86900; 86901; 99281; 99283

== ENCOUNTER → 2022-06-12 16:27 | Outpatient (CLI) | payer OTHER, MEDICAID, SELFPAY ==
[2022-06-01 20:24] VITALS: BMI 27.4
[2022-06-12 17:18] LABS: Basophils Absolute Auto 0 /uL (0-100); Basophils Percent Auto 0.2 % (0-2); Eosinophils Absolute Auto 0 /uL (0-450); Eosinophils Percent Auto 0.1 % (2-4); Hematocrit 24.9 % (36-46); Hemoglobin 8.6 g/dL (12.0-16.0); Lymphocytes Absolute Auto 600 /uL (1100-4500); Mean Corpuscular HGB Conc 34.5 % (30-36); Mean Corpuscular Hemoglobin 34.3 PG (26-34); Mean Corpuscular Volume 99.4 fL (80-100); Monocytes Absolute Auto 100 /uL (0-900); Monocytes Percent Auto 2.4 % (3-14); Neutrophils Absolute Auto 2300 /uL (1500-7000); Neutrophils Percent Auto 77.3 % (50-75); Platelet Count 314 X10^3/uL (150-400); Red Cell Distribution Width 26.4 % (11.6-14.8)
[2022-06-12 17:19] LABS: Add Manual Diff / Slide Review SLIDE REVIEW
[2022-06-12 17:39] LABS: Alanine Aminotransferase 38 IU/L (<35); Albumin 3.1 g/dL (3.5-5.0); Albumin Globulin Ratio 0.9 (1.0-2.8); Alkaline Phosphatase 100 U/L (38-126); Aspartate Aminotransferase 38 IU/L (14-36); BUN Creatinine Ratio 32.4 (6-22); Blood Urea Nitrogen 22 mg/dL (7-17); Calcium 8.7 mg/dL (8.4-10.2); Carbon Dioxide 27 mmol/L (22-32); Chloride 103 mmol/L (98-107); Estimated Glomerular Filt Rate > 60 mL/min (>60); Globulin 3.5 g/dL (1.7-4.1); Glucose 162 mg/dL (80-110); HEMOLYSIS < 15 (0-50); Magnesium 2.2 mg/dL (1.6-2.3); Potassium 3.8 mmol/L (3.4-5.1); Sodium 136 mmol/L (137-145); Total Protein 6.6 g/dL (6.3-8.2)
[2022-06-12 18:27] LABS: Anisocytosis 3+; Macrocytosis 1+; Poikilocytosis 1+
== END ==
PROVIDERS: Referring Provider Internal Medicine; Visit Provider Internal Medicine
DX: I10 Essential (primary) hypertension (principal)
CPT/HCPCS: 80053; 83735; 85025

== ENCOUNTER 2023-11-26 10:17 | Emergency (ER) | payer OTHER, SELFPAY ==
[2022-06-01 20:24] VITALS: BMI 27.4
[2023-11-26 10:19] VITALS: BP 154/96; PULSE 121; RESP 20; TEMP 36.6; O2SAT 95; BMI 26.5
[2023-11-26 10:26] VITALS: PULSE 96; O2SAT 100
--- NOTE | 2023-11-26 10:29 | ED.NAVMDI ---
HPI - Nausea/Vomiting/Diarrhea General Chief complaint: Nausea/Vomiting/Diarrhea Stated complaint: NVD Weak Time Seen by Provider: 11/26/23 10:26 Source: patient Mode of arrival: Ambulatory History of Present Illness HPI Narrative: Patient is a 63-year-old female. Does have breast cancer. Is being treated with oral immunotherapy. Has been on this medication for the past 2 years. She takes it twice a day. Approximately 2 weeks ago she had a B12 injection. She took since that time she has had nausea and vomiting. No diarrhea. No abdominal pain. No fevers. She states that the nausea normally habits in the morning. She does not have any nausea medications. She has had C diff in the past but is not currently having any diarrhea. No other new exposures. No recent travel. Related Data Home Medications Medication Instructions Recorded Confirmed abemaciclib 150 mg tablet 150 mg PO BID 05/28/22 06/01/22 (Verzenio) apixaban 5 mg tablet (Eliquis) 5 mg PO BID 05/28/22 06/01/22 letrozole 2.5 mg tablet 2.5 mg PO DAILY 05/28/22 06/01/22 rosuvastatin 20 mg tablet 20 mg PO QPM 05/28/22 06/01/22 Previous Rx's Medication Instructions Recorded vancomycin 125 mg capsule 125 mg PO QID #48 caps 05/30/22 alprazolam 0.25 mg tablet (Xanax) 0.25 mg PO BID PRN anxiety #30 tabs 06/05/22 citalopram 20 mg tablet (Celexa) 20 mg PO DAILY #90 tabs 06/05/22 metoprolol succinate 50 mg 50 mg PO DAILY #90 tabs 06/05/22 tablet,extended release 24 hr (Toprol XL) ondansetron 4 mg disintegrating 4 mg PO Q6H PRN nausea and 11/26/23 tablet vomiting #14 tabs Allergies Allergy/AdvReac Type Severity Reaction Status Date / Time No Known Drug Allergies Allergy Verified 11/26/23 10:27 Review of Systems Constitutional Constitutional: Reports system reviewed and no additional complaints, except as documented Respiratory Respiratory: Reports system reviewed and no additional complaints, except as documented Gastrointestinal Gastrointestinal: Reports system reviewed and no additional complaints, except as documented Genitourinary Genitourinary: Reports system reviewed and no additional complaints, except as documented Patient History Medical History Afib Chronic anxiety Compression fracture of fourth cervical vertebra Metastatic cancer to spine C. difficile colitis Hyperlipidemia Breast cancer Surgical History (Updated 06/01/22 @ 22:39 by Kristin Godoy MD) History of ankle surgery History of Family History (Updated 06/01/22 @ 22:40 by Kristin Godoy MD) Father CVA (cerebral vascular accident) Afib Mother Bowel obstruction Afib Social History household members: none Smoking Status: Never smoker alcohol intake: former Smoking Status: Never smoker alcohol intake frequency: holidays/special occasions only Substance Use Type: does not use Exam Initial Vital Signs Initial Vital Signs: Vital Signs Temperature 97.8 F 11/26/23 10:19 Pulse Rate 121 H 11/26/23 10:19 Respiratory Rate 20 11/26/23 10:19 Blood Pressure 154/96 H 11/26/23 10:19 Pulse Oximetry 95 11/26/23 10:19 Oxygen Delivery Method Room Air 11/26/23 10:19 HENIA Head: normal to inspection and normocephalic Resp Effort & Inspection: normal respiratory effort Cardio Rate: tachycardic GI Inspection: non-distended Neuro General: patient alert, patient awake and moves all extremities Extrem General: capillary refill normal Course Orders Ordered: ED Orders 11/26/23 10:30 Complete Blood Count AUTO DIFF Stat Comprehensive Metabolic Panel Stat Lipase Stat Discontinued Medications Sodium Chloride (Normal Saline 0.9%) 1,000 mls @ 1,000 mls/hr IV BOLUS ONE Stop: 11/26/23 11:25 Last Admin: 11/26/23 10:31 Dose: 1,000 mls/hr Documented By: GISELLE Ondansetron HCl (Ondansetron 4 Mg/2 Ml Inj) 4 mg IV NOW ONE Stop: 11/26/23 10:27 Last Admin: 11/26/23 10:31 Dose: 4 mg Documented By: GISELLE Potassium Chloride (Potassium Chloride 20 Meq Tab) 40 meq PO NOW ONE Stop: 11/26/23 11:04 Last Admin: 11/26/23 11:22 Dose: 40 meq Documented By: ANNE-MARIE Vital Signs Vital signs: Vital Signs - 8 hr 11/26/23 10:19 11/26/23 10:26 11/26/23 10:30 Temperature 97.8 F Pulse Rate 121 H 96 H 97 H Respiratory Rate 20 24 Blood Pressure 154/96 H Pulse Oximetry 95 100 99 Oxygen Delivery Method Room Air 11/26/23 11:00 11/26/23 11:23 11/26/23 11:23 Temperature Pulse Rate 89 93 H Respiratory Rate 13 17 Blood Pressure 118/68 Pulse Oximetry 99 95 Oxygen Delivery Method MDM - Nausea/Vomiting/Diarrhea Lab Data 11/26/23 10:30 11/26/23 10:30 Labs: Lab Results 11/26/23 Range/Units 10:30 WBC 5.9 (4.5-11.0) X10^3/uL RBC 2.56 L (4.0-5.2) X10^6/uL Hgb 10.2 L (12.0-16.0) g/dL Hct 29.1 L (36-46) % MCV 113.5 H (80-100) fL MCH 39.9 H (26-34) PG MCHC 35.2 (30-36) % RDW 16.0 H (11.6-14.8) % Plt Count 135 L (150-400) X10^3/uL Neut % (Auto) Not Reportable Lymph % (Auto) Not Reportable [place] % (Auto) Not Reportable Eos % (Auto) Not Reportable Baso % (Auto) Not Reportable Lymph # (Auto) Not Reportable [place] # (Auto) Not Reportable Baso # (Auto) Not Reportable Sodium 136 L (137-145) mmol/L Potassium 2.9 L (3.4-5.1) mmol/L Chloride 106 (98-107) mmol/L Carbon Dioxide 24 (22-32) mmol/L BUN 31 H (7-17) mg/dL Creatinine 1.25 H (0.52-1.04) mg/dL Estimated GFR 48 L (>60) mL/min BUN/Creatinine Ratio 24.8 H (6-22) Glucose 128 H (80-110) mg/dL Calcium 9.5 (8.4-10.2) mg/dL Total Bilirubin 3.2 H (0.2-1.3) mg/dL AST 82 H (14-36) IU/L ALT 100 H (<35) IU/L Alkaline Phosphatase 107 (38-126) U/L Total Protein 7.3 (6.3-8.2) g/dL Albumin 4.0 (3.5-5.0) g/dL Globulin 3.3 (1.7-4.1) g/dL Albumin/Globulin Ratio 1.2 (1.0-2.8) Lipase 133 (23-300) U/L Urine Dip Bedside Urine Glucose Negative Bedside Urine Bilirubin - Negative Bedside Urine Ketone - Negative Urine Specific [place] 1.015 Bedside Urine Occult Blood + Bedside Urine pH 6.0 Bedside Urine Protein + 30 Bedside Urine Urobilinogen - Negative Bedside Urine Nitrite - Negative Bedside Urine Leukocytes +/- 15 Esterase MDM Narrative Medical decision making narrative: Patient is well-appearing. His hypokalemic but was able to tolerate oral potassium. Has ketones in her urine which led towards her being on the dehydrated side of things. She has a benign exam. Is now tolerating oral intake after fluids and medications here in the ER. Plan will be to discharge home with a prescription for Zofran. Will have her continue the rest of her medications. Commended that she hold on the 2nd B12 injection that she was scheduled to get today. She was given return precautions. She expressed understanding and agreement. Discharge Plan Departure Patient Disposition: Home Clinical Impression: Nausea and vomiting, Hypokalemia Instructions: DI for Nausea -- Adult, DI for Vomiting -- Adult Activity Restrictions/Additional Instructions: I do recommend a bland diet. Try to increase your fluid intake by drinking small amounts more frequently. Use the nausea medication as needed. Continue to take all of your medications as directed. Keep all of your scheduled medical appointments. Return to the emergency department for new symptoms. Prescriptions: New ondansetron 4 mg tablet,disintegrating 4 mg PO Q6H PRN (Reason: nausea and vomiting) Qty: 14 0RF No Action Eliquis 5 mg tablet 5 mg PO BID Patient Comments: take 1 tablet by mouth twice a day letrozole 2.5 mg tablet 2.5 mg PO DAILY rosuvastatin 20 mg tablet 20 mg PO QPM Patient Comments: TAKE 1 TABLET BY MOUTH DAILY Verzenio 150 mg tablet 150 mg PO BID vancomycin 125 mg capsule 125 mg PO QID Qty: 48 0RF citalopram [Celexa] 20 mg tablet 20 mg PO DAILY Qty: 90 0RF alprazolam [Xanax] 0.25 mg tablet 0.25 mg PO BID PRN (Reason: anxiety) Qty: 30 0RF metoprolol succinate [Toprol XL] 50 mg tablet extended release 24 hr 50 mg PO DAILY Qty: 90 0RF Referrals: Miscellaneous,Doctor, MD [Primary Care Provider] - Stand Alone Forms: Patient Portal/API
[2023-11-26 10:30] VITALS: PULSE 97; RESP 24; O2SAT 99
[2023-11-26] MEDS: SODIUM CHLORIDE 0.9% 1,000 ML 1000 ML IV (10:31)
[2023-11-26] MEDS: ONDANSETRON 4 MG/2 ML INJ IV (10:31)
[2023-11-26 10:55] LABS: Hematocrit 29.1 % (36-46); Hemoglobin 10.2 g/dL (12.0-16.0); Mean Corpuscular HGB Conc 35.2 % (30-36); Mean Corpuscular Hemoglobin 39.9 PG (26-34); Mean Corpuscular Volume 113.5 fL (80-100); Platelet Count 135 X10^3/uL (150-400); Red Blood Cell Count 2.56 X10^6/uL (4.0-5.2); White Blood Cell Count 5.9 X10^3/uL (4.5-11.0)
[2023-11-26 10:56] LABS: Add Manual Diff / Slide Review YES
[2023-11-26 10:57] LABS: Alanine Aminotransferase 100 IU/L (<35); Albumin Globulin Ratio 1.2 (1.0-2.8); Alkaline Phosphatase 107 U/L (38-126); Aspartate Aminotransferase 82 IU/L (14-36); BUN Creatinine Ratio 24.8 (6-22); Bilirubin Total 3.2 mg/dL (0.2-1.3); Blood Urea Nitrogen 31 mg/dL (7-17); Calcium 9.5 mg/dL (8.4-10.2); Carbon Dioxide 24 mmol/L (22-32); Chloride 106 mmol/L (98-107); Estimated Glomerular Filt Rate 48 mL/min (>60); Globulin 3.3 g/dL (1.7-4.1); Glucose 128 mg/dL (80-110); HEMOLYSIS 17 (0-50); Lipase 133 U/L (23-300); Potassium 2.9 mmol/L (3.4-5.1); Sodium 136 mmol/L (137-145); Total Protein 7.3 g/dL (6.3-8.2)
[2023-11-26 11:00] VITALS: PULSE 89; RESP 13; O2SAT 99
[2023-11-26] MEDS: POTASSIUM CHLORIDE 20 MEQ TAB 40 MEQ PO (11:22)
[2023-11-26 11:23] VITALS: BP 118/68; PULSE 93; RESP 17; O2SAT 95
[2023-11-26 11:30] VITALS: BP 138/86; PULSE 85; RESP 18; O2SAT 99
[2023-11-26 12:23] LABS: Anisocytosis 1+; Macrocytosis 1+; Neutrophils Absolute Manual 3304 /uL (3000-5900); Nucleated Red Blood Cells 11 #/Diff; Total Cells Counted 100
== END 2023-11-26 11:55 | disposition home or self-care (01) ==
PROVIDERS: Emergency Provider Emergency Medicine
DX: R11.2 Nausea with vomiting, unspecified (principal); E87.6 Hypokalemia
CPT/HCPCS: 36415; 80053; 81003; 83690; 85007; 85025; 96374; 99284; J2405

== ENCOUNTER 2023-11-28 21:45 | Emergency (ER) | payer OTHER, SELFPAY ==
[2022-06-01 20:24] VITALS: BMI 27.4
[2023-11-28 21:52] VITALS: BP 139/90; PULSE 105; RESP 20; TEMP 37.1; O2SAT 98; BMI 26.5
--- NOTE | 2023-11-28 22:05 | DI.CT.S_ITS ---
PROCEDURE: CT ANGIO CHEST PE PROTOCOL INDICATIONS: shortness of breath elevated d dimer TECHNIQUE: After the administration of intravenous contrast, 2 mm thick sections acquired from the pulmonary apices to the posterior costophrenic angles. 3-dimensional maximum intensity projection (MIP) coronal and sagittal reformats were then acquired through the thorax. For radiation dose reduction, the following was used: automated exposure control, adjustment of mA and/or kV according to patient size. COMPARISON: Outside Film, CT, CT CHEST ABDOMEN PELVIS WITH CONTRAST, 04/06/2022, 7:07. , CT, CT ABDOMEN PELVIS W CON, 11/27/2023, 12:17. , CR, XR CHEST 1V, 06/03/2022, 9:20. FINDINGS: Image quality: Diagnostic. Pulmonary arteries: Pulmonary arteries are normal in size, and demonstrate no intraluminal filling defects to suggest central pulmonary embolism. Lower Neck: No enlarged lymph nodes. Thyroid: No thyroid nodules which require sonographic follow up, per consensus guidelines. Axillae: Bulky lymph nodes are seen in left axilla which was also noted in 2021 study and has decreased in size with the largest node measures 1.7 x 1 cm in size series 6, image 31. Chest Wall: Soft tissue density in left breast are seen unchanged from prior study.. Bones: Extensive mixed lytic and sclerotic lesions throughout visualized bony thorax is again seen. No pathologic fracture. No acute vertebral body compression fracture. Lungs and Pleura: Mild dependent atelectasis in posterior and lateral periphery of bilateral mid to lower lung field is seen. Hazy ground-glass opacities also noted scattered in bilateral lung bauer. No pleural effusion or pneumothorax. Central and peripheral airway is grossly patent. Heart: Heart size is normal. No pericardial effusion. Prosthetic heart valve is seen. Thoracic Vessels: Mild ectasia of ascending thoracic aorta measures 3.6 cm in largest AP diameter. No aortic aneurysm. Mediastinum and Yuki: No enlarged lymph nodes. Esophagus: No wall thickening. No hiatal hernia. Upper Abdomen: Visualized upper abdomen solid organs and bowel loops appear normal. IMPRESSION: 1. No pulmonary embolus. 2. Dependent atelectasis versus small infiltrate in posterior aspect of bilateral lower lobes. Mild pulmonary edema. No pleural effusion or pneumothorax. Airway is patent. 3. Left axillary lymphadenopathy decreased in size since 2021 study. Increased soft tissue within left breast unchanged from previous study. 4. Extensive bony metastases no pathologic fracture. 5. No gross mediastinal or hilar lymphadenopathy by size criteria. Mild ectasia of ascending thoracic aorta. Dictated by: Eugene Roberto M.D. on 11/28/2023 at 23:13 Approved by: Eugene Roberto M.D. on 11/28/2023 at 23:18
--- NOTE | 2023-11-28 22:17 | ED.SOB ---
HPI - SOB/Dyspnea General Chief Complaint: Shortness of Breath/Dyspnea Stated Complaint: sent by MD. talley D Dimer Time Seen by Provider: 11/28/23 22:15 Source: patient Mode of arrival: Ambulatory Limitations: no limitations History of Present Illness HPI Narrative: 63-year-old female with history metastatic breast cancer on letrozole, Eliquis use presents by private vehicle for abnormal D-dimer. Patient was seen 2 days ago for nausea and vomiting, subsequently discharged home. Patient was seen yesterday for headache and altered mental status, where workup including MRI with and without contrast was performed, patient was subsequently discharged home. Today patient went to her doctor's office in [place] where she told them that she was having shortness of breath and chest pain. A D-dimer was ordered which was greatly elevated and she was referred to the emergency department for evaluation. Patient currently denies chest pain or shortness of breath. Related Data Home Medications Medication Instructions Recorded Confirmed abemaciclib 150 mg tablet 150 mg PO BID 05/28/22 06/01/22 (Verzenio) apixaban 5 mg tablet (Eliquis) 5 mg PO BID 05/28/22 06/01/22 letrozole 2.5 mg tablet 2.5 mg PO DAILY 05/28/22 06/01/22 rosuvastatin 20 mg tablet 20 mg PO QPM 05/28/22 06/01/22 Previous Rx's Medication Instructions Recorded vancomycin 125 mg capsule 125 mg PO QID #48 caps 05/30/22 alprazolam 0.25 mg tablet (Xanax) 0.25 mg PO BID PRN anxiety #30 tabs 06/05/22 citalopram 20 mg tablet (Celexa) 20 mg PO DAILY #90 tabs 06/05/22 metoprolol succinate 50 mg 50 mg PO DAILY #90 tabs 06/05/22 tablet,extended release 24 hr (Toprol XL) ondansetron 4 mg disintegrating 4 mg PO Q6H PRN nausea and 11/26/23 tablet vomiting #14 tabs Allergies Allergy/AdvReac Type Severity Reaction Status Date / Time No Known Drug Allergies Allergy Verified 11/27/23 15:19 Review of Systems Review of Systems Narrative: See HPI Patient History Medical History Afib Chronic anxiety Compression fracture of fourth cervical vertebra Metastatic cancer to spine C. difficile colitis Hyperlipidemia Breast cancer Surgical History History of ankle surgery History of Family History Father CVA (cerebral vascular accident) Afib Mother Bowel obstruction Afib Social History household members: none Smoking Status: Never smoker alcohol intake: former Smoking Status: Never smoker alcohol intake frequency: holidays/special occasions only Substance Use Type: does not use Exam Initial Vital Signs Initial Vital Signs: Vital Signs Temperature 98.8 F 11/28/23 21:52 Pulse Rate 105 H 11/28/23 21:52 Respiratory Rate 20 11/28/23 21:52 Blood Pressure 139/90 11/28/23 21:52 Pulse Oximetry 98 11/28/23 21:52 Oxygen Delivery Method Room Air 11/28/23 21:52 Const: Awake, alert, no acute distress, frail Cardiac: regular rate, regular rhythm RESP: unlabored, clear bilaterally, no wheezing GI: Soft, nontender, nondistended, no rebound, no guarding MSK: Atraumatic, full range of motion, pulses equal Skin: Warm, Dry, intact, no rashes Neuro: AO x3, CN II-XII grossly intact, moves all extremities Course Orders Ordered: ED Orders 11/28/23 22:05 CT angio chest PE protocol Stat Urine Culture Stat Urine Microscopic Stat EKG-12 Lead Stat Measure peak expiratory flow ONCE RT Consult Eval and Treat NOW 11/28/23 22:35 Complete Blood Count AUTO DIFF Stat Comprehensive Metabolic Panel Stat LDH [Lactate Dehydrogenase] Stat Lactate (Lactic Acid) Stat NT-proBNP (BNP-Adult 18+) Stat Troponin I Stat 11/28/23 23:15 Prothrombin Time INR Stat Vital Signs Vital signs: Vital Signs - 8 hr 11/28/23 21:52 11/28/23 23:16 11/29/23 00:00 Temperature 98.8 F Pulse Rate 105 H 90 80 Respiratory Rate 20 16 14 Blood Pressure 139/90 Pulse Oximetry 98 97 96 Oxygen Delivery Method Room Air 11/29/23 00:30 Temperature Pulse Rate 80 Respiratory Rate 14 Blood Pressure Pulse Oximetry 96 Oxygen Delivery Method MDM - SOB/Dyspnea Differential Diagnosis Differential diagnosis: Likely acute exacerbation of chronic obstructive airways disease, congestive heart failure and community acquired pneumonia Lab Data 11/28/23 22:35 11/28/23 22:35 Labs: Lab Results 11/28/23 11/28/23 11/28/23 Range/Units 22:05 22:35 23:15 WBC 3.7 L (4.5-11.0) X10^3/uL RBC 2.25 L (4.0-5.2) X10^6/uL Hgb 9.0 L (12.0-16.0) g/dL Hct 25.3 L (36-46) % MCV 112.4 H (80-100) fL MCH 39.8 H (26-34) PG MCHC 35.4 (30-36) % RDW 16.3 H (11.6-14.8) % Plt Count 122 L (150-400) X10^3/uL Neut % (Auto) 55.3 (50-75) % Lymph % (Auto) 32.9 (25-40) % [place] % (Auto) 9.4 (3-14) % Eos % (Auto) 1.2 L (2-4) % Baso % (Auto) 1.2 (0-2) % Neut # (Auto) 2100 (6974-9078) /uL Lymph # (Auto) 1200 (5773-9056) /uL [place] # (Auto) 400 (0-900) /uL Eos # (Auto) 0 (0-450) /uL Baso # (Auto) 0 (0-100) /uL Platelet Estimate Decreased on smear RBC Morphology See below Polychromasia 1+ H Anisocytosis 1+ H Microcytosis 1+ H PT 14.3 H (9.4-12.5) SECONDS INR 1.2 (0.9-1.3) Sodium 138 (137-145) mmol/L Potassium 3.3 L (3.4-5.1) mmol/L Chloride 109 H (98-107) mmol/L Carbon Dioxide 24 (22-32) mmol/L BUN 24 H (7-17) mg/dL Creatinine 1.22 H (0.52-1.04) mg/dL Estimated GFR 50 L (>60) mL/min BUN/Creatinine Ratio 19.7 (6-22) Glucose 155 H (80-110) mg/dL Lactate 2.5 H (0.7-2.1) mmol/L Calcium 8.8 (8.4-10.2) mg/dL Total Bilirubin 2.9 H (0.2-1.3) mg/dL AST 60 H (14-36) IU/L ALT 53 H (<35) IU/L Alkaline Phosphatase 100 (38-126) U/L Lactate Dehydrogenase 45 L D (120-246) U/L Troponin I < 0.012 (0.01-0.034) ng/mL NT-Pro-B Natriuret Pep 1090 H (<125) pg/mL Total Protein 6.5 (6.3-8.2) g/dL Albumin 3.6 (3.5-5.0) g/dL Globulin 2.9 (1.7-4.1) g/dL Albumin/Globulin Ratio 1.2 (1.0-2.8) Urine RBC 0-1/hpf (0-5/HPF) Urine WBC None seen (0-5/HPF) Ur Squamous Epith Cells 0-1 /hpf (0-5/HPF) Calcium Oxalate Crystal Few H Urine Bacteria None seen (None) Ur Culture Indicated? Cult not indicated Vol Urine Centrifuged 10ml (spun) 11/29/23 Range/Units 00:40 WBC (4.5-11.0) X10^3/uL RBC (4.0-5.2) X10^6/uL Hgb (12.0-16.0) g/dL Hct (36-46) % MCV (80-100) fL MCH (26-34) PG MCHC (30-36) % RDW (11.6-14.8) % Plt Count (150-400) X10^3/uL Neut % (Auto) (50-75) % Lymph % (Auto) (25-40) % [place] % (Auto) (3-14) % Eos % (Auto) (2-4) % Baso % (Auto) (0-2) % Neut # (Auto) (7313-3759) /uL Lymph # (Auto) (5948-4702) /uL [place] # (Auto) (0-900) /uL Eos # (Auto) (0-450) /uL Baso # (Auto) (0-100) /uL Platelet Estimate RBC Morphology Polychromasia Anisocytosis Microcytosis PT (9.4-12.5) SECONDS INR (0.9-1.3) Sodium (137-145) mmol/L Potassium (3.4-5.1) mmol/L Chloride (98-107) mmol/L Carbon Dioxide (22-32) mmol/L BUN (7-17) mg/dL Creatinine (0.52-1.04) mg/dL Estimated GFR (>60) mL/min BUN/Creatinine Ratio (6-22) Glucose (80-110) mg/dL Lactate 1.4 (0.7-2.1) mmol/L Calcium (8.4-10.2) mg/dL Total Bilirubin (0.2-1.3) mg/dL AST (14-36) IU/L ALT (<35) IU/L Alkaline Phosphatase (38-126) U/L Lactate Dehydrogenase (120-246) U/L Troponin I (0.01-0.034) ng/mL NT-Pro-B Natriuret Pep (<125) pg/mL Total Protein (6.3-8.2) g/dL Albumin (3.5-5.0) g/dL Globulin (1.7-4.1) g/dL Albumin/Globulin Ratio (1.0-2.8) Urine RBC (0-5/HPF) Urine WBC (0-5/HPF) Ur Squamous Epith Cells (0-5/HPF) Calcium Oxalate Crystal Urine Bacteria (None) Ur Culture Indicated? Vol Urine Centrifuged Urine Dip Bedside Urine Glucose Negative Bedside Urine Bilirubin - Negative Bedside Urine Ketone - Negative Urine Specific [place] 1.030 Bedside Urine Occult Blood +++ Bedside Urine pH 6.0 Bedside Urine Protein + 30 Bedside Urine Urobilinogen - Negative Bedside Urine Nitrite - Negative Bedside Urine Leukocytes - Negative Esterase Imaging Data CT scan - chest: Radiologist's Impression: PROCEDURE: CT ANGIO CHEST PE PROTOCOL INDICATIONS: shortness of breath elevated d dimer TECHNIQUE: After the administration of intravenous contrast, 2 mm thick sections acquired from the pulmonary apices to the posterior costophrenic angles. 3-dimensional maximum intensity projection (MIP) coronal and sagittal reformats were then acquired through the thorax. For radiation dose reduction, the following was used: automated exposure control, adjustment of mA and/or kV according to patient size. COMPARISON: Outside Film, CT, CT CHEST ABDOMEN PELVIS WITH CONTRAST, 04/06/2022, 7:07. [facility], CT, CT ABDOMEN PELVIS W CON, 11/27/2023, 12:17. [facility], CR, XR CHEST 1V, 06/03/2022, 9:20. FINDINGS: Image quality: Diagnostic. Pulmonary arteries: Pulmonary arteries are normal in size, and demonstrate no intraluminal filling defects to suggest central pulmonary embolism. Lower Neck: No enlarged lymph nodes. Thyroid: No thyroid nodules which require sonographic follow up, per consensus guidelines. Axillae: Bulky lymph nodes are seen in left axilla which was also noted in 2021 study and has decreased in size with the largest node measures 1.7 x 1 cm in size series 6, image 31. Chest Wall: Soft tissue density in left breast are seen unchanged from prior study.. Bones: Extensive mixed lytic and sclerotic lesions throughout visualized bony thorax is again seen. No pathologic fracture. No acute vertebral body compression fracture. Lungs and Pleura: Mild dependent atelectasis in posterior and lateral periphery of bilateral mid to lower lung field is seen. Hazy ground-glass opacities also noted scattered in bilateral lung bauer. No pleural effusion or pneumothorax. Central and peripheral airway is grossly patent. Heart: Heart size is normal. No pericardial effusion. Prosthetic heart valve is seen. Thoracic Vessels: Mild ectasia of ascending thoracic aorta measures 3.6 cm in largest AP diameter. No aortic aneurysm. Mediastinum and [place]: No enlarged lymph nodes. Esophagus: No wall thickening. No hiatal hernia. Upper Abdomen: Visualized upper abdomen solid organs and bowel loops appear normal. IMPRESSION: 1. No pulmonary embolus. 2. Dependent atelectasis versus small infiltrate in posterior aspect of bilateral lower lobes. Mild pulmonary edema. No pleural effusion or pneumothorax. Airway is patent. 3. Left axillary lymphadenopathy decreased in size since 2021 study. Increased soft tissue within left breast unchanged from previous study. 4. Extensive bony metastases no pathologic fracture. 5. No gross mediastinal or hilar lymphadenopathy by size criteria. Mild ectasia of ascending thoracic aorta. Dictated by: Eugene Roberto M.D. on 11/28/2023 at 23:13 Approved by: Eugene Roberto M.D. on 11/28/2023 at 23:18 [facility] Narrative Medical decision making narrative: Patient presenting for elevated D-dimer, apparently told outside clinic that she was having chest pain and fast heart rate, however she denies this currently. Lungs are clear to auscultation bilaterally, saturating well on room air. CT angio and laboratory work ordered. Laboratory work shows WBC count 9.0, 9.5 yesterday. Patient has had numerous blood draws within the last 2-3 days and no evidence of bleeding on exam. Suspect that this is at least partially related to multiple blood draws. Other laboratory work is consistent with previous values. LDH has decreased from yesterday. CT angio negative for pulmonary embolism or other acute findings. Question mild pulmonary edema, however patient was denying any symptoms at this time. Extensive bony metastases noted. Patient has not had any symptoms since returning to the emergency department. All lab and imaging findings discussed with patient and her friend Nessa at bedside. Nessa we will take patient home and will take copy of lab and imaging reports to patient's oncology office tomorrow. Discharge Plan Departure Patient Disposition: Home Clinical Impression: Elevated d-dimer Instructions: Stress (Alternative Therapy) Activity Restrictions/Additional Instructions: Continued to follow up with your oncologist. A copy of all of your lab and imaging from the last 3 days has been sent with your friend Nessa. Prescriptions: No Action Eliquis 5 mg tablet 5 mg PO BID Patient Comments: take 1 tablet by mouth twice a day letrozole 2.5 mg tablet 2.5 mg PO DAILY rosuvastatin 20 mg tablet 20 mg PO QPM Patient Comments: TAKE 1 TABLET BY MOUTH DAILY Verzenio 150 mg tablet 150 mg PO BID vancomycin 125 mg capsule 125 mg PO QID Qty: 48 0RF ondansetron 4 mg tablet,disintegrating 4 mg PO Q6H PRN (Reason: nausea and vomiting) Qty: 14 0RF citalopram [Celexa] 20 mg tablet 20 mg PO DAILY Qty: 90 0RF alprazolam [Xanax] 0.25 mg tablet 0.25 mg PO BID PRN (Reason: anxiety) Qty: 30 0RF metoprolol succinate [Toprol XL] 50 mg tablet extended release 24 hr 50 mg PO DAILY Qty: 90 0RF Stand Alone Forms: Patient Portal/API
[2023-11-28 22:43] LABS: Add Manual Diff / Slide Review NO; Basophils Absolute Auto 0 /uL (0-100); Basophils Percent Auto 1.2 % (0-2); Eosinophils Absolute Auto 0 /uL (0-450); Eosinophils Percent Auto 1.2 % (2-4); Hematocrit 25.3 % (36-46); Lymphocytes Absolute Auto 1200 /uL (1100-4500); Lymphocytes Percent Auto 32.9 % (25-40); Mean Corpuscular HGB Conc 35.4 % (30-36); Mean Corpuscular Hemoglobin 39.8 PG (26-34); Mean Corpuscular Volume 112.4 fL (80-100); Monocytes Absolute Auto 400 /uL (0-900); Monocytes Percent Auto 9.4 % (3-14); Neutrophils Absolute Auto 2100 /uL (1500-7000); Neutrophils Percent Auto 55.3 % (50-75); Platelet Count 122 X10^3/uL (150-400); Red Blood Cell Count 2.25 X10^6/uL (4.0-5.2); Red Cell Distribution Width 16.3 % (11.6-14.8); White Blood Cell Count 3.7 X10^3/uL (4.5-11.0)
[2023-11-28 22:58] LABS: Alanine Aminotransferase 53 IU/L (<35); Albumin 3.6 g/dL (3.5-5.0); Albumin Globulin Ratio 1.2 (1.0-2.8); Alkaline Phosphatase 100 U/L (38-126); Aspartate Aminotransferase 60 IU/L (14-36); BUN Creatinine Ratio 19.7 (6-22); Bilirubin Total 2.9 mg/dL (0.2-1.3); Blood Urea Nitrogen 24 mg/dL (7-17); Calcium 8.8 mg/dL (8.4-10.2); Carbon Dioxide 24 mmol/L (22-32); Chloride 109 mmol/L (98-107); Estimated Glomerular Filt Rate 50 mL/min (>60); Globulin 2.9 g/dL (1.7-4.1); Glucose 155 mg/dL (80-110); HEMOLYSIS 25 (0-50); Potassium 3.3 mmol/L (3.4-5.1); Sodium 138 mmol/L (137-145); Total Protein 6.5 g/dL (6.3-8.2)
[2023-11-28 23:11] LABS: Anisocytosis 1+; Microcytosis 1+; Platelet Estimate Decreased on smear; Polychromasia 1+
[2023-11-28 23:16] VITALS: PULSE 90; RESP 16; O2SAT 97
[2023-11-28 23:31] LABS: INR 1.2 (0.9-1.3); Prothrombin Time 14.3 SECONDS (9.4-12.5)
[2023-11-28 23:36] LABS: Lactate (Lactic Acid) 2.5 mmol/L (0.7-2.1)
[2023-11-28 23:41] LABS: Bacteria Urine None Seen; RBC Urine 0-1/HPF (0-5/HPF); Squamous Epithelial Cell Urine 0-1 /HPF (0-5/HPF); Urine Volume 10mL (spun); WBC Urine None Seen (0-5/HPF)
[2023-11-28 23:42] LABS: Calcium Oxalate Crystals Urine Few; Culture Indicated Urine Cult Not Indicated
[2023-11-28 23:48] LABS: NT-proBNP (BNP-Adult 18+) 1090 pg/mL (<125); Troponin I < 0.012 ng/mL (0.01-0.034)
[2023-11-29] VITALS: PULSE 80; RESP 14; O2SAT 96
[2023-11-29 00:11] LABS: Lactate Dehydrogenase 45 U/L (120-246)
[2023-11-29 00:15] LABS: Reflexed Lactate in 2 Hours Y
[2023-11-29 00:30] VITALS: PULSE 80; RESP 14; O2SAT 96
[2023-11-29 01:24] LABS: Lactate 2HR (Lactic Acid Rflx) 1.4 mmol/L (0.7-2.1)
[2023-11-29 01:53] VITALS: BP 121/75; PULSE 90; RESP 16; O2SAT 97
== END 2023-11-29 01:53 | disposition home or self-care (01) ==
PROVIDERS: Emergency Provider Emergency Medicine
DX: R79.89 Other specified abnormal findings of blood chemistry (principal)
CPT/HCPCS: 36415; 71275; 80053; 81003; 81015; 83605; 83615; 83880; 84484; 85025; 85610; 87086; 93005; 99283; Q9967

== ENCOUNTER 2023-11-29 16:27 | Inpatient (IN) | payer OTHER, SELFPAY ==
[2022-06-01 20:24] VITALS: BMI 27.4
[2023-11-29] VITALS (23 sets, daily range): BP systolic 76–107; BP diastolic 47–65; PULSE 83–140; RESP 16–44; O2SAT 90–100
--- NOTE | 2023-11-29 16:38 | ED.SEIZURE ---
HPI - Seizure <Rhona Rivera, DO - Last Filed: 11/30/23 11:44> General Chief Complaint: Seizure Stated Complaint: Seizure/LOC Time Seen by Provider: 11/29/23 16:37 History of Present Illness HPI Narrative: Patient is a 63-year-old female with metastatic stage IV breast cancer presenting today for the 4th time to the ED. EMS reports that they were called for confusion and not feeling well however she had about a 32nd seizure in front of them. She is now postictal. She previously has been seen here for nausea vomiting found to be mildly hypokalemic with a potassium of 2.9 but tolerated oral potassium and was discharged with Zofran. She returned on November 26 with some confusion and slight headache. She had workup including brain MRI and blood work. Potassium had improved to 3.7 brain MRI did not show any acute abnormality she also had a CT abdomen pelvis which did show some ductal dilation. She has had elevated bilirubin each visit but it was high in 2021 as well. Liver enzymes are also slightly elevated no significant abdominal pain She was discharged and then returned on November 27 for an outpatient elevation of D-dimer and sent to rule out PE. She had a negative CT angio and again blood work and again discharged Related Data Home Medications Medication Instructions Recorded Confirmed abemaciclib 150 mg tablet 150 mg PO BID 05/28/22 06/01/22 (Verzenio) apixaban 5 mg tablet (Eliquis) 5 mg PO BID 05/28/22 06/01/22 letrozole 2.5 mg tablet 2.5 mg PO DAILY 05/28/22 06/01/22 rosuvastatin 20 mg tablet 20 mg PO QPM 05/28/22 06/01/22 Previous Rx's Medication Instructions Recorded vancomycin 125 mg capsule 125 mg PO QID #48 caps 05/30/22 alprazolam 0.25 mg tablet (Xanax) 0.25 mg PO BID PRN anxiety #30 tabs 06/05/22 citalopram 20 mg tablet (Celexa) 20 mg PO DAILY #90 tabs 06/05/22 metoprolol succinate 50 mg 50 mg PO DAILY #90 tabs 06/05/22 tablet,extended release 24 hr (Toprol XL) ondansetron 4 mg disintegrating 4 mg PO Q6H PRN nausea and 11/26/23 tablet vomiting #14 tabs Allergies Allergy/AdvReac Type Severity Reaction Status Date / Time No Known Drug Allergies Allergy Verified 11/27/23 15:19 <Sera Purcell MD - Last Filed: 11/30/23 07:06> History of Present Illness HPI Narrative: Patient is a 63-year-old female with metastatic stage IV breast cancer presenting today for the 4th time to the ED. EMS reports that they were called for confusion and not feeling well however she had about a 30 second seizure in front of them. She is now postictal. She previously has been seen here for nausea vomiting found to be mildly hypokalemic with a potassium of 2.9 but tolerated oral potassium and was discharged with Zofran. She returned on November 26 with some confusion and slight headache. She had workup including brain MRI and blood work. Potassium had improved to 3.7 brain MRI did not show any acute abnormality she also had a CT abdomen pelvis which did show some ductal dilation. She has had elevated bilirubin each visit but it was high in 2021 as well. Liver enzymes are also slightly elevated no significant abdominal pain She was discharged and then returned on November 27 for an outpatient elevation of D-dimer and sent to rule out PE. She had a negative CT angio and again blood work and again discharged Patient History <DO Sterling Juárez Last Filed: 11/30/23 11:44> Medical History Afib Chronic anxiety Compression fracture of fourth cervical vertebra Metastatic cancer to spine C. difficile colitis Hyperlipidemia Breast cancer Surgical History History of ankle surgery History of Family History Father CVA (cerebral vascular accident) Afib Mother Bowel obstruction Afib Social History household members: none Smoking Status: Never smoker alcohol intake: former Smoking Status: Never smoker alcohol intake frequency: holidays/special occasions only Substance Use Type: does not use Exam <DO Sterling Juárez Last Filed: 11/30/23 11:44> Initial Vital Signs Initial Vital Signs: Vital Signs Pulse Rate 140 H 11/29/23 16:38 Respiratory Rate 44 H 11/29/23 16:38 Pulse Oximetry 100 11/29/23 16:38 Oxygen Delivery Method Room Air 11/29/23 16:38 GENERAL: Initially drowsy but became slightly agitated HEENT: Head atraumatic,EOMI, pupils reactive, bit tongue CARDIOVASCULAR: Regular rate and rhythm without murmurs, rubs or gallops. RESPIRATORY: Breath sounds equal bilaterally, no wheezes rales or rhonchi. ABDOMEN: Soft, nontender. Normoactive bowel sounds all 4 quadrants. No guarding or rebound. EXTREMITIES: Normal range of motion, no clubbing or edema. Neurovascularly intact NEUROLOGICAL: Moving all extremities SKIN: Warm, dry, no laceration, no petechiae, no rashes or lesions. <Sera Purcell MD - Last Filed: 11/30/23 07:06> Initial Vital Signs Initial Vital Signs: Vital Signs Pulse Rate 140 H 11/29/23 16:38 Respiratory Rate 44 H 11/29/23 16:38 Pulse Oximetry 100 11/29/23 16:38 Oxygen Delivery Method Room Air 11/29/23 16:38 Procedures <Rhona Rivera DO - Last Filed: 11/30/23 11:44> Lumbar Puncture Patient Position: upright Skin Prep: 0.5% Chlorhexidine/Alcohol Local Anesthetic: lidocaine 1% Amount of anesthesia used (mL): 8 Spinal Needle Gauge: 22G Interspace Used: L3-L4 Complications: Need to have other Practitioner Attempt and unable to obtain CSF Course <Rhona Rivera DO - Last Filed: 11/30/23 11:44> Orders Ordered: ED Orders 11/30/23 05:48 CBC Auto Diff [Complete Blood Count AUTO DIFF] Stat CMP [Comprehensive Metabolic Panel] Stat Acetaminophen (Acetaminophen 325 Mg Tablet) 650 mg PO Q6H PRN PRN Reason: Fever/Mild Pain (1-3) Sodium Chloride (Normal Saline 0.9%) 1,000 mls @ 150 mls/hr IV CONT MARYCARMEN Last Infusion: 11/30/23 02:45 Dose: Infused Documented By: Admin: 11/29/23 19:23 Dose: 150 mls/hr Documented By: SB Sodium Chloride (Normal Saline 0.9%) 1,000 mls @ 100 mls/hr IV CONT MARYCARMEN Levetiracetam (Levetiracetam 250 Mg Tablet) 500 mg PO BID [facility] Last Admin: 11/30/23 09:29 Dose: 500 mg Documented By: Naloxone HCl (Naloxone 0.4 Mg/Ml Vial) 0.2 mg IV Q2MIN PRN PRN Reason: Opiate Reversal Oxycodone HCl (Oxycodone Ir 5 Mg Tablet) 5 mg PO Q3H PRN PRN Reason: Pain, Moderate (4-6) Potassium Chloride (Potassium Chloride 20 Meq Tab) 40 meq PO Q6H [facility] Stop: 11/30/23 17:31 Discontinued Medications Heparin Sodium (Porcine) (Heparin 5,000 Unit/Ml Vial) 5,000 unit SUBCUT BID [facility] Sodium Chloride (Normal Saline 0.9%) 1,000 mls @ 1,000 mls/hr IV BOLUS ONE Stop: 11/29/23 18:30 Last Infusion: 11/29/23 19:16 Dose: Infused Documented By: Admin: 11/29/23 17:49 Dose: 1,000 mls/hr Documented By: SB Sodium Chloride (Normal Saline 0.9%) 1,000 mls @ 1,000 mls/hr IV BOLUS ONE Stop: 11/29/23 19:23 Last Infusion: 11/29/23 19:22 Dose: Infused Documented By: Admin: 11/29/23 18:25 Dose: 1,000 mls/hr Documented By: SB Levetiracetam 1,500 mg/ Sodium (Chloride) 115 mls @ 460 mls/hr IV NOW ONE Stop: 11/29/23 22:20 Last Infusion: 11/29/23 22:47 Dose: Infused Documented By: Admin: 11/29/23 22:32 Dose: 460 mls/hr Documented By: SB Sodium Chloride (Normal Saline 0.9%) 1,000 mls @ 1,000 mls/hr IV BOLUS ONE Stop: 11/29/23 23:19 Last Infusion: 11/30/23 00:35 Dose: Infused Documented By: Admin: 11/29/23 22:34 Dose: 1,000 mls/hr Documented By: SB Lorazepam (Lorazepam 2 Mg/Ml Inj) 1 mg IV NOW ONE Stop: 11/29/23 16:39 Last Admin: 11/29/23 16:42 Dose: 1 mg Documented By: SB Lorazepam (Lorazepam 2 Mg/Ml Inj) 1 mg IV NOW ONE Stop: 11/29/23 16:52 Last Admin: 11/29/23 16:50 Dose: 1 mg Documented By: LOU Ondansetron HCl (Ondansetron 4 Mg/2 Ml Inj) 4 mg IV NOW ONE Stop: 11/29/23 16:39 Last Admin: 11/29/23 17:49 Dose: Not Given Documented By: LOU Vital Signs Vital signs: Vital Signs - 8 hr 11/30/23 04:00 11/30/23 04:00 11/30/23 04:30 Pulse Rate 73 71 Respiratory Rate 21 23 Blood Pressure 93/55 L Pulse Oximetry 98 91 Oxygen Delivery Method Oxygen Flow Rate 11/30/23 05:00 11/30/23 05:30 11/30/23 06:00 Pulse Rate 74 79 Respiratory Rate 22 20 Blood Pressure 103/65 Pulse Oximetry 94 92 Oxygen Delivery Method Oxygen Flow Rate 11/30/23 06:00 11/30/23 06:30 11/30/23 07:00 Pulse Rate 71 72 74 Respiratory Rate 20 21 21 Blood Pressure Pulse Oximetry 95 97 83 L Oxygen Delivery Method Oxygen Flow Rate 11/30/23 07:27 11/30/23 07:30 11/30/23 08:00 Pulse Rate 72 75 Respiratory Rate Blood Pressure Pulse Oximetry 95 91 91 Oxygen Delivery Method Nasal Cannula Oxygen Flow Rate 3 11/30/23 08:30 11/30/23 09:00 11/30/23 09:14 Pulse Rate 75 90 Respiratory Rate 22 18 Blood Pressure 94/57 L Pulse Oximetry 91 Oxygen Delivery Method Oxygen Flow Rate 11/30/23 09:14 11/30/23 09:30 Pulse Rate 86 83 Respiratory Rate Blood Pressure Pulse Oximetry 94 95 Oxygen Delivery Method Oxygen Flow Rate <Sera Purcell MD - Last Filed: 11/30/23 07:06> Orders Ordered: ED Orders 11/30/23 05:48 CBC Auto Diff [Complete Blood Count AUTO DIFF] Stat CMP [Comprehensive Metabolic Panel] Stat Acetaminophen (Acetaminophen 325 Mg Tablet) 650 mg PO Q6H PRN PRN Reason: Fever/Mild Pain (1-3) Sodium Chloride (Normal Saline 0.9%) 1,000 mls @ 150 mls/hr IV CONT MARYCARMEN Last Infusion: 11/30/23 02:45 Dose: Infused Documented By: Admin: 11/29/23 19:23 Dose: 150 mls/hr Documented By: SB Sodium Chloride (Normal Saline 0.9%) 1,000 mls @ 100 mls/hr IV CONT MARYCARMEN Levetiracetam (Levetiracetam 250 Mg Tablet) 500 mg PO BID MARYCARMEN Last Admin: 11/30/23 09:29 Dose: 500 mg Documented By: Naloxone HCl (Naloxone 0.4 Mg/Ml Vial) 0.2 mg IV Q2MIN PRN PRN Reason: Opiate Reversal Oxycodone HCl (Oxycodone Ir 5 Mg Tablet) 5 mg PO Q3H PRN PRN Reason: Pain, Moderate (4-6) Potassium Chloride (Potassium Chloride 20 Meq Tab) 40 meq PO Q6H MARYC[facility]EN Stop: 11/30/23 17:31 Discontinued Medications Heparin Sodium (Porcine) (Heparin 5,000 Unit/Ml Vial) 5,000 unit SUBCUT BID MARYCARMEN Sodium Chloride (Normal Saline 0.9%) 1,000 mls @ 1,000 mls/hr IV BOLUS ONE Stop: 11/29/23 18:30 Last Infusion: 11/29/23 19:16 Dose: Infused Documented By: Admin: 11/29/23 17:49 Dose: 1,000 mls/hr Documented By: SB Sodium Chloride (Normal Saline 0.9%) 1,000 mls @ 1,000 mls/hr IV BOLUS ONE Stop: 11/29/23 19:23 Last Infusion: 11/29/23 19:22 Dose: Infused Documented By: Admin: 11/29/23 18:25 Dose: 1,000 mls/hr Documented By: SB Levetiracetam 1,500 mg/ Sodium (Chloride) 115 mls @ 460 mls/hr IV NOW ONE Stop: 11/29/23 22:20 Last Infusion: 11/29/23 22:47 Dose: Infused Documented By: Admin: 11/29/23 22:32 Dose: 460 mls/hr Documented By: SB Sodium Chloride (Normal Saline 0.9%) 1,000 mls @ 1,000 mls/hr IV BOLUS ONE Stop: 11/29/23 23:19 Last Infusion: 11/30/23 00:35 Dose: Infused Documented By: Admin: 11/29/23 22:34 Dose: 1,000 mls/hr Documented By: SB Lorazepam (Lorazepam 2 Mg/Ml Inj) 1 mg IV NOW ONE Stop: 11/29/23 16:39 Last Admin: 11/29/23 16:42 Dose: 1 mg Documented By: LOU Lorazepam (Lorazepam 2 Mg/Ml Inj) 1 mg IV NOW ONE Stop: 11/29/23 16:52 Last Admin: 11/29/23 16:50 Dose: 1 mg Documented By: LOU Ondansetron HCl (Ondansetron 4 Mg/2 Ml Inj) 4 mg IV NOW ONE Stop: 11/29/23 16:39 Last Admin: 11/29/23 17:49 Dose: Not Given Documented By: LOU Vital Signs Vital signs: Vital Signs - 8 hr 11/30/23 04:00 11/30/23 04:00 11/30/23 04:30 Pulse Rate 73 71 Respiratory Rate 21 23 Blood Pressure 93/55 L Pulse Oximetry 98 91 Oxygen Delivery Method Oxygen Flow Rate 11/30/23 05:00 11/30/23 05:30 11/30/23 06:00 Pulse Rate 74 79 Respiratory Rate 22 20 Blood Pressure 103/65 Pulse Oximetry 94 92 Oxygen Delivery Method Oxygen Flow Rate 11/30/23 06:00 11/30/23 06:30 11/30/23 07:00 Pulse Rate 71 72 74 Respiratory Rate 20 21 21 Blood Pressure Pulse Oximetry 95 97 83 L Oxygen Delivery Method Oxygen Flow Rate 11/30/23 07:27 11/30/23 07:30 11/30/23 08:00 Pulse Rate 72 75 Respiratory Rate Blood Pressure Pulse Oximetry 95 91 91 Oxygen Delivery Method Nasal Cannula Oxygen Flow Rate 3 11/30/23 08:30 11/30/23 09:00 11/30/23 09:14 Pulse Rate 75 90 Respiratory Rate 22 18 Blood Pressure 94/57 L Pulse Oximetry 91 Oxygen Delivery Method Oxygen Flow Rate 11/30/23 09:14 11/30/23 09:30 Pulse Rate 86 83 Respiratory Rate Blood Pressure Pulse Oximetry 94 95 Oxygen Delivery Method Oxygen Flow Rate MDM - Seizure <Rhona Rivera DO - Last Filed: 11/30/23 11:44> Lab Data 11/30/23 05:48 11/30/23 05:48 Labs: Lab Results 11/29/23 11/29/23 11/29/23 Range/Units 16:31 19:25 19:50 WBC 10.2 D (4.5-11.0) X10^3/uL RBC 2.28 L (4.0-5.2) X10^6/uL Hgb 9.1 L (12.0-16.0) g/dL Hct 26.5 L (36-46) % MCV 116.4 H D (80-100) fL MCH 40.1 H (26-34) PG MCHC 34.4 (30-36) % RDW 16.5 H (11.6-14.8) % Plt Count 143 L (150-400) X10^3/uL Neut % (Auto) Not Reportable Lymph % (Auto) Not Reportable Jack % (Auto) Not Reportable Eos % (Auto) Not Reportable Baso % (Auto) Not Reportable Neut # (Auto) (5721-4498) /uL Lymph # (Auto) Not Reportable Jack # (Auto) Not Reportable Eos # (Auto) (0-450) /uL Baso # (Auto) Not Reportable Total Counted 100 Seg Neutrophils % 32.0 L (38-70) % Band Neutrophils % 2.0 L (3-7) % Lymphocytes % (Manual) 57.0 H (25-45) % Monocytes % (Manual) 4.0 (2-11) % Eosinophils % (Manual) 2.0 (2-4) % Metamyelocytes % 3.0 H (-0) % Neutrophils # (Manual) 3468 (6619-1843) /uL Nucleated RBCs 10 H ( - 0) #/Diff Platelet Estimate RBC Morphology See below Anisocytosis Microcytosis Macrocytosis 2+ H Schistocytes 2+ H Sodium 140 (137-145) mmol/L Potassium 3.9 (3.4-5.1) mmol/L Chloride 107 (98-107) mmol/L Carbon Dioxide 15 L (22-32) mmol/L BUN 18 H (7-17) mg/dL Creatinine 1.25 H (0.52-1.04) mg/dL Estimated GFR 48 L (>60) mL/min BUN/Creatinine Ratio 14.4 (6-22) Glucose 151 H (80-110) mg/dL Lactate 12.7 H* 3.7 H (0.7-2.1) mmol/L Calcium 8.8 (8.4-10.2) mg/dL Total Bilirubin 3.8 H (0.2-1.3) mg/dL AST 80 H (14-36) IU/L ALT 59 H (<35) IU/L Alkaline Phosphatase 98 (38-126) U/L Total Creatine Kinase 169 H (30-135) U/L Troponin I 0.012 (0.01-0.034) ng/mL Total Protein 7.0 (6.3-8.2) g/dL Albumin 4.0 (3.5-5.0) g/dL Globulin 3.0 (1.7-4.1) g/dL Albumin/Globulin Ratio 1.3 (1.0-2.8) Lipase 128 (23-300) U/L Urine RBC None seen (0-5/HPF) Urine WBC 0-1/hpf (0-5/HPF) Ur Squamous Epith Cells None seen (0-5/HPF) Urine Bacteria None seen (None) Ur Culture Indicated? Cult not indicated Vol Urine Centrifuged 10ml (spun) 11/30/23 Range/Units 05:48 WBC 3.3 L D (4.5-11.0) X10^3/uL RBC 1.76 L (4.0-5.2) X10^6/uL Hgb 7.0 L (12.0-16.0) g/dL Hct 20.0 L* (36-46) % MCV 113.5 H (80-100) fL MCH 39.5 H (26-34) PG MCHC 34.8 (30-36) % RDW 16.1 H (11.6-14.8) % Plt Count 115 L (150-400) X10^3/uL Neut % (Auto) 65.1 Lymph % (Auto) 23.3 L Jack % (Auto) 9.6 Eos % (Auto) 1.1 L Baso % (Auto) 0.9 Neut # (Auto) 2100 (4762-9640) /uL Lymph # (Auto) 800 L Jack # (Auto) 300 Eos # (Auto) 0 (0-450) /uL Baso # (Auto) 0 Total Counted Seg Neutrophils % (38-70) % Band Neutrophils % (3-7) % Lymphocytes % (Manual) (25-45) % Monocytes % (Manual) (2-11) % Eosinophils % (Manual) (2-4) % Metamyelocytes % (-0) % Neutrophils # (Manual) (1029-3014) /uL Nucleated RBCs ( - 0) #/Diff Platelet Estimate Decreased on smear RBC Morphology See below Anisocytosis 1+ H Microcytosis 1+ H Macrocytosis 1+ H Schistocytes 1+ H Sodium 139 (137-145) mmol/L Potassium 3.2 L (3.4-5.1) mmol/L Chloride 116 H (98-107) mmol/L Carbon Dioxide 22 (22-32) mmol/L BUN 11 (7-17) mg/dL Creatinine 0.90 (0.52-1.04) mg/dL Estimated GFR > 60 (>60) mL/min BUN/Creatinine Ratio 12.2 (6-22) Glucose 93 (80-110) mg/dL Lactate (0.7-2.1) mmol/L Calcium 7.3 L (8.4-10.2) mg/dL Total Bilirubin 2.6 H (0.2-1.3) mg/dL AST 67 H (14-36) IU/L ALT 48 H (<35) IU/L Alkaline Phosphatase 84 (38-126) U/L Total Creatine Kinase (30-135) U/L Troponin I (0.01-0.034) ng/mL Total Protein 5.3 L (6.3-8.2) g/dL Albumin 2.8 L (3.5-5.0) g/dL Globulin 2.5 (1.7-4.1) g/dL Albumin/Globulin Ratio 1.1 (1.0-2.8) Lipase (23-300) U/L Urine RBC (0-5/HPF) Urine WBC (0-5/HPF) Ur Squamous Epith Cells (0-5/HPF) Urine Bacteria (None) Ur Culture Indicated? Vol Urine Centrifuged Point of Care Testing Glucose POC 129 Urine Dip Bedside Urine Glucose Negative Bedside Urine Bilirubin - Negative Bedside Urine Ketone - Negative Urine Specific [place] 1.015 Bedside Urine Occult Blood ++ Bedside Urine pH 6.0 Bedside Urine Protein +/- 15 Bedside Urine Urobilinogen - Negative Bedside Urine Nitrite - Negative Bedside Urine Leukocytes - Negative Esterase Imaging Data Chest x-ray: Radiologist's Impression: PROCEDURE: XR CHEST 1V INDICATIONS: seizure TECHNIQUE: One view of the chest was acquired. COMPARISON: [facility], CT, CT ANGIO CHEST PE PROTOCOL, 11/28/2023, 22:45. [facility], CR, XR CHEST 1V, 06/03/2022, 9:20. FINDINGS: Surgical changes and devices: None. Lungs and pleura: Bilateral interstitial prominence. No large pleural effusions or pneumothorax. Mediastinum: Mediastinal contours appear normal. Heart size is normal. Bones and chest wall: No suspicious bony lesions. Overlying soft tissues appear unremarkable. IMPRESSION: 1. Bilateral interstitial prominence may be secondary to pulmonary edema although superimposed pneumonia cannot be excluded. Dictated by: Karissa Avery M.D. on 11/29/2023 at 18:02 CT scan - head: Radiologist's Impression: PROCEDURE: CT HEAD/BRAIN WO CON INDICATIONS: seizure TECHNIQUE: Noncontrast 4.5 mm thick angled axial sections acquired from the foramen magnum to the vertex, with coronal and sagittal reformats. For radiation dose reduction, the following was used: automated exposure control, adjustment of mA and/or kV according to patient size. COMPARISON: [facility], CT, CT HEAD/BRAIN WO CON, 11/27/2023, 11:03. FINDINGS: Image quality: Significant motion artifacts. CSF spaces: Basal cisterns are patent. No extra-axial fluid collections. The ventricles are symmetric in size and shape. Brain: Encephalomalacia in the right occipital lobe compatible with old infarct. No intracranial bleeds or masses. There is cerebral volume loss for age, with resultant ventricular and sulcal prominence. There are periventricular and deep white matter chronic small vessel ischemic changes. There is intracranial internal carotid artery atherosclerosis. Skull and face: Calvarium and visualized facial bones appear intact, without suspicious lesions. Sinuses: Visualized sinuses and mastoids are clear. IMPRESSION: 1. No acute intracranial abnormalities. 2. Old right occipital infarct. 3. Cerebral volume loss and chronic microvascular ischemic changes. Dictated by: Karissa Avery M.D. on 11/29/2023 at 17:51 Approved by: Karissa Avery M.D. on 11/29/2023 at 17:52 ECG Data Prior ECG tracings: available for review Interpretation: Normal sinus rhythm rate 89 ID interval 138 QRS 76 QTC 386 low voltage no ischemic changes MDM Narrative Medical decision making narrative: Patient 63-year-old female presents today with aesthetic breast cancer currently on letrozole. Family reports that she has not been taking her medications this week because she does not feel well. She is prescribed Xanax unclear often he is taking that have a benzo withdrawal seizure. Blood work has been reviewed she does an elevation of bilirubin and liver enzymes this does seem chronic and no significant change. Lactic acid elevated at 12.5 which is consistent with seizure. I do not think sepsis. She has had no leukocytosis or fever. Hemoglobin slightly low at 9.1 hematocrit 26.5 but previously hemoglobin of 10 hematocrit 29.1 Electrolytes do show bicarb of 15 a creatinine of 1.25 repeat lactic acid is 3.7. Head CT and chest x-ray has been reviewed without any acute intracranial process or cardiopulmonary process Patient is becoming more alert and responsive. I had a phone conversation with family and friends on speaker phone as a group chat. Updated on patient's symptoms test results still waiting for more information at this time. Possible benzo withdrawal seizure. Patient signed out to Dr. Purcell. DR. Purcell -there has been no seizure activity since patient has been in the emergency department, nearly 4 hours. This is patient's 4th visit in 4 days, each visit has been for a different complaint. Family is in the room demanding that patient be transferred to [facility]. They refused an EKG because patient has a Watchman and since we do not know the patient's make and model of Watchman device they do not want her to get an EKG, even though patient has had EKGs previously at this facility without any issues despite Watchman placement. Discussed case with on-call Oncologist Dr. Hillman, who states that there does not appear to be an oncology reason for transfer, however since this is patient's 4th visit and had seizure activity a transfer for additional workup and neurology consultation may be of benefit. Hospitalist tho. Discussed case with Dr. Chua of Internal Medicine, who reviewed case. At this time there does not appear to be an emergent need for transfer, especially with 4 days of unchanged labs. Recommended possibility of starting Keppra for seizure prophylaxis, and discussing with Neurology. If Neurology believes that a spot EEG is indicated then they are happy to accept patient for transfer. Discussed case with Dr. Mcdowell of Neurology at [place]. Does not believe that transfer 1st by EEG is necessary. Recommended loading with 1500 mg of Keppra and starting 500 b.i.d. for seizure prophylaxis. Patient's symptoms do not seem consistent with encephalitis at this time. Labs and imaging discussed with patient's friend Nessa who was in the room. I explained that patient has been declined for transfer to [facility] and there does not appear to be an obvious medical reason for hospitalization at this time. Friend states that patient is still does not seem to be ?all with it?. She does not feel comfortable watching the patient at her house and there was no one else to care for the patient. Patient's daughters are in the [facility] and are not available to care for the patient. After prolonged discussion will keep for social work consultation tomorrow Patient was remained hemodynamically stable throughout the night. Repeat lab work shows hemoglobin is 7.0, hematocrit 20. Patient has had no bleeding overnight, did receive 2 L IV fluids. No seizure-like activity witnessed. Repeat hematocrit possibly delusional, reticulocyte count 2 days ago was 6. Care of patient to be signed back to Dr. Rivera at 0700 Dr. Rivera Unable to transfer patient higher level of care, it is not indicated. However this morning patient is still confused. She does have a slight decrease in her hemoglobin thought to be diluted after receiving IV fluid throughout the night and pulses yesterday during hypotension thought to be secondary to Ativan. She has not actively bleeding, she does have a history of atrial fibrillation was previously on anticoagulation but no longer secondary to anemia, Watchman is now in place. History of multiple CVA. Discussed with hospitalist Dr. Kevin about admission here he agrees but requests LP 1st which is reasonable. LP attempted by myself and unfortunately unsuccessful. Patient reports that she has metastatic breast cancer to her spine however CT a couple of days ago does not show any lytic lesions or metastasis to her spine or her abdomen. CT angio chest on 11/28/23 does show bony metastasis to the thorax no acute body compression fx noted. Further record review does show that she has Mets to C4. No contraindication to LP in lumbar spine. Patient is awake able to follow commands confused about where she is definitely does not seem quite right. Initially thought possible benzo withdrawal seizure however upon further review patient denies that she is on Xanax prescription has not been filled. It actually looks like she was discharged on Xanax and Celexa in 2021. Family reports that a couple days ago when she 1st came in she had urinary incontinence in the bed it is possible that this is the 2nd seizure she had this week. She had a brain MRI without contrast that was negative for any kind of metastasis she has had a repeat head CT without contrast which does not show any intracranial hemorrhage or masses. I did receive verbal consent from Leola the daughter for a LP and she does agree to an EKG. Seizures are possibly related to previous strokes. Patient admitted to Dr. Sierra for further workup. <Sera Purcell MD - Last Filed: 11/30/23 07:06> Lab Data Labs: Lab Results 11/29/23 11/29/23 11/29/23 Range/Units 16:31 19:25 19:50 WBC 10.2 D (4.5-11.0) X10^3/uL RBC 2.28 L (4.0-5.2) X10^6/uL Hgb 9.1 L (12.0-16.0) g/dL Hct 26.5 L (36-46) % MCV 116.4 H D (80-100) fL MCH 40.1 H (26-34) PG MCHC 34.4 (30-36) % RDW 16.5 H (11.6-14.8) % Plt Count 143 L (150-400) X10^3/uL Neut % (Auto) Not Reportable Lymph % (Auto) Not Reportable Jack % (Auto) Not Reportable Eos % (Auto) Not Reportable Baso % (Auto) Not Reportable Neut # (Auto) (5965-8166) /uL Lymph # (Auto) Not Reportable Jack # (Auto) Not Reportable Eos # (Auto) (0-450) /uL Baso # (Auto) Not Reportable Total Counted 100 Seg Neutrophils % 32.0 L (38-70) % Band Neutrophils % 2.0 L (3-7) % Lymphocytes % (Manual) 57.0 H (25-45) % Monocytes % (Manual) 4.0 (2-11) % Eosinophils % (Manual) 2.0 (2-4) % Metamyelocytes % 3.0 H (-0) % Neutrophils # (Manual) 3468 (8286-7438) /uL Nucleated RBCs 10 H ( - 0) #/Diff Platelet Estimate RBC Morphology See below Anisocytosis Microcytosis Macrocytosis 2+ H Schistocytes 2+ H Sodium 140 (137-145) mmol/L Potassium 3.9 (3.4-5.1) mmol/L Chloride 107 (98-107) mmol/L Carbon Dioxide 15 L (22-32) mmol/L BUN 18 H (7-17) mg/dL Creatinine 1.25 H (0.52-1.04) mg/dL Estimated GFR 48 L (>60) mL/min BUN/Creatinine Ratio 14.4 (6-22) Glucose 151 H (80-110) mg/dL Lactate 12.7 H* 3.7 H (0.7-2.1) mmol/L Calcium 8.8 (8.4-10.2) mg/dL Total Bilirubin 3.8 H (0.2-1.3) mg/dL AST 80 H (14-36) IU/L ALT 59 H (<35) IU/L Alkaline Phosphatase 98 (38-126) U/L Total Creatine Kinase 169 H (30-135) U/L Troponin I 0.012 (0.01-0.034) ng/mL Total Protein 7.0 (6.3-8.2) g/dL Albumin 4.0 (3.5-5.0) g/dL Globulin 3.0 (1.7-4.1) g/dL Albumin/Globulin Ratio 1.3 (1.0-2.8) Lipase 128 (23-300) U/L Urine RBC None seen (0-5/HPF) Urine WBC 0-1/hpf (0-5/HPF) Ur Squamous Epith Cells None seen (0-5/HPF) Urine Bacteria None seen (None) Ur Culture Indicated? Cult not indicated Vol Urine Centrifuged 10ml (spun) 11/30/23 Range/Units 05:48 WBC 3.3 L D (4.5-11.0) X10^3/uL RBC 1.76 L (4.0-5.2) X10^6/uL Hgb 7.0 L (12.0-16.0) g/dL Hct 20.0 L* (36-46) % MCV 113.5 H (80-100) fL MCH 39.5 H (26-34) PG MCHC 34.8 (30-36) % RDW 16.1 H (11.6-14.8) % Plt Count 115 L (150-400) X10^3/uL Neut % (Auto) 65.1 Lymph % (Auto) 23.3 L Jack % (Auto) 9.6 Eos % (Auto) 1.1 L Baso % (Auto) 0.9 Neut # (Auto) 2100 (0639-6829) /uL Lymph # (Auto) 800 L Jack # (Auto) 300 Eos # (Auto) 0 (0-450) /uL Baso # (Auto) 0 Total Counted Seg Neutrophils % (38-70) % Band Neutrophils % (3-7) % Lymphocytes % (Manual) (25-45) % Monocytes % (Manual) (2-11) % Eosinophils % (Manual) (2-4) % Metamyelocytes % (-0) % Neutrophils # (Manual) (8543-4598) /uL Nucleated RBCs ( - 0) #/Diff Platelet Estimate Decreased on smear RBC Morphology See below Anisocytosis 1+ H Microcytosis 1+ H Macrocytosis 1+ H Schistocytes 1+ H Sodium 139 (137-145) mmol/L Potassium 3.2 L (3.4-5.1) mmol/L Chloride 116 H (98-107) mmol/L Carbon Dioxide 22 (22-32) mmol/L BUN 11 (7-17) mg/dL Creatinine 0.90 (0.52-1.04) mg/dL Estimated GFR > 60 (>60) mL/min BUN/Creatinine Ratio 12.2 (6-22) Glucose 93 (80-110) mg/dL Lactate (0.7-2.1) mmol/L Calcium 7.3 L (8.4-10.2) mg/dL Total Bilirubin 2.6 H (0.2-1.3) mg/dL AST 67 H (14-36) IU/L ALT 48 H (<35) IU/L Alkaline Phosphatase 84 (38-126) U/L Total Creatine Kinase (30-135) U/L Troponin I (0.01-0.034) ng/mL Total Protein 5.3 L (6.3-8.2) g/dL Albumin 2.8 L (3.5-5.0) g/dL Globulin 2.5 (1.7-4.1) g/dL Albumin/Globulin Ratio 1.1 (1.0-2.8) Lipase (23-300) U/L Urine RBC (0-5/HPF) Urine WBC (0-5/HPF) Ur Squamous Epith Cells (0-5/HPF) Urine Bacteria (None) Ur Culture Indicated? 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 Family reports that she has not been taking her medications this week because she does not feel well. She is prescribed Xanax unclear often he is taking that have a benzo withdrawal seizure. Blood work has been reviewed she does an elevation of bilirubin and liver enzymes this does seem chronic and no significant change. Lactic acid elevated at 12.5 which is consistent with seizure. I do not think sepsis. She has had no leukocytosis or fever. Hemoglobin slightly low at 9.1 hematocrit 26.5 but stable over the last few days. Electrolytes do show bicarb of 15 a creatinine of 1.25 repeat lactic acid is 3.7. Head CT and chest x-ray has been reviewed without any acute intracranial process or cardiopulmonary process Patient is becoming more alert and responsive. I had a phone conversation with family and friends on speaker phone as a group chat. Updated on patient's symptoms test results still waiting for more information at this time. Possible benzo withdrawal seizure. Patient signed out to Dr. Purcell. DR. Purcell -there has been no seizure activity since patient has been in the emergency department, nearly 4 hours. This is patient's 4th visit in 4 days, each visit has been for a different complaint. Family is in the room demanding that patient be transferred to [facility]. They refused an EKG because patient has a Watchman and since we do not know the patient's make and model of Watchman device they do not want her to get an EKG, even though patient has had EKGs previously at this facility without any issues despite Watchman placement. Discussed case with on-call Oncologist Dr. Hillman, who states that there does not appear to be an oncology reason for transfer, however since this is patient's 4th visit and had seizure activity a transfer for additional workup and neurology consultation may be of benefit. Hospitalist tho. Discussed case with Dr. Chua of Internal Medicine, who reviewed case. At this time there does not appear to be an emergent need for transfer, especially with 4 days of unchanged labs. Recommended possibility of starting Keppra for seizure prophylaxis, and discussing with Neurology. If Neurology believes that a spot EEG is indicated then they are happy to accept patient for transfer. Discussed case with Dr. Mcdowell of Neurology at [place]. Does not believe that transfer 1st by EEG is necessary. Recommended loading with 1500 mg of Keppra and starting 500 b.i.d. for seizure prophylaxis. Patient's symptoms do not seem consistent with encephalitis at this time. Labs and imaging discussed with patient's friend Nessa who was in the room. I explained that patient has been declined for transfer to [facility] and there does not appear to be an obvious medical reason for hospitalization at this time. Friend states that patient is still does not seem to be ?all with it?. She does not feel comfortable watching the patient at her house and there was no one else to care for the patient. Patient's daughters are in the [facility] and are not available to care for the patient. After prolonged discussion will keep for social work consultation tomorrow Patient was remained hemodynamically stable throughout the night. Repeat lab work shows hemoglobin is 7.0, hematocrit 20. Patient has had no bleeding overnight, did receive 2 L IV fluids. No seizure-like activity witnessed. Repeat hematocrit possibly delusional, reticulocyte count 2 days ago was 6. Care of patient to be signed back to Dr. Rivera at 0700 Critical Care Time <Rhona Rivera, DO - Last Filed: 11/30/23 11:44> Critical Care Time Critical Care Time: Yes Total Critical Care Time: 120 Attestation: The high probability of a clinically significant, sudden or life threatening deterioration of the [cardiovascular] system(s) required my full and direct attention, intervention and personal management. The aggregate critical care time was 120 minutes. This time is in addition to time spent performing reported procedures but includes the following: [x] Data Review and interpretation [x] Patient assessment and monitoring of vital signs [x] Documentation [x] Medication orders and management Discharge Plan Departure Patient Disposition: Admitted as Observation Clinical Impression: Acute metabolic encephalopathy Admit Date/Time: 11/30/23 09:46 Admit Provider: Wilder Kevin
[2023-11-29] MEDS: LORazepam 2 MG/ML INJ 1 MG IV ×2 (16:42→16:50)
[2023-11-29 17:11] LABS: Hematocrit 26.5 % (36-46); Hemoglobin 9.1 g/dL (12.0-16.0); Mean Corpuscular HGB Conc 34.4 % (30-36); Mean Corpuscular Hemoglobin 40.1 PG (26-34); Mean Corpuscular Volume 116.4 fL (80-100); Platelet Count 143 X10^3/uL (150-400); Red Blood Cell Count 2.28 X10^6/uL (4.0-5.2); Red Cell Distribution Width 16.5 % (11.6-14.8); White Blood Cell Count 10.2 X10^3/uL (4.5-11.0)
[2023-11-29 17:13] LABS: Add Manual Diff / Slide Review YES
[2023-11-29 17:14] LABS: Albumin Globulin Ratio 1.3 (1.0-2.8); Alkaline Phosphatase 98 U/L (38-126); BUN Creatinine Ratio 14.4 (6-22); Bilirubin Total 3.8 mg/dL (0.2-1.3); Blood Urea Nitrogen 18 mg/dL (7-17); Calcium 8.8 mg/dL (8.4-10.2); Carbon Dioxide 15 mmol/L (22-32); Chloride 107 mmol/L (98-107); Creatine Kinase 169 U/L (30-135); Estimated Glomerular Filt Rate 48 mL/min (>60); Glucose 151 mg/dL (80-110); Lipase 128 U/L (23-300); Sodium 140 mmol/L (137-145)
[2023-11-29 17:21] LABS: Alanine Aminotransferase 59 IU/L (<35)
[2023-11-29 17:24] LABS: HEMOLYSIS 76 (0-50); Neutrophils Absolute Manual 3468 /uL (3000-5900); Nucleated Red Blood Cells 10 #/Diff; Total Cells Counted 100
[2023-11-29 17:25] LABS: Aspartate Aminotransferase 80 IU/L (14-36); Potassium 3.9 mmol/L (3.4-5.1); Troponin I 0.012 ng/mL (0.01-0.034)
[2023-11-29 17:29] LABS: Macrocytosis 2+; Schistocytes 2+
[2023-11-29 17:31] LABS: Lactate (Lactic Acid) 12.7 mmol/L (0.7-2.1)
[2023-11-29] MEDS: SODIUM CHLORIDE 0.9% 1,000 ML 1000 ML IV ×3 (17:49→22:34)
[2023-11-29 18:32] LABS: Reflexed Lactate in 2 Hours Y
[2023-11-29] MEDS: SODIUM CHLORIDE 0.9% 1,000 ML 150 ML IV (19:23)
[2023-11-29 19:55] LABS: Lactate 2HR (Lactic Acid Rflx) 3.7 mmol/L (0.7-2.1)
--- NOTE | 2023-11-29 19:55 | DI.US.S_ITS ---
PROCEDURE: US ABDOMEN LIMITED INDICATIONS: ruq TECHNIQUE: Real-time scanning was performed of the abdominal and retroperitoneal organs, with image documentation. COMPARISON: [facility], CT, CT ABDOMEN PELVIS W CON, 11/27/2023, 12:17. FINDINGS: Liver: Liver is normal in size and homogeneous in echotexture. Gallbladder: There is no gallstone. No gallbladder wall thickening or pericholecystic fluid. No sonographic Garcia sign. Biliary ducts: Intrahepatic bile ducts are non-dilated. Extrahepatic bile duct caliber measures 4.8 mm. Normal is 6-7 mm or less in diameter, or 10 mm or less post-cholecystectomy. Pancreas: Visualized portions of the pancreas are sonographically normal. Miscellaneous: No free abdominal fluid. IMPRESSION: Unremarkable ultrasound examination of right upper quadrant abdomen. Dictated by: Eugene Roberto M.D. on 11/29/2023 at 21:32 Approved by: Eugene Roberto M.D. on 11/29/2023 at 21:33
[2023-11-29 20:12] LABS: Urine Volume 10mL (spun)
[2023-11-29 20:13] LABS: Bacteria Urine None Seen; Culture Indicated Urine Cult Not Indicated; RBC Urine None Seen (0-5/HPF); Squamous Epithelial Cell Urine None Seen (0-5/HPF); WBC Urine 0-1/HPF (0-5/HPF)
[2023-11-29] MEDS: levETIRAcetam 1,500 MG in SODIUM CHLORIDE 0.9% 100 ML 460 MG IV (22:32)
[2023-11-30] VITALS (54 sets, daily range): BP systolic 75–131; BP diastolic 49–83; PULSE 71–99; RESP 16–35; TEMP 36.5–37.6; O2SAT 83–100; BMI 26.9
[2023-11-30 05:59] LABS: Add Manual Diff / Slide Review NO; Basophils Absolute Auto 0 /uL (0-100); Basophils Percent Auto 0.9 % (0-2); Eosinophils Absolute Auto 0 /uL (0-450); Eosinophils Percent Auto 1.1 % (2-4); Lymphocytes Absolute Auto 800 /uL (1100-4500); Lymphocytes Percent Auto 23.3 % (25-40); Mean Corpuscular HGB Conc 34.8 % (30-36); Mean Corpuscular Hemoglobin 39.5 PG (26-34); Mean Corpuscular Volume 113.5 fL (80-100); Monocytes Absolute Auto 300 /uL (0-900); Monocytes Percent Auto 9.6 % (3-14); Neutrophils Absolute Auto 2100 /uL (1500-7000); Neutrophils Percent Auto 65.1 % (50-75); Platelet Count 115 X10^3/uL (150-400); Red Blood Cell Count 1.76 X10^6/uL (4.0-5.2); Red Cell Distribution Width 16.1 % (11.6-14.8); White Blood Cell Count 3.3 X10^3/uL (4.5-11.0)
[2023-11-30 06:12] LABS: Alanine Aminotransferase 48 IU/L (<35); Albumin 2.8 g/dL (3.5-5.0); Albumin Globulin Ratio 1.1 (1.0-2.8); Alkaline Phosphatase 84 U/L (38-126); Aspartate Aminotransferase 67 IU/L (14-36); BUN Creatinine Ratio 12.2 (6-22); Bilirubin Total 2.6 mg/dL (0.2-1.3); Blood Urea Nitrogen 11 mg/dL (7-17); Calcium 7.3 mg/dL (8.4-10.2); Carbon Dioxide 22 mmol/L (22-32); Chloride 116 mmol/L (98-107); Estimated Glomerular Filt Rate > 60 mL/min (>60); Globulin 2.5 g/dL (1.7-4.1); Glucose 93 mg/dL (80-110); HEMOLYSIS 42 (0-50); Potassium 3.2 mmol/L (3.4-5.1); Sodium 139 mmol/L (137-145); Total Protein 5.3 g/dL (6.3-8.2)
[2023-11-30 06:26] LABS: Anisocytosis 1+; Macrocytosis 1+; Microcytosis 1+; Platelet Estimate Decreased on smear; Schistocytes 1+
[2023-11-30] MEDS: LIDOCAINE 1% 20 ML (09:14)
[2023-11-30] MEDS: levETIRAcetam 250 MG TABLET 500 MG PO (09:29)
--- NOTE | 2023-11-30 11:02 | PM.HP.1 ---
History of Present Illness History of Present Illness Date Patient Seen: 11/30/23 Chief complaint: Seizure/LOC Narrative: From ED doctor: Patient is a 63-year-old female with metastatic stage IV breast cancer presenting today for the 4th time to the ED. EMS reports that they were called for confusion and not feeling well however she had about a 32nd seizure in front of them. She is now postictal. She previously has been seen here for nausea vomiting found to be mildly hypokalemic with a potassium of 2.9 but tolerated oral potassium and was discharged with Zofran. She returned on November 26 with some confusion and slight headache. She had workup including brain MRI and blood work. Potassium had improved to 3.7 brain MRI did not show any acute abnormality she also had a CT abdomen pelvis which did show some ductal dilation. She has had elevated bilirubin each visit but it was high in 2021 as well. Liver enzymes are also slightly elevated no significant abdominal pain She was discharged and then returned on November 27 for an outpatient elevation of D-dimer and sent to rule out PE. She had a negative CT angio and again blood work and again discharged Updated: She has had several ED visits with different complaints. In talking with her and her neighbors, she has been working for the last 7-10 days. She would 1 episode of urinary and fecal incontinence on Saturday at her house. She then had a witnessed seizure yesterday. Laboratories reveal a lactic acidosis yesterday. She was given Keppra in the emergency department and is now on 500 b.i.d.. She denies chewing or tongue or any memory of the seizure and has no history of seizure disorder. A recent MRI of the brain with and without contrast was unremarkable. She does have cognitive delay today but is pleasant and denies headache or any distress. She was anemic, this is also subacute and she has a history of anemia which is treated with steroids by her oncologist at [place]. She denies fevers, or chills. A lumbar puncture was attempted in the emergency department today but was not able to be completed due to her anatomy. Most history is obtained from to friends were with her. [facility] Medical History Afib Chronic anxiety Compression fracture of fourth cervical vertebra Metastatic cancer to spine C. difficile colitis Hyperlipidemia Breast cancer Surgical History History of ankle surgery History of Family History Father CVA (cerebral vascular accident) Afib Mother Bowel obstruction Afib Social History household members: none Smoking Status: Never smoker alcohol intake: former Meds Home Medications and Allergies Home Medications Medication Instructions Recorded Confirmed Type abemaciclib 150 mg tablet 150 mg PO BID 05/28/22 11/30/23 History (Verzenio) letrozole 2.5 mg tablet 2.5 mg PO DAILY 05/28/22 11/30/23 History rosuvastatin 20 mg tablet 20 mg PO QPM 05/28/22 11/30/23 History metoprolol succinate 50 mg 12.5 mg PO DAILY 11/30/23 11/30/23 History tablet,extended release 24 hr (Toprol XL) Allergies Allergy/AdvReac Type Severity Reaction Status Date / Time No Known Drug Allergies Allergy Verified 11/27/23 15:19 Review of Systems Review of Systems Narrative: All else reviewed and otherwise unremarkable except as noted in the history and physical. Exam Vital Signs (past 8 hours): - 11/30/23 03:03 11/30/23 03:03 11/30/23 03:30 Pulse Rate 84 74 Respiratory Rate 20 27 H Blood Pressure 92/57 L Pulse Oximetry 100 100 Oxygen Delivery Method Oxygen Flow Rate 11/30/23 04:00 11/30/23 04:00 11/30/23 04:30 Pulse Rate 73 71 Respiratory Rate 21 23 Blood Pressure 93/55 L Pulse Oximetry 98 91 Oxygen Delivery Method Oxygen Flow Rate 11/30/23 05:00 11/30/23 05:30 11/30/23 06:00 Pulse Rate 74 79 Respiratory Rate 22 20 Blood Pressure 103/65 Pulse Oximetry 94 92 Oxygen Delivery Method Oxygen Flow Rate 11/30/23 06:00 11/30/23 06:30 11/30/23 07:00 Pulse Rate 71 72 74 Respiratory Rate 20 21 21 Blood Pressure Pulse Oximetry 95 97 83 L Oxygen Delivery Method Oxygen Flow Rate 11/30/23 07:27 11/30/23 07:30 11/30/23 08:00 Pulse Rate 72 75 Respiratory Rate Blood Pressure Pulse Oximetry 95 91 91 Oxygen Delivery Method Nasal Cannula Oxygen Flow Rate 3 11/30/23 08:30 11/30/23 09:00 11/30/23 09:14 Pulse Rate 75 90 Respiratory Rate 22 18 Blood Pressure 94/57 L Pulse Oximetry 91 Oxygen Delivery Method Oxygen Flow Rate 11/30/23 09:14 11/30/23 09:30 11/30/23 10:00 Pulse Rate 86 83 90 Respiratory Rate Blood Pressure Pulse Oximetry 94 95 96 Oxygen Delivery Method Oxygen Flow Rate 11/30/23 10:00 11/30/23 10:30 11/30/23 10:44 Pulse Rate 90 84 Respiratory Rate Blood Pressure 90/61 Pulse Oximetry 97 99 Oxygen Delivery Method Nasal Cannula Oxygen Flow Rate 3 11/30/23 10:44 Pulse Rate Respiratory Rate Blood Pressure 97/60 Pulse Oximetry Oxygen Delivery Method Oxygen Flow Rate Oxygen Delivery Method Nasal Cannula Oxygen Flow Rate 3 Narrative Exam Narrative: NAD, alert and oriented, fluent speech, calm. She was slow to answer questions and is not oriented to the year. She can follow commands. Normocephalic skull, EOMI, anicteric sclera, symmetric pupils. Oropharynx unremarkable, no droop. Neck supple, midline trachea, no adenopathy. Lungs clear, normal rate and effort. Heart regular, no murmur gallop or rub. Abdomen is soft, non distended and non tender. Extremities are free of edema. Skin is free of rash or lesions. Joints are not swollen or deformed. Judgment appears to be abnormal. She can move arms and legs without difficulty. She has no facial droop. Her language is generally intact. Objective Imaging US - abdomen: Radiologist's impression: Unremarkable ultrasound examination of right upper quadrant abdomen. CT scan - head: Radiologist's impression: 1. No acute intracranial abnormalities. 2. Old right occipital infarct. 3. Cerebral volume loss and chronic microvascular ischemic changes. CT scan - chest: Radiologist's impression: 1. No pulmonary embolus. 2. Dependent atelectasis versus small infiltrate in posterior aspect of bilateral lower lobes. Mild pulmonary edema. No pleural effusion or pneumothorax. Airway is patent. 3. Left axillary lymphadenopathy decreased in size since 2021 study. Increased soft tissue within left breast unchanged from previous study. 4. Extensive bony metastases no pathologic fracture. 5. No gross mediastinal or hilar lymphadenopathy by size criteria. Mild ectasia of ascending thoracic aorta. MRI - head: Radiologist's impression: 1. No acute intracranial process. 2. Mild atrophy and chronic microvascular ischemic changes. Labs 11/30/23 05:48 11/30/23 05:48 Labs: Laboratory Results - last 24 hr 11/29/23 11/29/23 11/29/23 16:31 19:25 19:50 WBC 10.2 D RBC 2.28 L Hgb 9.1 L Hct 26.5 L MCV 116.4 H D MCH 40.1 H MCHC 34.4 RDW 16.5 H Plt Count 143 L Neut % (Auto) Not Reportable Lymph % (Auto) Not Reportable [place] % (Auto) Not Reportable Eos % (Auto) Not Reportable Baso % (Auto) Not Reportable Neut # (Auto) Lymph # (Auto) Not Reportable [place] # (Auto) Not Reportable Eos # (Auto) Baso # (Auto) Not Reportable Total Counted 100 Seg Neutrophils % 32.0 L Band Neutrophils % 2.0 L Lymphocytes % (Manual) 57.0 H Monocytes % (Manual) 4.0 Eosinophils % (Manual) 2.0 Metamyelocytes % 3.0 H Neutrophils # (Manual) 3468 Nucleated RBCs 10 H Platelet Estimate RBC Morphology See below Anisocytosis Microcytosis Macrocytosis 2+ H Schistocytes 2+ H Sodium 140 Potassium 3.9 Chloride 107 Carbon Dioxide 15 L BUN 18 H Creatinine 1.25 H Estimated GFR 48 L BUN/Creatinine Ratio 14.4 Glucose 151 H Lactate 12.7 H* 3.7 H Calcium 8.8 Total Bilirubin 3.8 H AST 80 H ALT 59 H Alkaline Phosphatase 98 Total Creatine Kinase 169 H Troponin I 0.012 Total Protein 7.0 Albumin 4.0 Globulin 3.0 Albumin/Globulin Ratio 1.3 Lipase 128 Urine RBC None seen Urine WBC 0-1/hpf Ur Squamous Epith Cells None seen Urine Bacteria None seen Ur Culture Indicated? Cult not indicated Vol Urine Centrifuged 10ml (spun) 11/30/23 05:48 WBC 3.3 L D RBC 1.76 L Hgb 7.0 L Hct 20.0 L* MCV 113.5 H MCH 39.5 H MCHC 34.8 RDW 16.1 H Plt Count 115 L Neut % (Auto) 65.1 Lymph % (Auto) 23.3 L [place] % (Auto) 9.6 Eos % (Auto) 1.1 L Baso % (Auto) 0.9 Neut # (Auto) 2100 Lymph # (Auto) 800 L [place] # (Auto) 300 Eos # (Auto) 0 Baso # (Auto) 0 Total Counted Seg Neutrophils % Band Neutrophils % Lymphocytes % (Manual) Monocytes % (Manual) Eosinophils % (Manual) Metamyelocytes % Neutrophils # (Manual) Nucleated RBCs Platelet Estimate Decreased on smear RBC Morphology See below Anisocytosis 1+ H Microcytosis 1+ H Macrocytosis 1+ H Schistocytes 1+ H Sodium 139 Potassium 3.2 L Chloride 116 H Carbon Dioxide 22 BUN 11 Creatinine 0.90 Estimated GFR > 60 BUN/Creatinine Ratio 12.2 Glucose 93 Lactate Calcium 7.3 L Total Bilirubin 2.6 H AST 67 H ALT 48 H Alkaline Phosphatase 84 Total Creatine Kinase Troponin I Total Protein 5.3 L Albumin 2.8 L Globulin 2.5 Albumin/Globulin Ratio 1.1 Lipase Urine RBC Urine WBC Ur Squamous Epith Cells Urine Bacteria Ur Culture Indicated? Vol Urine Centrifuged Assessment & Plan Assessment & Plan narrative: 1. Weakness, present on admission and active. 2. Anemia, present on admission and active 3. Hypokalemia, present on admission and active 4. Lactic acidosis, present on admission and active. 5. New seizures, present on admission and active. 6. Metastatic breast cancer, present on admission and active. PLAN: -admit CCU. -continue Keppra following load. -blood transfusion and monitor hemoglobin as well as bowel movements. -IV fluids, trend lactic acid. -monitor mental status, we will increase Keppra to 1000 b.i.d.. -replace and monitor potassium. -we will obtain a slums score over the weekend. -we will contact Oncology on-call tomorrow after observing here on Keppra for 24 hours. Proxy decision maker: daughter Code status: DNR, discussed with her at the time of admission. Time Spent With Patient Time with patient: 30 to 49 minutes with 50% spent counseling/coordinating care Quality MIPS - Admit I confirm the patient?s Advance Care Plan is present, Code status is documented, Surrogate decision maker is in patient?s record [If Yes, STOP here]: Yes MIPS - Meds 'Current medications' to include all prescriptions, [id number] products, herbals, cannabis/cannabidiol products, and vitamin/mineral/dietary (nutritional) supplements. I have utilized all available resources to obtain, update, or review the patient?s current medications. [If Yes, STOP here]: Yes
[2023-11-30] MEDS: POTASSIUM CHLORIDE 20 MEQ TAB 40 MEQ PO ×2 (11:41→17:20)
[2023-11-30] MEDS: SODIUM CHLORIDE 0.9% 1,000 ML 100 ML IV ×2 (11:42→22:26)
[2023-11-30 12:32] LABS: MRSA (Nasal) PCR NOT DETECTED (Not Detect)
--- NOTE | 2023-11-30 13:50 | PT-IP ANOTE ---
PT eval order received. EMR reviewed. pt with Hgb of 7 and Hct of 20. spoke with nurse and pt is pending blood transfusion. will hold PT eval for today. nurse agreed. will f/u.
[2023-11-30] MEDS: ACYCLOVIR 500 MG in DEXTROSE 5% IN WATER 250 ML 250 MG IV ×2 (15:16→22:16)
[2023-11-30 15:21] LABS: Lactate (Lactic Acid) 1.6 mmol/L (0.7-2.1)
[2023-11-30] MEDS: levETIRAcetam 250 MG TABLET 1000 MG PO (20:42)
[2023-12-01] VITALS (13 sets, daily range): BP systolic 113–148; BP diastolic 74–93; PULSE 79–113; RESP 22–29; TEMP 36.3–37.2; O2SAT 91–96
[2023-12-01 05:08] LABS: Add Manual Diff / Slide Review NO; Basophils Absolute Auto 0 /uL (0-100); Basophils Percent Auto 0.8 % (0-2); Eosinophils Absolute Auto 100 /uL (0-450); Eosinophils Percent Auto 1.3 % (2-4); Hematocrit 24.6 % (36-46); Hemoglobin 8.8 g/dL (12.0-16.0); Lymphocytes Absolute Auto 1100 /uL (1100-4500); Lymphocytes Percent Auto 27.6 % (25-40); Mean Corpuscular HGB Conc 35.7 % (30-36); Mean Corpuscular Hemoglobin 37.6 PG (26-34); Mean Corpuscular Volume 105.4 fL (80-100); Monocytes Absolute Auto 400 /uL (0-900); Neutrophils Absolute Auto 2500 /uL (1500-7000); Neutrophils Percent Auto 61.3 % (50-75); Platelet Count 109 X10^3/uL (150-400); Red Blood Cell Count 2.34 X10^6/uL (4.0-5.2); Red Cell Distribution Width 23.2 % (11.6-14.8); White Blood Cell Count 4.1 X10^3/uL (4.5-11.0)
[2023-12-01 05:51] LABS: Anisocytosis 2+; Macrocytosis 1+; Microcytosis 1+; Platelet Estimate Decreased on smear; Polychromasia 1+; Schistocytes 1+
[2023-12-01 06:00] LABS: Blood Urea Nitrogen 16 mg/dL (7-17); Calcium 8.4 mg/dL (8.4-10.2); Carbon Dioxide 22 mmol/L (22-32); Chloride 113 mmol/L (98-107); Estimated Glomerular Filt Rate 58 mL/min (>60); Glucose 101 mg/dL (80-110); HEMOLYSIS < 15 (0-50); Sodium 135 mmol/L (137-145)
[2023-12-01] MEDS: ACYCLOVIR 500 MG in DEXTROSE 5% IN WATER 250 ML 250 MG IV ×2 (06:14→13:27)
--- NOTE | 2023-12-01 08:40 | P.PN_ITS ---
Subjective Subjective Interval history: No seizures overnight. A little less confused. Not able to coordinate walking very well. No nausea. Exam Vital Signs (past 8 hours): - 12/01/23 01:00 12/01/23 01:00 12/01/23 02:00 Temperature Pulse Rate 80 97 H Respiratory Rate 26 H 25 H Blood Pressure 120/76 Pulse Oximetry 91 94 Oxygen Delivery Method Oxygen Flow Rate 4 4 12/01/23 02:00 12/01/23 03:00 12/01/23 04:00 Temperature 97.5 F L Pulse Rate 83 79 Respiratory Rate 27 H 27 H Blood Pressure 130/85 129/83 Pulse Oximetry 96 91 Oxygen Delivery Method Oxygen Flow Rate 4 4 12/01/23 04:00 12/01/23 05:00 12/01/23 05:00 Temperature Pulse Rate 85 Respiratory Rate 26 H Blood Pressure 120/77 113/80 Pulse Oximetry 91 Oxygen Delivery Method Oxygen Flow Rate 4 12/01/23 06:00 12/01/23 06:00 12/01/23 07:00 Temperature Pulse Rate 84 Respiratory Rate 27 H Blood Pressure 148/93 H Pulse Oximetry 93 Oxygen Delivery Method Nasal Cannula Oxygen Flow Rate 4 12/01/23 07:00 12/01/23 07:00 12/01/23 08:00 Temperature Pulse Rate 90 113 H Respiratory Rate 27 H Blood Pressure 121/81 121/81 Pulse Oximetry 91 94 Oxygen Delivery Method Oxygen Flow Rate 12/01/23 08:22 Temperature Pulse Rate Respiratory Rate Blood Pressure Pulse Oximetry 92 Oxygen Delivery Method Nasal Cannula Oxygen Flow Rate 1 Oxygen Delivery Method Nasal Cannula Oxygen Flow Rate 1 Narrative Exam Narrative: NAD, alert and oriented. Fluent speech.Slow to answer. Follows commands. Oriented to year and place. Lungs are clear, normal rate and effort. Heart is regular, no murmur gallop or rub. Abdomen is soft, non distended. Extremities are free of edema. Objective Labs 12/01/23 04:51 12/01/23 04:51 Labs: Laboratory Results - last 24 hr 11/30/23 11/30/23 11/30/23 11:00 11:40 14:55 WBC RBC Hgb Hct MCV MCH MCHC RDW Plt Count Neut % (Auto) Lymph % (Auto) [place] % (Auto) Eos % (Auto) Baso % (Auto) Neut # (Auto) Lymph # (Auto) [place] # (Auto) Eos # (Auto) Baso # (Auto) Platelet Estimate RBC Morphology Polychromasia Anisocytosis Microcytosis Macrocytosis Schistocytes Sodium Potassium Chloride Carbon Dioxide BUN Creatinine Estimated GFR BUN/Creatinine Ratio Glucose Lactate 1.6 Calcium Nasal Screen MRSA (PCR) Not detected Blood Type A Positive Antibody Screen Negative Crossmatch See Detail 12/01/23 04:51 WBC 4.1 L RBC 2.34 L Hgb 8.8 L Hct 24.6 L MCV 105.4 H D MCH 37.6 H MCHC 35.7 RDW 23.2 H Plt Count 109 L Neut % (Auto) 61.3 Lymph % (Auto) 27.6 [place] % (Auto) 9.0 Eos % (Auto) 1.3 L Baso % (Auto) 0.8 Neut # (Auto) 2500 Lymph # (Auto) 1100 [place] # (Auto) 400 Eos # (Auto) 100 Baso # (Auto) 0 Platelet Estimate Decreased on smear RBC Morphology See below Polychromasia 1+ H Anisocytosis 2+ H Microcytosis 1+ H Macrocytosis 1+ H Schistocytes 1+ H Sodium 135 L Potassium 4.0 Chloride 113 H Carbon Dioxide 22 BUN 16 Creatinine 1.07 H Estimated GFR 58 L BUN/Creatinine Ratio 15.0 Glucose 101 Lactate Calcium 8.4 Nasal Screen MRSA (PCR) Blood Type Antibody Screen Crossmatch [facility] Medical History Afib Chronic anxiety Compression fracture of fourth cervical vertebra Metastatic cancer to spine C. difficile colitis Hyperlipidemia Breast cancer Surgical History History of ankle surgery History of Family History Father CVA (cerebral vascular accident) Afib Mother Bowel obstruction Afib Social History household members: none Smoking Status: Never smoker alcohol intake: former Assessment & Plan Assessment & Plan narrative: 1. Weakness, present on admission and active. 2. 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 Hypokalemia, present on admission and active 4. Lactic acidosis, present on admission and active. 5. New seizures (negative MRI brain w/wo contrast), present on admission and active. 6. Metastatic breast cancer, present on admission and active. 7. Possible encephalitis (acyclovir started 11/29), present on admission and active. PLAN: -admit CCU. -continue Keppra following load, 1 G BID. -continue IV acyclovir 10mg/KG. Started 11/29. -blood transfusion 11/29 and monitor hemoglobin as well as bowel movements. -IV fluids, trend lactic acid. -monitor mental status, continue Keppra to 1000 b.i.d.. -replace and monitor potassium. -we will obtain a slums score over the weekend. - Will also request transfer to [place] for LP (IR, failed here) and EEG. -we will contact Oncologyfrom Prov.
[2023-12-01] MEDS: levETIRAcetam 250 MG TABLET 1000 MG PO (10:17)
--- NOTE | 2023-12-01 11:36 | PT.IIE ---
Surgical History (Last Reviewed 11/30/23 @ 11:03 by Wilder Kevin MD) History of ankle surgery History of Medical History (Last Reviewed 11/30/23 @ 11:03 by Wilder Kevin MD) Afib Breast cancer C. difficile colitis Chronic anxiety Compression fracture of fourth cervical vertebra Hyperlipidemia Metastatic cancer to spine Physical Therapy Inpatient Evaluation/Re-Eval M1 PT/OT-IP Prior Functional Status Start: 12/01/23 08:08 Freq: NEEDED Status: Active Protocol: Document 12/01/23 10:57 MB (Rec: 12/01/23 11:35 MB [id number]) Medical Review Prior Functional Status Medical History Reviewed Yes Communication Unsure baseline diet and communication Mobility and Gait I, did not use AD except when she used her walking sticks Activities of Daily Living and IADL's Pt states that she was not driving because she was not supposed to and she had neighbors who assisted with errands Social History Household Members none Living Arrangements House Number of Floors (Floors) Two Floors Number of Stairs To Enter/Railing? No steps to enter and flight of steps with two rails in the house Home Environment High Toilet,Walk in Shower Home Equipment Front Wheel Walker,Straight Cane,Shower Seat with Backrest ,Grab Bars Near Toilet,Grab Bars In Shower Employment Status Retired M2 PT-IP Current Condition Start: 12/01/23 08:08 Freq: NEEDED Status: Active Protocol: Document 12/01/23 10:57 MB (Rec: 12/01/23 11:35 MB [id number]) Physical Therapy Current Condition Current Condition Evaluation Date 12/01/23 Treatment Diagnosis Seizures in setting of stage IV breast CA M3 PT-IP Subjective Start: 12/01/23 08:08 Freq: NEEDED Status: Active Protocol: Document 12/01/23 10:57 MB (Rec: 12/01/23 11:35 MB [id number]) Subjective Physical Therapy Visit Type Type Initial Evaluation Visit Start Time 10:57 Visit Stop Time 11:22 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 Physical Therapy Visit Comments Patient Comments Pt asks to go to the BR Therapy Pain Assessment Pain When Pain Assessed At Rest Pain Present Pain Present Denied Pain M4 PT-IP Mobility and Gait Start: 12/01/23 08:08 Freq: NEEDED Status: Active Protocol: Document 12/01/23 10:57 MB (Rec: 12/01/23 11:35 MB [id number]) PT-Bed Mobility Assessment Rolling Level of Assist Standby Assistance,1 Person Assistance Supine to Sit Supine to Sit Contact Guard Assistance,1 Person Assistance,Head of Bed Elevated,Bedrails Scooting Scooting to Edge of Bed Standby Assistance PT-Transfer Assessment Sit to and From Stand Sit to and from Stand Contact Guard Assistance,1 Person Assistance,Use of Upper Extremities Equipment Transfer Assistive Device Gait Belt,Front Wheeled Walker Orthotic/Prosthetic Devices or Brace: No Transfers Transfer Destination Chair,Toilet Transfer Technique Ambulation Transfer Ability Level of Assist Minimal Assistance,1 Person Assistance,Use of Upper Extremities Comments Mobility Comments Pt moves quickly and has some impulsivity, she does use walker when cued. O2 sats are normal on RA. With toileting, PT cues pt to wipe and she has trouble seeing/reaching for t .p. with left and right hand and PT asks her about vision and she states it is poor. PT notes B pupil dilation, jaudice in whites of eyes and skin. PT cues pt to wipe in sitting and she grabs her gown to wipe despite holding t.p. and PT cues pt that PT will assist once standing Gait Assessment Gait Gait Assistance Required: Minimum Assistance Distance (Feet) 10 Able to Maintain Weight Bearing Status Yes During Gait Assistive Devices Assistive Device Gait Belt,Front Wheeled Walker Orthotic/Prosthetic Devices or Brace: No Gait Deviations General Gait Pattern Decreased Feet Clearance, Flexed Trunk,Wide Based Gait Factors Limiting Gait Function Factors Limiting Gait Function Difficulty Following Directions,Poor Balance,Poor Safety Awareness Comments Gait Comments Pt has poor safety awareness with gait PT-Balance Assessment Sitting Balance and Reactions Static Sitting Balance Ability Good Dynamic Sitting Balance Ability Good Standing Balance and Reactions Static Standing Balance Ability Fair Dynamic Standing Balance Ability Fair Device Used RW M5 PT-IP Objective Assessments Start: 12/01/23 08:08 Freq: NEEDED Status: Active Protocol: Document 12/01/23 10:57 MB (Rec: 12/01/23 11:35 MB [id number]) Orientation Orientation/Cognition Level of Alertness Confusional State Orientation Name,Age,Birthday,Month,Date, Year,Place,Situation Safety Awareness Decreased Safety Awareness Memory Description No Deficits Noted Comments Slow answers to questions and confusion with functional tasks, following commands Gross Range of Motion Upper Extremity ROM Assessment Within Functional Limits Lower Extremity ROM Assessment Within Functional Limits Strength Upper Extremity Strength Assessment Within Functional Limits Lower Extremity Strength Assessment Within Functional Limits Other Assessments Other Other Assessments Static standing with wide HONORIO, increased Aj angle right foot and increased sway and pt feeling nervous, she also feels more concerned with standing with EC M6 PT-IP Treatment Start: 12/01/23 08:08 Freq: NEEDED Status: Active Protocol: Document 12/01/23 10:57 MB (Rec: 12/01/23 11:35 MB [id number]) Physical Therapy Treatment Education Education Provided Safety M7 PT-IP Assessment and Plan Start: 12/01/23 08:08 Freq: NEEDED Status: Active Protocol: Document 12/01/23 10:57 MB (Rec: 12/01/23 11:35 MB [id number]) PT Summary Assessment and Plan Potential Rehabilitation Potential Fair Status of Condition at Evaluation Unstable Summary Impairments Balance,Coordination,Cognition ,Bed Mobility,Transfers,Gait, Activity Tolerance Progress Towards Goals Slow Progress - Other Assessment Summary Pt is a 63 y/o female adm for multiple seizures in setting of stage IV breast CA. Upon arrival to room, pt has B increased pupil dilation, mild jaundice appearing whites of eyes and skin. She has some areas of redness on right UE. Pt denies falls. Pt answers most questions correctly but she has trouble reaching for t .p. and understanding how to wipe. Unsure also if pt has a visual change as far as reaching for t.p. d/t her large pupils. She presents with imbalance with standing and walking. She will benefit from ongoing acute and post- acute PT to improve mobility. Pt is not safe to d/c home alone in current presentation. Goals Bed Mobility Goal Independent Transfer Goal Independent,Cane,Front Wheeled Walker,Four Wheeled Walker Gait Goal Independent,Cane,Front Wheel Walker,Four Wheel Walker Gait Distance 75 Other Goals Pt will ascend and descend flight of steps with 1-2 rails to allow safe home mobility. Days to Meet Goals 5 Frequency of Treatment Frequency Of Treatment Once a Day Treatment Plan Physical Therapy Treatment Plan Bed Mobility Training,Transfer Training,Gait Training, Therapeutic Exercise,Balance Retraining,Discharge Planning, Neuromuscular Re-ed, Coordination Retraining Precautions Other Precautions Fall risk Weight Bearing Status Weight Bearing Status Weight Bear as Tolerated Recommendations To Nursing Amount of Assist Needed 1 Person Assist Discharge Recommendations PT Discharge Recommendations SNF Rehab Transportation Needs at Discharge Private Vehicle
[2023-12-01 12:15] LABS: Ammonia (NH3) < 9 umol/L (9-30)
[2023-12-01 12:16] LABS: Alanine Aminotransferase 61 IU/L (<35); Albumin 3.2 g/dL (3.5-5.0); Albumin Globulin Ratio 1.1 (1.0-2.8); Alkaline Phosphatase 126 U/L (38-126); Aspartate Aminotransferase 96 IU/L (14-36); Bilirubin Total 5.3 mg/dL (0.2-1.3); Bilirubin Unconjugated 5.1 mg/dL (0.0-1.1); Globulin 2.8 g/dL (1.7-4.1); HEMOLYSIS < 15 (0-50)
[2023-12-01] MEDS: METOPROLOL ER 50 MG TABLET 12.5 MG PO (12:26)
[2023-12-01] MEDS: levETIRAcetam 250 MG TABLET 500 MG PO (12:51)
--- NOTE | 2023-12-01 13:20 | P.DS_ITS ---
History of Present Illness History of Present Illness Chief complaint: Seizure/LOC Narrative: From ED doctor: Patient is a 63-year-old female with metastatic stage IV breast cancer presenting today for the 4th time to the ED. EMS reports that they were called for confusion and not feeling well however she had about a 32nd seizure in front of them. She is now postictal. She previously has been seen here for nausea vomiting found to be mildly hypokalemic with a potassium of 2.9 but tolerated oral potassium and was discharged with Zofran. She returned on November 26 with some confusion and slight headache. She had workup including brain MRI and blood work. Potassium had improved to 3.7 brain MRI did not show any acute abnormality she also had a CT abdomen pelvis which did show some ductal dilation. She has had elevated bilirubin each visit but it was high in 2021 as well. Liver enzymes are also slightly elevated no significant abdominal pain She was discharged and then returned on November 27 for an outpatient elevation of D-dimer and sent to rule out PE. She had a negative CT angio and again blood work and again discharged Updated: She has had several ED visits with different complaints. In talking with her and her neighbors, she has been working for the last 7-10 days. She would 1 episode of urinary and fecal incontinence on Saturday at her house. She then had a witnessed seizure yesterday. Laboratories reveal a lactic acidosis yesterday. She was given Keppra in the emergency department and is now on 500 b.i.d.. She denies chewing or tongue or any memory of the seizure and has no history of seizure disorder. A recent MRI of the brain with and without contrast was unremarkable. She does have cognitive delay today but is pleasant and denies headache or any distress. She was anemic, this is also subacute and she has a history of anemia which is treated with steroids by her oncologist at [facility]. She denies fevers, or chills. A lumbar puncture was attempted in the emergency department today but was not able to be completed due to her anatomy. Most history is obtained from to friends were with her. Discharge Providers Provider Date of admission: 11/30/23 09:46 Discharge Date: 12/01/23 Primary care physician: Doctor Rubina MD Consults: 11/29/23 23:39 Consult to CREATIVE SERVICES MANAGER - [employer]st Stat Comment: 11/30/23 11:01 Consult to Discharge Planning Routine Comment: Consult to CREATIVE SERVICES MANAGER - [employer]st Routine Comment: Consult to Physical Therapy Evaluate & Treat Comment: Physician Instructions: Evaluate and Treat Discharge provider: Wilder Kevin MD Summary Hospital Course Discharge Diagnosis: 1. Weakness, present on admission and active. 2. 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 Hypokalemia, present on admission and active 4. Lactic acidosis, present on admission and active. 5. New seizures (negative MRI brain w/wo contrast), present on admission and active. 6. Metastatic breast cancer, present on admission and active. 7. Possible encephalitis (acyclovir started 11/29), present on admission and active. 8. Jaundice and elevated LFT with normal abdomen US, present on admission and active 9 Abnormal CXR (pulmonary edema), present on admission and stable. Hospital Course: She was admitted with a new seizure and AMS. The patient was encephalopathic and she was started on Keppra. She also had low-grade fevers. A lumbar puncture was attempted in the ED without success. The patient had persistent encephalopathy with concerns for subclinical seizure activity contributing to encephalopathy versus the alternate diagnosis of encephalitis. She was started on acyclovir at the time of admission as well. She was discussed with Oncology on-call at [facility] as well as Neurology on-call who both supported transfer for higher level of care. She was then discuss with the hospitalist, Dr. Roa who agreed to accept her in transfer for higher level of care including EEG evaluation as well as lumbar puncture with Interventional Radiology. Dr. Caballero of neurology recommended Keppra 1500 b.i.d. in the interim in the dose was corrected. Status at Discharge Cognitive/behavioral status at discharge: confused Functional status at discharge: uses cane/walker Overall status at discharge: patient is not back to baseline Time Spent with Patient Time spent: Greater than 30 minutes Exam Vital Signs (past 8 hours): - 12/01/23 06:00 12/01/23 06:00 12/01/23 07:00 Temperature Pulse Rate 84 Respiratory Rate 27 H Blood Pressure 148/93 H Pulse Oximetry 93 Oxygen Delivery Method Nasal Cannula Oxygen Flow Rate 4 12/01/23 07:00 12/01/23 07:00 12/01/23 08:00 Temperature Pulse Rate 90 113 H Respiratory Rate 27 H Blood Pressure 121/81 121/81 Pulse Oximetry 91 94 Oxygen Delivery Method Oxygen Flow Rate 12/01/23 08:00 12/01/23 08:22 12/01/23 12:00 Temperature 97.4 F L 98.9 F Pulse Rate 106 H Respiratory Rate 22 24 Blood Pressure 127/84 Pulse Oximetry 92 93 Oxygen Delivery Method Nasal Cannula Oxygen Flow Rate 1 12/01/23 12:26 12/01/23 12:56 Temperature Pulse Rate 103 H 100 H Respiratory Rate Blood Pressure 127/81 126/83 Pulse Oximetry Oxygen Delivery Method Oxygen Flow Rate Oxygen Delivery Method Nasal Cannula Oxygen Flow Rate 1 Narrative Exam Narrative: NAD, alert and oriented. Fluent speech.Slow to answer. Follows commands. Oriented to year and place. Jaundiced. Lungs are clear, normal rate and effort. Heart is regular, no murmur gallop or rub. Abdomen is soft, non distended. Extremities are free of edema. Objective Imaging Multiple studies:: Radiologist's impression: MRI brain w and wo: 1. No acute intracranial process. 2. Mild atrophy and chronic microvascular ischemic changes. CT brain: 1. No acute intracranial abnormalities. 2. Old right occipital infarct. 3. Cerebral volume loss and chronic microvascular ischemic changes. Chest CTA: 1. No pulmonary embolus. 2. Dependent atelectasis versus small infiltrate in posterior aspect of bilateral lower lobes. Mild pulmonary edema. No pleural effusion or pneumothorax. Airway is patent. 3. Left axillary lymphadenopathy decreased in size since 2021 study. Increased soft tissue within left breast unchanged from previous study. 4. Extensive bony metastases no pathologic fracture. 5. No gross mediastinal or hilar lymphadenopathy by size criteria. Mild ectasia of ascending thoracic aorta. CXR: 1. Bilateral interstitial prominence may be secondary to pulmonary edema although superimposed pneumonia cannot be excluded. Abd Pelvis CT: Minimal appearance of intrahepatic biliary dilation. No distinct source of obstruction is identified. Pancreas is unremarkable. Abd US: Unremarkable ultrasound examination of right upper quadrant abdomen. Labs 12/01/23 04:51 12/01/23 04:51 Labs: Laboratory Results - last 24 hr 11/30/23 11/30/23 12/01/23 11:40 14:55 04:51 WBC 4.1 L RBC 2.34 L Hgb 8.8 L Hct 24.6 L MCV 105.4 H D MCH 37.6 H MCHC 35.7 RDW 23.2 H Plt Count 109 L Neut % (Auto) 61.3 Lymph % (Auto) 27.6 [place] % (Auto) 9.0 Eos % (Auto) 1.3 L Baso % (Auto) 0.8 Neut # (Auto) 2500 Lymph # (Auto) 1100 [place] # (Auto) 400 Eos # (Auto) 100 Baso # (Auto) 0 Platelet Estimate Decreased on smear RBC Morphology See below Polychromasia 1+ H Anisocytosis 2+ H Microcytosis 1+ H Macrocytosis 1+ H Schistocytes 1+ H Sodium 135 L Potassium 4.0 Chloride 113 H Carbon Dioxide 22 BUN 16 Creatinine 1.07 H Estimated GFR 58 L BUN/Creatinine Ratio 15.0 Glucose 101 Lactate 1.6 Calcium 8.4 Total Bilirubin Conjugated Bilirubin Unconjugated Bilirubin AST ALT Alkaline Phosphatase Ammonia Total Protein Albumin Globulin Albumin/Globulin Ratio Blood Type A Positive Antibody Screen Negative Crossmatch See Detail 12/01/23 11:55 WBC RBC Hgb Hct MCV MCH MCHC RDW Plt Count Neut % (Auto) Lymph % (Auto) [place] % (Auto) Eos % (Auto) Baso % (Auto) Neut # (Auto) Lymph # (Auto) [place] # (Auto) Eos # (Auto) Baso # (Auto) Platelet Estimate RBC Morphology Polychromasia Anisocytosis Microcytosis Macrocytosis Schistocytes Sodium Potassium Chloride Carbon Dioxide BUN Creatinine Estimated GFR BUN/Creatinine Ratio Glucose Lactate Calcium Total Bilirubin 5.3 H Conjugated Bilirubin 0.0 Unconjugated Bilirubin 5.1 H AST 96 H ALT 61 H Alkaline Phosphatase 126 Ammonia < 9 L Total Protein 6.0 L Albumin 3.2 L Globulin 2.8 Albumin/Globulin Ratio 1.1 Blood Type Antibody Screen Crossmatch [facility] Medical History Afib Chronic anxiety Compression fracture of fourth cervical vertebra Metastatic cancer to spine C. difficile colitis Hyperlipidemia Breast cancer Surgical History History of ankle surgery History of Family History Father CVA (cerebral vascular accident) Afib Mother Bowel obstruction Afib Social History household members: none Smoking Status: Never smoker alcohol intake: former Discharge Assessment & Plan Assessment and Plan Assessment: 1. Weakness, present on admission and active. 2. 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 Hypokalemia, present on admission and active 4. Lactic acidosis, present on admission and active. 5. New seizures (negative MRI brain w/wo contrast), present on admission and active. 6. Metastatic breast cancer, present on admission and active. 7. Possible encephalitis (acyclovir started 11/29), present on admission and active. 8. Jaundice and elevated LFT with normal abdomen US, present on admission and active 9 Abnormal CXR (pulmonary edema), present on admission and stable. Plan of Treatment: Transferred to [facility] ambulance by [facility] ambulance for further evaluation of seizures, EEG, and lumbar puncture. Discussed with Oncology, Hospital Medicine, and Neurology. Discharge Plan Discharge Plan Patient Disposition: [facility] Other facility: [facility] Under care of provider: Dr Roa (hospitalist) Provider Discharge Comment: Stable for transfer to [facility] for higher level of care. Discharge orders & Medications Prescriptions: No Action letrozole 2.5 mg tablet 2.5 mg PO DAILY rosuvastatin 20 mg tablet 20 mg PO QPM Patient Comments: TAKE 1 TABLET BY MOUTH DAILY Verzenio 150 mg tablet 150 mg PO BID metoprolol succinate [Toprol XL] 50 mg tablet extended release 24 hr 12.5 mg PO DAILY Follow up/Referrals: Doctor Cespedes MD [Primary Care Provider] - Visit Report/Discharge Packet Stand Alone Forms: Stroke Signs & Symptoms Discharge Data Primary Care Provider: Doctor Rubina Attending Provider: Wilder Kevin Admit Date/Time: 11/30/23 09:46
--- NOTE | 2023-12-01 13:36 | PC.NURSE ---
[id number] Report called to Montse LICEA at [facility]. Family and friends notified of transfer.
[2023-12-01] MEDS: LORazepam 2 MG/ML INJ 0.5 MG IV (13:51)
--- NOTE | 2023-12-01 14:30 | CM.DANOTE ---
Patient is a 63 yo female who was admitted Inpt Status on 11/30/23 for Seizure/LOC. Pt has [email or web address] for insurance and her PCP is not listed. EMR was reviewed. Per MD, pt with a hx of metastatic breast CA with mets to the bone and had witnessed seizure activity and admitted for Keppra and tx of anemia and hypokalemia. Per PT, pt impulsive and somewhat confused and 1PA and currently recommending SNF. Patient lives in [place] alone and has supportive neighbor friends and does not drive but neighbors run errands for her. Pt's Oncologist has been at [facility]. Per RN and MD, attempted hospital transfer for higher level of care needs and pt accepted and RN completed nurse report and him manager setting up transport for today for hospital transfer. NIRMALA [place] Discharge Planning/Care Management Advanced directive, confirm from FAMILY Start: 11/30/23 11:23 Freq: Q24H Status: Active Protocol: Document 11/30/23 11:23 CW (Rec: 11/30/23 12:00 CW [id number]) Advance Directive, confirm on record Time 12:00 Person contacted friend Copy received No Document 12/01/23 11:23 CW (Rec: 12/01/23 12:06 CW [id number]) Advance Directive, confirm on record Time 12:00 Person contacted friend Copy received No
== END 2023-12-01 14:15 | disposition short-term general hospital (02) | DRG 98 ==
LOC: ED 11-30 09:30 → ICU 11-30 10:49 → AC 12-02 09:24 → ICU 12-02 09:24
PROVIDERS: Emergency Medicine; Admitting Provider Hospitalist; Emergency Provider Emergency Medicine; Referring Provider Emergency Medicine; Visit Provider Hospitalist
DX: G04.90 Encephalitis and encephalomyelitis, unspecified (principal); C79.9 Secondary malignant neoplasm of unspecified site; E87.20 Acidosis, unspecified; R17 Unspecified jaundice; J81.1 Chronic pulmonary edema; R56.9 Unspecified convulsions; C50.919 Malignant neoplasm of unspecified site of unspecified female breast; D63.0 Anemia in neoplastic disease; E87.6 Hypokalemia; E78.5 Hyperlipidemia, unspecified; R79.89 Other specified abnormal findings of blood chemistry
CPT/HCPCS: 36415; 36430; 62272; 70450; 71045; 71275; 76705; 80048; 80053; 80076; 81003; 81015; 82140; 82550; 83605; 83615; 83690; 83880; 84484; 85007; 85025; 85610; 86850; 86900; 86901; 87086; 87797; 93005; 96374; 96375; 97161; 97530; 99283; 99284; 99285; 99291; 99292; G0378; P9016; J1953; J2060; Q9967